=== PATIENT | male | born 1950 | race Caucasian/White ===

== ENCOUNTER → 2016-12-16 | Outpatient (CLI) | payer OTHER ==
[~2016-12-16] MED LIST: ADVIN50/60 INH; AMLO10TA2 PO; ASPI81TA28 PO; ATOR-22 PO; CLB/200 PO; META1TAB22 PO; METO-479 PO; MULT-506 PO; OMEG10007 PO; PRLSR20 PO; TRAM-10 PO; VALS160T58 PO; VALS160T60 PO; VNTHFA/IN INH; magnesium PO
== END | disposition home or self-care (01) ==
LOC: C.LAB 11:05
PROVIDERS: ATTEND Urology
DX: C61 Malignant neoplasm of prostate (principal)

== ENCOUNTER → 2017-06-01 | Outpatient (CLI) | payer OTHER ==
[~2017-06-01] MED LIST changes: -AMLO10TA2 PO; -META1TAB22 PO; -METO-479 PO; -PRLSR20 PO; -TRAM-10 PO; -VALS160T60 PO; -VNTHFA/IN INH
[2017-06-01 08:34] LABS: BASO % 0.8 %; BASO ABS # 0.04 K/uL (0-0.2); COMPLETE YES; EOS % 4.8 %; LYMPH % 27.9 %; LYMPH ABS # 1.44 K/uL (1.2-3.4); MEAN CELL VOLUME 93.2 fL (80-100); MEAN CORPUSCULAR HEMOGLOBIN 31.1 pg (25-34); MEAN CORPUSCULAR HGB CONC 33.4 g/dl (32-36); MONO % 10.9 %; NEUT % 54.6 %; PLATELET COUNT 131 K/uL (130-400); RED BLOOD COUNT 4.72 M/uL (4.7-6.1); WHITE BLOOD COUNT 5.16 K/uL (4.8-10.8)
[2017-06-01 09:03] LABS: ALT/SGPT 33 U/L (12-78); BLOOD UREA NITROGEN 14 mg/dl (7-18); BUN/CREATININE RATIO 14.4 (10-20); CALCIUM 8.9 mg/dl (8.5-10.1); CARBON DIOXIDE 28 mmol/L (21-32); CHLORIDE 105 mmol/L (98-107); CHOLESTEROL 120 mg/dl (0-200); CREATININE 0.96 mg/dl (0.60-1.40); GLUCOSE 102 mg/dl (70-99); POTASSIUM 3.9 mmol/L (3.5-5.1); SODIUM 138 mmol/L (136-145); TRIGLYCERIDES 116 mg/dl (0-150); VERY LOW DENSITY LIPOPROT CALC 23 mg/dl
[2017-06-01 09:08] LABS: ALB/GLOB RATIO 1.3 (0.9-2); ALKALINE PHOSPHATASE 59 U/L (45-117); AST/SGOT 20 U/L (15-37); CHOLESTEROL/HDL RATIO 2.5; HDL CHOLESTEROL 48 mg/dl; LDL CHOLESTEROL CALCULATED 49 mg/dl; PROSTATE SPECIFIC ANTIGEN 0.716 ng/ml (0.000-4.000)
[2017-06-01 09:27] LABS: ESTIMATED AVERAGE GLUCOSE 105 mg/dl; HA1C FLAG Normal (Normal)
== END | disposition home or self-care (01) ==
LOC: C.LAB 07:14
PROVIDERS: ATTEND Internal Medicine
DX: C61 Malignant neoplasm of prostate (principal); R39.9 Unspecified symptoms and signs involving the genitourinary system

== ENCOUNTER 2017-07-26 08:09 | Inpatient (IN) | payer OTHER ==
--- NOTE | 2017-07-03 12:05 | PAT Medication Instructions ---
Service Date Jul 03, 2017. Current Home Medication List Albuterol Hfa (Ventolin Hfa), 2 PUFFS INH Q6H Aspirin (Aspirin Ec), 81 MG PO QAM Atorvastatin (Lipitor), 1 TAB PO QAM Celecoxib (CeleBREX), 1 CAP PO QAM Fish Oil (Alton-3), 1 CAP PO QAM Fluticasone Prop/Salmeterol (Advair Diskus 500/50 60 Dose), 1 PUFFS INH BID Multivitamin (Multivitamin), 1 TAB PO QAM Omeprazole (Prilosec), 20 MG PO QAM Valsartan/Hctz (Diovan Hct 160MG/25MG), 1 TAB PO QAM [magnesium], 250 MG PO QAM Medication Instructions For Your Scheduled Surgery - Check with surgeon for instructions: Celecoxib (CeleBREX), 1 CAP PO QAM - Hold the following medications 2 weeks prior to surgery: Fish Oil (Alton-3), 1 CAP PO QAM - Hold the following medications the morning of surgery: [magnesium], 250 MG PO QAM Valsartan/Hctz (Diovan Hct 160MG/25MG), 1 TAB PO QAM Multivitamin (Multivitamin), 1 TAB PO QAM - Take the following medications the morning of surgery with a sip of water: Omeprazole (Prilosec), 20 MG PO QAM Fluticasone Prop/Salmeterol (Advair Diskus 500/50 60 Dose), 1 PUFFS INH BID Atorvastatin (Lipitor), 1 TAB PO QAM Aspirin (Aspirin Ec), 81 MG PO QAM Albuterol Hfa (Ventolin Hfa), 2 PUFFS INH Q6H (if needed) - Take the following medications as scheduled the night before surgery: Fluticasone Prop/Salmeterol (Advair Diskus 500/50 60 Dose), 1 PUFFS INH BID Albuterol Hfa (Ventolin Hfa), 2 PUFFS INH Q6H (if needed) If you have any questions please call us at [phone] or [phone] or [phone]
--- NOTE | 2017-07-03 12:37 | DIAGNOSTIC IMAGING REPORT ---
CHEST 2 VIEWS ROUTINE CLINICAL HISTORY: Preoperative chest. Cough. Left-sided chest pain. COMPARISON STUDY: 06/10/2015 FINDINGS: The heart is normal in size. There is aortic tortuosity. There is no failure. There is no focal pulmonary consolidation. There are no pleural effusions. The patient appears hyperinflated. Emphysema is suspected. There are old left-sided rib fractures.[ IMPRESSION: No active disease in the chest. Electronically signed by: Bird Whitten M.D. 07/03/2017 12:36 PM Dictated Date/Time: 07/03/2017 12:35 PM
[2017-07-03 13:30] LABS: URINE APPEARANCE CLEAR (CLEAR); URINE BILIRUBIN NEG (NEG); URINE COLOR YELLOW; URINE NITRITE NEG (NEG); URINE SPECIFIC GRAVITY 1.013 (1.000-1.030); UROBILINOGEN NEG (NEG)
[2017-07-03 13:37] LABS: MANUAL MICROSCOPIC REQUIRED? NO; REVIEW REQ? NO
[2017-07-03 14:34] VITALS: BMI 33.0
[~2017-07-26] VITALS: Ht 177.8 cm; Wt 102.0 kg
[2017-07-26] VITALS (7 sets, daily range): BP systolic 104–160; BP diastolic 62–96; PULSE 80–126; TEMP 36.3–36.8; O2SAT 96–99; Ht 177.8 cm; Wt 102.0 kg
[~2017-07-26 08:09] MED LIST changes: +ALBUMIN HUMAN 5% 12.5 GM/250 ML VIAL IV ONE; +LACTATED RINGER'S 1000ML 1,000 ML IV SCH; +PRLSR20 PO; -VALS160T58 PO; +VALS160T60 PO; +VNTHFA/IN INH
[2017-07-26] MEDS ORDERED: PROMETHAZINE HCL INJ 12.5 MG in SODIUM CHLORIDE 0.9% 50ML 50 ML IV PRN ×2 (08:15→14:45)
[2017-07-26] MEDS ORDERED: EpHEDrine SULFATE INJ 50 MG/ML AMP IV PRN (08:15)
[2017-07-26] MEDS ORDERED: PHENYLEPHRINE 100MCG/ML 5ML SYR IV PRN (08:15)
[2017-07-26] MEDS ORDERED: METOCLOPRAMIDE HCL INJ 5 MG/ML 2 ML VIAL IV PRN ×2 (08:15→14:45)
[2017-07-26] MEDS ORDERED: FENTANYL CITRATE INJ 50 MCG/1 ML 2 ML VIAL IV PRN (08:15)
[2017-07-26] MEDS ORDERED: ONDANSETRON INJ 2 MG/ML 2 ML VIAL IV PRN ×2 (08:15→14:45)
[2017-07-26] MEDS ORDERED: HYDROmorphone INJ 1 MG/ML SYR IV PRN (08:15)
[2017-07-26] MEDS ORDERED: ATROPINE SULFATE 0.1 MG/ML 5ML SYR IV PRN (08:15)
[2017-07-26] MEDS ORDERED: FENTANYL CITRATE INJ 50 MCG/1 ML 2 ML VIAL ONE ×6 (09:52→14:59)
[2017-07-26] MEDS ORDERED: MIDAZOLAM HCL 1 MG/ML 2ML VIAL ONE (09:52)
--- NOTE | 2017-07-26 09:53 | History & Physical Bridge Note ---
H&P Re-Evaluation Bridge Note: I have examined the patient, reviewed the History & Physical and in the interval since the performance of the History & Physical I have noted the following changes of clinical significance: No changes noted
--- NOTE | 2017-07-26 09:54 | History and Physical ---
History & Physical Date Jul 26, 2017. Chief Complaint Back and bilateral leg pain History of Present Illness The patient is a 66 year old male with complaints of back and bilateral leg pain Additional History Hepatic Disease: No Endocrine Disorder: No Kidney Disease: No Hypertension: No Heart Disease: No Bleeding Tendencies: No Infectious Diseases: No Allergies Coded Allergies: No Known Allergies (Unverified , 07/26/17) Home Medications Scheduled Aspirin (Aspirin Ec), 81 MG PO QAM Atorvastatin (Lipitor), 1 TAB PO QAM Celecoxib (CeleBREX), 1 CAP PO QAM Fish Oil (Thornton-3), 1 CAP PO QAM Fluticasone Prop/Salmeterol (Advair Diskus 500/50 60 Dose), 1 PUFFS INH BID Multivitamin (Multivitamin), 1 TAB PO QAM Omeprazole (Prilosec), 20 MG PO QAM Valsartan/Hctz (Diovan Hct 160MG/25MG), 1 TAB PO QAM [magnesium], 250 MG PO QAM Physical Examination Skin: warm/dry, no rash Eyes: normal inspection, EOMI, sclerae normal ENT: normal ENT inspection, pharynx normal Head: normocephalic, atraumatic Neck: supple, no adenopathy, trachea midline Respiratory/Chest: lungs clear, normal breath sounds, no respiratory distress Cardiovascular: regular rate, rhythm, no edema, no murmur Abdomen / GI: normal bowel sounds, non tender Back: normal inspection Extremities: normal inspection, normal range of motion Neurologic/Psych: no motor/sensory deficits, alert, normal reflexes, oriented x 3 Diagnosis Lumbar spinal stenosis with scoliosis Plan of Treatment L2 to S1 decompression with T12 to pelvis fusion with iliac bolts
[2017-07-26] MEDS ORDERED: BUPIVACAINE/EPINEPHRINE 0.5% MPF 1:200,000 30 ML VIAL ONE (10:20)
[2017-07-26] MEDS ORDERED: BACITRACIN 50000 UNIT VIAL ONE (10:20)
[2017-07-26] MEDS ORDERED: CEFAZOLIN SOD 2000MG/10 ML IV PUSH IV ONE (10:33)
[2017-07-26] MEDS ORDERED: THROMBIN FOR SOLN 20000 UNIT KIT ONE (10:37)
[2017-07-26] MEDS ORDERED: HYDROmorphone INJ 2 MG/ML SYR/VIAL ONE ×2 (10:58→13:42)
[2017-07-26 13:49] LABS: HEMATOCRIT 34.3 % (42-52)
[2017-07-26] MEDS ORDERED: EpHEDrine SULFATE 50MG/5ML SYR ONE (13:53)
[2017-07-26] MEDS ORDERED: LIDOCAINE HCL 2% 2 ML VIAL (20MG/ML) ONE (13:53)
[2017-07-26] MEDS ORDERED: PROPOFOL IV EMULSION 10 MG/ML 20 ML VIAL IV ONE (13:53)
[2017-07-26] MEDS ORDERED: ONDANSETRON INJ 2 MG/ML 2 ML VIAL ONE (13:53)
[2017-07-26] MEDS ORDERED: PHENYLEPHRINE 100MCG/ML 5ML SYR ONE (13:53)
[2017-07-26] MEDS ORDERED: DEXAMETHASONE SOD INJ 4 MG/ML VIAL ONE (13:53)
[2017-07-26] MEDS ORDERED: ROCURONIUM BROMIDE 10 MG/ML 5 ML VIAL IV ONE (13:53)
[2017-07-26] MEDS ORDERED: ALBUMIN HUMAN 5% 12.5 GM/250 ML VIAL IV ONE (14:08)
[2017-07-26] MEDS ORDERED: SODIUM CHLORIDE 0.9% 1000ML 1,000 ML IV SCH (14:44)
[2017-07-26] MEDS ORDERED: DO NOT ADMINISTER PNEUMOCOCCAL VACCINE PRN ×2 (14:45)
[2017-07-26] MEDS ORDERED: ACETAMINOPHEN 500 MG TAB PO PRN (14:45)
[2017-07-26] MEDS ORDERED: LORAZEPAM INJ 0.5 MG in SYRINGE 0 ML IV PRN (14:45)
[2017-07-26] MEDS ORDERED: HYDROmorphone HCL 0.5MG/ML 50 ML CASSETTE IV PRN (14:45)
[2017-07-26] MEDS ORDERED: SOD PHOSPHATE/SOD BIPHOSPHATE ENEMA 132 ML BTL PR PRN (14:45)
[2017-07-26] MEDS ORDERED: LORAZEPAM 0.5 MG TAB PO PRN (14:45)
[2017-07-26] MEDS ORDERED: CEFAZOLIN IV 2,000 MG in DEXTROSE 5% 50ML 50 ML IV SCH (14:45)
[2017-07-26] MEDS ORDERED: BISACODYL 10 MG SUPP PR PRN (14:45)
[2017-07-26] MEDS ORDERED: NALOXONE HCL 0.4 MG/1 ML VIAL/CARP IV PRN ×2 (14:45)
[2017-07-26] MEDS ORDERED: FAMOTIDINE 20 MG TAB PO PRN (14:45)
[2017-07-26] MEDS ORDERED: ALUMINUM/MAGNESIUM SUSP 30 ML UDC PO PRN (14:45)
[2017-07-26] MEDS ORDERED: DO NOT ADMINISTER FLU VACCINE PRN ×3 (14:45)
[2017-07-26] MEDS ORDERED: hydrOXYzine HCL 25 MG TAB PO PRN (14:45)
[2017-07-26] MEDS ORDERED: ACETAMINOPHEN IV 100 ML IV PRN (14:45)
[2017-07-26] MEDS ORDERED: MAGNESIUM HYDROXIDE SUSP 30 ML UDC PO PRN (14:45)
[2017-07-26] MEDS ORDERED: FLOSEAL HEMOSTATIC MATRIX 10ML TOP ONE (14:47)
[2017-07-26 14:48] LABS: HEMATOCRIT 31.2 % (42-52)
--- NOTE | 2017-07-26 14:51 | [facility] Operative Report ---
Operative Report Operative Date Jul 26, 2017. Pre-Operative Diagnosis Lumbar spinal stenosis with scoliosis Post-Operative Diagnosis Lumbar spinal stenosis with scoliosis Procedure(s) Performed #1 lumbar decompression medial facetectomies foraminotomies L2 3 L3 4 L4 5 L5-S1. #2 posterior spinal fusion T12 to S1. #3 bilateral SI joint fusions. #4 placement posterior segmental instrumentation T12 to S1 with bilateral iliac bolts. #5 placement of locally harvested morcellized autograft in the posterior lateral gutters. #6 placement infuse collagen sponge combined with Master graft in the posterior lateral gutters and bilateral SI joints. Surgeon Dr. Dunn Distribution Collection Operator Surgeon(s) Sorin Rausch PA-C Findings Severe spinal stenosis with scoliosis Specimens none per surgeon Description of Procedure Patient was met with preoperatively case discussed all questions addressed. After informed consent was obtained patient was taken to the operative suite underwent intubation placed in a prone position the Mo table on top Seth frame. All bony prominences well-padded eyes inspected to ensure no external pressure placed upon them. This point the thoracal lumbar spine was prepped and draped in the normal sterile fashion. Sharp dissection with the assistance of Bovie cautery was performed onto an exposing the lamina and transverse processes of T12 L1 L2 L3 L4 L5 and sacral alar bilaterally. From a caudal to cephalad fashion complete laminectomy of L5 L4 L3 and L2 was performed addressing severe lateral recess and foraminal stenosis. After this complete pedicle screws were placed in T12 L1 L2 L3-L4 L5-S1 levels as well as bilateral iliac bolts. Purposes rods were then cut contoured and locked into position bilaterally. Transverse processes of T12 L1 L2 L3 L4 L5 sacral [place] as well as the bilateral SI joints were burred to subcortical bleeding bone. Infuse calm sponge mask graft locally harvested morcellized autograft was placed. Cross- link was locked in position. 15 round PIPO drain inserted. Incision was then closed with 1 Vicryl fascia 2-0 Vicryl subcutaneous tediously 4 Monocryl for final skin closure Steri-Strips sterile dressings placed. Patient we can take PACU stable condition. Please note Boo Rausch was present at the entire procedure involved in patient positioning complex portions of the surgery and final skin closure. I attest to the content of the Intraoperative Record and any orders documented therein. Any exceptions are noted below.
--- NOTE | 2017-07-26 15:11 | DIAGNOSTIC IMAGING REPORT ---
LUMBAR SPINE 2 OR 3 VIEW CLINICAL HISTORY: [id number] DECOMPRESSION/FUSION/BOLTS COMPARISON STUDY: Lumbar spine MRI November 30, 2013. Fluoroscopy time: 44.1 seconds. FINDINGS: These images demonstrate pedicle screw fusion from T12 through S1. There are bilateral pleural screws at each level with the exception of a left screw only at the L2 level. Bilateral sacroiliac bolts are in place. There are interconnecting rods. Hardware is intact. IMPRESSION: Fluoroscopic images demonstrating a T12-S1 pedicle screw fusion with placement of iliac bolts. Electronically signed by: Baltazar Oliver M.D. 07/26/2017 3:10 PM Dictated Date/Time: 07/26/2017 2:46 PM
[2017-07-26] MEDS ORDERED: HYDROmorphone HCL 0.5MG/ML 50 ML CASSETTE ONE (15:22)
--- NOTE | 2017-07-26 16:19 | Anesthesiology Progress Note ---
Anesthesia Post Op Note Date & Time Jul 26, 2017 at 16:19 Vital Signs Pain Intensity: 4 Vital Signs Past 12 Hours Date Time Temp Pulse Resp B/P (MAP) Pulse Ox O2 Delivery O2 Flow Rate FiO2 07/26/17 16:05 110 16 112/89 100 Nasal Cannula 4 07/26/17 15:55 106 16 130/88 100 Nasal Cannula 4 07/26/17 15:45 110 16 118/86 100 Oxymask 10 07/26/17 15:35 106 16 135/94 100 Oxymask 10 07/26/17 15:26 36.5 94 16 138/97 97 Oxymask 10 07/26/17 08:30 36.5 80 20 160/96 98 Room Air Notes Mental Status: alert / awake / arousable, participated in evaluation Pt Amnestic to Procedure: Yes Nausea / Vomiting: adequately controlled Pain: adequately controlled Airway Patency, RR, SpO2: stable & adequate BP & HR: stable & adequate Hydration State: stable & adequate Anesthetic Complications: no major complications apparent
[2017-07-26] MEDS ORDERED: LORAZEPAM 2 MG/ML 1 ML VIAL IV PRN (16:45)
[2017-07-26] MEDS: CEFAZOLIN IV 2,000 MG in SYRINGE 0 ML IV SCH (17:56)
[2017-07-26] MEDS: SODIUM CHLORIDE 0.9% 1000ML 1,000 ML IV SCH ×2 (17:58→21:08)
[2017-07-26] MEDS: DEXAMETHASONE INJ 6 MG in SYRINGE 0 ML IV SCH (21:05)
[2017-07-26] MEDS: FLUTICASONE/SALMETEROL (ADVAIR) 500/50 INH 14 PUFF INH SCH (21:05)
[2017-07-26] MEDS: DOCUSATE SODIUM/SENNA 50/8.6MG TAB PO SCH (21:06)
[2017-07-27] VITALS (8 sets, daily range): BP systolic 96–128; BP diastolic 59–77; PULSE 81–92; TEMP 36.6–37.2; O2SAT 90–98
[2017-07-27] MEDS: CEFAZOLIN IV 2,000 MG in SYRINGE 0 ML IV SCH (02:11)
[2017-07-27] MEDS: SODIUM CHLORIDE 0.9% 1000ML 1,000 ML IV SCH ×2 (03:35→08:56)
[2017-07-27] MEDS ORDERED: DC PCA SCH (06:00)
[2017-07-27] MEDS ORDERED: HYDROmorphone INJ 0.5 MG/0.5 ML SYR IV PRN (06:00)
[2017-07-27] MEDS: DEXAMETHASONE INJ 6 MG in SYRINGE 0 ML IV SCH ×2 (06:07→13:51)
[2017-07-27 06:52] LABS: HEMATOCRIT 24.4 % (42-52); IG% 0.7 %; LYMPH % 6.7 %; LYMPH ABS # 0.83 K/uL (1.2-3.4); MEAN CELL VOLUME 92.4 fL (80-100); MEAN CORPUSCULAR HEMOGLOBIN 31.8 pg (25-34); MEAN CORPUSCULAR HGB CONC 34.4 g/dl (32-36); MEAN PLATELET VOLUME 8.8 fL (7.4-10.4); MONO % 5.3 %; NEUT % 87.3 %; PLATELET COUNT 137 K/uL (130-400); RED BLOOD COUNT 2.64 M/uL (4.7-6.1); WHITE BLOOD COUNT 12.41 K/uL (4.8-10.8)
[2017-07-27 07:10] LABS: BUN/CREATININE RATIO 12.6 (10-20); CALCIUM 7.5 mg/dl (8.5-10.1); CREATININE 0.84 mg/dl (0.60-1.40); POTASSIUM 4.4 mmol/L (3.5-5.1)
[2017-07-27] MEDS: HYDROmorphone INJ 1 MG/ML SYR IV PRN ×2 (07:31→10:24)
[2017-07-27 07:40] LABS: COMPLETE YES
[2017-07-27] MEDS: PANTOprazole SOD 40 MG TAB PO SCH (08:50)
[2017-07-27] MEDS: HYDROCHLOROTHIAZIDE 25 MG TAB PO SCH (08:50)
[2017-07-27] MEDS: FLUTICASONE/SALMETEROL (ADVAIR) 500/50 INH 14 PUFF INH SCH ×2 (08:50→20:36)
[2017-07-27] MEDS: VALSARTAN 80 MG TAB PO SCH (08:51)
[2017-07-27] MEDS: ASPIRIN 81 MG ECTAB PO SCH (08:51)
[2017-07-27] MEDS: ATORVASTATIN 20 MG TAB PO SCH (08:51)
[2017-07-27] MEDS ORDERED: VALSARTAN/HCTZ 80/12.5 MG TAB PO SCH (09:00)
--- NOTE | 2017-07-27 11:00 | Progress Note ---
Progress Note Date of Service Jul 27, 2017. Progress Note Patient's back pain is controlled. His leg symptoms are improved. He tolerated physical therapy well this morning. Vital signs are stable hemoglobin 8.4. On exam is good strength testing is sitting upright alert and oriented. Assessment status post lumbar decompression fusion per plan this time we will transfer the orthopedic floor continue physical therapy advance his bowel regiment. We'll assess a.m. hematocrit consider transfusion below 8.
[2017-07-27] MEDS: OXYCODONE HCL IR 5 MG TAB (IMMEDIATE RELEASE) PO PRN ×2 (13:51→18:58)
[2017-07-27] MEDS ORDERED: NURSING VERBAL MED ORDER ONE (14:00)
[2017-07-27] MEDS: DOCUSATE SODIUM/SENNA 50/8.6MG TAB PO SCH (20:36)
[2017-07-28] VITALS (15 sets, daily range): BP systolic 101–146; BP diastolic 63–88; PULSE 78–97; TEMP 36.7–36.9; O2SAT 94–100
[2017-07-28] MEDS: OXYCODONE HCL IR 5 MG TAB (IMMEDIATE RELEASE) PO PRN ×4 (00:02→21:37)
[2017-07-28] MEDS: POLYETHYLENE (MIRALAX) 17 GM PACK PO SCH ×4 (05:46→23:19)
[2017-07-28 06:56] LABS: HEMATOCRIT 21.5 % (42-52)
[2017-07-28] MEDS: ASPIRIN 81 MG ECTAB PO SCH (08:24)
[2017-07-28] MEDS: PANTOprazole SOD 40 MG TAB PO SCH (08:24)
[2017-07-28] MEDS: ATORVASTATIN 20 MG TAB PO SCH (08:24)
[2017-07-28] MEDS: FLUTICASONE/SALMETEROL (ADVAIR) 500/50 INH 14 PUFF INH SCH ×2 (08:24→21:00)
[2017-07-28] MEDS: VALSARTAN 80 MG TAB PO SCH ×2 (08:27→12:19)
[2017-07-28] MEDS: HYDROCHLOROTHIAZIDE 25 MG TAB PO SCH ×2 (08:28→12:19)
[2017-07-28] MEDS: DOCUSATE SODIUM/SENNA 50/8.6MG TAB PO SCH (21:28)
[2017-07-29] MEDS ORDERED: NURSING DECISION MEDICATION ORDER SCH (04:30)
[2017-07-29 06:14] LABS: HEMATOCRIT 26.3 % (42-52)
[2017-07-29 06:32] VITALS: BP 131/78; PULSE 85; TEMP 37.1; O2SAT 95
[2017-07-29] MEDS: VALSARTAN 80 MG TAB PO SCH (07:14)
[2017-07-29] MEDS: PANTOprazole SOD 40 MG TAB PO SCH (07:14)
[2017-07-29] MEDS: HYDROCHLOROTHIAZIDE 25 MG TAB PO SCH (07:14)
[2017-07-29] MEDS: ASPIRIN 81 MG ECTAB PO SCH (07:15)
[2017-07-29] MEDS: ATORVASTATIN 20 MG TAB PO SCH (07:15)
[2017-07-29] MEDS: FLUTICASONE/SALMETEROL (ADVAIR) 500/50 INH 14 PUFF INH SCH ×2 (07:17→21:00)
[2017-07-29] MEDS: OXYCODONE HCL IR 5 MG TAB (IMMEDIATE RELEASE) PO PRN ×3 (07:19→19:18)
--- NOTE | 2017-07-29 07:44 | Anesthesiology Progress Note ---
Anesthesia Post Op Note Date & Time Jul 29, 2017 at 07:44 Vital Signs Vital Signs Past 12 Hours Date Time Temp Pulse Resp B/P (MAP) Pulse Ox O2 Delivery O2 Flow Rate FiO2 07/29/17 06:32 37.1 85 18 131/78 (95) 95 Room Air 07/28/17 23:33 36.9 82 16 146/85 (105) 99 Room Air 07/28/17 21:49 Room Air Notes Mental Status: alert / awake / arousable, participated in evaluation Pt Amnestic to Procedure: Yes Nausea / Vomiting: adequately controlled Pain: adequately controlled Airway Patency, RR, SpO2: stable & adequate BP & HR: stable & adequate Hydration State: stable & adequate Anesthetic Complications: no major complications apparent
--- NOTE | 2017-07-29 13:23 | Progress Note ---
Progress Note Date of Service Jul 29, 2017. Progress Note Patient's back pain is controlled today. Leg pain improved. A bowel movement yesterday. Tolerating physical therapy well. Vital signs are stable. PIPO drain still over 100 mL. Assessment status post multilevel lumbar decompression fusion. Plan at this time will maintain the PIPO drain another day anticipate discharge home tomorrow.
[2017-07-29] MEDS ORDERED: RXC5 PO (15:00)
--- NOTE | 2017-07-29 15:01 | Discharge Instructions ---
Discharge Instructions Date of Service Jul 29, 2017. Admission Reason for Admission: Spinal Stenosis Discharge Discharge Diagnosis / Problem: lumbar spinal stenosis Discharge Goals Goal(s): Improve function Activity Recommendations Activity Limitations: per Instructions/Follow-up section . Instructions / Follow-Up Instructions / Follow-Up ACTIVITY RECOMMENDATIONS: SELF CARE INSTRUCTIONS AFTER THORACIC/LUMBAR FUSIONS 1. You may walk to your tolerance. It is good exercise for your legs and back. Expect some back and intermittent leg aches and pains. 2. You may perform "counter-top" level activities (make a sandwich, paulo with a project, etc.). 3. No bending or lifting of more than 10 pounds or back twisting of any nature (roll like a log when turning in bed). 4. You may ride in a car for 20-30 minutes at a time. No driving until after your first visit with your doctor. 5. Frequent changes of position and restricting sitting to 30 minutes at a time will help limit the amount of back spasms and stiffness you may experience. 6. You may discontinue the use of ambulatory aids (cane, crutches, etc.) once your strength and confidence allow. 7. You may compressor station chief engineer the shower and let water strike your incision when you arrive home at least once daily. Do not take a tub bath, sit in a hot tub or go into a swimming pool until after your first recheck in the office. SPECIAL CARE INSTRUCTIONS: VERY IMPORTANT TO READ AND REVIEW A. Your surgical incision has been closed with a cosmetic suture under the skin that will dissolve in about 6 weeks. In 14 days, you can use a pair of clean scissors and cut the suture that is left outside of the skin at the ends of your incision. 1. The small skin tapes can be removed 7 days after surgery if they have not fallen off by that point. 2. You may keep the wound open to air as much as possible to promote healing after post-op day number 5 unless told otherwise by your doctor. 3. If you think the wound looks like it is becoming infected (redness or worsening drainage) and/or you are experiencing fever, chill or worsening back pain and muscle spasms, contact the office so that we may evaluate you as soon as possible. B. Complications are uncommon, but please contact us if you have any signs or symptoms of: 1. wound infection (fever higher than 102.5 degrees F, redness, separation of wound, drainage, or increasing pain from the incision) 2. blood clots in legs (pain, swelling, redness and warmth in legs) 3. urinary tract infection (fever higher than 102.5 degrees F, burning upon urination or increased frequency of urination) 4. nerve problems (inability to walk on your toes or heels, numbness, loss of bowel or bladder control) 5. any other symptoms that concern you C. Please call the office at if you have any concerns or questions about your operation or recovery. D. No smoking! Smoking drastically decreases the chance of a solid fusion. E. Do not take any anti-inflammatory medications (Indocin, Advil, Motrin, Aspirin, Naprosyn, etc.) as these may inhibit the chance of a solid fusion. Tylenol is okay to take for pain. MANAGING PAIN AFTER SPINAL SURGERY 1. Narcotic medication is intended for short-term use and will be provided for surgical pain. Surgical pain usually lasts for a period of 4-6 weeks. Narcotic medication includes Percocet, Vicodin, Darvocet, Tylenol #3 or Lortab. 2. Longer-term pain is more appropriately treated with non-narcotic medication such as Tylenol ES. 3. Muscle spasm is not appropriately treated with narcotics. Muscle relaxers such as Soma, Flexeril or Skelaxin can be used along with Tylenol ES. 4. Remember that we all live with some "aches and pains". This is not unusual or uncommon after an injury or as we get older. a. Back pain is expected and may include muscle spasms for 4 to 6 weeks after surgery. The pain should gradually improve. If the pain worsens for no apparent reason, please contact the office. b. Intermittent leg pain may also be experienced and should not be concerned about unless it worsens for no apparent reason. If so, please contact the office. 5. We will provide appropriate medication within the normal guidelines of their prescribed use. We will also be very cautious and aware of potential abuse and extended duration of patients' medication needs. a. Pain medications are for your comfort and to assist with sleep and rest so that the tissue can heal. They are not provided in order to return to normal activity and should not be used through the day. To do so or worsening pain at night can result from ongoing tissue damage and development of tolerance to the prescribed medicine. 6. Please allow 2-3 days to process refills. Prescriptions will not be mailed but must be picked up at the office. FOLLOW UP VISIT: Keep your scheduled follow-up appointment. Any questions, please call the office at . Current Hospital Diet Patient's current hospital diet: Regular Diet Discharge Diet Recommended Diet: Regular Diet Procedures Procedures Performed: #1 lumbar decompression medial facetectomies foraminotomies L2 3 L3 4 L4 5 L5-S1. #2 posterior spinal fusion T12 to S1. #3 bilateral SI joint fusions. #4 placement posterior segmental instrumentation T12 to S1 with bilateral iliac bolts. #5 placement of locally harvested morcellized autograft in the posterior lateral gutters. #6 placement infuse collagen sponge combined with Master graft in the posterior lateral gutters and bilateral SI joints. Pending Studies Studies pending at discharge: no Laboratory Results Hemoglobin A1c Test 06/01/17 07:19 Range/Units Estimated Average Glucose 105 mg/dl Hemoglobin A1c 5.3 4.5-5.6 % Lipid Panel Test 06/01/17 07:19 Range/Units Triglycerides Level 116 0-150 mg/dl Cholesterol Level 120 0-200 mg/dl HDL Cholesterol 48 mg/dl Cholesterol/HDL Ratio 2.5 LDL Cholesterol, Calculated 49 mg/dl Medical Emergencies . Who to Call and When: Medical Emergencies: If at any time you feel your situation is an emergency, please call 911 immediately. . Non-Emergent Contact Non-Emergency issues call your: Primary Care Provider . "Provider Documentation" section prepared by Ga Dunn. . VTE Core Measure Inpt VTE Proph given/why not?: Camila Asher, SCD's
[2017-07-29 15:10] VITALS: BP 157/83; PULSE 84; TEMP 37; O2SAT 95
[2017-07-29] MEDS: DOCUSATE SODIUM/SENNA 50/8.6MG TAB PO SCH (21:00)
[2017-07-29 23:02] VITALS: BP 129/77; PULSE 92; TEMP 37.7; O2SAT 92
[2017-07-30] MEDS: OXYCODONE HCL IR 5 MG TAB (IMMEDIATE RELEASE) PO PRN ×2 (06:40→14:22)
[2017-07-30 07:21] VITALS: BP 98/63; PULSE 84; TEMP 36.8; O2SAT 95
[2017-07-30] MEDS: FLUTICASONE/SALMETEROL (ADVAIR) 500/50 INH 14 PUFF INH SCH (07:38)
[2017-07-30] MEDS: PANTOprazole SOD 40 MG TAB PO SCH (07:38)
[2017-07-30] MEDS: ATORVASTATIN 20 MG TAB PO SCH (07:38)
[2017-07-30] MEDS: ASPIRIN 81 MG ECTAB PO SCH (07:38)
[2017-07-30] MEDS: VALSARTAN 80 MG TAB PO SCH (07:39)
[2017-07-30 07:40] VITALS: BP 111/72
[2017-07-30] MEDS: HYDROCHLOROTHIAZIDE 25 MG TAB PO SCH (07:43)
--- NOTE | 2017-07-30 12:35 | Discharge Summary ---
Orthopedic Discharge Summary Admission Date/Reason Jul 26, 2017 at 15:43 Spinal Stenosis. Discharge Date/Disposition Jul 30, 2017 Home Diagnosis Principal Diagnosis: Lumbar spinal stenosis Admission Physical Exam As per Admitting History & Physical. Hospital Course Patient underwent lumbar decompression fusion tolerated this well as taken to the orthopedic floor postoperatively. Postoperative day #1 is up and amatory progressed nicely through postoperative day #2 and 3 and centrally discharged home postop day #4. Discharge orders and instructions found the chart for further review. Discharge Instructions Please refer to the electronic Patient Visit Report (Discharge Instructions) for additional information.
[2017-07-30 13:33] VITALS: BP 111/72; PULSE 84; TEMP 36.8; O2SAT 95
[2017-07-30 14:19] VITALS: TEMP 36.8
== END 2017-07-30 15:20 | disposition home or self-care (01) | DRG 460 ==
LOC: C.ACU 08:09 → C.2E 15:43 → ENRESERV 15:58 → C.3E 07-27 10:58 → ENRESERV 07-27 11:24
PROVIDERS: ADMIT Orthopaedic Surgery Orthopaedic Surgery of the Spine; ATTEND Orthopaedic Surgery Orthopaedic Surgery of the Spine
PROC: 0SG10AJ Fusion of 2 or more Lumbar Vertebral Joints with Interbody Fusion Device, Posterior Approach, Anterior Column, Open Approach (ICD-10-PCS; principal; 2017-07-26 10:15)
DX: M48.061 Spinal stenosis, lumbar region without neurogenic claudication (principal); M41.9 Scoliosis, unspecified; Z79.82 Long term (current) use of aspirin

== ENCOUNTER → 2017-10-08 | Outpatient (CLI) | payer OTHER ==
[~2017-10-08] MED LIST changes: -ALBUMIN HUMAN 5% 12.5 GM/250 ML VIAL IV ONE; -CLB/200 PO; -LACTATED RINGER'S 1000ML 1,000 ML IV SCH; +RXC5 PO; -VNTHFA/IN INH
[2017-10-08 13:35] LABS: BLOOD UREA NITROGEN 13 mg/dl (7-18); CALCIUM 9.4 mg/dl (8.5-10.1); CARBON DIOXIDE 27 mmol/L (21-32); GLUCOSE 111 mg/dl (70-99); SODIUM 131 mmol/L (136-145)
== END | disposition home or self-care (01) ==
LOC: C.LABBC 10:41
PROVIDERS: ATTEND Family Medicine Adult Medicine
DX: D50.9 Iron deficiency anemia, unspecified (principal); R00.2 Palpitations

== ENCOUNTER 2020-06-03 07:47 | Inpatient (IN) ==
--- NOTE | 2020-04-20 16:15 | PAT Medication Instructions ---
Medication Instructions Date of Service April 20, 2020 Home Medications Medication Instructions Recorded Flutter Valve #1 ea 06/17/19 gabapentin 100 mg capsule 100 mg PO .COMPLEX #240 cap 01/29/20 Oxygen Home #1 ea 03/29/20 albuterol sulfate 90 mcg/actuation 2 puff INH Q4H PRN #18 g 03/29/20 aerosol inhaler Oxygen Home #1 ea 04/11/20 aspirin 81 mg tablet,delayed release 81 mg PO QAM magnesium 250 mg tablet 250 mg PO QAM multivitamin 1 tab PO QAM omega-3 fatty acids 1,000 mg capsule 1,000 mg PO QAM omeprazole 20 mg capsule,delayed release 20 mg PO QAM gabapentin 100 mg capsule 100 mg PO TID .COMPLEX albuterol sulfate 90 mcg/actuation aerosol inhaler 2 puff INH Q4H PRN albuterol sulfate 2.5 mg INHALATION BID atorvastatin 20 mg PO QAM [id number] [Trelegy Ellipta] 1 puffs INH QAM telmisartan-hydrochlorothiazid 1 tab PO QAM STOP taking 2 weeks before surgery omega-3 fatty acids 1,000 mg capsule 1,000 mg PO QAM DO NOT take the morning of surgery magnesium 250 mg tablet 250 mg PO QAM multivitamin 1 tab PO QAM telmisartan-hydrochlorothiazid 1 tab PO QAM Take morning of surgery With a small sip of water, OTHERWISE NOTHING TO EAT OR DRINK AFTER MIDNIGHT: aspirin 81 mg tablet,delayed release 81 mg PO QAM omeprazole 20 mg capsule,delayed release 20 mg PO QAM gabapentin 100 mg capsule 100 mg PO TID .COMPLEX albuterol sulfate 90 mcg/actuation aerosol inhaler 2 puff INH Q4H PRN (if needed) albuterol sulfate 2.5 mg INHALATION BID atorvastatin 20 mg PO QAM [id number] [Trelegy Ellipta] 1 puffs INH QAM Take evening before surgery gabapentin 100 mg capsule 100 mg PO TID .COMPLEX albuterol sulfate 90 mcg/actuation aerosol inhaler 2 puff INH Q4H PRN (if needed) albuterol sulfate 2.5 mg INHALATION BID Other Notes If you have any questions please call us at [phone] or [phone] or [phone] or [phone]
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
--- NOTE | 2020-04-22 10:58 | XRay Report ---
XR chest Pre-admission PA/Lat HISTORY: 69 years-old Male pat preoperative exam. No acute chest complaints COMPARISON: CT chest 03/08/2020 TECHNIQUE: PA and lateral views of the chest FINDINGS: Cardiac mediastinal and hilar silhouettes are within normal limits. Moderate emphysema with chronic i nterstitial coarsening. No pneumothorax, pleural effusion, airspace consolidation or overt pulmonary edema. Degenerative changes of the shoulders and spine. Partially imaged thoracolumbar spinal fusion hardware. IMPRESSION: Emphysema without acute process. ACT 112: Negative or not required by law. The above report was generated using voice recognition software. It may contain grammatical, syntax o r spelling errors. Electronically signed by: Lino Berger M.D. 04/22/2020 10:56 AM
[2020-04-22 11:44] LABS: Basophils # (auto) 0.03 K/uL (0-0.2); Basophils % (auto) 0.6 %; Eosinophils # (auto) 0.15 K/uL (0-0.5); Eosinophils % (auto) 2.9 %; Hematocrit (blood only) 43.9 % (42-52); Hemoglobin 14.7 g/dL (14.0-18.0); Immature Granulocytes # (auto) 0.03 K/uL (0.00-0.02); Immature Granulocytes % (auto) 0.6 %; Lymphocytes # (auto) 1.24 K/uL (1.2-3.4); Lymphocytes % (auto) 24.2 %; Mean Corpuscular Hemoglobin 30.4 pg (25-34); Mean Corpuscular Hgb Conc 33.5 g/dL (32-36); Mean Corpuscular Volume 90.9 fL (80-100); Mean Platelet Volume 9.6 fL (7.4-10.4); Monocytes # (auto) 0.42 K/uL (0.11-0.59); Monocytes % (auto) 8.2 %; Neutrophils # (auto) 3.26 K/uL (1.4-6.5); Neutrophils % (auto) 63.5 %; Platelet Count 149 K/uL (130-400); RDW Standard Deviation 43.1 fL (36.4-46.3); Red Blood Count 4.83 M/uL (4.7-6.1); White Blood Count 5.13 K/uL (4.8-10.8)
[2020-04-22 11:54] LABS: BUN Creatinine Ratio 13.4 (10-20); Calcium 8.9 mg/dl (8.5-10.1); Creatinine Clr Calc Pharmacy 97.9 ml/min; Est GFR (African American) 101.6; Est GFR (Non-African American) 87.6; Potassium 4.3 mmol/L (3.5-5.1)
[2020-04-22 11:56] LABS: INR 1.1 (0.9-1.1); Partial Thromboplastin Ratio 1.1; Partial Thromboplastin Time 30.5 Seconds (21.0-31.0); Prothrombin Time 11.2 Seconds (9.0-12.0)
--- NOTE | 2020-04-22 12:49 | Electrocardiogram Report ---
Test Reason : Blood Pressure : / mmHG Vent. Rate : 068 BPM Atrial Rate : 068 BPM P-R Int : 180 ms QRS Dur : 100 ms QT Int : 394 ms P-R-T Axes : 069 049 064 degrees QTc Int : 418 ms Normal sinus rhythm Normal ECG When compared with ECG of 03-JUL-2017 12:13, No significant change was found Confirmed by Arsenio Whipple ([id number]) on 04/22/2020 12:48:45 PM Referred By: Faizan Hernández Confirmed By:Gentry Whipple
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
[~2020-06-03 07:47] MED LIST changes: +ACETAMINOPHEN 500 MG TAB PO SCH; -ADVIN50/60 INH; -ASPI81TA28 PO; -ATOR-22 PO; +BUPIVACAINE 0.5 % 5 MG/1 ML PF 10ML VIAL ONE; +FAMOTIDINE 20 MG TAB PO SCH; +GABAPENTIN 300 MG CAP PO SCH; +LR 15ML/HR IV SCH; +LR 60ML/HR IV SCH; -MULT-506 PO; -OMEG10007 PO; -PRLSR20 PO; +ROPIVACAINE 0.5% HCL/PF 150 MG, BUPIVACAINE 0.5% MPF 30 ML, EPINEPHrine 30MG/30ML (OR U... INSTIL SCH; -RXC5 PO; +TRANEXAMIC ACID 1,000 MG **IV Intra-op IV SCH; +TRANEXAMIC ACID 1,000 MG **IV Pre-op IV SCH; -VALS160T60 PO; +ceFAZolin 2000MG 2,000 MG/15 ML SYR IV SCH; +dexAMETHasone 4 MG TAB PO SCH; -magnesium PO
--- NOTE | 2020-06-03 08:36 | History & Physical Bridge Note ---
Date of Service June 03, 2020 History & Physical Bridge Note I have examined the patient, reviewed the History & Physical and in the interval since the performance of the History & Physical I have noted the following changes of clinical significance: no changes noted
[2020-06-03] MEDS ORDERED: ORTHO JOINT ANESTHETIC ONE (08:59)
[2020-06-03] MEDS ORDERED: BUPIVACAINE/EPINEPHRINE 0.25% 1:200,000 30 ML VIAL ONE (09:01)
[2020-06-03] MEDS ORDERED: ROCURONIUM BROMIDE 10 MG/ML 5 ML VIAL IV ONE (09:03)
[2020-06-03] MEDS ORDERED: DEXAMETHASONE SOD INJ 4 MG/ML VIAL ONE (09:03)
[2020-06-03] MEDS ORDERED: PROPOFOL IV EMULSION 10 MG/ML 20 ML VIAL IV ONE (09:03)
[2020-06-03] MEDS ORDERED: MIDAZOLAM HCL 1 MG/ML 2ML VIAL ONE (09:03)
[2020-06-03] MEDS ORDERED: SUCCINYLCHOLINE CHLORIDE 20 MG/ML 10 ML VIAL IV ONE (09:03)
[2020-06-03] MEDS ORDERED: LIDOCAINE HCL 2% 2 ML VIAL/AMP(20MG/ML) INFIL ONE (09:03)
[2020-06-03] MEDS ORDERED: ONDANSETRON INJ 2 MG/ML 2 ML VIAL ONE (09:03)
--- NOTE | 2020-06-03 11:18 | Operative Report ---
PG Post Operative Report Pre & Post Diagnosis Operation Date: 06/03/20 10:00 Pre-Op Diagnosis: Right Shoulder Degenerative Joint Disease with tendinopathy of the long head of biceps tendon Post-Op Diagnosis: Right Shoulder Degenerative Joint Disease with tendinopathy of the long head of the biceps tendon I identified the patient and participated in the time-out.: Yes Procedure Operation Date: 06/03/20 10:00 Actual Procedures p Right Total Shoulder Arthroplasty, Cemented with open biceps tenodesis as a distinct and separate procedure (modifier 59) (Right) - Faizan Hernández DO Surgeon Faizan Hernández DO Sales Attendant [employer] Faizan Gonzalez PAC Estimated Blood Loss 300 Findings Consistent with Post-Op Diagnosis Specimens Right humeral head Complications none Disposition Disposition: Recovery Room Indications Tyrell is a pleasant 69-year-old male who is been dealing with chronic right shoulder pain. X-rays and clinical examination were diagnostic for advanced osteoarthritis of the right shoulder. After failing conservative treatment, he elected to proceed with a right total shoulder arthroplasty. Description of Procedure A CPT code modifier 59: The long head of the biceps tendon was enlarged and inflamed consistent with tendinopathy. A tenodesis was opted. This was a separate and distinct portion of the procedure. For these reasons, a CPT code modifier 59 will be added to this case. Implants used: I used a [employer] Comprehensive total shoulder arthroplasty system with a size 15 press fit micro humeral stem, a size 50 x 21 eccentric humeral head, and a size 4 glenoid with a trabecular metal peg. The glenoid was cemented in place with Palacos G cement. Tyrell arrived at [facility] for the above procedure. He was seen in the preoperative holding area and the operative extremity was identified and signed. He was given a preoperative antibiotic, TXA, and an interscalene nerve block. He was taken back to the operating room, laid on table in supine position, and put under general anesthesia. He was then put into the beachchair position. The shoulder was then prepped and draped in sterile fashion. A timeout was done and the patient and the operative extremity was properly identified. A deltopectoral approach was used. Dissection was taken down through the fascia and the deltoid was retracted laterally and the conjoined tendon was retracted medially. The anterior shoulder was exposed. The biceps groove was opened up and the biceps tendon was examined extensively. The biceps tendon demonstrated enlargement and inflammatory changes consistent with longstanding inflammation in the context of osteoarthritis. The long head of the biceps tendon was then tenodesed to the upper border of the pectoralis major. This was a separate and distinct portion of the procedure. The subscapularis was then released off the lesser tuberosity with a centimeter of cuff tissue remaining. The inferior capsule was released and the humeral head was dislocated. The rotator cuff was inspected and intact. A canal finding reamer was sent down the center of the humeral canal. Sequential reaming up to a size 15 reamer was done. Offset reamer a proximal humeral resection guide was placed. The proximal humerus was resected at 135 of inclination and 30 of retroversion. Inferior osteophytes were then removed and the glenoid was exposed. Time was spent doing an appropriate labral release. The glenoid measured to be a size 4. A 3.2 mm Steinmann pin was placed in the central hole of the glenoid vault pin guide. The glenoid was then reamed with a propeller reamer. The central post cutter was then used to prepare for the central boss. The cannulated peripheral peg drill guide was then placed and 3 peg holes were drilled. The final size 4 glenoid was then cemented in place with Palacos G cement. Surrounding soft tissues were then injected with 100 cc of an orthopedic pain control cocktail. Once cement had dried the proximal humerus was once again exposed. Sequential broaching of the humerus up to a size 15 broach was done. Off that broach a size 50 x 21 eccentric humeral head was trialed. The shoulder was then reduced, brought through a full range of motion, and felt to be stable. The shoulder was then dislocated and the broach was removed. The final size 15 micro humeral stem implant was then impacted into place. A size 50 x 21 eccentric humeral head was then impacted onto the humeral stem. The shoulder was then reduced and once again brought through a full range of motion and felt to be stable. The subscapularis was then tenodesed back to the lesser tuberosity with transosseous FiberWire sutures and side to side sutures with the arm in 45 of external rotation. 2 sutures were placed in the lateral rotator interval. A dilute betadyne lavage was then done for 3 minutes. The joint was then irrigated with normal saline solution. Hemostasis was obtained. The interval was closed with 2-0 Vicryl suture. The skin was closed with 2-0 Vicryl and ryan. A Silverlon dressing was placed and the arm was rested in a regular arm sling. He was then extubated and transferred to a hospital bed. He was taken to the postanesthesia care unit in stable condition. He tolerated the procedure well. Faizan Gonzalez PA-C, was present for the entire procedure. He was critical for patient positioning, prepping, draping, retraction exposure, wound closure and application of sterile dressing. I attest to the content of the Intraoperative Record and any orders documented therein. Any exceptions are noted below.
--- NOTE | 2020-06-03 12:16 | XRay Report ---
XR shoulder RT min 2V routine CLINICAL HISTORY: Post shoulder surgery COMPARISON: CT scan dated 04/22/2020 DISCUSSION: There are postsurgical changes of a total right shoulder arthroplasty. There is no disloc ation. There are overlying skin ryan. IMPRESSION: Postsurgical changes of a total right shoulder arthroplasty ACT 112: Negative or not required by law. Electronically signed by: Bird Whitten M.D. 06/03/2020 12:14 PM
[2020-06-03] MEDS ORDERED: ATROPINE SULFATE 0.1 MG/ML 10ML SYR IV PRN (12:33)
[2020-06-03] MEDS ORDERED: ePHEDrine sulfate 50 MG/ML AMP IV PRN (12:33)
[2020-06-03] MEDS ORDERED: fentaNYL citrate 100 MCG/2 ML VIAL IV PRN (12:33)
--- NOTE | 2020-06-03 12:34 | Anesthesiology Progress Note ---
Date of Service June 03, 2020 Anesthesia Post Procedure Vital Signs Vital Signs: Temp Pulse Pulse Resp BP Pulse Ox 06/03/20 12:30 36.3 C L 76 22 127/84 96 06/03/20 12:20 80 24 133/87 93 06/03/20 12:10 84 19 138/90 98 06/03/20 12:00 85 21 149/90 H 95 06/03/20 11:50 76 19 152/93 H 93 06/03/20 11:44 36.3 C L 82 15 156/89 H 94 06/03/20 08:36 37.1 C 90 20 173/96 H 99 Pain Intensity Right Shoulder: Pain Intensity: 0 Transfer of Care Handoff Completed per policy Notes Mental Status: alert / awake / arousable and participated in evaluation Patient Amnestic to Procedure: Yes Nausea / Vomiting: adequately controlled Pain: adequately controlled Airway Patency, RR, SpO2: stable & adequate BP & HR: stable & adequate Hydration State: stable & adequate Anesthetic Complications: no major complications apparent and Pt Satisfied with anesthetic care
[2020-06-03] MEDS ORDERED: NALOXONE HCL 0.4 MG/1 ML VIAL/CARP IV PRN (16:14)
[2020-06-03] MEDS ORDERED: bisacodyL 10 MG SUPP PR PRN (16:14)
[2020-06-03] MEDS ORDERED: ONDANSETRON INJ 2 MG/ML 2 ML VIAL IV PRN (16:14)
[2020-06-03] MEDS ORDERED: HYDROmorphone INJ 0.5 MG/0.5 ML SYR IV PRN (16:14)
[2020-06-03] MEDS ORDERED: METOCLOPRAMIDE HCL INJ 5 MG/ML 2 ML VIAL IV PRN (16:14)
[2020-06-03] MEDS ORDERED: MAGNESIUM HYDROXIDE SUSP 30 ML UDC PO PRN (16:14)
[2020-06-03] MEDS ORDERED: oxyCODONE HCL IR 5 MG TAB (IMMEDIATE RELEASE) PO PRN (16:14)
[2020-06-03] MEDS ORDERED: ALBUTEROL HFA 8 GM INHALER INH PRN (16:30)
[2020-06-03] MEDS ORDERED: COUGH DROP (SUGAR FREE) LOZ 24 LOZ/1 BOX BUCCAL ONE (17:03)
[2020-06-03] MEDS: SODIUM CHLORIDE 0.9% 1000ML 1,000 ML IV SCH (18:41)
[2020-06-03] MEDS: ACETAMINOPHEN 500 MG TAB PO SCH ×2 (18:42→21:18)
[2020-06-03] MEDS: KETOROLAC TROMETHAMINE 15 MG/ML VIAL IV SCH ×2 (18:42→21:19)
[2020-06-03] MEDS: ceFAZolin 2000MG 2,000 MG/15 ML SYR IV SCH (18:43)
[2020-06-03] MEDS: ALBUTEROL 0.083% NEBU SOLN 3 ML VIAL INH SCH (19:11)
[2020-06-03] MEDS ORDERED: GABAPENTIN 100 MG CAP PO SCH (21:00)
[2020-06-03] MEDS ORDERED: SENNA 8.6 MG TAB PO SCH (21:00)
[2020-06-03] MEDS: DOCUSATE SODIUM 100 MG CAP PO SCH (21:19)
[2020-06-04] MEDS: ceFAZolin 2000MG 2,000 MG/15 ML SYR IV SCH (02:55)
[2020-06-04] MEDS: SODIUM CHLORIDE 0.9% 1000ML 1,000 ML IV SCH ×2 (04:15→04:17)
[2020-06-04] MEDS: ACETAMINOPHEN 500 MG TAB PO SCH (05:43)
[2020-06-04] MEDS: KETOROLAC TROMETHAMINE 15 MG/ML VIAL IV SCH ×2 (05:43→10:47)
[2020-06-04] MEDS: ALBUTEROL 0.083% NEBU SOLN 3 ML VIAL INH SCH (07:09)
[2020-06-04] MEDS ORDERED: dexAMETHasone 4 MG TAB PO SCH (08:00)
--- NOTE | 2020-06-04 08:28 | Orthopedic Progress Note ---
Date of Service June 04, 2020 Assessment & Plan (1) Status post replacement of right shoulder joint: Overall he is doing very well. Is not having much pain in the right shoulder. He will be seen by physical therapy today for ambulation and range of motion exercises. He can be discharged home later today. He will follow-up with orthopedics in 2 weeks. Present on Admission?: Yes Admission and Anticipated Discharge Date Admission Date: June 03, 2020 Kenneth Santillan was seen and examined at bedside this morning. Overall he is doing very well. Is not having much pain in the right shoulder. He was able to get some sleep last night. He has no complaints. Physical Exam Physical Exam: On physical examination of the right shoulder, the dressing is clean and dry. He is wearing his sling as instructed. His radial, median, and ulnar nerves are checked and intact at his wrist. His axillary nerve was not checked yet. Results & Data ([facility]) Vital Signs (Past 12 Hours) Vital Signs Temp Pulse Pulse Resp BP Pulse Ox 06/04/20 07:27 36.4 C L 73 18 156/82 H 93 06/04/20 07:10 79 20 94 06/04/20 03:24 36.8 C 73 16 142/83 H 93 06/03/20 23:34 36.6 C 77 16 141/82 H 94 Diagnostic Findings Postoperative x-rays of the right shoulder show the prosthesis to be in anatomic alignment without any evidence of fracture, dislocation, or loosening. PG Care Time/CCT Total # of Minutes Spent Total Time Spent with Patient: Total time spent is greater than 50% in coordination of care (as documented) at patient's floor/unit and/or counseling patient: Coding Level of Care Code None Diagnoses Status post replacement of right shoulder joint Z96.611
--- NOTE | 2020-06-04 08:30 | Discharge Summary ---
Date of Service June 04, 2020 Admission HPI Per Admitting Provider Tyrell is a pleasant 69-year-old male who is been dealing with chronic increasing right shoulder pain. X-rays and clinical examination have been diagnostic for advanced osteoarthritis of the right shoulder. He has failed extensive conservative treatment including multiple injections. He has elected proceed with a right total shoulder arthroplasty. Principal Diagnosis Right shoulder replacement Discharge Data Allergies Allergy/AdvReac Type Severity Reaction Status Date / Time amlodipine Allergy Unknown ANKLE Verified 06/03/20 08:20 SWELLING Beta-Blockers Allergy Unknown Unknown Verified 06/03/20 08:20 (Beta-Adrenergic Bloc Consultations 06/03/20 16:14 Consult Case Management - Discharge Planning Routine Procedures Performed Operation Date: 06/03/20 10:00 Actual Procedures p Right Total Shoulder Arthroplasty, Cemented(Right) - Faizan Hernández DO Ordered Studies 06/03/20 05:00 US - OR guided needle placemen Routine 06/03/20 09:37 US - OR guided needle placemen Routine Hospital Course (1) Status post replacement of right shoulder joint: On June 03, 2020 Tyrell arrived at [facility] and underwent a right shoulder replacement without complication. He had a general anesthetic and a right interscalene nerve block. Postoperatively he was placed in a sling and transferred to the general orthopedic floors. His hospital course was uneventful. On postop day #1 his H&H was stable and his pain was well controlled. He was able to participate well with physical therapy doing ambulation and range of motion exercises. He was then discharged home. He will follow-up with orthopedics in 2 weeks. Total Time Total Time Spent Total Time Spent (In Minutes): 20 Discharge Plan Discharge Items Patient Disposition: Home - Home Health Services Reason For Visit: Right Shoulder Degenerative Joint Disease Discharge Diagnosis: Right shoulder replacement Activity: As commented below Non-emergency contact: Surgeon Call non-emergency contact if: your wound has increased redness and your wound has increased drainage Follow-up/Referrals: Froilan Hayes MD [Primary Care Provider] - Diet: Regular Addtl Attending Provider Instructions: Activity and Therapy Recommendations: * If you are using [facility] then therapy will be provided at your home until they feel you have accomplished all of your goals. * If you are using [facility] then Physical Therapy will be provided until they feel you are ready to start Outpatient Physical Therapy. * If you are not using home therapy then Outpatient Physical Therapy should start about 3-5 days from your day of surgery. Therapy will last about 8-12 weeks * Wear your sling for 3 weeks, unless otherwise instructed. You may remove your sling to shower and to dress, but otherwise, you should be in your sling at all times, including while sleeping * The shoulder replacement is very stable and you can use your hand while in the sling * You were shown a series of exercises in the hospital. Do these exercises daily including the exercises you were shown in physical therapy. Medications: * Narcotic You will likely be sent home from the hospital with a prescription for the narcotic pain medication that worked best throughout your stay. * Other medications may be prescribed for specific circumstances. If you have any questions, please call the office at . * Resume previous home medications unless otherwise instructed Dressing Care: Leave the Silverlon dressing in place for 7 days. After 7 days you may remove the dressing. If the incision is not draining then you may leave the ryan open to air. If there is a little bit of drainage or if the ryan are getting stuck on your clothing then cover the incision with a dry dressing. The ryan will be removed at your 2 week follow-up appointment. Showering: You may shower with the Silverlon dressing in place. Do not let the shower spray hit the dressing directly. Pat the Silverlon dressing dry. If the dressing becomes wet underneath, then simply remove the dressing. Keep the incision dry until you are 7 days out from the day of surgery. After 7 days you may remove the Silverlon dressing and shower with the ryan exposed. Let soapy water run over the ryan and pat them dry. Do not scrub or soak the incision. Things To Watch For: * Drainage from the incision site that occurs more than one week after your surgery. * Increased redness at the incision site. * Fever above 102 degrees Fahrenheit. * Unusual chest pain or shortness of breath. * Call [facility] at with any of the above problems Follow-Up Visit: Follow-up with Dr. Hernández's PA (Faizan Gonzalez) 2-3 weeks after your day of surgery. He will remove your ryan and answer any questions. If you have any additional questions or concerns, Dr Hernández is usually in the office at the same time and will be available An appointment was probably scheduled when you signed-up for surgery in the office. If you have any questions call More detailed instructions as well as Frequently Asked Questions were provided in a folder by our office when you signed-up for surgery. Please review these instructions when you get home. If you have any further questions or concerns, please feel free to call the office at [phone] Pending Studies at Discharge: No Stand-Alone Forms: My [facility] [employer], Smoking Cessation Medications and DC Order Prescriptions: New oxycodone 5 mg Tablet 5 mg PO Q4H PRN (Reason: pain) Qty: 30 RF: 0 Continued (DME) Oxygen Home Liters Per Minute See Rx Instructions .ROUTE .MEDSUPPLY Qty: 1 RF: 0 (DME) Flutter Valve Device See Dose Instructions .ROUTE .MEDSUPPLY Qty: 1 RF: 0 gabapentin 100 mg capsule 100 mg PO .COMPLEX Qty: 240 RF: 3 aspirin 81 mg tablet,delayed release (DR/EC) 81 mg PO QAM RF: 0 omega-3 fatty acids [Fish Oil Concentrate] 1,000 mg capsule 1,000 mg PO QAM RF: 0 magnesium 250 mg tablet 250 mg PO QAM RF: 0 multivitamin [Daily Multi-Vitamin] tablet 1 tab PO QAM RF: 0 omeprazole 20 mg capsule,delayed release(DR/EC) 20 mg PO QAM RF: 0 (DME) Oxygen Home Liters Per Minute See Rx Instructions .ROUTE .MEDSUPPLY Qty: 1 RF: 0 albuterol sulfate [ProAir HFA] 90 mcg/actuation HFA aerosol inhaler 2 puff INH Q4H PRN (Reason: shortness of breath or wheezing) Qty: 18 RF: 5 telmisartan-hydrochlorothiazid 40-12.5 mg tablet 1 tab PO QAM RF: 0 atorvastatin 20 mg tablet 20 mg PO QAM RF: 0 albuterol sulfate 2.5 mg /3 mL (0.083 %) solution for nebulization 2.5 mg inhalation BID RF: 0 Trelegy Ellipta 100-62.5-25 mcg blister with device 1 puffs INH QAM RF: 0 Discharge Orders: Discharge Order (Routine); Ordered 06/04/20 Ordered By: Faizan Hernández Admission Data Admit Date/Time: 06/03/20 11:41 Attending Provider: Faizan Hernández Admit Provider: Faizan Hernández Primary Care Provider: Froilan Hayes Coding Level of Care Code D/C Day Management <30 mins Diagnoses Status post replacement of right shoulder joint Z96.611
[2020-06-04 08:55] LABS: Hematocrit (blood only) 39.1 % (42-52); Hemoglobin 13.2 g/dL (14.0-18.0); Immature Granulocytes # (auto) 0.02 K/uL (0.00-0.02); Immature Granulocytes % (auto) 0.2 %; Lymphocytes # (auto) 1.02 K/uL (1.2-3.4); Lymphocytes % (auto) 9.8 %; Mean Corpuscular Hemoglobin 31.1 pg (25-34); Mean Corpuscular Hgb Conc 33.8 g/dL (32-36); Mean Platelet Volume 9.5 fL (7.4-10.4); Monocytes # (auto) 0.64 K/uL (0.11-0.59); Monocytes % (auto) 6.1 %; Neutrophils # (auto) 8.76 K/uL (1.4-6.5); Neutrophils % (auto) 83.9 %; Platelet Count 150 K/uL (130-400); RDW Coefficient of Variation 13.4 % (11.5-14.5); RDW Standard Deviation 44.2 fL (36.4-46.3); Red Blood Count 4.25 M/uL (4.7-6.1); White Blood Count 10.44 K/uL (4.8-10.8)
[2020-06-04] MEDS ORDERED: ASPIRIN 81 MG ECTAB PO SCH (09:00)
[2020-06-04] MEDS ORDERED: hydroCHLOROthiazide 25 MG TAB PO SCH (09:00)
[2020-06-04] MEDS ORDERED: GABAPENTIN 100 MG CAP PO SCH (09:00)
[2020-06-04] MEDS ORDERED: MULTIVITAMIN TAB PO SCH ×2 (09:00)
[2020-06-04] MEDS ORDERED: FLUTICASONE FUROATE 100MCG 14 PUFFS/INHALER INH SCH (09:00)
[2020-06-04] MEDS ORDERED: NON-FORMULARY MEDICATION (Fluticasone-Umeclidin-Vilanter [Trelegy Ellipta] 1 PUFFS) INH SCH (09:00)
[2020-06-04] MEDS ORDERED: MAGNESIUM OXIDE 400 MG TAB PO SCH (09:00)
[2020-06-04] MEDS ORDERED: UMECLIDINIUM/VILANTEROL 62.5/25MCG 7 PUFFS/INHALER INH SCH (09:00)
[2020-06-04] MEDS ORDERED: PANTOprazole 40 MG TAB PO SCH (09:00)
[2020-06-04] MEDS ORDERED: OMEGA-3 (PURIFIED FISH OIL) 1 GM CAP PO SCH (09:00)
[2020-06-04] MEDS ORDERED: TELMISARTAN 40 MG TAB PO SCH (09:00)
[2020-06-04] MEDS ORDERED: ATORVASTATIN 20 MG TAB PO SCH (09:00)
[2020-06-04 09:20] LABS: BUN Creatinine Ratio 17.7 (10-20); Calcium 8.3 mg/dl (8.5-10.1); Creatinine Clr Calc Pharmacy 82.6 ml/min; Est GFR (African American) 83.5; Est GFR (Non-African American) 72.1; Potassium 4.1 mmol/L (3.5-5.1)
[2020-06-04] MEDS: DOCUSATE SODIUM 100 MG CAP PO SCH (09:51)
== END 2020-06-04 11:07 | disposition home or self-care (01) | DRG 483 ==
LOC: ASU 07:47 → 3W 11:41

== ENCOUNTER 2020-06-26 09:02 | Observation (INO) ==
[2020-06-26] MEDS ORDERED: SODIUM CHLORIDE 0.9% 1000ML 1,000 ML IV ONE (09:20)
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
[2020-06-26 10:16] LABS: Basophils # (auto) 0.02 K/uL (0-0.2); Basophils % (auto) 0.2 %; Eosinophils # (auto) 0.11 K/uL (0-0.5); Eosinophils % (auto) 1.1 %; Hematocrit (blood only) 41.6 % (42-52); Hemoglobin 14.1 g/dL (14.0-18.0); Immature Granulocytes # (auto) 0.05 K/uL (0.00-0.02); Immature Granulocytes % (auto) 0.5 %; Lymphocytes % (auto) 12.6 %; Mean Corpuscular Hemoglobin 30.7 pg (25-34); Mean Corpuscular Hgb Conc 33.9 g/dL (32-36); Mean Corpuscular Volume 90.4 fL (80-100); Mean Platelet Volume 9.4 fL (7.4-10.4); Monocytes # (auto) 0.98 K/uL (0.11-0.59); Monocytes % (auto) 9.5 %; Neutrophils # (auto) 7.89 K/uL (1.4-6.5); Neutrophils % (auto) 76.1 %; Platelet Count 208 K/uL (130-400); RDW Coefficient of Variation 12.8 % (11.5-14.5); RDW Standard Deviation 42.2 fL (36.4-46.3); White Blood Count 10.35 K/uL (4.8-10.8)
[2020-06-26 10:28] LABS: Albumin Level 3.8 gm/dl (3.4-5.0); BUN Creatinine Ratio 12.1 (10-20); Bilirubin,Total 1.2 mg/dl (0.2-1); Calcium 9.2 mg/dl (8.5-10.1); Creatinine Clr Calc Pharmacy 84.4 ml/min; Est GFR (African American) 88.6; Est GFR (Non-African American) 76.5; Globulin 3.7 gm/dl (2.5-4.0); Total Protein 7.5 gm/dl (6.4-8.2)
[2020-06-26] MEDS ORDERED: IOVERSOL 100ml IV ONE (10:59)
--- NOTE | 2020-06-26 11:18 | CT Scan Report ---
ABDOMEN AND PELVIS CT WITH IV CONTRAST CT DOSE: 1272.63 mGy.cm HISTORY: Acute right lower quadrant abdominal pain RLQ abd pain TECHNIQUE: Multiaxial CT images of the abdomen and pelvis were performed following the IV administrat ion of 94 cc of Optiray 320, A dose lowering technique was utilized adhering to the principles of AL KIERA. COMPARISON STUDY: CT abdomen pelvis 10/01/2019, 09/26/2012. FINDINGS: Emphysema. Minimal dependent bibasilar atelectasis. There are a few low suspicion 2 mm solid nodules of the basal right lower lobe. No pneumatosis or pneumoperitoneum. Coronary artery calcifications. Th e imaged inferior cardiac chambers are unremarkable. Spleen is enlarged, 14.3 cm in length. Unremarka ble pancreas and adrenal glands. There is mild distention of the gallbladder. No cholelithiasis or CT evidence of acute cholecystitis. Hepatic steatosis. Patency of the hepatic and portal veins. 5.5 cm cyst of the interpolar left kidney. 2.2 cm exophytic intermediate attenuating lesion of the in terpolar left kidney with similar appearing 11 mm interpolar lesion on the left are suggestive of pro bable complex cysts. Indeterminate 1.7 cm intermediate attenuating lesion of the superior pole right kidney has mildly increased in size from 2013, also reflect a mildly complex cyst. No ureteral calcul i or obstructive uropathy. Mild bladder wall thickening with partial distention. Mild prostamegaly. E xtensive mixed plaque of the abdominal aorta and branch vessels. Fusiform aneurysmal dilation of the infrarenal abdominal aorta with patent aortobiiliac stent graft. Decreased size of the previously not ed retroperitoneal lymph nodes, now with a periaortic lymph node on image 2 5 series 3 measuring 8 mm , previously 11 mm. Nonspecific mild wall thickening of the distal esophagus. There is no bowel obstruction. Colonic dive rticulosis without acute diverticulitis. The appendix is dilated and fluid-filled measuring up to 12 mm. 4 mm appendicolith within the proximal appendix. There is mild associated wall thickening of the appendix with mucosal hyperemia and periappendiceal inflammation/trace free fluid. No drainable fluid collection or perforation. Reactive deep and free fluid within the pelvis. Soft tissues are unremark able. Bones appear intact. Posterior decompression of the lumbar spine. Posterior interbody jaswinder and s crew fusion at T12-S1 with bilateral iliac bolts. Lumbar levoscoliosis. The hardware appears intact. IMPRESSION: 1. 4 mm appendicolith with acute appendicitis. No evidence of perforation or drainable fluid collecti on. 2. No bowel obstruction or pneumoperitoneum. 3. Colonic diverticulosis without acute diverticulitis. 4. Unchanged mild fusiform aneurysmal dilation of the infrarenal abdominal aorta with patent aortobii liac stent graft. 5. Mild hepatic steatosis. 6. Prostamegaly with suggested chronic bladder outlet obstruction. 7. Additional findings as above. ACT 112: Negative or not required by law. The above report was generated using voice recognition software. It may contain grammatical, syntax o r spelling errors. Electronically signed by: Lino Berger M.D. 06/26/2020 11:17 AM
[2020-06-26 12:22] LABS: Appearance Urine Clear (Clear); Bilirubin Urine Negative (Negative); Blood Urine Negative (Negative); Color Urine Yellow; Glucose Urine UA Negative (Negative); Ketones Urine Negative (Negative); Leukocyte Esterase Urine Negative (Negative); Nitrite Urine Negative (Negative); Protein Urine Negative (Negative); Specific Gravity Urine 1.038 (1.000-1.030); Urobilinogen Urine Negative (Negative); pH Urine 7.5 (4.5-7.5)
[2020-06-26] MEDS ORDERED: BUPIVACAINE 0.5 % 5 MG/1 ML MPF 30ML VIAL ONE (12:46)
[2020-06-26] MEDS ORDERED: cefOXitin 2,000 MG/60 ML BAG IV STA (12:46)
[2020-06-26] MEDS ORDERED: LIDOCAINE HCL 1% 20 ML VIAL ONE (12:47)
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
--- NOTE | 2020-06-26 12:56 | History & Physical Bridge Note ---
Date of Service June 26, 2020 History & Physical Bridge Note I have examined the patient, reviewed the History & Physical and in the interval since the performance of the History & Physical I have noted the following changes of clinical significance: no changes noted
[2020-06-26] MEDS ORDERED: BACITRACIN OINT 15 GM TUBE ONE (12:57)
[2020-06-26] MEDS ORDERED: fentaNYL citrate 100 MCG/2 ML VIAL ONE ×2 (15:22→17:01)
[2020-06-26] MEDS ORDERED: LIDOCAINE HCL 2% 2 ML VIAL/AMP(20MG/ML) INFIL ONE (15:23)
[2020-06-26] MEDS ORDERED: PROPOFOL IV EMULSION 10 MG/ML 20 ML VIAL IV ONE (15:23)
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
[2020-06-26] MEDS ORDERED: HYDROmorphone INJ 2 MG/ML SYR/VIAL IV PRN (16:00)
[2020-06-26] MEDS ORDERED: METOCLOPRAMIDE HCL INJ 5 MG/ML 2 ML VIAL IV PRN (16:00)
[2020-06-26] MEDS ORDERED: ONDANSETRON INJ 2 MG/ML 2 ML VIAL IV PRN (16:00)
[2020-06-26] MEDS ORDERED: PROMETHAZINE HCL 12.5 MG in SODIUM CHLORIDE 0.9% 50 ML IV PRN (16:00)
[2020-06-26] MEDS ORDERED: ATROPINE SULFATE 0.1 MG/ML 10ML SYR IV PRN (16:00)
[2020-06-26] MEDS ORDERED: ePHEDrine sulfate 50 MG/ML AMP IV PRN (16:00)
[2020-06-26] MEDS ORDERED: ROCURONIUM BROMIDE 10 MG/ML 5 ML VIAL IV ONE (16:01)
[2020-06-26] MEDS ORDERED: DEXAMETHASONE SOD INJ 4 MG/ML VIAL ONE (16:11)
[2020-06-26] MEDS ORDERED: ONDANSETRON INJ 2 MG/ML 2 ML VIAL ONE (16:12)
[2020-06-26] MEDS ORDERED: NEOSTIGMINE METHYLSULFATE 5 MG/5 ML SYR ONE (16:15)
[2020-06-26] MEDS ORDERED: GLYCOPYRROLATE 0.2 MG/ML VIAL ONE (16:15)
--- NOTE | 2020-06-26 16:26 | Post Operative Brief Note ---
Immediate Post Op Note v1 Date of Surgery June 26, 2020 Pre & Post Diagnosis Operation Date: 06/26/20 15:00 Pre-Op Diagnosis: Acute Appendicitis Post-Op Diagnosis: Acute Appendicitis, gangrene appendix I identified the patient and participated in the time-out.: Yes Procedure Operation Date: 06/26/20 15:00 Actual Procedures p Laparoscopic Appendectomy(Not Applicable) - Luz Maria Thapa MD Surgeon Luz Maria Thapa MD [employer] neurosurgical nurse Estimated Blood Loss 20 Findings Consistent with Post-Op Diagnosis acute appendicitis with gangrene appendix Fluids 1000ml Specimens appendix Anesthesia Type General Complications none Disposition Accompanied Patient To Recovery: Yes Disposition: Recovery Room Overlapping Procedure I was immediately available: during the entire case.
[2020-06-26] MEDS: fentaNYL citrate 100 MCG/2 ML VIAL IV PRN ×2 (17:00→17:05)
[2020-06-26] MEDS ORDERED: HYDROmorphone INJ 1 MG/ML SYRINGE IV PRN (17:52)
[2020-06-26] MEDS ORDERED: oxyCODONE/ACETAMINOPHEN 5mg/325mg TAB PO PRN (17:52)
[2020-06-26] MEDS ORDERED: ALBUTEROL HFA 8 GM INHALER INH PRN (17:56)
[2020-06-26] MEDS: LACTATED RINGER'S 1,000 ML IV SCH ×2 (18:13→23:45)
--- NOTE | 2020-06-26 18:43 | Anesthesiology Progress Note ---
Date of Service June 26, 2020 Anesthesia Post Procedure Vital Signs Vital Signs: Temp Pulse Pulse Pulse Resp BP BP 06/26/20 18:24 37 C 83 16 06/26/20 17:15 36.7 C 67 14 122/86 06/26/20 17:05 65 19 114/69 06/26/20 16:55 63 15 119/72 06/26/20 16:45 61 14 128/78 06/26/20 16:36 36.0 C L 64 21 139/80 06/26/20 14:49 84 18 118/80 06/26/20 14:44 74 18 06/26/20 13:32 81 20 06/26/20 12:00 83 16 06/26/20 10:11 81 18 06/26/20 09:09 36.5 C 93 H 16 145/82 H BP Pulse Ox 06/26/20 18:24 145/82 H 97 06/26/20 17:15 97 06/26/20 17:05 97 06/26/20 16:55 100 06/26/20 16:45 100 06/26/20 16:36 100 06/26/20 14:49 96 06/26/20 14:44 118/80 96 06/26/20 13:32 125/76 96 06/26/20 12:00 135/99 100 06/26/20 10:11 108/73 94 06/26/20 09:09 95 Pain Intensity Right Abdomen: Pain Intensity: 7 Abdomen: Pain Intensity: 4 Transfer of Care Handoff Completed per policy Notes Mental Status: alert / awake / arousable and participated in evaluation Patient Amnestic to Procedure: Yes Nausea / Vomiting: adequately controlled Pain: adequately controlled Airway Patency, RR, SpO2: stable & adequate BP & HR: stable & adequate Hydration State: stable & adequate Anesthetic Complications: no major complications apparent
[2020-06-26] MEDS: oxyCODONE/ACETAMINOPHEN 5mg/325mg TAB PO PRN ×2 (19:14→23:15)
[2020-06-26] MEDS: CIPROFLOXACIN / D5W 400 MG/200 ML BAG IV SCH (19:16)
[2020-06-26] MEDS: ALBUTEROL 0.083% NEBU SOLN 3 ML VIAL INH SCH (19:24)
[2020-06-26] MEDS ORDERED: COUGH DROP (SUGAR FREE) LOZ 24 LOZ/1 BOX BUCCAL ONE (20:10)
[2020-06-26] MEDS: GABAPENTIN 100 MG CAP PO SCH (20:14)
[2020-06-26] MEDS: metroNIDAZOLE 500 MG/100 ML BAG IV SCH (21:12)
--- NOTE | 2020-06-26 23:23 | Operative Report (OR) ---
DATE OF OPERATION: 06/26/2020 PREOPERATIVE DIAGNOSIS: Acute appendicitis. POSTOPERATIVE DIAGNOSIS: Acute appendicitis, gangrenous appendix. PROCEDURE: Laparoscopic appendectomy. SURGEON: Luz Maria Thapa MD ANESTHESIA: General. ESTIMATED BLOOD LOSS: About 20 mL. FINDINGS: Acute appendicitis with gangrenous appendix. COMPLICATIONS: None. INDICATIONS FOR THE PROCEDURE: This is a 69-year-old gentleman who presented to the ED with 2-day history of right lower quadrant pain. The patient had a CT scan diagnosis of acute appendicitis. I recommended to do the laparoscopic appendectomy, possible open. I did talk to the patient about the benefits, the risks, and alternate procedures. I indicated the risks may include but not limited such as bleeding, infection, injury to other organs, abscess, bowel obstruction. The patient understands. He signed informed consent and I answered all questions. DETAILS OF PROCEDURE: We brought in the patient to the OR, put the patient in the supine position. The patient received SCDs on bilateral legs to prevent DVT. Also the patient received 2 g cefoxitin IV for prophylactic antibiotic. The patient received general anesthesia without difficulty. The abdomen was prepped and draped in routine sterile fashion. After timeout, I injected the local anesthesia by using 1% lidocaine mixed with 0.5% Marcaine just above the umbilicus. Then I made a small incision just above umbilicus, opened fascia and opened peritoneum under direct vision, put a Lorri trocar in, connected to CO2 to create pneumoperitoneum. Flow rate at 6 liter per minute. Pressure not more than 14 mmHg. Once we got a nice pneumoperitoneum, we put the camera in, looked around the abdomen. There was significant acute appendicitis, there was gangrenous appendix also. There was significant redness on the base of the appendix, on the cecum. Also patient had free fluid on the pelvic area and we suctioned all the fluid. Once we diagnosed acute appendicitis with gangrenous appendix, we put another two 5 mm trocars on the left lower quadrant area, so we mobilized appendiceal by using Harmonic and we took down appendix out by using Harmonic, rechecked, no active bleeding. Then we dissected the appendiceal, reached the base of the appendix. Then we chose 45 mm Endo-INESSA stapler for transection on the base of the appendix, rechecked the staple line intact, and no active bleeding. Then we removed the appendix through the catch bag. Then we reinserted Lorri trocar in, connected to CO2 to create pneumoperitoneum. Again looked around the abdomen, no active bleeding, no leak from staple line, no injury to the other organs. Then we removed all trocar under direct vision. No active bleeding from trocar sites. The pneumoperitoneum was released. Then I closed the umbilical incision, fascial layer, by using 0 Vicryl [id number] x2, closed subcutaneous layer by using 2-0 Vicryl interruptedly, closed skin by using 4-0 Vicryl continuous running, closed another two 5 mm trocar sites skin only by using 4-0 Vicryl. Then we put the dressing on. The patient tolerated the procedure well. All the instrument, needle, and sponge counts were correct x2 at the end of the case. The patient transferred to recovery room in stable condition. The specimen sent to pathology. I attest to the content of the Intraoperative Record and any orders documented therein. Any exception s are noted below.
[2020-06-27] MEDS: metroNIDAZOLE 500 MG/100 ML BAG IV SCH ×2 (04:58→12:17)
[2020-06-27 05:40] LABS: Eosinophils # (auto) 0.01 K/uL (0-0.5); Eosinophils % (auto) 0.1 %; Hematocrit (blood only) 38.6 % (42-52); Hemoglobin 12.8 g/dL (14.0-18.0); Immature Granulocytes # (auto) 0.04 K/uL (0.00-0.02); Immature Granulocytes % (auto) 0.6 %; Lymphocytes # (auto) 0.99 K/uL (1.2-3.4); Lymphocytes % (auto) 14.4 %; Mean Corpuscular Hemoglobin 30.5 pg (25-34); Mean Corpuscular Hgb Conc 33.2 g/dL (32-36); Mean Corpuscular Volume 91.9 fL (80-100); Mean Platelet Volume 8.8 fL (7.4-10.4); Monocytes # (auto) 0.35 K/uL (0.11-0.59); Monocytes % (auto) 5.1 %; Neutrophils # (auto) 5.49 K/uL (1.4-6.5); Neutrophils % (auto) 79.8 %; Platelet Count 179 K/uL (130-400); RDW Coefficient of Variation 12.7 % (11.5-14.5); RDW Standard Deviation 42.6 fL (36.4-46.3); White Blood Count 6.88 K/uL (4.8-10.8)
[2020-06-27 06:05] LABS: Albumin Level 3.4 gm/dl (3.4-5.0); BUN Creatinine Ratio 10.2 (10-20); Calcium 8.7 mg/dl (8.5-10.1); Creatinine Clr Calc Pharmacy 92.8 ml/min; Est GFR (African American) 99.3; Est GFR (Non-African American) 85.7; Potassium 4.5 mmol/L (3.5-5.1)
[2020-06-27 06:10] LABS: Bilirubin,Total 0.6 mg/dl (0.2-1); Globulin 3.5 gm/dl (2.5-4.0); Total Protein 6.9 gm/dl (6.4-8.2)
[2020-06-27] MEDS: ALBUTEROL 0.083% NEBU SOLN 3 ML VIAL INH SCH (07:10)
[2020-06-27] MEDS: CIPROFLOXACIN / D5W 400 MG/200 ML BAG IV SCH (08:34)
[2020-06-27] MEDS ORDERED: OMEGA-3 (PURIFIED FISH OIL) 1 GM CAP PO SCH (09:00)
[2020-06-27] MEDS ORDERED: NON-FORMULARY MEDICATION (Telmisartan-Hydrochlorothiazid 40-12.5 mg tablet) PO SCH (09:00)
[2020-06-27] MEDS ORDERED: ATORVASTATIN 20 MG TAB PO SCH (09:00)
[2020-06-27] MEDS ORDERED: hydroCHLOROthiazide 25 MG TAB PO SCH (09:00)
[2020-06-27] MEDS ORDERED: TELMISARTAN 40 MG TAB PO SCH (09:00)
[2020-06-27] MEDS ORDERED: MAGNESIUM OXIDE 400 MG TAB PO SCH (09:00)
[2020-06-27] MEDS ORDERED: PANTOprazole 40 MG TAB PO SCH (09:00)
[2020-06-27] MEDS ORDERED: ASPIRIN 81 MG ECTAB PO SCH (09:00)
[2020-06-27] MEDS ORDERED: FLUTICASONE FUROATE 100MCG 14 PUFFS/INHALER INH SCH (09:00)
[2020-06-27] MEDS ORDERED: GABAPENTIN 100 MG CAP PO SCH (09:00)
[2020-06-27] MEDS ORDERED: UMECLIDINIUM/VILANTEROL 62.5/25MCG 7 PUFFS/INHALER INH SCH (09:00)
[2020-06-27] MEDS ORDERED: MULTIVITAMIN TAB PO SCH (09:00)
--- NOTE | 2020-06-27 11:34 | Surgery Progress Note ---
Date of Service F/U S/P lap appy POD 1 doing fine, no significant abdominal pain, no nausea, no vomiting, no fever, June 27, 2020 Assessment & Plan (1) Acute appendicitis with localized peritonitis: pt is a 69 year-old male who presents to Er with 2 days history RLQ pain with nausea and vomiting, IMP: acute appendicitis, Plan, I recommend to do laparoscopic appendectomy, possible open, D/w benefits, risk and alternatives of the surgery, the risks- infection, bleeding , abscess, injury other organs, SBO, pt understood, he agrees with the surgery, I answered all questions, pre-op antibiotic 06/27/2020 11: 33AM doing fine, discharge home today, the post-op care instruction was given, F/U 2 weeks, Admission and Anticipated Discharge Date Admission Date: June 26, 2020 Physical Exam Constitutional: WD/WN, vitals as above well developed and well nourished Eyes: PERRL, conjunctivae normal, anicteric sclerae ENMT: external ear and nose normal, oropharynx normal Neck: trachea midline, no thyromegaly Respiratory: normal respiratory effort, lungs clear to auscultation normal respiratory effort Cardiovascular: RRR, no murmur, no edema Rate/Rhythm: regular rate and regular rhythm Gastrointestinal (Abdomen): normal bowel sounds, soft, nontender, no hepatosplenomegaly Percussion/Palpation: abdomen soft all incisions intact, no redness, BS +, no distend Musculoskeletal: no cyanosis or clubbing, extremities motor strength 5/5 Skin: no rashes, warm and dry Neurologic: patellar DTR's 2+ bilat, sensation intact Psychiatric: Orientation: alert and oriented x 3 Results & Data ([facility]) Vital Signs (Past 12 Hours) Vital Signs Temp Pulse Pulse Resp BP BP Pulse Ox 06/27/20 07:11 67 16 98 06/27/20 07:03 36.6 C 67 18 137/78 97 06/27/20 04:00 36.7 C 81 18 131/86 94 06/26/20 23:56 36.9 C 75 16 130/64 95 Laboratory Results Abnormal lab results 06/26/20 06/27/20 06/27/20 Range/Units 12:02 05:28 05:28 RBC 4.20 L (4.7-6.1) M/uL Hgb 12.8 L (14.0-18.0) g/dL Hct 38.6 L (42-52) % Lymph # (Auto) 0.99 L (1.2-3.4) K/uL Immature Gran # (Auto) 0.04 H (0.00-0.02) K/uL Sodium 135 L (136-145) mmol/L Glucose 126 H (70-99) mg/dl AST 12 L (15-37) U/L Ur Specific [place] 1.038 H (1.000-1.030)
[2020-06-27] MEDS: GABAPENTIN 100 MG CAP PO SCH (12:18)
--- NOTE | 2020-06-28 02:09 | Discharge Summary (DS) ---
ADMITTING DIAGNOSIS: Acute appendicitis. DISCHARGE DIAGNOSIS: Acute appendicitis. OPERATION: Laparoscopic appendectomy. SURGEON: Luz Maria Thapa MD. DETAILS OF DISCHARGE SUMMARY: This is a 69-year-old gentleman who presented to the ER with couple day history of right lower quadrant pain. The patient had a CT scan diagnosis of acute appendicitis. We took the patient to the OR. We did a laparoscopic appendectomy and the patient tolerated the procedure well. After procedure, the patient transferred to recovery room and later on transferred to regular floor. The patient is doing fine. The patient walked around and no significant abdominal pain. PHYSICAL EXAMINATION: VITAL SIGNS: Temperature is 36.6, respiratory rate is 16, the heart rate is 67, blood pressure 137/78, O2 saturation 98% on room air. GENERAL: The patient is alert, awake, oriented x3, no distress. HEENT: With normal limitation. NEUROLOGIC: Intact. NECK: No JVD. CHEST: Bilateral lung sounds clear. HEART: Normal S1, S2. No murmur. ABDOMEN: Soft, no significant tenderness. All incisions intact. No redness. Bowel sounds positive. EXTREMITIES: No edema. PLAN: The patient wanted to go home today. We gave the patient postop care instruction. The patient understands and I will follow outpatient in 2 weeks.
== END 2020-06-27 15:58 | disposition home or self-care (01) ==
LOC: ED 09:02 → 3N 14:49 → OR 14:49

== ENCOUNTER 2021-01-15 11:27 | Inpatient (IN) ==
[2021-01-15] MEDS ORDERED: SODIUM CHLORIDE 0.9% 1000ML 1,000 ML IV ONE (11:44)
[2021-01-15] MEDS ORDERED: PANTOPRAZOLE BOLUS/DRIP 1 EA IV STA (11:57)
[2021-01-15] MEDS ORDERED: PANTOprazole 80 MG in DEXTROSE 5% 100 ML IV ONE (11:57)
[2021-01-15 12:13] LABS: Hematocrit (blood only) 17.3 % (42-52); Hemoglobin 6.1 g/dL (14.0-18.0); Mean Corpuscular Hemoglobin 30.7 pg (25-34); Mean Corpuscular Hgb Conc 35.3 g/dL (32-36); Mean Corpuscular Volume 86.9 fL (80-100); Mean Platelet Volume 10.9 fL (7.4-10.4); Nucleated RBC % (auto) 0.3 %; Platelet Count 9 K/uL (130-400); RDW Coefficient of Variation 14.3 % (11.5-14.5); RDW Standard Deviation 45.7 fL (36.4-46.3); Red Blood Count 1.99 M/uL (4.7-6.1); White Blood Count 31.08 K/uL (4.8-10.8)
[2021-01-15 12:14] LABS: Alanine Aminotransferase 33 U/L (12-78); Albumin Level 2.7 gm/dl (3.4-5.0); Aspartate Aminotransferase 56 U/L (15-37); BUN Creatinine Ratio 54.2 (10-20); Bilirubin Direct 0.1 mg/dl (0-0.2); Blood Urea Nitrogen 79 mg/dl (7-18); Calcium 7.5 mg/dl (8.5-10.1); Carbon Dioxide 17 mmol/L (21-32); Chloride 103 mmol/L (98-107); Est GFR (African American) 55.7 ml/min; Glucose 141 mg/dl (70-99); Lipase 296 U/L (73-393); Magnesium 2.4 mg/dl (1.8-2.4); Potassium 4.7 mmol/L (3.5-5.1); Sodium 135 mmol/L (136-145)
[2021-01-15] MEDS ORDERED: SODIUM CHLORIDE 0.9% 250 ML IV PRN ×3 (12:15→19:34)
[2021-01-15 12:17] LABS: Alkaline Phosphatase 34 U/L (45-117); Bilirubin,Total 0.4 mg/dl (0.2-1); Total Protein 5.1 gm/dl (6.4-8.2)
[2021-01-15 13:00] LABS: ALC (manual) 4.66 K/uL (1.2-3.4); ANC (manual) 0.56 K/uL (1.4-6.5); Lymphocytes # (manual) 4.66 K/uL (1.2-3.4); Neutrophils # (manual) 0.56 K/uL (1.4-6.5); Neutrophils % (manual) 1.8 %; Other Cell Type % 83.2 %; Other Cells # (manual) 25.86 K/uL (0-0)
[2021-01-15] MEDS ORDERED: VANCOMYCIN HCL 2,750 MG in SODIUM CHLORIDE 0.9% 500 ML IV ONE (13:27)
[2021-01-15] MEDS ORDERED: VANCOMYCIN CONSULT ACTIVE PRN (13:27)
[2021-01-15] MEDS ORDERED: CEFEPIME 2,000 MG/20 ML VIAL IV STA (13:27)
[2021-01-15] MEDS: PANTOprazole 40 MG in DEXTROSE 5% 100 ML IV SCH ×3 (13:30→22:03)
--- NOTE | 2021-01-15 13:44 | XRay Report ---
XR chest 1V portable CLINICAL HISTORY: line placement verification COMPARISON STUDY: Chest radiograph December 30, 2020. FINDINGS: Right shoulder arthroplasty and spine fusion hardware are partially imaged. There is no pne umothorax following placement of a right internal jugular central line. Catheter tip is within the SV C. There is no pneumothorax. Old left rib fractures are incidentally noted. There is no consolidation or evidence for pulmonary edema. Cardiomediastinal silhouette is unremarkable. IMPRESSION: No pneumothorax following placement of a right internal jugular central line. ACT 112: Negative or not required by law. Electronically signed by: Baltazar Oliver M.D. 01/15/2021 1:43 PM
[2021-01-15] MEDS ORDERED: OPTIRAY 350 500ml IV ONE (13:45)
[2021-01-15] MEDS ORDERED: DESMOPRESSIN ACETATE 30 MCG in SODIUM CHLORIDE 0.9% 50 ML IV STA (13:50)
--- NOTE | 2021-01-15 14:09 | Emergency Department Note ---
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 CLINICAL HISTORY: line placement verification COMPARISON STUDY: Chest radiograph December 30, 2020. FINDINGS: Right shoulder arthroplasty and spine fusion hardware are partially imaged. There is no pneumothorax following placement of a right internal jugular central line. Catheter tip is within the SVC. There is no pneumothorax. Old left rib fractures are incidentally noted. There is no consolidation or evidence for pulmonary edema. Cardiomediastinal silhouette is unremarkable. IMPRESSION: No pneumothorax following placement of a right internal jugular central line. ACT 112: Negative or not required by law. Electronically signed by: Baltazar Oliver M.D. 01/15/2021 1:[address] 01/15/21 13:34 CT OF THE HEAD WITHOUT CONTRAST CLINICAL HISTORY: ro ich COMPARISON STUDY: Head CT February 12, 2007. TECHNIQUE: Helical axial images of the head were obtained without IV contrast. Automated exposure control was utilized for the study. A dose lowering technique was utilized adhering to the principles of ALARA. FINDINGS: No acute intracranial hemorrhage, midline shift or mass effect is present. The ventricular system is unremarkable. White matter hypodensity suggests small vessel disease. The basal cisterns are patent. No extra-axial collections are present. There are no findings to suggest acute dural sinus thrombosis or acute territorial infarct. No significant calvarial abnormalities are present. Visualized portions of the sinuses and mastoid air cells are clear. IMPRESSION: No acute intracranial findings. ACT 112: Negative or not required by law. Electronically signed by: Baltazar Oliver M.D. 01/15/2021 2:12 PM ECG Data Indication: abdominal pain Rate (beats per minute): 87 Rhythm: normal sinus Findings: no ST depression, no ST elevation and no prolonged QT MDM Narrative 1144: The patient was evaluated in room C1. A complete history and physical exam was performed Cardiac monitoring: An order was placed for continuous cardiac monitoring. The monitor shows a rate of 90 with sinus rhythm Given the patient's hypotension and melanotic stools Protonix bolus and drip ordered. 1336: Patient's blood pressure improved with IV fluids. Patient is extremely difficult vascular access patient. Ultrasound-guided IV was placed in the left upper extremity by me as well as right-sided IJ. See procedure notes. Labs show leukocytosis of 31.08, hemoglobin of 6.1, platelet count of 9, BUN 79, creatinine 1.46 lactic acid 3.8. 2 days ago on January 13, 2021 the patient had a white blood cell count of 12.7, hemoglobin of 7.7, platelet count of 2. Patient's creatinine usually runs around 1. The patient states he had a transfusion of 2 units of packed red blood cells on Saturday. He states he got transfused platelets last week. 2 units packed red blood cells ordered for the patient. Discussed the case with the patient's oncologist Dr. 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 He also recommends a sixpack of platelets in addition to 2 units of packed red blood cells. He recommends no steroids at this time. He states that the patient might need IVIG and agrees that the patient should be admitted to the ICU. I have ordered a CTA of his abdomen given his left upper quadrant pain and history of AAA repair, Dr. Deleon also recommend CT of the head. 1353: Discussed the case with Dr. Healy ICU as well as hospitalist team who recommended the patient be given DDAVP. DDAVP dose by pharmacy. 1443: Patient remains hypotensive. Third liter is infusing and blood products have been started. We will start the patient on Levophed. Discussed the case with Dr. Benito calvert who called me and stated that the patient might be having splenic infarcts however is difficult to tell with the way the contrast has been face. I did discuss the case with Dr. Williamson ICU again and he recommends starting the patient on hydrocortisone 50 mg to treat both the ITP as well as the sepsis. Impression & Plan GIB (gastrointestinal bleeding), Acute ITP, DIC (disseminated intravascular coagulation), Sepsis Critical Care Time Critical Care Time: Yes Total Critical Care Time: 121 I have personally spent greater than 121 minutes of critical care time in the direct management of this patient. This includes bedside care, interpretation of diagnostic studies, and testing, discussion with consultants, patient, and family members, and other required patient management activities. This 121 minutes is in excess of all separately billable procedures. Discharge Plan Visit Data Chief Complaint: Rectal Bleed Stated Complaint: BLOOD IN STOOL,VERY WEAK ED Provider: Harish Garcia Discharge Problem: GIB (gastrointestinal bleeding), Acute ITP, DIC (disseminated intravascular coagulation), Sepsis Patient Disposition: Admitted As Inpatient Forms Stand Alone Forms: [facility] Prescriptions Prescriptions: No Action (DME) Oxygen Home Liters Per Minute See Rx Instructions .ROUTE .MEDSUPPLY Qty: 1 RF: 0 telmisartan-hydrochlorothiazid 40-12.5 mg tablet 1 tab PO QAM Qty: 90 RF: 3 gabapentin 300 mg capsule 300 mg PO TID Qty: 270 RF: 3 atorvastatin 20 mg tablet 20 mg PO DAILY Qty: 90 RF: 3 (DME) Flutter Valve Device See Dose Instructions .ROUTE .MEDSUPPLY Qty: 1 RF: 0 aspirin 81 mg tablet,delayed release (DR/EC) 81 mg PO QAM RF: 0 omega-3 fatty acids [Fish Oil Concentrate] 1,000 mg capsule 1,000 mg PO QAM RF: 0 magnesium 250 mg tablet 250 mg PO QAM RF: 0 multivitamin [Daily Multi-Vitamin] tablet 1 tab PO QAM RF: 0 omeprazole 20 mg capsule,delayed release(DR/EC) 20 mg PO QAM RF: 0 (DME) Oxygen Home Liters Per Minute See Rx Instructions .ROUTE .MEDSUPPLY Qty: 1 RF: 0 ipratropium-albuterol 0.5 mg-3 mg(2.5 mg base)/3 mL solution for nebulization 3 ml inhalation Q8H PRN (Reason: shortness of breath or wheezing) Qty: 180 RF: 3 albuterol sulfate [ProAir HFA] 90 mcg/actuation HFA aerosol inhaler 2 puff INH Q4H PRN (Reason: shortness of breath or wheezing) Qty: 18 RF: 3 Trelegy Ellipta 100-62.5-25 mcg blister with device 1 inh INH QAM Qty: 60 RF: 3 oxycodone 5 mg tablet 5 mg PO Q6 PRN (Reason: Pain) RF: 0 dexamethasone 4 mg tablet 40 mg PO DAILY RF: 0 Referrals Referrals: Froilan Hayes MD [Primary Care Provider] - Discharge Problem: GIB (gastrointestinal bleeding) Qualifiers: GI bleed type/associated pathology: melena Qualified Code(s): K92.1 - Melena Sepsis Qualifiers: Sepsis type: sepsis due to unspecified organism Sepsis acute organ dysfunction status: with acute organ dysfunction Severe sepsis acute organ dysfunction type: unspecified Severe sepsis shock status: with septic shock Qualified Code(s): A41.9 - Sepsis, unspecified organism
--- NOTE | 2021-01-15 14:13 | CT Scan Report ---
CT OF THE HEAD WITHOUT CONTRAST CLINICAL HISTORY: ro ich COMPARISON STUDY: Head CT February 12, 2007. TECHNIQUE: Helical axial images of the head were obtained without IV contrast. Automated exposure con trol was utilized for the study. A dose lowering technique was utilized adhering to the principles o f ALARA. FINDINGS: No acute intracranial hemorrhage, midline shift or mass effect is present. The ventricular system is unremarkable. White matter hypodensity suggests small vessel disease. The basal cisterns ar e patent. No extra-axial collections are present. There are no findings to suggest acute dural sinus thrombosis or acute territorial infarct. No significant calvarial abnormalities are present. Visualiz ed portions of the sinuses and mastoid air cells are clear. IMPRESSION: No acute intracranial findings. ACT 112: Negative or not required by law. Electronically signed by: Baltazar Oliver M.D. 01/15/2021 2:12 PM
[2021-01-15] MEDS ORDERED: STAT IV Infusion **Titration per Protocol STA (14:23)
[2021-01-15] MEDS ORDERED: ICU PROTOCOL FOR HYPERGLYCEMIA PRN (14:27)
[2021-01-15] MEDS ORDERED: NOREPINEPHRINE/D5W 8 MG/508 ML BAG IV SCH (14:30)
[2021-01-15] MEDS: NOREPINEPHRINE/D5W 8 MG/508 ML IV ONE ×2 (14:33→14:36)
[2021-01-15 14:37] LABS: INR 1.5 (0.9-1.1); Partial Thromboplastin Time 25.6 Seconds (21.0-31.0); Prothrombin Time 14.8 Seconds (9.0-12.0)
[2021-01-15] MEDS ORDERED: HYDROCORTISONE SOD SUCCINATE 100 MG/2 ML VIAL IV STA (14:38)
--- NOTE | 2021-01-15 14:47 | CT Scan Report ---
CT ANGIOGRAPHY OF THE ABDOMEN AND PELVIS CLINICAL HISTORY: GIB hx AAA. History of B-cell lymphoma. COMPARISON STUDY: CT of the abdomen and pelvis December 30, 2020. TECHNIQUE: Helical axial images of the abdomen and pelvis were obtained during arterial phase followi ng intravenous injection of Optiray IV. Sagittal and coronal reconstructed reviewed as well as jennifer l intensity projections on an independent 3-D workstation. Automated exposure control was utilized fo r the study. A dose lowering technique was utilized adhering to the principles of ALARA. FINDINGS: Emphysema is noted within the lower lungs. No pneumatosis, free air or portal venous gas is present. Exam is compromised by streak artifact from spine surgical hardware. Moderate to marked spl enomegaly has increased since CT of December 30, 2020. Spleen measures 18.1 cm in maximal sagittal dimensi on. Note is made of numerous hypodense foci within the spleen, including a 7.4 cm hypodense focus wit hin the mid to lower pole of the spleen. Hypodense foci within the upper pole of the spleen are also noted. There is no significant perisplenic fluid. Note is made of a 1.4 cm hypervascular focus within the anterior aspect of the spleen which is unchanged from earlier exams. Evaluation of the abdomen a nd pelvis is suboptimal on this arterial phase exam. The liver, adrenal glands and pancreas are unrem arkable. There is no biliary or pancreatic ductal dilatation. Extensive colonic diverticulosis is not ed without evidence for acute diverticulitis. No intraluminal IV contrast extravasation within the jeremías wel is identified. Several left renal lesions are suboptimally assessed on this exam but shown to ref lect cysts on prior ultrasound. 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 Aneurysm sac measures 4.1 cm. This is unchanged. Bilateral iliac limbs are patent. Sensitivity for d etection of endoleak is diminished on this exam but no endoleak is identified. 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 A mildly enlarged para-aortic lymph node on image 239 is unchanged. This measures 1.1 cm in short axis diameter. No acute fracture or suspicious lesion is arvind ntified within visualized skeletal structures. No retroperitoneal hematoma is present. IMPRESSION: 1. Extensive colonic diverticulosis without evidence for acute diverticulitis. No intraluminal IV con trast extravasation to suggest active GI bleed by CT. 2. Moderate to marked splenomegaly, increased since CT of December 30, 2020. Several hypodense foci within the spleen which could be due to phase of enhancement. However, splenic infarct or less likely splen ic laceration could appear similar. Short-term follow-up CT of the abdomen with IV contrast during ve nous phase is recommended. Findings discussed with Dr. Garcia at time of dictation. 3. No change in the appearance of the bifurcated aortoiliac stent graft and aneurysm sac. No evidence for rupture. 4. 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 ACT 112: Negative or not required by law. Electronically signed by: Baltazar Oliver M.D. 01/15/2021 2:46 PM
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
[2021-01-15 15:42] LABS: Fibrinogen 75 mg/dl (184-400)
[2021-01-15] MEDS ORDERED: CEFEPIME CONSULT ACTIVE PRN (16:18)
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
[2021-01-15] MEDS ORDERED: ALBUT/IPRATROP 3MG/0.5MG NEB 3 ML VIAL INH PRN (16:24)
[2021-01-15] MEDS ORDERED: ALBUT/IPRATROP 3MG/0.5MG NEB 3 ML VIAL NEB STA (16:37)
[2021-01-15 16:48] LABS: Appearance Urine Clear (Clear); Bilirubin Urine Negative (Negative); Blood Urine Negative (Negative); Color Urine Yellow; Glucose Urine UA Negative (Negative); Ketones Urine Negative (Negative); Leukocyte Esterase Urine Negative (Negative); Nitrite Urine Negative (Negative); Protein Urine Negative (Negative); Specific Gravity Urine 1.026 (1.000-1.030); Urobilinogen Urine Negative (Negative)
--- NOTE | 2021-01-15 17:11 | Pharmacy Report ---
Pharmacy Abx Dose Short Note - Date of Service January 15, 2021 - Assessment & Plan Assessment 70 YOM with extensive medical history including past medical history of COPD emphysema, obesity, AAA with EVAR in 2013, lumbar stenosis, HTN, prostate cancer. Patient is currently being worked up for staging and diagnosis of lymphoma- bone marrow biopsy from 01/04 with B-cell lymphoma. Recently treated with steroids for low platelet count. Presented to the ER with large blood y BM + reports of ongoing dark bowel movements x 2 weeks. Vancomycin/cefepime started for empiric treatment as infection not r/o at this time. Plans for procal, urinalysis, blood cultures, nasal MRSA screen. Follow results Plan Vancomycin * Loading dose of 2750 mg given in the ED * Will begin 1500 mg q18H based on current renal function (SCr is slightly elevated) * Goal trough level 15-20 mcg/mL * Will reassess renal function in AM for need for dosage adjustment * Trough to be ordered if vancomycin continues >48 hours Pharmacy will continue to follow and will adjust dose/frequency as necessary. Thank you.
[2021-01-15 19:23] LABS: Hematocrit (blood only) 19.8 % (42-52); Hemoglobin 7.1 g/dL (14.0-18.0); Mean Corpuscular Hemoglobin 31.8 pg (25-34); Mean Corpuscular Hgb Conc 35.9 g/dL (32-36); Mean Corpuscular Volume 88.8 fL (80-100); Mean Platelet Volume 11.5 fL (7.4-10.4); Platelet Count 14 K/uL (130-400); RDW Coefficient of Variation 13.9 % (11.5-14.5); RDW Standard Deviation 45.2 fL (36.4-46.3); Red Blood Count 2.23 M/uL (4.7-6.1); White Blood Count 16.68 K/uL (4.8-10.8)
[2021-01-15 20:37] LABS: Platelet Estimate SIGNIFIC DECREASED (Normal); RBC Morphology Unremarkable
[2021-01-15 20:38] LABS: ANC (manual) 0.58 K/uL (1.4-6.5); Lymphocytes % (manual) 11.4 %; Monocytes # (manual) 0.73 K/uL (0.11-0.59); Monocytes % (manual) 4.4 %; Myelocytes # (manual) 0.15 K/uL (0-0); Myelocytes % (manual) 0.9 %; Neutrophils # (manual) 0.58 K/uL (1.4-6.5); Neutrophils % (manual) 3.5 %; Other Cells # (manual) 13.31 K/uL (0-0)
[2021-01-15 20:39] LABS: Other Cell Type % 79.8 %
[2021-01-15] MEDS: CEFEPIME 2,000 MG in SYRINGE 0 ML IV SCH (22:03)
[2021-01-15] MEDS: ALBUT/IPRATROP 3MG/0.5MG NEB 3 ML VIAL NEB SCH (22:59)
[2021-01-15] MEDS ORDERED: PHARMACY GLYCEMIC MGMT CONSULT PRN (23:39)
[2021-01-15] MEDS ORDERED: GLUCAGON FOR INJ 1 MG VIAL SQ PRN (23:45)
[2021-01-15] MEDS ORDERED: DEXTROSE 50% 50 ML SYRINGE IV PRN (23:45)
[2021-01-15] MEDS ORDERED: GLUCOSE 10 TABS/TUBE PO PRN (23:45)
[2021-01-15] MEDS ORDERED: GLUCOSE 40% GEL 15 GM TUBE PO PRN (23:45)
[2021-01-15] MEDS ORDERED: CARBOHYDRATES FOR HYPOGLYCEMIA PO PRN (23:45)
[2021-01-16] MEDS ORDERED: INSULIN GLARGINE SOLOSTAR 100 UNITS/ML 3 ML PEN SC ONE
[2021-01-16] MEDS: INSULIN ASPART 100 UNITS/ML 3 ML PEN SC SCH ×5 (00:49→22:03)
[2021-01-16] MEDS: PANTOprazole 40 MG in DEXTROSE 5% 100 ML IV SCH ×5 (03:48→22:33)
[2021-01-16] MEDS ORDERED: VANCOMYCIN HCL 1,500 MG in SODIUM CHLORIDE 0.9% 500 ML IV SCH ×2 (04:00→08:00)
[2021-01-16 04:29] LABS: iSTAT Creatinine 1.7 mg/dl (0.6-1.3); iSTAT Hemoglobin 5.1 g/dl (14.0-18.0); iSTAT Ionized Calcium 1.16 mmol/l (1.12-1.32); iSTAT Potassium 4.6 mmol/L (3.3-5.0)
[2021-01-16] MEDS: CEFEPIME 2,000 MG in SYRINGE 0 ML IV SCH (05:34)
[2021-01-16] MEDS: ALBUT/IPRATROP 3MG/0.5MG NEB 3 ML VIAL NEB SCH ×3 (07:08→23:07)
[2021-01-16 07:53] LABS: Albumin Level 2.6 gm/dl (3.4-5.0); BUN Creatinine Ratio 48.7 (10-20); Calcium 7.1 mg/dl (8.5-10.1); Creatinine Clr Calc Pharmacy 87.8 ml/min; Est GFR (African American) 92.4 ml/min; Est GFR (Non-African American) 79.8 ml/min; Magnesium 2.5 mg/dl (1.8-2.4); Potassium 4.4 mmol/L (3.5-5.1)
[2021-01-16 07:55] LABS: Albumin Globulin Ratio 1.1 (0.9-2); Bilirubin,Total 0.5 mg/dl (0.2-1); Globulin 2.3 gm/dl (2.5-4.0); Phosphorus 4.2 mg/dl (2.5-4.9); Total Protein 4.9 gm/dl (6.4-8.2)
[2021-01-16 08:02] LABS: INR 1.1 (0.9-1.1); Partial Thromboplastin Time 27.1 Seconds (21.0-31.0); Prothrombin Time 11.4 Seconds (9.0-12.0)
[2021-01-16 08:05] LABS: Hematocrit (blood only) 23.1 % (42-52); Mean Corpuscular Hemoglobin 30.4 pg (25-34); Mean Corpuscular Hgb Conc 34.6 g/dL (32-36); Mean Corpuscular Volume 87.8 fL (80-100); Mean Platelet Volume 10.1 fL (7.4-10.4); Platelet Count 7 K/uL (130-400); RDW Coefficient of Variation 14.3 % (11.5-14.5); RDW Standard Deviation 46.3 fL (36.4-46.3); Red Blood Count 2.63 M/uL (4.7-6.1); White Blood Count 6.92 K/uL (4.8-10.8)
[2021-01-16 08:15] LABS: Fibrinogen 130 mg/dl (184-400)
[2021-01-16 08:16] LABS: ALC (manual) 1.46 K/uL (1.2-3.4); Eosinophils # (manual) 0.06 K/uL (0-0.5); Eosinophils % (manual) 0.9 %; Lymphocytes # (manual) 1.46 K/uL (1.2-3.4); Lymphocytes % (manual) 21.1 %; Monocytes % (manual) 4.4 %; Neutrophils % (manual) 4.4 %; Other Cell Type % 69.2 %; Other Cells # (manual) 4.79 K/uL (0-0)
[2021-01-16] MEDS: FLUTICASONE FUROATE 100MCG 14 PUFFS/INHALER INH SCH (08:37)
[2021-01-16] MEDS: UMECLIDINIUM/VILANTEROL 62.5/25MCG 7 PUFFS/INHALER INH SCH (08:37)
--- NOTE | 2021-01-16 08:59 | Critical Care Progress Note ---
Date of Service January 16, 2021 Assessment & Plan (1) Acute blood loss anemia: Neurologic: No issues at present. CT head negative for bleed. Pulmonary: COPD Chronic hypoxic respiratory failure -2 L nasal cannula Cardiovascular: Hypotensive likely from hemorrhagic shock.: Resolved - Right central line in place. Received a dose of stress dose steroids in the ER. Gastrointestinal: - GI consultation. D/W Melly: Optimize platelets greater than 30,000 -Continue pantoprazole drip. -Transfusing platelets. Renal: DDAVP given due to concerns of uremia has his BUN is elevated. BUN elevation may also be related to upper GI bleed. Lactate downtrending. He does have evidence of a mild THERESA. Continue crystalloid infusion. Infectious disease: Obtain procalcitonin, urinalysis and blood cultures. Will initiate empiric cefepime. Obtain MRSA screen. Hematologic: Thrombocytopenia. -Discussed with Corey. -He has a history of diffuse large B cell lymphoma. -No schistocytes seen on peripheral smear -GI looking for 30,000 prior to scope -We have 1 unit of platelets currently in the hospital ordering additional platelets but we are limited in our supply this may necessitate transfer due to blood bank availability -Maintain hemoglobin above 7. -Maintain platelets above 10,000 -IVIG: Holding given discussion with hematology -Prednisone given and modified protocol DIC: 4 units packed red blood cells transfused at this point -Received 2 units cryo for hypofibrinogenemia -Elevated D-dimer -Continuing broad-spectrum antibiotics for possible infectious source Lymphoma: -Undergoing induction chemotherapy -Electrolytes every 6 hours generous hydration Infection: Bacteremia: Gram-positive cocci in clusters -Vancomycin and Zosyn Endocrine: Mild hyperglycemia. Insulin management per ICU pharmacist. Lines and tubes: Right IJ in place 01/15/2021 VTE prophylaxis: Hold due to thrombocytopenia GI bleed CODE STATUS: Full Disposition: If patient requires advanced care will transfer to [facility] at patient's request (2) Acute ITP: (3) Hypovolemic shock: (4) GIB (gastrointestinal bleeding): Admission and Anticipated Discharge Date Admission Date: January 15, 2021 Supervising Physician Co-Signing Physician Notes Patient was discussed in multidisciplinary rounds Discussed individually with gastroenterology and hematology I have personally spent 90 minutes of critical care time in the direct management of this patient. This is a life/limb threatening event. This includes time spent evaluating patient, direct bedside care, chart review, placing orders, interpretation of diagnostic studies, discussion with consultants, patient, and/or family members regarding treatment decisions, as well as other required patient management activities. This time is exclusive of all separately billable procedures, and teaching time and separate from and in addition to any other critical care service time. Subjective Exertional dyspnea, denies chest pain, black formed stools no melena hematochezia unknown history of ITP is being worked up for lymphoma wears 2 L oxygen secondary to COPD at baseline quit smoking in 2013 known peripheral vascular disease Review of Systems Review of Systems: All systems reviewed & are unremarkable except as noted in HPI & below As per the HPI Physical Exam Physical Exam: General: Alert. nontoxic. Skin: Warm, dry, Head: Atraumatic Ears, nose, mouth and throat: airway patent Cardiovascular: Normal peripheral perfusion Respiratory: no respiratory distress, mild tachypnea pursed lip breathing which reported at baseline Gastrointestinal: Non distended Musculoskeletal: No deformity Results & Data Results & Data ([facility]) Vital Signs (Past 12 Hours) Vital Signs Temp Pulse Pulse Pulse Resp BP Pulse Ox 01/16/21 08:15 71 19 109/68 96 01/16/21 08:01 80 22 104/62 98 01/16/21 08:00 87 21 98 01/16/21 07:45 79 22 111/69 97 01/16/21 07:31 36.8 C 78 20 96 01/16/21 07:30 82 22 93/67 L 99 01/16/21 07:15 72 17 109/71 100 01/16/21 07:08 72 16 99 01/16/21 07:00 73 20 109/71 98 01/16/21 06:45 73 12 114/69 100 01/16/21 06:30 72 20 103/69 100 01/16/21 06:15 72 20 109/71 100 01/16/21 06:00 72 20 103/68 100 01/16/21 05:45 77 17 113/71 100 01/16/21 05:15 70 23 108/67 99 01/16/21 05:06 36.7 C 01/16/21 05:05 36.7 C 69 21 108/69 100 01/16/21 05:00 73 21 108/69 100 01/16/21 04:46 36.8 C 01/16/21 04:45 71 23 103/72 98 01/16/21 04:30 70 22 113/68 98 01/16/21 04:16 36.8 C 01/16/21 04:15 75 24 109/73 100 01/16/21 04:01 36.8 C 72 20 103/70 100 01/16/21 04:00 74 22 103/70 100 01/16/21 03:45 36.7 C 73 21 111/73 100 01/16/21 03:30 73 21 105/70 100 01/16/21 03:15 36.8 C 76 20 109/71 100 01/16/21 02:40 36.7 C 81 21 105/68 100 01/16/21 02:10 36.8 C 76 21 103/64 100 01/16/21 01:43 36.7 C 79 21 97/63 L 100 01/16/21 01:00 36.7 C 78 21 106/64 100 01/16/21 00:59 36.6 C 80 19 110/64 100 01/16/21 00:43 36.6 C 86 20 110/64 100 01/16/21 00:00 82 01/15/21 23:30 78 21 91/58 L 97 01/15/21 23:15 81 21 94/64 L 100 01/15/21 23:09 36.7 C 83 21 99/64 L 100 01/15/21 23:00 79 22 99/64 L 100 01/15/21 22:59 79 20 99 01/15/21 22:54 36.7 C 81 22 101/57 L 100 01/15/21 22:45 36.7 C 81 23 101/57 L 99 01/15/21 22:30 84 19 91/60 L 98 01/15/21 22:17 36.7 C 83 20 95/63 L 99 01/15/21 22:15 83 21 95/63 L 99 01/15/21 22:00 36.8 C 80 22 94/59 L 98 01/15/21 21:43 36.7 C 88 17 97/62 L 99 01/15/21 21:32 36.7 C 82 23 97/62 L 97 01/15/21 21:22 36.7 C 84 22 94/56 L 97 01/15/21 21:07 36.7 C 82 21 103/59 L 99 Laboratory Results 01/16/21 01/16/21 01/16/21 Range/Units 07:28 07:28 07:28 WBC 6.92 (4.8-10.8) K/uL RBC 2.63 L (4.7-6.1) M/uL Hgb 8.0 L (14.0-18.0) g/dL POC Hgb (14.0-18.0) g/dl Hct 23.1 L (42-52) % POC Hct (42-52) % MCV 87.8 (80-100) fL MCH 30.4 (25-34) pg MCHC 34.6 (32-36) g/dL RDW Std Deviation 46.3 (36.4-46.3) fL RDW Coeff of Rahat 14.3 (11.5-14.5) % Plt Count 7 L* (130-400) K/uL MPV 10.1 (7.4-10.4) fL Absolute Nucleated RBC (0-0) K/uL Nucleated RBC % (auto) % Neutrophils % (Manual) 4.4 % Lymphocytes % (Manual) 21.1 % Monocytes % (Manual) 4.4 % Eosinophils % (Manual) 0.9 % Myelocytes % (Man) % Other Cells % 69.2 % Neutrophils # (Manual) 0.30 L (1.4-6.5) K/uL Total Absolute Neuts 0.30 L* (1.4-6.5) K/uL Lymphocytes # (Manual) 1.46 (1.2-3.4) K/uL Total Abs Lymphocytes 1.46 (1.2-3.4) K/uL Monocytes # (Manual) 0.30 (0.11-0.59) K/uL Eosinophils # (Manual) 0.06 (0-0.5) K/uL Myelocytes # (Manual) (0-0) K/uL Other Cells # 4.79 H (0-0) K/uL Platelet Estimate (Normal) RBC Morphology Peripher Smr Path Cons PT 11.4 INR 1.1 APTT 27.1 PTT Ratio 1.0 Fibrinogen 130 L D (184-400) mg/dl Fibrin Degrad Products (<10) mcg/ml POC Sodium (135-144) mmol/L Sodium 140 (136-145) mmol/L POC Potassium (3.3-5.0) mmol/L Potassium 4.4 (3.5-5.1) mmol/L POC Chloride (101-112) mmol/L Chloride 111 H (98-107) mmol/L Carbon Dioxide 21 (21-32) mmol/L POC Total CO2 (24-31) mmol/L Anion Gap 8.0 (3-11) POC Anion Gap (16-25) mmol/L POC BUN (7-18) mg/dl BUN 47 H (7-18) mg/dl Creatinine 0.96 D (0.6-1.4) mg/dl POC Creatinine (0.6-1.3) mg/dl Est Cr Clr Drug Dosing 87.8 Est GFR ( Amer) 92.4 ml/min Est GFR (Non-Af Amer) 79.8 ml/min BUN/Creatinine Ratio 48.7 H (10-20) Glucose 157 H (70-99) mg/dl POC Glucose (70-99) mg/dl POC Glucose (other) (70-99) mg/dl Lactate (0.4-2.0) mmol/L Calcium 7.1 L (8.5-10.1) mg/dl POC Ioniz Calcium Annie (1.12-1.32) mmol/l Phosphorus 4.2 (2.5-4.9) mg/dl Magnesium 2.5 H (1.8-2.4) mg/dl Total Bilirubin 0.5 (0.2-1) mg/dl Direct Bilirubin (0-0.2) mg/dl AST 40 H (15-37) U/L ALT 27 (12-78) U/L Alkaline Phosphatase 31 L (45-117) U/L Lactate Dehydrogenase (87-241) U/L Total Protein 4.9 L (6.4-8.2) gm/dl Albumin 2.6 L (3.4-5.0) gm/dl Globulin 2.3 L (2.5-4.0) gm/dl Albumin/Globulin Ratio 1.1 (0.9-2) Lipase (73-393) U/L Procalcitonin (0-0.5) ng/ml Urine Color Urine Appearance (Clear) Urine pH (4.5-7.5) Ur Specific [place] (1.000-1.030) Urine Protein (Negative) Urine Glucose (UA) (Negative) Urine Ketones (Negative) Urine Blood (Negative) Urine Nitrite (Negative) Urine Bilirubin (Negative) Urine Urobilinogen (Negative) Ur Leukocyte Esterase (Negative) Nasal Screen MRSA (PCR) (Negative) COVID-19 Eval Order SARS-CoV-2 (PCR) (Negative) Hepatitis C Ab Screen Blood Type Antibody Screen Crossmatch 01/16/21 01/15/21 01/15/21 Range/Units 05:32 23:26 19:01 WBC (4.8-10.8) K/uL RBC (4.7-6.1) M/uL Hgb (14.0-18.0) g/dL POC Hgb (14.0-18.0) g/dl Hct (42-52) % POC Hct (42-52) % MCV (80-100) fL MCH (25-34) pg MCHC (32-36) g/dL RDW Std Deviation (36.4-46.3) fL RDW Coeff of Rahat (11.5-14.5) % Plt Count (130-400) K/uL MPV (7.4-10.4) fL Absolute Nucleated RBC (0-0) K/uL Nucleated RBC % (auto) % Neutrophils % (Manual) % Lymphocytes % (Manual) % Monocytes % (Manual) % Eosinophils % (Manual) % Myelocytes % (Man) % Other Cells % % Neutrophils # (Manual) (1.4-6.5) K/uL Total Absolute Neuts (1.4-6.5) K/uL Lymphocytes # (Manual) (1.2-3.4) K/uL Total Abs Lymphocytes (1.2-3.4) K/uL Monocytes # (Manual) (0.11-0.59) K/uL Eosinophils # (Manual) (0-0.5) K/uL Myelocytes # (Manual) (0-0) K/uL Other Cells # (0-0) K/uL Platelet Estimate (Normal) RBC Morphology Peripher Smr Path Cons PT INR APTT PTT Ratio Fibrinogen (184-400) mg/dl Fibrin Degrad Products (<10) mcg/ml POC Sodium (135-144) mmol/L Sodium (136-145) mmol/L POC Potassium (3.3-5.0) mmol/L Potassium (3.5-5.1) mmol/L POC Chloride (101-112) mmol/L Chloride (98-107) mmol/L Carbon Dioxide (21-32) mmol/L POC Total CO2 (24-31) mmol/L Anion Gap (3-11) POC Anion Gap (16-25) mmol/L POC BUN (7-18) mg/dl BUN (7-18) mg/dl Creatinine (0.6-1.4) mg/dl POC Creatinine (0.6-1.3) mg/dl Est Cr Clr Drug Dosing Est GFR ( Amer) ml/min Est GFR (Non-Af Amer) ml/min BUN/Creatinine Ratio (10-20) Glucose (70-99) mg/dl POC Glucose 171 H 175 H (70-99) mg/dl POC Glucose (other) (70-99) mg/dl Lactate (0.4-2.0) mmol/L Calcium (8.5-10.1) mg/dl POC Ioniz Calcium Annie (1.12-1.32) mmol/l Phosphorus (2.5-4.9) mg/dl Magnesium (1.8-2.4) mg/dl Total Bilirubin (0.2-1) mg/dl Direct Bilirubin (0-0.2) mg/dl AST (15-37) U/L ALT (12-78) U/L Alkaline Phosphatase (45-117) U/L Lactate Dehydrogenase (87-241) U/L Total Protein (6.4-8.2) gm/dl Albumin (3.4-5.0) gm/dl Globulin (2.5-4.0) gm/dl Albumin/Globulin Ratio (0.9-2) Lipase (73-393) U/L Procalcitonin 0.29 (0-0.5) ng/ml Urine Color Urine Appearance (Clear) Urine pH (4.5-7.5) Ur Specific [place] (1.000-1.030) Urine Protein (Negative) Urine Glucose (UA) (Negative) Urine Ketones (Negative) Urine Blood (Negative) Urine Nitrite (Negative) Urine Bilirubin (Negative) Urine Urobilinogen (Negative) Ur Leukocyte Esterase (Negative) Nasal Screen MRSA (PCR) (Negative) COVID-19 Eval Order SARS-CoV-2 (PCR) (Negative) Hepatitis C Ab Screen Blood Type Antibody Screen Crossmatch 01/15/21 01/15/21 01/15/21 Range/Units 18:56 18:27 17:00 WBC 16.68 H D (4.8-10.8) K/uL RBC 2.23 L (4.7-6.1) M/uL Hgb 7.1 L (14.0-18.0) g/dL POC Hgb (14.0-18.0) g/dl Hct 19.8 L* (42-52) % POC Hct (42-52) % MCV 88.8 (80-100) fL MCH 31.8 (25-34) pg MCHC 35.9 (32-36) g/dL RDW Std Deviation 45.2 (36.4-46.3) fL RDW Coeff of Rahat 13.9 (11.5-14.5) % Plt Count 14 L* D (130-400) K/uL MPV 11.5 H (7.4-10.4) fL Absolute Nucleated RBC (0-0) K/uL Nucleated RBC % (auto) % Neutrophils % (Manual) 3.5 % Lymphocytes % (Manual) 11.4 % Monocytes % (Manual) 4.4 % Eosinophils % (Manual) % Myelocytes % (Man) 0.9 % Other Cells % 79.8 % Neutrophils # (Manual) 0.58 L (1.4-6.5) K/uL Total Absolute Neuts 0.58 L* (1.4-6.5) K/uL Lymphocytes # (Manual) 1.90 (1.2-3.4) K/uL Total Abs Lymphocytes 1.90 (1.2-3.4) K/uL Monocytes # (Manual) 0.73 H (0.11-0.59) K/uL Eosinophils # (Manual) (0-0.5) K/uL Myelocytes # (Manual) 0.15 H (0-0) K/uL Other Cells # 13.31 H (0-0) K/uL Platelet Estimate SIGNIFIC DECREASED (Normal) RBC Morphology Unremarkable Peripher Smr Path Cons PT INR APTT PTT Ratio Fibrinogen (184-400) mg/dl Fibrin Degrad Products (<10) mcg/ml POC Sodium (135-144) mmol/L Sodium (136-145) mmol/L POC Potassium (3.3-5.0) mmol/L Potassium (3.5-5.1) mmol/L POC Chloride (101-112) mmol/L Chloride (98-107) mmol/L Carbon Dioxide (21-32) mmol/L POC Total CO2 (24-31) mmol/L Anion Gap (3-11) POC Anion Gap (16-25) mmol/L POC BUN (7-18) mg/dl BUN (7-18) mg/dl Creatinine (0.6-1.4) mg/dl POC Creatinine (0.6-1.3) mg/dl Est Cr Clr Drug Dosing Est GFR ( Amer) ml/min Est GFR (Non-Af Amer) ml/min BUN/Creatinine Ratio (10-20) Glucose (70-99) mg/dl POC Glucose 198 H (70-99) mg/dl POC Glucose (other) (70-99) mg/dl Lactate (0.4-2.0) mmol/L Calcium (8.5-10.1) mg/dl POC Ioniz Calcium Annie (1.12-1.32) mmol/l Phosphorus (2.5-4.9) mg/dl Magnesium (1.8-2.4) mg/dl Total Bilirubin (0.2-1) mg/dl Direct Bilirubin (0-0.2) mg/dl AST (15-37) U/L ALT (12-78) U/L Alkaline Phosphatase (45-117) U/L Lactate Dehydrogenase (87-241) U/L Total Protein (6.4-8.2) gm/dl Albumin (3.4-5.0) gm/dl Globulin (2.5-4.0) gm/dl Albumin/Globulin Ratio (0.9-2) Lipase (73-393) U/L Procalcitonin (0-0.5) ng/ml Urine Color Urine Appearance (Clear) Urine pH (4.5-7.5) Ur Specific [place] (1.000-1.030) Urine Protein (Negative) Urine Glucose (UA) (Negative) Urine Ketones (Negative) Urine Blood (Negative) Urine Nitrite (Negative) Urine Bilirubin (Negative) Urine Urobilinogen (Negative) Ur Leukocyte Esterase (Negative) Nasal Screen MRSA (PCR) Negative (Negative) COVID-19 Eval Order SARS-CoV-2 (PCR) (Negative) Hepatitis C Ab Screen Blood Type Antibody Screen Crossmatch 01/15/21 01/15/21 01/15/21 Range/Units 16:18 14:55 14:12 WBC (4.8-10.8) K/uL RBC (4.7-6.1) M/uL Hgb (14.0-18.0) g/dL POC Hgb (14.0-18.0) g/dl Hct (42-52) % POC Hct (42-52) % MCV (80-100) fL MCH (25-34) pg MCHC (32-36) g/dL RDW Std Deviation (36.4-46.3) fL RDW Coeff of Rahat (11.5-14.5) % Plt Count (130-400) K/uL MPV (7.4-10.4) fL Absolute Nucleated RBC (0-0) K/uL Nucleated RBC % (auto) % Neutrophils % (Manual) % Lymphocytes % (Manual) % Monocytes % (Manual) % Eosinophils % (Manual) % Myelocytes % (Man) % Other Cells % % Neutrophils # (Manual) (1.4-6.5) K/uL Total Absolute Neuts (1.4-6.5) K/uL Lymphocytes # (Manual) (1.2-3.4) K/uL Total Abs Lymphocytes (1.2-3.4) K/uL Monocytes # (Manual) (0.11-0.59) K/uL Eosinophils # (Manual) (0-0.5) K/uL Myelocytes # (Manual) (0-0) K/uL Other Cells # (0-0) K/uL Platelet Estimate (Normal) RBC Morphology Peripher Smr Path Cons PT INR APTT PTT Ratio Fibrinogen 75 L* (184-400) mg/dl Fibrin Degrad Products 10-40 H (<10) mcg/ml POC Sodium (135-144) mmol/L Sodium (136-145) mmol/L POC Potassium (3.3-5.0) mmol/L Potassium (3.5-5.1) mmol/L POC Chloride (101-112) mmol/L Chloride (98-107) mmol/L Carbon Dioxide (21-32) mmol/L POC Total CO2 (24-31) mmol/L Anion Gap (3-11) POC Anion Gap (16-25) mmol/L POC BUN (7-18) mg/dl BUN (7-18) mg/dl Creatinine (0.6-1.4) mg/dl POC Creatinine (0.6-1.3) mg/dl Est Cr Clr Drug Dosing Est GFR ( Amer) ml/min Est GFR (Non-Af Amer) ml/min BUN/Creatinine Ratio (10-20) Glucose (70-99) mg/dl POC Glucose (70-99) mg/dl POC Glucose (other) (70-99) mg/dl Lactate (0.4-2.0) mmol/L Calcium (8.5-10.1) mg/dl POC Ioniz Calcium Annie (1.12-1.32) mmol/l Phosphorus (2.5-4.9) mg/dl Magnesium (1.8-2.4) mg/dl Total Bilirubin (0.2-1) mg/dl Direct Bilirubin (0-0.2) mg/dl AST (15-37) U/L ALT (12-78) U/L Alkaline Phosphatase (45-117) U/L Lactate Dehydrogenase (87-241) U/L Total Protein (6.4-8.2) gm/dl Albumin (3.4-5.0) gm/dl Globulin (2.5-4.0) gm/dl Albumin/Globulin Ratio (0.9-2) Lipase (73-393) U/L Procalcitonin (0-0.5) ng/ml Urine Color Yellow Urine Appearance Clear (Clear) Urine pH 5.0 (4.5-7.5) Ur Specific [place] 1.026 (1.000-1.030) Urine Protein Negative (Negative) Urine Glucose (UA) Negative (Negative) Urine Ketones Negative (Negative) Urine Blood Negative (Negative) Urine Nitrite Negative (Negative) Urine Bilirubin Negative (Negative) Urine Urobilinogen Negative (Negative) Ur Leukocyte Esterase Negative (Negative) Nasal Screen MRSA (PCR) (Negative) COVID-19 Eval Order SARS-CoV-2 (PCR) (Negative) Hepatitis C Ab Screen Blood Type Antibody Screen Crossmatch 01/15/21 01/15/21 01/15/21 Range/Units 14:12 14:12 13:45 WBC (4.8-10.8) K/uL RBC (4.7-6.1) M/uL Hgb (14.0-18.0) g/dL POC Hgb (14.0-18.0) g/dl Hct (42-52) % POC Hct (42-52) % MCV (80-100) fL MCH (25-34) pg MCHC (32-36) g/dL RDW Std Deviation (36.4-46.3) fL RDW Coeff of Rahat (11.5-14.5) % Plt Count (130-400) K/uL MPV (7.4-10.4) fL Absolute Nucleated RBC (0-0) K/uL Nucleated RBC % (auto) % Neutrophils % (Manual) % Lymphocytes % (Manual) % Monocytes % (Manual) % Eosinophils % (Manual) % Myelocytes % (Man) % Other Cells % % Neutrophils # (Manual) (1.4-6.5) K/uL Total Absolute Neuts (1.4-6.5) K/uL Lymphocytes # (Manual) (1.2-3.4) K/uL Total Abs Lymphocytes (1.2-3.4) K/uL Monocytes # (Manual) (0.11-0.59) K/uL Eosinophils # (Manual) (0-0.5) K/uL Myelocytes # (Manual) (0-0) K/uL Other Cells # (0-0) K/uL Platelet Estimate (Normal) RBC Morphology Peripher Smr Path Cons PT 14.8 H INR 1.5 H APTT 25.6 PTT Ratio 1.0 Fibrinogen (184-400) mg/dl Fibrin Degrad Products (<10) mcg/ml POC Sodium (135-144) mmol/L Sodium (136-145) mmol/L POC Potassium (3.3-5.0) mmol/L Potassium (3.5-5.1) mmol/L POC Chloride (101-112) mmol/L Chloride (98-107) mmol/L Carbon Dioxide (21-32) mmol/L POC Total CO2 (24-31) mmol/L Anion Gap (3-11) POC Anion Gap (16-25) mmol/L POC BUN (7-18) mg/dl BUN (7-18) mg/dl Creatinine (0.6-1.4) mg/dl POC Creatinine (0.6-1.3) mg/dl Est Cr Clr Drug Dosing Est GFR ( Amer) ml/min Est GFR (Non-Af Amer) ml/min BUN/Creatinine Ratio (10-20) Glucose (70-99) mg/dl POC Glucose (70-99) mg/dl POC Glucose (other) (70-99) mg/dl Lactate 1.8 (0.4-2.0) mmol/L Calcium (8.5-10.1) mg/dl POC Ioniz Calcium Annie (1.12-1.32) mmol/l Phosphorus (2.5-4.9) mg/dl Magnesium (1.8-2.4) mg/dl Total Bilirubin (0.2-1) mg/dl Direct Bilirubin (0-0.2) mg/dl AST (15-37) U/L ALT (12-78) U/L Alkaline Phosphatase (45-117) U/L Lactate Dehydrogenase 1076 H (87-241) U/L Total Protein (6.4-8.2) gm/dl Albumin (3.4-5.0) gm/dl Globulin (2.5-4.0) gm/dl Albumin/Globulin Ratio (0.9-2) Lipase (73-393) U/L Procalcitonin (0-0.5) ng/ml Urine Color Urine Appearance (Clear) Urine pH (4.5-7.5) Ur Specific [place] (1.000-1.030) Urine Protein (Negative) Urine Glucose (UA) (Negative) Urine Ketones (Negative) Urine Blood (Negative) Urine Nitrite (Negative) Urine Bilirubin (Negative) Urine Urobilinogen (Negative) Ur Leukocyte Esterase (Negative) Nasal Screen MRSA (PCR) (Negative) COVID-19 Eval Order SARS-CoV-2 (PCR) (Negative) Hepatitis C Ab Screen Blood Type Antibody Screen Crossmatch 01/15/21 01/15/21 01/15/21 Range/Units 13:13 13:13 12:22 WBC (4.8-10.8) K/uL RBC (4.7-6.1) M/uL Hgb (14.0-18.0) g/dL POC Hgb 5.1 L* (14.0-18.0) g/dl Hct (42-52) % POC Hct 15 L* (42-52) % MCV (80-100) fL MCH (25-34) pg MCHC (32-36) g/dL RDW Std Deviation (36.4-46.3) fL RDW Coeff of Rahat (11.5-14.5) % Plt Count (130-400) K/uL MPV (7.4-10.4) fL Absolute Nucleated RBC (0-0) K/uL Nucleated RBC % (auto) % Neutrophils % (Manual) % Lymphocytes % (Manual) % Monocytes % (Manual) % Eosinophils % (Manual) % Myelocytes % (Man) % Other Cells % % Neutrophils # (Manual) (1.4-6.5) K/uL Total Absolute Neuts (1.4-6.5) K/uL Lymphocytes # (Manual) (1.2-3.4) K/uL Total Abs Lymphocytes (1.2-3.4) K/uL Monocytes # (Manual) (0.11-0.59) K/uL Eosinophils # (Manual) (0-0.5) K/uL Myelocytes # (Manual) (0-0) K/uL Other Cells # (0-0) K/uL Platelet Estimate (Normal) RBC Morphology Peripher Smr Path Cons PT Cancelled INR Cancelled APTT Cancelled PTT Ratio Cancelled Fibrinogen (184-400) mg/dl Fibrin Degrad Products (<10) mcg/ml POC Sodium 132 L (135-144) mmol/L Sodium (136-145) mmol/L POC Potassium 4.6 (3.3-5.0) mmol/L Potassium (3.5-5.1) mmol/L POC Chloride 100 L (101-112) mmol/L Chloride (98-107) mmol/L Carbon Dioxide (21-32) mmol/L POC Total CO2 18 L (24-31) mmol/L Anion Gap (3-11) POC Anion Gap 20.0 (16-25) mmol/L POC BUN 97 H (7-18) mg/dl BUN (7-18) mg/dl Creatinine (0.6-1.4) mg/dl POC Creatinine 1.7 H (0.6-1.3) mg/dl Est Cr Clr Drug Dosing Est GFR ( Amer) ml/min Est GFR (Non-Af Amer) ml/min BUN/Creatinine Ratio (10-20) Glucose (70-99) mg/dl POC Glucose (70-99) mg/dl POC Glucose (other) 141 H (70-99) mg/dl Lactate (0.4-2.0) mmol/L Calcium (8.5-10.1) mg/dl POC Ioniz Calcium Annie 1.16 (1.12-1.32) mmol/l Phosphorus (2.5-4.9) mg/dl Magnesium (1.8-2.4) mg/dl Total Bilirubin (0.2-1) mg/dl Direct Bilirubin (0-0.2) mg/dl AST (15-37) U/L ALT (12-78) U/L Alkaline Phosphatase (45-117) U/L Lactate Dehydrogenase (87-241) U/L Total Protein (6.4-8.2) gm/dl Albumin (3.4-5.0) gm/dl Globulin (2.5-4.0) gm/dl Albumin/Globulin Ratio (0.9-2) Lipase (73-393) U/L Procalcitonin (0-0.5) ng/ml Urine Color Urine Appearance (Clear) Urine pH (4.5-7.5) Ur Specific [place] (1.000-1.030) Urine Protein (Negative) Urine Glucose (UA) (Negative) Urine Ketones (Negative) Urine Blood (Negative) Urine Nitrite (Negative) Urine Bilirubin (Negative) Urine Urobilinogen (Negative) Ur Leukocyte Esterase (Negative) Nasal Screen MRSA (PCR) (Negative) COVID-19 Eval Order SARS-CoV-2 (PCR) (Negative) Hepatitis C Ab Screen Pending Blood Type Antibody Screen Crossmatch 01/15/21 01/15/21 01/15/21 Range/Units 12:20 12:20 12:06 WBC (4.8-10.8) K/uL RBC (4.7-6.1) M/uL Hgb (14.0-18.0) g/dL POC Hgb (14.0-18.0) g/dl Hct (42-52) % POC Hct (42-52) % MCV (80-100) fL MCH (25-34) pg MCHC (32-36) g/dL RDW Std Deviation (36.4-46.3) fL RDW Coeff of Rahat (11.5-14.5) % Plt Count (130-400) K/uL MPV (7.4-10.4) fL Absolute Nucleated RBC (0-0) K/uL Nucleated RBC % (auto) % Neutrophils % (Manual) % Lymphocytes % (Manual) % Monocytes % (Manual) % Eosinophils % (Manual) % Myelocytes % (Man) % Other Cells % % Neutrophils # (Manual) (1.4-6.5) K/uL Total Absolute Neuts (1.4-6.5) K/uL Lymphocytes # (Manual) (1.2-3.4) K/uL Total Abs Lymphocytes (1.2-3.4) K/uL Monocytes # (Manual) (0.11-0.59) K/uL Eosinophils # (Manual) (0-0.5) K/uL Myelocytes # (Manual) (0-0) K/uL Other Cells # (0-0) K/uL Platelet Estimate (Normal) RBC Morphology Peripher Smr Path Cons PT INR APTT PTT Ratio Fibrinogen (184-400) mg/dl Fibrin Degrad Products (<10) mcg/ml POC Sodium (135-144) mmol/L Sodium (136-145) mmol/L POC Potassium (3.3-5.0) mmol/L Potassium (3.5-5.1) mmol/L POC Chloride (101-112) mmol/L Chloride (98-107) mmol/L Carbon Dioxide (21-32) mmol/L POC Total CO2 (24-31) mmol/L Anion Gap (3-11) POC Anion Gap (16-25) mmol/L POC BUN (7-18) mg/dl BUN (7-18) mg/dl Creatinine (0.6-1.4) mg/dl POC Creatinine (0.6-1.3) mg/dl Est Cr Clr Drug Dosing Est GFR ( Amer) ml/min Est GFR (Non-Af Amer) ml/min BUN/Creatinine Ratio (10-20) Glucose (70-99) mg/dl POC Glucose (70-99) mg/dl POC Glucose (other) (70-99) mg/dl Lactate (0.4-2.0) mmol/L Calcium (8.5-10.1) mg/dl POC Ioniz Calcium Annie (1.12-1.32) mmol/l Phosphorus (2.5-4.9) mg/dl Magnesium (1.8-2.4) mg/dl Total Bilirubin (0.2-1) mg/dl Direct Bilirubin (0-0.2) mg/dl AST (15-37) U/L ALT (12-78) U/L Alkaline Phosphatase (45-117) U/L Lactate Dehydrogenase (87-241) U/L Total Protein (6.4-8.2) gm/dl Albumin (3.4-5.0) gm/dl Globulin (2.5-4.0) gm/dl Albumin/Globulin Ratio (0.9-2) Lipase (73-393) U/L Procalcitonin (0-0.5) ng/ml Urine Color Urine Appearance (Clear) Urine pH (4.5-7.5) Ur Specific [place] (1.000-1.030) Urine Protein (Negative) Urine Glucose (UA) (Negative) Urine Ketones (Negative) Urine Blood (Negative) Urine Nitrite (Negative) Urine Bilirubin (Negative) Urine Urobilinogen (Negative) Ur Leukocyte Esterase (Negative) Nasal Screen MRSA (PCR) (Negative) COVID-19 Eval Order Covid19 at [facility] SARS-CoV-2 (PCR) NEGATIVE (Negative) Hepatitis C Ab Screen Blood Type O Positive Antibody Screen NEGATIVE Crossmatch See Detail 01/15/21 01/15/21 01/15/21 Range/Units 11:59 11:49 11:49 WBC (4.8-10.8) K/uL RBC (4.7-6.1) M/uL Hgb (14.0-18.0) g/dL POC Hgb (14.0-18.0) g/dl Hct (42-52) % POC Hct (42-52) % MCV (80-100) fL MCH (25-34) pg MCHC (32-36) g/dL RDW Std Deviation (36.4-46.3) fL RDW Coeff of Rahat (11.5-14.5) % Plt Count (130-400) K/uL MPV (7.4-10.4) fL Absolute Nucleated RBC (0-0) K/uL Nucleated RBC % (auto) % Neutrophils % (Manual) % Lymphocytes % (Manual) % Monocytes % (Manual) % Eosinophils % (Manual) % Myelocytes % (Man) % Other Cells % % Neutrophils # (Manual) (1.4-6.5) K/uL Total Absolute Neuts (1.4-6.5) K/uL Lymphocytes # (Manual) (1.2-3.4) K/uL Total Abs Lymphocytes (1.2-3.4) K/uL Monocytes # (Manual) (0.11-0.59) K/uL Eosinophils # (Manual) (0-0.5) K/uL Myelocytes # (Manual) (0-0) K/uL Other Cells # (0-0) K/uL Platelet Estimate (Normal) RBC Morphology Peripher Smr Path Cons PT Cancelled INR Cancelled APTT Cancelled PTT Ratio Cancelled Fibrinogen (184-400) mg/dl Fibrin Degrad Products (<10) mcg/ml POC Sodium (135-144) mmol/L Sodium 135 L (136-145) mmol/L POC Potassium (3.3-5.0) mmol/L Potassium 4.7 (3.5-5.1) mmol/L POC Chloride (101-112) mmol/L Chloride 103 (98-107) mmol/L Carbon Dioxide 17 L (21-32) mmol/L POC Total CO2 (24-31) mmol/L Anion Gap 15.0 H (3-11) POC Anion Gap (16-25) mmol/L POC BUN (7-18) mg/dl BUN 79 H (7-18) mg/dl Creatinine 1.46 H (0.6-1.4) mg/dl POC Creatinine (0.6-1.3) mg/dl Est Cr Clr Drug Dosing Not Reportable Est GFR ( Amer) 55.7 ml/min Est GFR (Non-Af Amer) 48.0 ml/min BUN/Creatinine Ratio 54.2 H (10-20) Glucose 141 H (70-99) mg/dl POC Glucose (70-99) mg/dl POC Glucose (other) (70-99) mg/dl Lactate 3.8 H* (0.4-2.0) mmol/L Calcium 7.5 L (8.5-10.1) mg/dl POC Ioniz Calcium Annie (1.12-1.32) mmol/l Phosphorus (2.5-4.9) mg/dl Magnesium 2.4 (1.8-2.4) mg/dl Total Bilirubin 0.4 (0.2-1) mg/dl Direct Bilirubin 0.1 (0-0.2) mg/dl AST 56 H (15-37) U/L ALT 33 (12-78) U/L Alkaline Phosphatase 34 L (45-117) U/L Lactate Dehydrogenase (87-241) U/L Total Protein 5.1 L (6.4-8.2) gm/dl Albumin 2.7 L (3.4-5.0) gm/dl Globulin (2.5-4.0) gm/dl Albumin/Globulin Ratio (0.9-2) Lipase 296 (73-393) U/L Procalcitonin (0-0.5) ng/ml Urine Color Urine Appearance (Clear) Urine pH (4.5-7.5) Ur Specific [place] (1.000-1.030) Urine Protein (Negative) Urine Glucose (UA) (Negative) Urine Ketones (Negative) Urine Blood (Negative) Urine Nitrite (Negative) Urine Bilirubin (Negative) Urine Urobilinogen (Negative) Ur Leukocyte Esterase (Negative) Nasal Screen MRSA (PCR) (Negative) COVID-19 Eval Order SARS-CoV-2 (PCR) (Negative) Hepatitis C Ab Screen Blood Type Antibody Screen Crossmatch 01/15/21 Range/Units 11:49 WBC 31.08 H* (4.8-10.8) K/uL RBC 1.99 L (4.7-6.1) M/uL Hgb 6.1 L* (14.0-18.0) g/dL POC Hgb (14.0-18.0) g/dl Hct 17.3 L* (42-52) % POC Hct (42-52) % MCV 86.9 (80-100) fL MCH 30.7 (25-34) pg MCHC 35.3 (32-36) g/dL RDW Std Deviation 45.7 (36.4-46.3) fL RDW Coeff of Rahat 14.3 (11.5-14.5) % Plt Count 9 L* (130-400) K/uL MPV 10.9 H (7.4-10.4) fL Absolute Nucleated RBC 0.10 H (0-0) K/uL Nucleated RBC % (auto) 0.3 % Neutrophils % (Manual) 1.8 % Lymphocytes % (Manual) 15.0 % Monocytes % (Manual) % Eosinophils % (Manual) % Myelocytes % (Man) % Other Cells % 83.2 % Neutrophils # (Manual) 0.56 L (1.4-6.5) K/uL Total Absolute Neuts 0.56 L* (1.4-6.5) K/uL Lymphocytes # (Manual) 4.66 H (1.2-3.4) K/uL Total Abs Lymphocytes 4.66 H (1.2-3.4) K/uL Monocytes # (Manual) (0.11-0.59) K/uL Eosinophils # (Manual) (0-0.5) K/uL Myelocytes # (Manual) (0-0) K/uL Other Cells # 25.86 H (0-0) K/uL Platelet Estimate (Normal) RBC Morphology Peripher Smr Path Cons Pending PT INR APTT PTT Ratio Fibrinogen (184-400) mg/dl Fibrin Degrad Products (<10) mcg/ml POC Sodium (135-144) mmol/L Sodium (136-145) mmol/L POC Potassium (3.3-5.0) mmol/L Potassium (3.5-5.1) mmol/L POC Chloride (101-112) mmol/L Chloride (98-107) mmol/L Carbon Dioxide (21-32) mmol/L POC Total CO2 (24-31) mmol/L Anion Gap (3-11) POC Anion Gap (16-25) mmol/L POC BUN (7-18) mg/dl BUN (7-18) mg/dl Creatinine (0.6-1.4) mg/dl POC Creatinine (0.6-1.3) mg/dl Est Cr Clr Drug Dosing Est GFR ( Amer) ml/min Est GFR (Non-Af Amer) ml/min BUN/Creatinine Ratio (10-20) Glucose (70-99) mg/dl POC Glucose (70-99) mg/dl POC Glucose (other) (70-99) mg/dl Lactate (0.4-2.0) mmol/L Calcium (8.5-10.1) mg/dl POC Ioniz Calcium Annie (1.12-1.32) mmol/l Phosphorus (2.5-4.9) mg/dl Magnesium (1.8-2.4) mg/dl Total Bilirubin (0.2-1) mg/dl Direct Bilirubin (0-0.2) mg/dl AST (15-37) U/L ALT (12-78) U/L Alkaline Phosphatase (45-117) U/L Lactate Dehydrogenase (87-241) U/L Total Protein (6.4-8.2) gm/dl Albumin (3.4-5.0) gm/dl Globulin (2.5-4.0) gm/dl Albumin/Globulin Ratio (0.9-2) Lipase (73-393) U/L Procalcitonin (0-0.5) ng/ml Urine Color Urine Appearance (Clear) Urine pH (4.5-7.5) Ur Specific [place] (1.000-1.030) Urine Protein (Negative) Urine Glucose (UA) (Negative) Urine Ketones (Negative) Urine Blood (Negative) Urine Nitrite (Negative) Urine Bilirubin (Negative) Urine Urobilinogen (Negative) Ur Leukocyte Esterase (Negative) Nasal Screen MRSA (PCR) (Negative) COVID-19 Eval Order SARS-CoV-2 (PCR) (Negative) Hepatitis C Ab Screen Blood Type Antibody Screen Crossmatch Coding Level of Care Code Critical Care ea addt'l 30 min Diagnoses Acute blood loss anemia D62 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
[2021-01-16] MEDS ORDERED: UMECLIDINIUM BROMIDE 62.5MCG/BLISTER 7 PUFFS/INHALER INH SCH (09:00)
[2021-01-16] MEDS ORDERED: FLUTICASONE/VILANTEROL 100/25MCG 14 PUFFS/INHALER INH SCH (09:00)
[2021-01-16] MEDS ORDERED: NON-FORMULARY MEDICATION (Telmisartan-Hydrochlorothiazid 40-12.5 mg tablet) PO SCH (09:00)
[2021-01-16] MEDS ORDERED: CONSULT PHARMACY STA (09:02)
[2021-01-16] MEDS ORDERED: IMMUNE GLOBULIN(HUMAN) 10% 100 ML IV SCH (09:30)
[2021-01-16] MEDS ORDERED: SODIUM CHLORIDE 0.9% 250 ML IV PRN (09:37)
[2021-01-16] MEDS ORDERED: PIPERACILLIN/TAZOBACTAM 4.5 GM in DEXTROSE 5% 100 ML IV ONE (09:45)
--- NOTE | 2021-01-16 10:31 | Gastrointestinal Consultation ---
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 (1.4-6.5) K/uL Lymphocytes # (Manual) (1.2-3.4) K/uL Total Abs Lymphocytes (1.2-3.4) K/uL Monocytes # (Manual) (0.11-0.59) K/uL Eosinophils # (Manual) (0-0.5) K/uL Myelocytes # (Manual) (0-0) K/uL Other Cells # (0-0) K/uL Platelet Estimate (Normal) Immature Plt Fraction RBC Morphology Peripher Smr Path Cons PT Cancelled INR Cancelled APTT Cancelled PTT Ratio Cancelled Fibrinogen (184-400) mg/dl Fibrin Degrad Products (<10) mcg/ml POC Sodium 132 L (135-144) mmol/L Sodium (136-145) mmol/L POC Potassium 4.6 (3.3-5.0) mmol/L Potassium (3.5-5.1) mmol/L POC Chloride 100 L (101-112) mmol/L Chloride (98-107) mmol/L Carbon Dioxide (21-32) mmol/L POC Total CO2 18 L (24-31) mmol/L Anion Gap (3-11) POC Anion Gap 20.0 (16-25) mmol/L POC BUN 97 H (7-18) mg/dl BUN (7-18) mg/dl Creatinine (0.6-1.4) mg/dl POC Creatinine 1.7 H (0.6-1.3) mg/dl Est Cr Clr Drug Dosing Est GFR ( Amer) ml/min Est GFR (Non-Af Amer) ml/min BUN/Creatinine Ratio (10-20) Glucose (70-99) mg/dl POC Glucose (70-99) mg/dl POC Glucose (other) 141 H (70-99) mg/dl Lactate (0.4-2.0) mmol/L Calcium (8.5-10.1) mg/dl POC Ioniz Calcium Annie 1.16 (1.12-1.32) mmol/l Phosphorus (2.5-4.9) mg/dl Magnesium (1.8-2.4) mg/dl Total Bilirubin (0.2-1) mg/dl Direct Bilirubin (0-0.2) mg/dl AST (15-37) U/L ALT (12-78) U/L Alkaline Phosphatase (45-117) U/L Lactate Dehydrogenase (87-241) U/L Total Protein (6.4-8.2) gm/dl Albumin (3.4-5.0) gm/dl Globulin (2.5-4.0) gm/dl Albumin/Globulin Ratio (0.9-2) Lipase (73-393) U/L Procalcitonin (0-0.5) ng/ml Urine Color Urine Appearance (Clear) Urine pH (4.5-7.5) Ur Specific [place] (1.000-1.030) Urine Protein (Negative) Urine Glucose (UA) (Negative) Urine Ketones (Negative) Urine Blood (Negative) Urine Nitrite (Negative) Urine Bilirubin (Negative) Urine Urobilinogen (Negative) Ur Leukocyte Esterase (Negative) Nasal Screen MRSA (PCR) (Negative) Stool Occult Bld Scrn (Negative) COVID-19 Eval Order SARS-CoV-2 (PCR) NEGATIVE (Negative) Hepatitis C Ab Screen (Neg) Blood Type Antibody Screen Crossmatch 01/15/21 01/15/21 01/15/21 Range/Units 12:20 12:06 11:59 WBC (4.8-10.8) K/uL RBC (4.7-6.1) M/uL Hgb (14.0-18.0) g/dL POC Hgb (14.0-18.0) g/dl Hct (42-52) % POC Hct (42-52) % MCV (80-100) fL MCH (25-34) pg MCHC (32-36) g/dL RDW Std Deviation (36.4-46.3) fL RDW Coeff of Rahat (11.5-14.5) % Plt Count (130-400) K/uL MPV (7.4-10.4) fL Absolute Nucleated RBC (0-0) K/uL Nucleated RBC % (auto) % Neutrophils % (Manual) % Lymphocytes % (Manual) % Monocytes % (Manual) % Eosinophils % (Manual) % Myelocytes % (Man) % Other Cells % % Neutrophils # (Manual) (1.4-6.5) K/uL Total Absolute Neuts (1.4-6.5) K/uL Lymphocytes # (Manual) (1.2-3.4) K/uL Total Abs Lymphocytes (1.2-3.4) K/uL Monocytes # (Manual) (0.11-0.59) K/uL Eosinophils # (Manual) (0-0.5) K/uL Myelocytes # (Manual) (0-0) K/uL Other Cells # (0-0) K/uL Platelet Estimate (Normal) Immature Plt Fraction RBC Morphology Peripher Smr Path Cons PT INR APTT PTT Ratio Fibrinogen (184-400) mg/dl Fibrin Degrad Products (<10) mcg/ml POC Sodium (135-144) mmol/L Sodium (136-145) mmol/L POC Potassium (3.3-5.0) mmol/L Potassium (3.5-5.1) mmol/L POC Chloride (101-112) mmol/L Chloride (98-107) mmol/L Carbon Dioxide (21-32) mmol/L POC Total CO2 (24-31) mmol/L Anion Gap (3-11) POC Anion Gap (16-25) mmol/L POC BUN (7-18) mg/dl BUN (7-18) mg/dl Creatinine (0.6-1.4) mg/dl POC Creatinine (0.6-1.3) mg/dl Est Cr Clr Drug Dosing Est GFR ( Amer) ml/min Est GFR (Non-Af Amer) ml/min BUN/Creatinine Ratio (10-20) Glucose (70-99) mg/dl POC Glucose (70-99) mg/dl POC Glucose (other) (70-99) mg/dl Lactate 3.8 H* (0.4-2.0) mmol/L Calcium (8.5-10.1) mg/dl POC Ioniz Calcium Annie (1.12-1.32) mmol/l Phosphorus (2.5-4.9) mg/dl Magnesium (1.8-2.4) mg/dl Total Bilirubin (0.2-1) mg/dl Direct Bilirubin (0-0.2) mg/dl AST (15-37) U/L ALT (12-78) U/L Alkaline Phosphatase (45-117) U/L Lactate Dehydrogenase (87-241) U/L Total Protein (6.4-8.2) gm/dl Albumin (3.4-5.0) gm/dl Globulin (2.5-4.0) gm/dl Albumin/Globulin Ratio (0.9-2) Lipase (73-393) U/L Procalcitonin (0-0.5) ng/ml Urine Color Urine Appearance (Clear) Urine pH (4.5-7.5) Ur Specific [place] (1.000-1.030) Urine Protein (Negative) Urine Glucose (UA) (Negative) Urine Ketones (Negative) Urine Blood (Negative) Urine Nitrite (Negative) Urine Bilirubin (Negative) Urine Urobilinogen (Negative) Ur Leukocyte Esterase (Negative) Nasal Screen MRSA (PCR) (Negative) Stool Occult Bld Scrn (Negative) COVID-19 Eval Order Covid19 at [facility] SARS-CoV-2 (PCR) (Negative) Hepatitis C Ab Screen (Neg) Blood Type O Positive Antibody Screen NEGATIVE Crossmatch See Detail 01/15/21 01/15/21 01/15/21 Range/Units 11:49 11:49 11:49 WBC 31.08 H* (4.8-10.8) K/uL RBC 1.99 L (4.7-6.1) M/uL Hgb 6.1 L* (14.0-18.0) g/dL POC Hgb (14.0-18.0) g/dl Hct 17.3 L* (42-52) % POC Hct (42-52) % MCV 86.9 (80-100) fL MCH 30.7 (25-34) pg MCHC 35.3 (32-36) g/dL RDW Std Deviation 45.7 (36.4-46.3) fL RDW Coeff of Rahat 14.3 (11.5-14.5) % Plt Count 9 L* (130-400) K/uL MPV 10.9 H (7.4-10.4) fL Absolute Nucleated RBC 0.10 H (0-0) K/uL Nucleated RBC % (auto) 0.3 % Neutrophils % (Manual) 1.8 % Lymphocytes % (Manual) 15.0 % Monocytes % (Manual) % Eosinophils % (Manual) % Myelocytes % (Man) % Other Cells % 83.2 % Neutrophils # (Manual) 0.56 L (1.4-6.5) K/uL Total Absolute Neuts 0.56 L* (1.4-6.5) K/uL Lymphocytes # (Manual) 4.66 H (1.2-3.4) K/uL Total Abs Lymphocytes 4.66 H (1.2-3.4) K/uL Monocytes # (Manual) (0.11-0.59) K/uL Eosinophils # (Manual) (0-0.5) K/uL Myelocytes # (Manual) (0-0) K/uL Other Cells # 25.86 H (0-0) K/uL Platelet Estimate (Normal) Immature Plt Fraction RBC Morphology Peripher Smr Path Cons PT Cancelled INR Cancelled APTT Cancelled PTT Ratio Cancelled Fibrinogen (184-400) mg/dl Fibrin Degrad Products (<10) mcg/ml POC Sodium (135-144) mmol/L Sodium 135 L (136-145) mmol/L POC Potassium (3.3-5.0) mmol/L Potassium 4.7 (3.5-5.1) mmol/L POC Chloride (101-112) mmol/L Chloride 103 (98-107) mmol/L Carbon Dioxide 17 L (21-32) mmol/L POC Total CO2 (24-31) mmol/L Anion Gap 15.0 H (3-11) POC Anion Gap (16-25) mmol/L POC BUN (7-18) mg/dl BUN 79 H (7-18) mg/dl Creatinine 1.46 H (0.6-1.4) mg/dl POC Creatinine (0.6-1.3) mg/dl Est Cr Clr Drug Dosing Not Reportable Est GFR ( Amer) 55.7 ml/min Est GFR (Non-Af Amer) 48.0 ml/min BUN/Creatinine Ratio 54.2 H (10-20) Glucose 141 H (70-99) mg/dl POC Glucose (70-99) mg/dl POC Glucose (other) (70-99) mg/dl Lactate (0.4-2.0) mmol/L Calcium 7.5 L (8.5-10.1) mg/dl POC Ioniz Calcium Annie (1.12-1.32) mmol/l Phosphorus (2.5-4.9) mg/dl Magnesium 2.4 (1.8-2.4) mg/dl Total Bilirubin 0.4 (0.2-1) mg/dl Direct Bilirubin 0.1 (0-0.2) mg/dl AST 56 H (15-37) U/L ALT 33 (12-78) U/L Alkaline Phosphatase 34 L (45-117) U/L Lactate Dehydrogenase (87-241) U/L Total Protein 5.1 L (6.4-8.2) gm/dl Albumin 2.7 L (3.4-5.0) gm/dl Globulin (2.5-4.0) gm/dl Albumin/Globulin Ratio (0.9-2) Lipase 296 (73-393) U/L Procalcitonin (0-0.5) ng/ml Urine Color Urine Appearance (Clear) Urine pH (4.5-7.5) Ur Specific [place] (1.000-1.030) Urine Protein (Negative) Urine Glucose (UA) (Negative) Urine Ketones (Negative) Urine Blood (Negative) Urine Nitrite (Negative) Urine Bilirubin (Negative) Urine Urobilinogen (Negative) Ur Leukocyte Esterase (Negative) Nasal Screen MRSA (PCR) (Negative) Stool Occult Bld Scrn (Negative) COVID-19 Eval Order SARS-CoV-2 (PCR) (Negative) Hepatitis C Ab Screen (Neg) Blood Type Antibody Screen Crossmatch Temp Pulse Pulse Pulse Resp BP Pulse Ox 01/16/21 08:15 71 19 109/68 96 01/16/21 08:01 80 22 104/62 98 01/16/21 08:00 87 21 98 01/16/21 07:45 79 22 111/69 97 01/16/21 07:31 36.8 C 78 20 96 01/16/21 07:30 82 22 93/67 L 99 01/16/21 07:15 72 17 109/71 100 01/16/21 07:08 72 16 99 01/16/21 07:00 73 20 109/71 98 01/16/21 06:45 73 12 114/69 100 01/16/21 06:30 72 20 103/69 100 01/16/21 06:15 72 20 109/71 100 01/16/21 06:00 72 20 103/68 100 01/16/21 05:45 77 17 113/71 100 01/16/21 05:15 70 23 108/67 99 06/07/21 05:06 36.7 C 01/16/21 05:05 36.7 C 69 21 108/69 100 01/16/21 05:00 73 21 108/69 100 01/16/21 04:46 36.8 C 01/16/21 04:45 71 23 103/72 98 01/16/21 04:30 70 22 113/68 98 01/16/21 04:16 36.8 C 01/16/21 04:15 75 24 109/73 100 01/16/21 04:01 36.8 C 72 20 103/70 100 01/16/21 04:00 74 22 103/70 100 01/16/21 03:45 36.7 C 73 21 111/73 100 01/16/21 03:30 73 21 105/70 100 01/16/21 03:15 36.8 C 76 20 109/71 100 01/16/21 02:40 36.7 C 81 21 105/68 100 01/16/21 02:10 36.8 C 76 21 103/64 100 01/16/21 01:43 36.7 C 79 21 97/63 L 100 01/16/21 01:00 36.7 C 78 21 106/64 100 01/16/21 00:59 36.6 C 80 19 110/64 100 01/16/21 00:43 36.6 C 86 20 110/64 100 01/16/21 00:00 82 01/15/21 23:30 78 21 91/58 L 97 01/15/21 23:15 81 21 94/64 L 100 01/15/21 23:09 36.7 C 83 21 99/64 L 100 01/15/21 23:00 79 22 99/64 L 100 01/15/21 22:59 79 20 99 01/15/21 22:54 36.7 C 81 22 101/57 L 100 01/15/21 22:45 36.7 C 81 23 101/57 L 99 01/15/21 22:30 84 19 91/60 L 98 01/15/21 22:17 36.7 C 83 20 95/63 L 99 01/15/21 22:15 83 21 95/63 L 99
[2021-01-16] MEDS ORDERED: INSULIN GLARGINE SOLOSTAR 100 UNITS/ML 3 ML PEN SC SCH ×2 (12:00→21:00)
[2021-01-16 12:50] LABS: Magnesium 2.4 mg/dl (1.8-2.4); Phosphorus 4.1 mg/dl (2.5-4.9)
[2021-01-16 12:55] LABS: BUN Creatinine Ratio 46.3 (10-20); Calcium 7.5 mg/dl (8.5-10.1); Creatinine Clr Calc Pharmacy 87.8 ml/min; Est GFR (African American) 92.4 ml/min; Est GFR (Non-African American) 79.8 ml/min; Potassium 4.1 mmol/L (3.5-5.1)
[2021-01-16] MEDS ORDERED: PIPERACILL/TAZOBAC CONSULT ACTIVE PRN (13:14)
[2021-01-16] MEDS: predniSONE 50 MG TAB PO SCH (13:57)
[2021-01-16] MEDS: NORMOSOL-R 1,000 ML IV SCH ×2 (14:02→22:02)
[2021-01-16] MEDS: PIPERACILLIN/TAZOBACTAM 4.5 GM in DEXTROSE 5% 100 ML IV SCH ×2 (14:03→22:31)
--- NOTE | 2021-01-16 14:10 | Pharmacy Report ---
Pharmacy Glycemic Short Note 2 - Date of Service January 16, 2021 - Glycemic Short BSG Results (Last 24 hours): 01/15/21 01/15/21 01/15/21 11:49 12:22 18:27 Glucose 141 H POC Glucose 198 H POC Glucose (other) 141 H 01/15/21 01/16/21 01/16/21 23:26 05:32 07:28 Glucose 157 H POC Glucose 175 H 171 H POC Glucose (other) 01/16/21 01/16/21 11:29 12:14 Glucose 153 H POC Glucose 161 H POC Glucose (other) OUTPATIENT ANTIDIABETIC REGIMEN: * A1c ordered * No outpatient regimen ASSESSMENT: * Mr. Alczaar has a complicated past medical history including COPD, AAA with repai, HTN, prostate cancer and high-grade B cell lymphoma preseting with increased SOB and fatigue with possible GI bleed. Plt count 9 on admission, hgb in the 6's. Was on high dose steroids for possible ITP outpatient * Consult reflexed by meeting ICU hyperglycemia criteria with two BSGs >140 mg/dL. Patient's BSGs have been in the upper 100s, novolog initiated with weight based stress of 2 and patient was previously NPO, lantus initiated more conservatively with weight based stress of 1. * Patient to begin chemotherapy regimen today and tomorrow. Prednisone 50 mg x [address] Nicole. * Patient no ordered a diet, will monitor for increase in BSGs and need to tighten parameters. * A1c ordered for AM PLAN FOR INPATIENT GLYCEMIC CONTROL: * Hold outpatient oral diabetes medications * Basal insulin * Lantus 10 units SQ at lunch, additional 10-15 HS * Bolus insulin * NovoLog per scale ACHS or Q6hrs while NPO * Goal Range: Low 110 mg/dL - High 140 mg/dL * Correction Factor: 20 mg/dL/unit * Nutritional / Prandial insulin per carb ratio of 1 unit per 7 grams CHO consumed
[2021-01-16] MEDS: VANCOMYCIN HCL 1,500 MG in SODIUM CHLORIDE 0.9% 500 ML IV SCH (14:25)
--- NOTE | 2021-01-16 14:36 | Consultation Report ---
DATE OF CONSULTATION: 01/16/2021 MEDICAL ONCOLOGY CONSULTATION REASON FOR CONSULTATION: Rapidly progressing non-Hodgkin's lymphoma (stage IV). HISTORY OF PRESENT ILLNESS: Mr. Alcazar is a pleasant 70-year-old gentleman well known to [facility] with a recent diagnosis of high-grade diffuse large B-cell lymphoma involving his bone marrow predominantly. Bone marrow biopsy and aspiration was done a couple of weeks ago and flow cytometry as well as cytogenetics confirmed diffuse large B-cell lymphoma with a 14; 18 translocation and BCL2 and BCL6 expression. Had been pending outpatient PET scan to complete staging, but unfortunately he has been rapidly declining, presented to the office on Saturday profoundly anemic and thrombocytopenic. Initially, I thought there may be a component of ITP as his platelet count was in single digits (1999), and thus, I started him on high-dose dexamethasone 40 mg p.o. daily with plans to transfuse packed RBCs today. I was contacted by the patient's significant other, stated he was experiencing rectal bleeding and feeling poorly, and thus, recommended he come to the Emergency Room. I was contacted by the Emergency Room doctor alerting me to this gentleman's faltering blood counts with a hemoglobin in the 6 gram per deciliter range and platelets again in single digits. Thus, instructed to proceed with transfusion of platelets and packed RBCs. His blood pressure was low and he received copious amounts of IV hydration in addition to low dose vasopressor. He did not require mechanical ventilation. Reviewed peripheral smear this morning revealing no evidence of schistocytosis. His coags suggests that Tyrell may have low-grade DIC. Thus, the patient was admitted to the intensive care unit. I visited with Tyrell this morning explaining the need for expedient chemotherapy. With bone marrow involvement, significant myelosuppression, not to mention tumor lysis syndrome is concerning moving forward. I explained side effects associated with the proposed regimen R-CHOP, which include myelosuppression, alopecia, nausea and vomiting, peripheral neuropathy, hemorrhagic cystitis, and infusion reaction are all possible. Again, his electrolytes will need to be followed closely throughout the course of treatment. The patient signed informed consent at bedside to proceed with cycle 1. PAST MEDICAL HISTORY: Significant for abdominal aortic aneurysm, prostate cancer, cirrhosis of the liver, gastroesophageal reflux disease, nicotine dependence, nocturnal hypoxemia, sacral radiculopathy, severe chronic obstructive pulmonary disease and diffuse large B-cell lymphoma. PAST SURGICAL HISTORY: Right shoulder replacement in 05/2020, history of right wrist surgery, right inguinal hernia surgery, repair of aneurysm of the abdominal aorta endovascular stent graft, history of laparoscopic appendectomy, colonoscopy, fusion of the spine with hardware. MEDICATIONS: Prior to admission include aspirin 81 mg p.o. daily, magnesium 250 mg p.o. daily, multivitamin 1 tablet p.o. daily, [place]-3 fish oil 1000 mg p.o. daily, omeprazole 20 mg p.o. daily, telmisartan/hydrochlorothiazide 40/12.5 mg p.o. daily, gabapentin 300 mg p.o. t.i.d., albuterol 2 puffs inhaled q.4 hours p.r.n., Flonase 1 inhalation daily, ipratropium/albuterol nebulizer 3 mL inhaled q.8 hours p.r.n., atorvastatin 20 mg p.o. daily, oxycodone 5 mg p.o. q.6 p.r.n. and completed dexamethasone 40 mg p.o. daily this morning. ALLERGIES: AMLODIPINE AND BETA BLOCKERS. 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 A [id number] history, quit a couple of years ago. Negative for alcohol or illicit drugs. FAMILY HISTORY: Mother succumbed to cancer. Father committed suicide. REVIEW OF SYSTEMS: CONSTITUTIONAL: As per HPI, most notably for generalized decline, lower gastrointestinal bleeding, generalized weakness. No fevers, chills or sweats. SKIN: No rashes or lesions. No history of dermatoses. HEENT: Negative for headache, lightheadedness or dizziness. No acute visual or hearing deficits. No sinus symptoms, sore throat or dysphagia. LYMPHATICS: Recent diagnosis of diffuse large B-cell lymphoma. No palpable adenopathy. CARDIOVASCULAR: No current angina or palpitations. PULMONARY: Suffers from COPD. He is not acutely short of breath, dyspneic or orthopneic. No cough or hemoptysis. GASTROINTESTINAL: Positive for left upper quadrant pain attributable to splenomegaly. No diarrhea or constipation. Positive for hematochezia on admission. GENITOURINARY: History of prostate cancer. No hematuria, dysuria, or urinary incontinence. MUSCULOSKELETAL: No arthralgias or myalgias. No muscle weakness. ENDOCRINE: Negative for diabetes or thyroid disease. NEUROLOGIC: Negative for seizure, stroke, or migraine headache. HEMATOLOGIC: Positive for leukocytosis, anemia and thrombocytopenia. PHYSICAL EXAMINATION: GENERAL: A very pleasant 70-year-old, awake, alert and appropriate, in no acute distress. VITAL SIGNS: Temperature 36.8, pulse 71, respiratory rate 19, BP 109/68. SKIN: Warm, dry, noncyanotic without petechia, rash or ecchymosis. HEENT: Head is atraumatic, normocephalic. Eyes: PERRLA, EOMI. Sclerae nonicteric. No conjunctival injection. Nares patent without rhinorrhea or discharge. Throat clear. Tongue midline. Mucous membranes are moist. NECK: Supple without JVD or thyromegaly. LYMPHATICS: No cervical, supraclavicular, axillary or inguinal palpable nodes. HEART: Regular rate and rhythm. No clicks, rubs, murmurs or gallops. LUNGS: Clear to auscultation bilaterally. ABDOMEN: Left upper quadrant tenderness. Splenic tip palpable. Bowel sounds are active. No rigidity or guarding otherwise. EXTREMITIES: Musculoskeletal strength and pulses are equal in all 4 quadrants. No clubbing, cyanosis or edema. NEUROLOGICAL: He is awake, alert and oriented x3. Cranial nerves are grossly intact. RADIOGRAPHIC DATA: CTA of the abdomen and pelvis reveals extensive colonic diverticulosis without evidence of acute diverticulitis, moderate to marked splenomegaly, increased since 12/30/2020. Several hypodense foci within the spleen, splenic infarct or less likely splenic laceration could appear similar. Short-term CT of the abdomen IV contrast during venous phase is recommended. 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 CT scan of the head was negative. LABORATORY DATA: WBC count 6920, hemoglobin 8, platelet count 7000. PT 11.4, PTT 27.1. Fibrinogen is 130. Sodium 140, potassium 4.4, chloride 111, carbon dioxide 21, creatinine 0.96, BUN 47. Magnesium 2.5, AST 40, alkaline phosphatase 31, total protein 4.9, albumin 2.6, LDH measures 1076. IMPRESSION: 1. 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 2. Anemia/thrombocytopenia. 3. Low-grade disseminated intravascular coagulation. 4. Lower gastrointestinal bleeding. 5. Abdominal aortic aneurysm. 6. Hypertension. PLAN: Tyrell is a very pleasant, somewhat complex 70-year-old gentleman who I met a couple of weeks ago when he had presented with abnormal peripheral blood counts, which initially appeared to be an acute leukemia. Bone marrow biopsy and aspiration was obtained 2 weeks ago, confirming the diagnosis of diffuse large B-cell lymphoma (high-grade). Fluorescence in situ hybridization confirms translocation 14; 18 as well as BCL6 and BCL2 rearrangement, consistent with diffuse large B-cell lymphoma. Tryell had presented to the office with profound thrombocytopenia on Saturday. I placed him on empiric high-dose dexamethasone for immune thrombocytopenia. Unfortunately, on Saturday, he developed lower gastrointestinal bleeding and recommended the patient proceed to the Emergency Room. I was contacted by the Emergency Room physician alerting me to the fact that he was suffering with lower gastrointestinal bleeding, profoundly decreased hemoglobin and platelet count. Central line was placed and the patient was transfused both random donor platelets and packed RBCs. The Emergency Room physician had noted oozing upon placement of the central line. Tyrell's coags were consistent with a low-grade disseminated intravascular coagulation. In the 24 hours thereafter, the patient has slowly stabilized. That said, his bone marrow is severely compromised with infiltrative disease and thus, the need to proceed with chemotherapy expediently. We will recommend combination rituximab, cyclophosphamide, Adriamycin, vincristine and prednisone. Side effects again were discussed including the risks versus benefits. Delaying treatment any further would almost certainly result in this gentleman's eventually. The major risks moving forward is prolonged myelosuppression and perhaps tumor lysis syndrome. Recommend he be placed on allopurinol 300 mg p.o. daily and be prepared to replace electrolytes as necessary. Counts and chemistries will be necessary each day along with transfusional support of both platelets and packed red blood cells. We will recommend Neulasta 6 mg be administered on day 2 of treatment to reduce the duration of neutropenia moving forward. I spoke directly to Dr. Joseph in the intensive care unit and obtained informed consent from Mr. Alcazar to proceed as planned. We will continue to follow Tyrell closely in the coming days. Thank you very much for allowing me to participate in his care. This gentleman understands he is a very high risk and may need to remain in hospital for several days depending on his response to treatment. MTDD
--- NOTE | 2021-01-16 15:57 | Electrocardiogram Report ---
Test Reason : Blood Pressure : / mmHG Vent. Rate : 087 BPM Atrial Rate : 087 BPM P-R Int : 152 ms QRS Dur : 094 ms QT Int : 372 ms P-R-T Axes : 053 024 056 degrees QTc Int : 447 ms Normal sinus rhythm Normal ECG When compared with ECG of 22-APR-2020 10:12, No significant change was found Confirmed by Benito Vigil ([id number]) on 01/16/2021 3:57:11 PM Referred By: Confirmed By:Benito Vigil
[2021-01-16 18:30] LABS: BUN Creatinine Ratio 33.3 (10-20); Calcium 6.7 mg/dl (8.5-10.1); Creatinine Clr Calc Pharmacy 69.7 ml/min; Est GFR (African American) 69.9 ml/min; Est GFR (Non-African American) 60.3 ml/min; Magnesium 2.5 mg/dl (1.8-2.4)
[2021-01-16 18:33] LABS: Phosphorus 3.1 mg/dl (2.5-4.9)
[2021-01-16] MEDS ORDERED: ACETAMINOPHEN 325 MG TAB PO ONE (19:30)
[2021-01-16] MEDS ORDERED: Pre-Med DiphenhydrAMINE 25 MG CAP PO SCH (19:30)
[2021-01-16] MEDS ORDERED: dexAMETHasone 4 MG TAB PO SCH (19:30)
[2021-01-16] MEDS ORDERED: MEPERIDINE 25 MG/ML IV PRN (20:00)
[2021-01-16] MEDS ORDERED: NS IV SCH (20:00)
[2021-01-16] MEDS ORDERED: [UNRECOGNIZED DRUG - OTHER] IV SCH (20:00)
[2021-01-16] MEDS ORDERED: SODIUM CHLORIDE 0.9% IV SCH (20:00)
[2021-01-16] MEDS ORDERED: RITUXIMAB IV SCH (20:00)
[2021-01-16] MEDS ORDERED: DEXAMETHASONE IV SCH (20:00)
[2021-01-16] MEDS ORDERED: DIPHENHYDRAMINE 50 MG/ML IV PRN (20:00)
[2021-01-16] MEDS ORDERED: allopurinoL 300 MG TAB PO SCH (21:00)
--- NOTE | 2021-01-16 21:21 | Hospitalist Progress Note ---
Date of Service January 16, 2021 Assessment & Plan (1) GIB (gastrointestinal bleeding): Type and cross - Acute blood loss anemia - Protonix drip started in EMD-->ICU - [place] 18 -Maintain hemoglobin above 7, has transfused over 4 PRBC. -Continue Protonix drip. -Appreciate input from Oncology: his bone marrow is severely compromised with infiltrative disease and thus, the need to proceed with chemotherapy expediently. We will recommend combination rituximab, cyclophosphamide, Adriamycin, vincristine and prednisone. (2) Acute ITP: - DDAVP administered 0.3mcg/kg - Steroids per EMD and ICU - LDH, Fibrinogen, FDP, pending - Enlarged spleen with splenic infarcts noted on CT scan (3) Acute leukemia: - Per Oncology - Supportive care (4) COPD with emphysema: - Continue home BHAVNA, LABA, LAMA - No acute needs (5) AAA (abdominal aortic aneurysm): Done in 2013 - Routine CTA screening done at [facility]- 4.0x2.6 with no evidence of endoleak and widely patent repair () (6) Thrombocytopenia: - As above (7) Hypertension: - Hold antihypertensives at this time - Acute resuscitation on vasopressors for hypotension (2) Acute ITP: (3) Acute leukemia: (4) COPD with emphysema: (5) AAA (abdominal aortic aneurysm): (6) Thrombocytopenia: (7) Hypertension: Admission and Anticipated Discharge Date Admission Date: January 15, 2021 Subjective 70 yo male reports no new symptoms Review of Systems Review of Systems: All systems reviewed & are unremarkable except as noted in HPI & below Physical Exam Physical Exam: General: awake, alert, no apparent distress Head: Normocephalic, atraumatic ENT: PERRL, EOMI, no pharyngeal exudate, mucous membranes dry Neuro: AAO x 3, speech clear and appropriate, strength intact bilaterally 5/5, sensation intact and equal all extremities and dermatomes, no pronator drift Chest: equal rise and fall of the chest, no accessory muscle use, no heaves or thrills, Clear to auscultation, on room air, Cardiac: Regular rate and rhythm, telemetry reviewed, skin warm dry, cap refill <3 seconds, peripheral pulses +2 no JVD, no murmur, no edema GI: NABS x 4 quadrants, soft, nontender to palpation, no rebound, guarding or tenderness : Spontaneously voiding, no pain, no CVA tenderness, Extremities: petechiae to lower legs and trunk, no peripheral edema or erythema, calfs nontender to palpation Psych: Normal mood and affect Skin:as above Results & Data Results & Data ([facility]) Vital Signs (Past 12 Hours) Vital Signs Temp Pulse Pulse Resp BP Pulse Ox 01/16/21 19:00 36.8 C 01/16/21 16:38 36.8 C 82 19 106/57 L 98 01/16/21 16:30 79 20 99 01/16/21 16:00 86 21 100 01/16/21 15:30 77 20 100 01/16/21 15:27 84 20 100 01/16/21 15:00 74 22 100 01/16/21 14:30 83 17 100 01/16/21 14:01 80 18 98 01/16/21 14:00 82 20 122/75 92 01/16/21 13:45 82 16 106/75 97 01/16/21 13:36 36.7 C 83 20 106/75 98 01/16/21 13:30 81 21 121/75 99 01/16/21 13:21 36.8 C 84 18 121/75 98 01/16/21 13:15 86 27 H 135/75 99 01/16/21 13:03 36.8 C 86 20 112/72 100 01/16/21 13:01 76 17 100 01/16/21 13:00 77 14 112/72 100 01/16/21 12:55 36.8 C 82 20 135/75 99 01/16/21 12:46 80 17 103/73 100 01/16/21 12:31 78 23 98 01/16/21 12:30 77 21 107/71 95 01/16/21 12:15 77 17 115/72 97 01/16/21 12:03 37 C 68 20 111/72 99 01/16/21 12:01 72 17 97 01/16/21 12:00 74 18 104/64 99 01/16/21 11:45 73 13 102/66 98 01/16/21 11:36 37.1 C 74 20 111/65 99 01/16/21 11:31 76 22 99 01/16/21 11:30 76 21 111/65 100 01/16/21 11:21 37.1 C 78 20 109/58 L 100 01/16/21 11:16 76 22 98 01/16/21 11:15 37.1 C 73 20 109/68 99 01/16/21 11:03 36.7 C 77 20 114/63 97 01/16/21 11:01 77 19 98 01/16/21 11:00 75 18 114/63 98 01/16/21 10:45 75 16 105/63 100 01/16/21 10:31 80 18 100 01/16/21 10:30 84 19 115/74 100 01/16/21 10:15 82 21 118/75 99 01/16/21 10:01 78 14 100 01/16/21 10:00 82 15 107/78 100 01/16/21 09:45 75 13 108/68 99 01/16/21 09:31 82 16 100 01/16/21 09:30 79 17 112/70 99 PG Care Time/CCT Total # of Minutes Spent Total Time Spent with Patient: Total time spent is greater than 50% in coordination of care (as documented) at patient's floor/unit and/or counseling patient: Coding Level of Care Code 73592 Subseq Hosp Care Lvl 3 Diagnoses GIB (gastrointestinal bleeding) K92.1 GI bleed type/associated pathology: melena Acute ITP D69.3 Acute leukemia C95.00 COPD with emphysema J43.9 Emphysema type: unspecified AAA (abdominal aortic aneurysm) I71.4 Thrombocytopenia D69.6 Hypertension I10 Hypertension type: unspecified Time Spent (min) 35 (1) GIB (gastrointestinal bleeding) GI bleed type/associated pathology: melena Qualified Code(s): K92.1 - Melena (2) COPD with emphysema Emphysema type: unspecified Qualified Code(s): J43.9 - Emphysema, unspecified (3) Hypertension Hypertension type: unspecified Qualified Code(s): I10 - Essential (primary) hypertension
[2021-01-16] MEDS ORDERED: diphenhydrAMINE 50 MG/ML VIAL IV STA (21:36)
[2021-01-16] MEDS: allopurinoL 300 MG TAB PO SCH (22:04)
[2021-01-17 00:24] LABS: Creatinine Clr Calc Pharmacy 66.9 ml/min; Est GFR (African American) 66.5 ml/min; Est GFR (Non-African American) 57.4 ml/min; Magnesium 2.4 mg/dl (1.8-2.4)
[2021-01-17] MEDS: VANCOMYCIN HCL 1,500 MG in SODIUM CHLORIDE 0.9% 500 ML IV SCH ×2 (02:05→13:43)
[2021-01-17] MEDS ORDERED: CALCIUM GLUCONATE 10% 2,000 MG in SODIUM CHLORIDE 0.9% 50 ML IV STA (03:26)
[2021-01-17] MEDS: PANTOprazole 40 MG in DEXTROSE 5% 100 ML IV SCH ×2 (03:50→10:53)
[2021-01-17 05:28] LABS: INR 1.3 (0.9-1.1); Partial Thromboplastin Ratio 1.1; Partial Thromboplastin Time 28.7 Seconds (21.0-31.0); Prothrombin Time 12.9 Seconds (9.0-12.0)
[2021-01-17 05:35] LABS: BUN Creatinine Ratio 32.5 (10-20); Calcium 6.5 mg/dl (8.5-10.1); Creatinine Clr Calc Pharmacy 76.2 ml/min; Est GFR (African American) 76.7 ml/min; Est GFR (Non-African American) 66.2 ml/min; Magnesium 2.5 mg/dl (1.8-2.4); Potassium 4.4 mmol/L (3.5-5.1)
[2021-01-17 05:36] LABS: Albumin Level 2.3 gm/dl (3.4-5.0); Bilirubin Direct 0.1 mg/dl (0-0.2); Bilirubin,Total 0.3 mg/dl (0.2-1); Total Protein 4.3 gm/dl (6.4-8.2); Uric Acid 6.8 mg/dl (2.6-7.2)
[2021-01-17 05:39] LABS: Phosphorus 4.1 mg/dl (2.5-4.9)
[2021-01-17 05:45] LABS: Platelet Count 6 K/uL (130-400)
[2021-01-17] MEDS: NORMOSOL-R 1,000 ML IV SCH ×3 (05:45→21:27)
[2021-01-17] MEDS: PIPERACILLIN/TAZOBACTAM 4.5 GM in DEXTROSE 5% 100 ML IV SCH ×3 (05:45→21:23)
[2021-01-17 05:47] LABS: Fibrinogen 93 mg/dl (184-400); Hematocrit (blood only) 20.8 % (42-52); Hemoglobin 7.2 g/dL (14.0-18.0); Mean Corpuscular Hemoglobin 30.1 pg (25-34); Mean Corpuscular Hgb Conc 34.6 g/dL (32-36); Mean Platelet Volume 10.8 fL (7.4-10.4); RDW Coefficient of Variation 14.7 % (11.5-14.5); RDW Standard Deviation 47.3 fL (36.4-46.3); Red Blood Count 2.39 M/uL (4.7-6.1); White Blood Count 0.42 K/uL (4.8-10.8)
[2021-01-17 05:49] LABS: Platelet Estimate SIGNIFIC DECREASED (Normal)
[2021-01-17 06:15] LABS: Estimated Average Glucose 134 mg/dl; Hemoglobin A1C 6.3 % (4.5-5.6)
--- NOTE | 2021-01-17 07:23 | Progress Notes ---
DATE: 01/17/2021 MEDICAL ONCOLOGY PROGRESS NOTE DIAGNOSES: 1. 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 2. Anemia/thrombocytopenia/neutropenia. 3. Low-grade disseminated neurovascular coagulation. 4. Lower gastrointestinal bleeding. 5. Abdominal aortic aneurysm. 6. Hypertension. SUBJECTIVE: Tyrell was seen at bedside this morning. I was contacted last night after starting rituximab. Not surprisingly Tyrell had adverse reaction. Advised the physician material control specialist on duty to proceed after further premedication with low-dose rituximab moving forward. I believe this morning they were up to 50 mg per hour, which is a little slower than I would like, but obviously having a profound impact on his counts as this gentleman is neutropenic and thrombocytopenic. Tyrell overall seems to be holding his own, definitely a little anxious and again not surprisingly, he understands treatment at this point is high risk, but necessary. Nursing reports no overnight difficulties otherwise. OBJECTIVE: GENERAL: A very pleasant 70-year-old gentleman in no acute distress. VITAL SIGNS: Temperature 36.8, pulse 90, respiratory rate 25, blood pressure 121/76. SKIN: Without rash or lesion. HEENT: Buccal mucosa without erythema or ulceration. HEART: Regular rate and rhythm. No clicks, rubs, murmurs, or gallops. LUNGS: Clear to auscultation bilaterally. ABDOMEN: Soft, nontender, nondistended. Palpable splenic tip. EXTREMITIES: No clubbing, cyanosis, or edema. NEUROLOGIC: Grossly intact. LABORATORY DATA: WBC count 420, hemoglobin 7.2, platelet count 6000. PT 12.9, INR 1.3, PTT 28.7 seconds. Fibrinogen 93. Sodium 142, potassium 4.4, chloride 112, carbon dioxide 21, BUN 36, creatinine 1.12, uric acid 6.8, ionized calcium 1.03, phosphorus 4.2, magnesium 2.5, AST 144, albumin 2.3. IMPRESSION: 1. 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 2. Status post rituximab and the resultant pancytopenia. 3. Low-grade disseminated intravascular coagulation. 4. Lower gastrointestinal bleeding. 5. Abdominal aortic aneurysm. 6. Hypoalbuminemia. PLAN: Not surprisingly Tyrell began to react to rituximab last night. Asked the it support specialist to continue at a very slow rate to make sure he gets the entire dose in before resuming the remainder of his chemotherapeutic regimen. Not surprisingly, he is pancytopenic and will need to be supported via transfusion. I have asked the physician material control specialist to add single donor platelets today, perhaps 2 units of blood and then proceed with Adriamycin, vincristine, and cyclophosphamide to complete his first cycle. He will definitely need growth factor on the very next day, 6 mg Neulasta subQ. Continue to monitor his electrolytes and renal function closely. Tyrell was reminded again today he may spend several days in the hospital as the myelosuppression I predict will be prolonged. We will continue to follow him on a daily basis. Thank you very much for assisting me in the care of this very complex gentleman.
[2021-01-17] MEDS: INSULIN ASPART 100 UNITS/ML 3 ML PEN SC SCH ×4 (07:35→21:23)
[2021-01-17] MEDS: allopurinoL 300 MG TAB PO SCH (07:37)
[2021-01-17] MEDS: UMECLIDINIUM/VILANTEROL 62.5/25MCG 7 PUFFS/INHALER INH SCH (07:38)
[2021-01-17] MEDS: FLUTICASONE FUROATE 100MCG 14 PUFFS/INHALER INH SCH (07:38)
[2021-01-17] MEDS: ALBUT/IPRATROP 3MG/0.5MG NEB 3 ML VIAL NEB SCH ×3 (07:56→23:07)
--- NOTE | 2021-01-17 08:34 | Critical Care Progress Note ---
Date of Service January 17, 2021 Assessment & Plan (1) Acute blood loss anemia: Neurologic: No issues at present. CT head negative for bleed. Pulmonary: COPD Chronic hypoxic respiratory failure -2 L nasal cannula Cardiovascular: Hypotensive likely from hemorrhagic shock.: Resolved - Right central line in place. Received a dose of stress dose steroids in the ER. Gastrointestinal: - GI consultation. -Continue pantoprazole drip with with conversion to see twice daily dosing at 48 hours Renal: DDAVP given due to concerns of uremia has his BUN is elevated. BUN elevation may also be related to upper GI bleed. Lactate downtrending. He does have evidence of a mild THERESA. Continue crystalloid infusion. Hypocalcemia -1 g calcium gluconate Hematologic: Thrombocytopenia. -Discussed with Corey. -He has a history of diffuse large B cell lymphoma. -No schistocytes seen on peripheral smear -GI looking for 30,000 prior to scope -Maintain hemoglobin above 7. -Maintain platelets above 10,000 -Given 2 units platelets on 01/16 -IVIG: Holding given discussion with hematology -Prednisone given and modified protocol -Ordered 2 additional single donor platelets for 01/17 Leukopenia secondary to chemotherapeutic agent DIC: 4 units packed red blood cells transfused at this point -Received 2 units cryo for hypofibrinogenemia on 01/16 -To receive 2 more units cryo precipitate today -Elevated D-dimer -Continuing broad-spectrum antibiotics for possible infectious source Lymphoma: -Undergoing induction chemotherapy -Electrolytes every 6 hours generous hydration Infection: Bacteremia: Gram-positive cocci in clusters -Vancomycin and Zosyn -Obtain repeat blood cultures today -Suspect contaminant as it is 1 culture bottle at this time Endocrine: Mild hyperglycemia. Insulin management per ICU pharmacist. Lines and tubes: Right IJ in place 01/15/2021 VTE prophylaxis: Hold due to thrombocytopenia GI bleed CODE STATUS: Full Disposition: ICU; if patient requires advanced care will transfer to [facility] at patient's request (2) Acute ITP: (3) Hypovolemic shock: (4) GIB (gastrointestinal bleeding): Admission and Anticipated Discharge Date Admission Date: January 15, 2021 Supervising Physician Co-Signing Physician Notes Patient was discussed in multidisciplinary rounds I have personally spent 55 minutes of critical care time in the direct management of this patient. This is a life/limb threatening event. This includes time spent evaluating patient, direct bedside care, chart review, placing orders, interpretation of diagnostic studies, discussion with consultants, patient, and/or family members regarding treatment decisions, as well as other required patient management activities. This time is exclusive of all separately billable procedures, and teaching time and separate from and in addition to any other critical care service time. Physical Exam Physical Exam: General: Alert. nontoxic. Skin: Warm, dry, Head: Atraumatic Ears, nose, mouth and throat: airway patent Cardiovascular: Normal peripheral perfusion Respiratory: no respiratory distress, mild tachypnea pursed lip breathing which reported at baseline Gastrointestinal: Non distended Musculoskeletal: No deformity Results & Data Results & Data ([facility]) Vital Signs (Past 12 Hours) Vital Signs Temp Pulse Pulse Resp BP Pulse Ox 01/17/21 07:56 85 20 98 01/17/21 07:54 36.8 C 01/17/21 07:30 89 21 100 01/17/21 06:30 83 22 112/76 100 01/17/21 06:15 85 15 116/74 100 01/17/21 06:01 99 H 19 145/86 H 100 01/17/21 05:45 79 25 H 102/66 100 01/17/21 05:30 80 24 106/67 96 01/17/21 05:15 83 23 113/70 97 01/17/21 05:00 89 22 116/76 100 01/17/21 04:45 90 25 H 121/76 100 01/17/21 04:30 95 H 25 H 128/88 100 01/17/21 04:15 94 H 25 H 123/82 100 01/17/21 04:01 84 24 99 01/17/21 04:00 36.8 C 84 26 H 102/62 98 01/17/21 03:45 85 26 H 104/64 96 01/17/21 03:30 89 29 H 112/66 96 01/17/21 03:15 87 27 H 110/64 97 01/17/21 03:00 87 27 H 100/60 98 01/17/21 02:45 88 26 H 99/67 L 99 01/17/21 02:30 88 27 H 108/67 100 01/17/21 02:15 108 H 20 122/76 99 01/17/21 02:01 92 H 25 H 100 01/17/21 02:00 92 H 26 H 110/67 100 01/17/21 01:45 94 H 27 H 108/69 97 01/17/21 01:30 98 H 28 H 104/64 98 01/17/21 01:15 96 H 29 H 107/67 98 01/17/21 01:00 99 H 27 H 108/67 99 01/17/21 00:55 37.3 C 01/17/21 00:45 101 H 28 H 106/64 100 01/17/21 00:30 102 H 28 H 114/63 98 01/17/21 00:15 110 H 21 108/71 98 01/17/21 00:00 109 H 26 H 127/69 100 01/16/21 23:45 122 H 15 143/76 H 98 01/16/21 23:30 111 H 24 111/74 100 01/16/21 23:15 105 H 25 H 140/75 100 01/16/21 23:12 100 H 01/16/21 23:10 101 H 30 H 135/82 100 01/16/21 23:08 103 H 32 H 100 01/16/21 23:05 102 H 29 H 131/69 98 01/16/21 23:00 100 H 27 H 120/71 96 01/16/21 22:55 101 H 31 H 122/76 95 01/16/21 22:51 100 H 33 H 95 01/16/21 22:50 101 H 33 H 115/76 94 01/16/21 22:45 103 H 30 H 120/78 94 01/16/21 22:40 102 H 34 H 127/78 95 01/16/21 22:35 109 H 26 H 110/80 97 01/16/21 22:30 106 H 29 H 130/75 94 01/16/21 22:25 105 H 29 H 132/73 96 01/16/21 22:20 105 H 33 H 128/77 96 01/16/21 22:15 106 H 35 H 134/77 93 01/16/21 22:10 111 H 20 115/82 97 01/16/21 22:05 105 H 29 H 138/79 94 01/16/21 22:00 115 H 29 H 127/80 95 01/16/21 21:55 107 H 30 H 129/77 94 01/16/21 21:50 110 H 32 H 138/79 94 01/16/21 21:45 111 H 29 H 126/78 95 01/16/21 21:40 110 H 27 H 147/86 H 97 01/16/21 21:35 110 H 27 H 139/93 99 01/16/21 21:31 112 H 27 H 157/89 H 99 01/16/21 21:30 118 H 29 H 160/90 H 98 01/16/21 21:25 123 H 29 H 168/111 H 97 01/16/21 21:23 126 H 28 H 159/80 H 93 01/16/21 21:20 115 H 33 H 162/92 H 94 01/16/21 21:16 109 H 28 H 148/88 H 97 01/16/21 21:10 80 21 124/65 95 01/16/21 21:05 80 23 116/66 97 01/16/21 21:01 85 30 H 120/70 95 01/16/21 20:55 92 H 28 H 121/62 94 01/16/21 20:50 94 H 27 H 123/70 96 01/16/21 20:45 91 H 19 105/60 96 01/16/21 20:40 92 H 26 H 120/74 95 01/16/21 20:35 72 22 127/78 100 01/16/21 20:32 75 16 126/78 98 Laboratory Results 01/17/21 01/17/21 01/17/21 Range/Units 07:27 04:52 04:52 WBC (4.8-10.8) K/uL RBC (4.7-6.1) M/uL Hgb (14.0-18.0) g/dL Hct (42-52) % MCV (80-100) fL MCH (25-34) pg MCHC (32-36) g/dL RDW Std Deviation (36.4-46.3) fL RDW Coeff of Rahat (11.5-14.5) % Plt Count (130-400) K/uL MPV (7.4-10.4) fL Immature Gran % (Auto) Neut % (Auto) Lymph % (Auto) [place] % (Auto) Eos % (Auto) Baso % (Auto) Neut # (Auto) Lymph # (Auto) [place] # (Auto) Eos # (Auto) Baso # (Auto) Immature Gran # (Auto) Neutrophils % (Manual) Band Neutrophils % Lymphocytes % (Manual) Prolymphocyte % Reactive Lymphs % (Man) Monocytes % (Manual) Eosinophils % (Manual) Basophils % (Manual) Metamyelocytes % (Man) Myelocytes % (Man) Promyelocytes % (Man) Blast Cells % (Manual) Plasma Cell % (Manual) Other Cells % Nucleated RBC % Neutrophils # (Manual) Band Neutrophils # Total Absolute Neuts Lymphocytes # (Manual) Prolymphocyte # Reactive Lymphs # Total Abs Lymphocytes Monocytes # (Manual) Eosinophils # (Manual) Basophils # (Manual) Metamyelocytes # (Man) Myelocytes # (Manual) Promyelocytes # (Man) Blast Cells # (Man) Plasma Cell # (Manual) Other Cells # Nucleated RBCs # (Man) Hypersegmented Neuts Hyposegmented Neuts Hypogranular Neuts Large Granular Lymphs # Lrg Granular Lymphs Hairy Cells Smudge Cells Toxic Granulation Toxic Vacuolation Dohle Bodies Micha Rods Platelet Estimate (Normal) Hypogranular Platelets Clumped Platelets Giant Platelets Platelet Satelliting Immature Plt Fraction (0.9-8.3) % RBC Morphology Polychromasia Hypochromasia Poikilocytosis Basophilic Stippling Anisocytosis Microcytosis Macrocytosis Spherocytes Pappenheimer Bodies Sickle Cells Target Cells Tear Drop Cells Ovalocytes Stomatocytes [place] Bodies Echinocytes Acanthocytes (Spur) Rouleaux RBC Agglutinates Schistocytes RBC Morph Comment Peripher Smr Path Cons Sezary Cell PT (9.0-12.0) Seconds INR (0.9-1.1) APTT (21.0-31.0) Seconds PTT Ratio Fibrinogen (184-400) mg/dl Sodium (136-145) mmol/L Potassium (3.5-5.1) mmol/L Chloride (98-107) mmol/L Carbon Dioxide (21-32) mmol/L Anion Gap (3-11) BUN (7-18) mg/dl Creatinine (0.6-1.4) mg/dl Est Cr Clr Drug Dosing ml/min Est GFR ( Amer) ml/min Est GFR (Non-Af Amer) ml/min BUN/Creatinine Ratio (10-20) Glucose (70-99) mg/dl POC Glucose 195 H (70-99) mg/dl Estimat Average Glucose 134 mg/dl Hemoglobin A1c 6.3 H (4.5-5.6) % Uric Acid (2.6-7.2) mg/dl Calcium (8.5-10.1) mg/dl Ionized Calcium 1.03 L Phosphorus (2.5-4.9) mg/dl Magnesium (1.8-2.4) mg/dl Total Bilirubin (0.2-1) mg/dl Direct Bilirubin (0-0.2) mg/dl AST (15-37) U/L ALT (12-78) U/L Alkaline Phosphatase (45-117) U/L Total Protein (6.4-8.2) gm/dl Albumin (3.4-5.0) gm/dl Stool Occult Bld Scrn (Negative) Hepatitis C Ab Screen (Neg) Blood Type Antibody Screen Crossmatch 01/17/21 01/17/21 01/17/21 Range/Units 04:52 04:52 04:52 WBC (4.8-10.8) K/uL RBC (4.7-6.1) M/uL Hgb (14.0-18.0) g/dL Hct (42-52) % MCV (80-100) fL MCH (25-34) pg MCHC (32-36) g/dL RDW Std Deviation (36.4-46.3) fL RDW Coeff of Rahat (11.5-14.5) % Plt Count (130-400) K/uL MPV (7.4-10.4) fL Immature Gran % (Auto) Neut % (Auto) Lymph % (Auto) [place] % (Auto) Eos % (Auto) Baso % (Auto) Neut # (Auto) Lymph # (Auto) [place] # (Auto) Eos # (Auto) Baso # (Auto) Immature Gran # (Auto) Neutrophils % (Manual) Band Neutrophils % Lymphocytes % (Manual) Prolymphocyte % Reactive Lymphs % (Man) Monocytes % (Manual) Eosinophils % (Manual) Basophils % (Manual) Metamyelocytes % (Man) Myelocytes % (Man) Promyelocytes % (Man) Blast Cells % (Manual) Plasma Cell % (Manual) Other Cells % Nucleated RBC % Neutrophils # (Manual) Band Neutrophils # Total Absolute Neuts Lymphocytes # (Manual) Prolymphocyte # Reactive Lymphs # Total Abs Lymphocytes Monocytes # (Manual) Eosinophils # (Manual) Basophils # (Manual) Metamyelocytes # (Man) Myelocytes # (Manual) Promyelocytes # (Man) Blast Cells # (Man) Plasma Cell # (Manual) Other Cells # Nucleated RBCs # (Man) Hypersegmented Neuts Hyposegmented Neuts Hypogranular Neuts Large Granular Lymphs # Lrg Granular Lymphs Hairy Cells Smudge Cells Toxic Granulation Toxic Vacuolation Dohle Bodies Micha Rods Platelet Estimate (Normal) Hypogranular Platelets Clumped Platelets Giant Platelets Platelet Satelliting Immature Plt Fraction (0.9-8.3) % RBC Morphology Polychromasia Hypochromasia Poikilocytosis Basophilic Stippling Anisocytosis Microcytosis Macrocytosis Spherocytes Pappenheimer Bodies Sickle Cells Target Cells Tear Drop Cells Ovalocytes Stomatocytes [place] Bodies Echinocytes Acanthocytes (Spur) Rouleaux RBC Agglutinates Schistocytes RBC Morph Comment Peripher Smr Path Cons Sezary Cell PT 12.9 H (9.0-12.0) Seconds INR 1.3 H (0.9-1.1) APTT 28.7 (21.0-31.0) Seconds PTT Ratio 1.1 Fibrinogen 93 L* D (184-400) mg/dl Sodium 142 (136-145) mmol/L Potassium 4.4 (3.5-5.1) mmol/L Chloride 112 H (98-107) mmol/L Carbon Dioxide 21 (21-32) mmol/L Anion Gap 9.0 (3-11) BUN 36 H (7-18) mg/dl Creatinine 1.12 (0.6-1.4) mg/dl Est Cr Clr Drug Dosing 76.2 ml/min Est GFR ( Amer) 76.7 ml/min Est GFR (Non-Af Amer) 66.2 ml/min BUN/Creatinine Ratio 32.5 H (10-20) Glucose 170 H (70-99) mg/dl POC Glucose (70-99) mg/dl Estimat Average Glucose mg/dl Hemoglobin A1c (4.5-5.6) % Uric Acid 6.8 (2.6-7.2) mg/dl Calcium 6.5 L (8.5-10.1) mg/dl Ionized Calcium Phosphorus 4.1 D (2.5-4.9) mg/dl Magnesium 2.5 H (1.8-2.4) mg/dl Total Bilirubin 0.3 (0.2-1) mg/dl Direct Bilirubin 0.1 (0-0.2) mg/dl AST 144 H (15-37) U/L ALT 24 (12-78) U/L Alkaline Phosphatase 35 L (45-117) U/L Total Protein 4.3 L (6.4-8.2) gm/dl Albumin 2.3 L (3.4-5.0) gm/dl Stool Occult Bld Scrn (Negative) Hepatitis C Ab Screen (Neg) Blood Type Antibody Screen Crossmatch 01/17/21 01/17/21 01/16/21 Range/Units 04:52 00:13 23:47 WBC 0.42 L* D (4.8-10.8) K/uL RBC 2.39 L (4.7-6.1) M/uL Hgb 7.2 L (14.0-18.0) g/dL Hct 20.8 L* (42-52) % MCV 87.0 (80-100) fL MCH 30.1 (25-34) pg MCHC 34.6 (32-36) g/dL RDW Std Deviation 47.3 H (36.4-46.3) fL RDW Coeff of Rahat 14.7 H (11.5-14.5) % Plt Count 6 L* (130-400) K/uL MPV 10.8 H (7.4-10.4) fL Immature Gran % (Auto) Cancelled Neut % (Auto) Cancelled Lymph % (Auto) Cancelled [place] % (Auto) Cancelled Eos % (Auto) Cancelled Baso % (Auto) Cancelled Neut # (Auto) Cancelled Lymph # (Auto) Cancelled [place] # (Auto) Cancelled Eos # (Auto) Cancelled Baso # (Auto) Cancelled Immature Gran # (Auto) Cancelled Neutrophils % (Manual) Cancelled Band Neutrophils % Cancelled Lymphocytes % (Manual) Cancelled Prolymphocyte % Cancelled Reactive Lymphs % (Man) Cancelled Monocytes % (Manual) Cancelled Eosinophils % (Manual) Cancelled Basophils % (Manual) Cancelled Metamyelocytes % (Man) Cancelled Myelocytes % (Man) Cancelled Promyelocytes % (Man) Cancelled Blast Cells % (Manual) Cancelled Plasma Cell % (Manual) Cancelled Other Cells % Cancelled Nucleated RBC % Cancelled Neutrophils # (Manual) Cancelled Band Neutrophils # Cancelled Total Absolute Neuts Cancelled Lymphocytes # (Manual) Cancelled Prolymphocyte # Cancelled Reactive Lymphs # Cancelled Total Abs Lymphocytes Cancelled Monocytes # (Manual) Cancelled Eosinophils # (Manual) Cancelled Basophils # (Manual) Cancelled Metamyelocytes # (Man) Cancelled Myelocytes # (Manual) Cancelled Promyelocytes # (Man) Cancelled Blast Cells # (Man) Cancelled Plasma Cell # (Manual) Cancelled Other Cells # Cancelled Nucleated RBCs # (Man) Cancelled Hypersegmented Neuts Cancelled Hyposegmented Neuts Cancelled Hypogranular Neuts Cancelled Large Granular Lymphs Cancelled # Lrg Granular Lymphs Cancelled Hairy Cells Cancelled Smudge Cells Cancelled Toxic Granulation Cancelled Toxic Vacuolation Cancelled Dohle Bodies Cancelled Micha Rods Cancelled Platelet Estimate SIGNIFIC DECREASED (Normal) Hypogranular Platelets Cancelled Clumped Platelets Cancelled Giant Platelets Cancelled Platelet Satelliting Cancelled Immature Plt Fraction (0.9-8.3) % RBC Morphology Cancelled Polychromasia Cancelled Hypochromasia Cancelled Poikilocytosis Cancelled Basophilic Stippling Cancelled Anisocytosis Cancelled Microcytosis Cancelled Macrocytosis Cancelled Spherocytes Cancelled Pappenheimer Bodies Cancelled Sickle Cells Cancelled Target Cells Cancelled Tear Drop Cells Cancelled Ovalocytes Cancelled Stomatocytes Cancelled [place] Bodies Cancelled Echinocytes Cancelled Acanthocytes (Spur) Cancelled Rouleaux Cancelled RBC Agglutinates Cancelled Schistocytes Cancelled RBC Morph Comment Cancelled Peripher Smr Path Cons Sezary Cell Cancelled PT (9.0-12.0) Seconds INR (0.9-1.1) APTT (21.0-31.0) Seconds PTT Ratio Fibrinogen (184-400) mg/dl Sodium 140 (136-145) mmol/L Potassium 4.0 (3.5-5.1) mmol/L Chloride 111 H (98-107) mmol/L Carbon Dioxide 20 L (21-32) mmol/L Anion Gap 9.0 (3-11) BUN 45 H (7-18) mg/dl Creatinine 1.26 (0.6-1.4) mg/dl Est Cr Clr Drug Dosing 66.9 ml/min Est GFR ( Amer) 66.5 ml/min Est GFR (Non-Af Amer) 57.4 ml/min BUN/Creatinine Ratio 36.0 H (10-20) Glucose 167 H (70-99) mg/dl POC Glucose (70-99) mg/dl Estimat Average Glucose mg/dl Hemoglobin A1c (4.5-5.6) % Uric Acid (2.6-7.2) mg/dl Calcium 7.0 L (8.5-10.1) mg/dl Ionized Calcium 0.99 L Phosphorus 3.0 (2.5-4.9) mg/dl Magnesium 2.4 (1.8-2.4) mg/dl Total Bilirubin (0.2-1) mg/dl Direct Bilirubin (0-0.2) mg/dl AST (15-37) U/L ALT (12-78) U/L Alkaline Phosphatase (45-117) U/L Total Protein (6.4-8.2) gm/dl Albumin (3.4-5.0) gm/dl Stool Occult Bld Scrn (Negative) Hepatitis C Ab Screen (Neg) Blood Type Antibody Screen Crossmatch 01/16/21 01/16/21 01/16/21 Range/Units 20:47 17:53 17:53 WBC (4.8-10.8) K/uL RBC (4.7-6.1) M/uL Hgb (14.0-18.0) g/dL Hct (42-52) % MCV (80-100) fL MCH (25-34) pg MCHC (32-36) g/dL RDW Std Deviation (36.4-46.3) fL RDW Coeff of Rahat (11.5-14.5) % Plt Count (130-400) K/uL MPV (7.4-10.4) fL Immature Gran % (Auto) Neut % (Auto) Lymph % (Auto) [place] % (Auto) Eos % (Auto) Baso % (Auto) Neut # (Auto) Lymph # (Auto) [place] # (Auto) Eos # (Auto) Baso # (Auto) Immature Gran # (Auto) Neutrophils % (Manual) Band Neutrophils % Lymphocytes % (Manual) Prolymphocyte % Reactive Lymphs % (Man) Monocytes % (Manual) Eosinophils % (Manual) Basophils % (Manual) Metamyelocytes % (Man) Myelocytes % (Man) Promyelocytes % (Man) Blast Cells % (Manual) Plasma Cell % (Manual) Other Cells % Nucleated RBC % Neutrophils # (Manual) Band Neutrophils # Total Absolute Neuts Lymphocytes # (Manual) Prolymphocyte # Reactive Lymphs # Total Abs Lymphocytes Monocytes # (Manual) Eosinophils # (Manual) Basophils # (Manual) Metamyelocytes # (Man) Myelocytes # (Manual) Promyelocytes # (Man) Blast Cells # (Man) Plasma Cell # (Manual) Other Cells # Nucleated RBCs # (Man) Hypersegmented Neuts Hyposegmented Neuts Hypogranular Neuts Large Granular Lymphs # Lrg Granular Lymphs Hairy Cells Smudge Cells Toxic Granulation Toxic Vacuolation Dohle Bodies Micha Rods Platelet Estimate (Normal) Hypogranular Platelets Clumped Platelets Giant Platelets Platelet Satelliting Immature Plt Fraction (0.9-8.3) % RBC Morphology Polychromasia Hypochromasia Poikilocytosis Basophilic Stippling Anisocytosis Microcytosis Macrocytosis Spherocytes Pappenheimer Bodies Sickle Cells Target Cells Tear Drop Cells Ovalocytes Stomatocytes [place] Bodies Echinocytes Acanthocytes (Spur) Rouleaux RBC Agglutinates Schistocytes RBC Morph Comment Peripher Smr Path Cons Sezary Cell PT (9.0-12.0) Seconds INR (0.9-1.1) APTT (21.0-31.0) Seconds PTT Ratio Fibrinogen (184-400) mg/dl Sodium 141 (136-145) mmol/L Potassium 4.0 (3.5-5.1) mmol/L Chloride 111 H (98-107) mmol/L Carbon Dioxide 21 (21-32) mmol/L Anion Gap 9.0 (3-11) BUN 40 H (7-18) mg/dl Creatinine 1.21 (0.6-1.4) mg/dl Est Cr Clr Drug Dosing 69.7 ml/min Est GFR ( Amer) 69.9 ml/min Est GFR (Non-Af Amer) 60.3 ml/min BUN/Creatinine Ratio 33.3 H (10-20) Glucose 176 H (70-99) mg/dl POC Glucose 157 H (70-99) mg/dl Estimat Average Glucose mg/dl Hemoglobin A1c (4.5-5.6) % Uric Acid (2.6-7.2) mg/dl Calcium 6.7 L (8.5-10.1) mg/dl Ionized Calcium 1.02 L Phosphorus 3.1 D (2.5-4.9) mg/dl Magnesium 2.5 H (1.8-2.4) mg/dl Total Bilirubin (0.2-1) mg/dl Direct Bilirubin (0-0.2) mg/dl AST (15-37) U/L ALT (12-78) U/L Alkaline Phosphatase (45-117) U/L Total Protein (6.4-8.2) gm/dl Albumin (3.4-5.0) gm/dl Stool Occult Bld Scrn (Negative) Hepatitis C Ab Screen (Neg) Blood Type Antibody Screen Crossmatch 01/16/21 01/16/21 01/16/21 Range/Units 16:36 14:20 12:14 WBC (4.8-10.8) K/uL RBC (4.7-6.1) M/uL Hgb (14.0-18.0) g/dL Hct (42-52) % MCV (80-100) fL MCH (25-34) pg MCHC (32-36) g/dL RDW Std Deviation (36.4-46.3) fL RDW Coeff of Rahat (11.5-14.5) % Plt Count (130-400) K/uL MPV (7.4-10.4) fL Immature Gran % (Auto) Neut % (Auto) Lymph % (Auto) [place] % (Auto) Eos % (Auto) Baso % (Auto) Neut # (Auto) Lymph # (Auto) [place] # (Auto) Eos # (Auto) Baso # (Auto) Immature Gran # (Auto) Neutrophils % (Manual) Band Neutrophils % Lymphocytes % (Manual) Prolymphocyte % Reactive Lymphs % (Man) Monocytes % (Manual) Eosinophils % (Manual) Basophils % (Manual) Metamyelocytes % (Man) Myelocytes % (Man) Promyelocytes % (Man) Blast Cells % (Manual) Plasma Cell % (Manual) Other Cells % Nucleated RBC % Neutrophils # (Manual) Band Neutrophils # Total Absolute Neuts Lymphocytes # (Manual) Prolymphocyte # Reactive Lymphs # Total Abs Lymphocytes Monocytes # (Manual) Eosinophils # (Manual) Basophils # (Manual) Metamyelocytes # (Man) Myelocytes # (Manual) Promyelocytes # (Man) Blast Cells # (Man) Plasma Cell # (Manual) Other Cells # Nucleated RBCs # (Man) Hypersegmented Neuts Hyposegmented Neuts Hypogranular Neuts Large Granular Lymphs # Lrg Granular Lymphs Hairy Cells Smudge Cells Toxic Granulation Toxic Vacuolation Dohle Bodies Micha Rods Platelet Estimate (Normal) Hypogranular Platelets Clumped Platelets Giant Platelets Platelet Satelliting Immature Plt Fraction (0.9-8.3) % RBC Morphology Polychromasia Hypochromasia Poikilocytosis Basophilic Stippling Anisocytosis Microcytosis Macrocytosis Spherocytes Pappenheimer Bodies Sickle Cells Target Cells Tear Drop Cells Ovalocytes Stomatocytes [place] Bodies Echinocytes Acanthocytes (Spur) Rouleaux RBC Agglutinates Schistocytes RBC Morph Comment Peripher Smr Path Cons Sezary Cell PT (9.0-12.0) Seconds INR (0.9-1.1) APTT (21.0-31.0) Seconds PTT Ratio Fibrinogen (184-400) mg/dl Sodium (136-145) mmol/L Potassium (3.5-5.1) mmol/L Chloride (98-107) mmol/L Carbon Dioxide (21-32) mmol/L Anion Gap (3-11) BUN (7-18) mg/dl Creatinine (0.6-1.4) mg/dl Est Cr Clr Drug Dosing ml/min Est GFR ( Amer) ml/min Est GFR (Non-Af Amer) ml/min BUN/Creatinine Ratio (10-20) Glucose (70-99) mg/dl POC Glucose 170 H (70-99) mg/dl Estimat Average Glucose mg/dl Hemoglobin A1c (4.5-5.6) % Uric Acid (2.6-7.2) mg/dl Calcium (8.5-10.1) mg/dl Ionized Calcium 1.03 L Cancelled Phosphorus (2.5-4.9) mg/dl Magnesium (1.8-2.4) mg/dl Total Bilirubin (0.2-1) mg/dl Direct Bilirubin (0-0.2) mg/dl AST (15-37) U/L ALT (12-78) U/L Alkaline Phosphatase (45-117) U/L Total Protein (6.4-8.2) gm/dl Albumin (3.4-5.0) gm/dl Stool Occult Bld Scrn (Negative) Hepatitis C Ab Screen (Neg) Blood Type Antibody Screen Crossmatch 01/16/21 01/16/21 01/16/21 Range/Units 12:14 12:14 11:29 WBC (4.8-10.8) K/uL RBC (4.7-6.1) M/uL Hgb (14.0-18.0) g/dL Hct (42-52) % MCV (80-100) fL MCH (25-34) pg MCHC (32-36) g/dL RDW Std Deviation (36.4-46.3) fL RDW Coeff of Rahat (11.5-14.5) % Plt Count (130-400) K/uL MPV (7.4-10.4) fL Immature Gran % (Auto) Neut % (Auto) Lymph % (Auto) [place] % (Auto) Eos % (Auto) Baso % (Auto) Neut # (Auto) Lymph # (Auto) [place] # (Auto) Eos # (Auto) Baso # (Auto) Immature Gran # (Auto) Neutrophils % (Manual) Band Neutrophils % Lymphocytes % (Manual) Prolymphocyte % Reactive Lymphs % (Man) Monocytes % (Manual) Eosinophils % (Manual) Basophils % (Manual) Metamyelocytes % (Man) Myelocytes % (Man) Promyelocytes % (Man) Blast Cells % (Manual) Plasma Cell % (Manual) Other Cells % Nucleated RBC % Neutrophils # (Manual) Band Neutrophils # Total Absolute Neuts Lymphocytes # (Manual) Prolymphocyte # Reactive Lymphs # Total Abs Lymphocytes Monocytes # (Manual) Eosinophils # (Manual) Basophils # (Manual) Metamyelocytes # (Man) Myelocytes # (Manual) Promyelocytes # (Man) Blast Cells # (Man) Plasma Cell # (Manual) Other Cells # Nucleated RBCs # (Man) Hypersegmented Neuts Hyposegmented Neuts Hypogranular Neuts Large Granular Lymphs # Lrg Granular Lymphs Hairy Cells Smudge Cells Toxic Granulation Toxic Vacuolation Dohle Bodies Micha Rods Platelet Estimate (Normal) Hypogranular Platelets Clumped Platelets Giant Platelets Platelet Satelliting Immature Plt Fraction (0.9-8.3) % RBC Morphology Polychromasia Hypochromasia Poikilocytosis Basophilic Stippling Anisocytosis Microcytosis Macrocytosis Spherocytes Pappenheimer Bodies Sickle Cells Target Cells Tear Drop Cells Ovalocytes Stomatocytes [place] Bodies Echinocytes Acanthocytes (Spur) Rouleaux RBC Agglutinates Schistocytes RBC Morph Comment Peripher Smr Path Cons [place] Cell PT (9.0-12.0) Seconds INR (0.9-1.1) APTT (21.0-31.0) Seconds PTT Ratio Fibrinogen (184-400) mg/dl Sodium 140 (136-145) mmol/L Potassium 4.1 (3.5-5.1) mmol/L Chloride 111 H (98-107) mmol/L Carbon Dioxide 20 L (21-32) mmol/L Anion Gap 9.0 (3-11) BUN 44 H (7-18) mg/dl Creatinine 0.96 (0.6-1.4) mg/dl Est Cr Clr Drug Dosing 87.8 ml/min Est GFR ( Amer) 92.4 ml/min Est GFR (Non-Af Amer) 79.8 ml/min BUN/Creatinine Ratio 46.3 H (10-20) Glucose 153 H (70-99) mg/dl POC Glucose 161 H (70-99) mg/dl Estimat Average Glucose mg/dl Hemoglobin A1c (4.5-5.6) % Uric Acid 9.0 H (2.6-7.2) mg/dl Calcium 7.5 L (8.5-10.1) mg/dl Ionized Calcium Phosphorus 4.1 (2.5-4.9) mg/dl Magnesium 2.4 (1.8-2.4) mg/dl Total Bilirubin (0.2-1) mg/dl Direct Bilirubin (0-0.2) mg/dl AST (15-37) U/L ALT (12-78) U/L Alkaline Phosphatase (45-117) U/L Total Protein (6.4-8.2) gm/dl Albumin (3.4-5.0) gm/dl Stool Occult Bld Scrn (Negative) Hepatitis C Ab Screen (Neg) Blood Type Antibody Screen Crossmatch 01/16/21 01/16/21 01/15/21 Range/Units 10:13 09:15 13:13 WBC (4.8-10.8) K/uL RBC (4.7-6.1) M/uL Hgb (14.0-18.0) g/dL Hct (42-52) % MCV (80-100) fL MCH (25-34) pg MCHC (32-36) g/dL RDW Std Deviation (36.4-46.3) fL RDW Coeff of Rahat (11.5-14.5) % Plt Count (130-400) K/uL MPV (7.4-10.4) fL Immature Gran % (Auto) Neut % (Auto) Lymph % (Auto) [place] % (Auto) Eos % (Auto) Baso % (Auto) Neut # (Auto) Lymph # (Auto) [place] # (Auto) Eos # (Auto) Baso # (Auto) Immature Gran # (Auto) Neutrophils % (Manual) Band Neutrophils % Lymphocytes % (Manual) Prolymphocyte % Reactive Lymphs % (Man) Monocytes % (Manual) Eosinophils % (Manual) Basophils % (Manual) Metamyelocytes % (Man) Myelocytes % (Man) Promyelocytes % (Man) Blast Cells % (Manual) Plasma Cell % (Manual) Other Cells % Nucleated RBC % Neutrophils # (Manual) Band Neutrophils # Total Absolute Neuts Lymphocytes # (Manual) Prolymphocyte # Reactive Lymphs # Total Abs Lymphocytes Monocytes # (Manual) Eosinophils # (Manual) Basophils # (Manual) Metamyelocytes # (Man) Myelocytes # (Manual) Promyelocytes # (Man) Blast Cells # (Man) Plasma Cell # (Manual) Other Cells # Nucleated RBCs # (Man) Hypersegmented Neuts Hyposegmented Neuts Hypogranular Neuts Large Granular Lymphs # Lrg Granular Lymphs Hairy Cells Smudge Cells Toxic Granulation Toxic Vacuolation Dohle Bodies Micha Rods Platelet Estimate (Normal) Hypogranular Platelets Clumped Platelets Giant Platelets Platelet Satelliting Immature Plt Fraction 8.0 (0.9-8.3) % RBC Morphology Polychromasia Hypochromasia Poikilocytosis Basophilic Stippling Anisocytosis Microcytosis Macrocytosis Spherocytes Pappenheimer Bodies Sickle Cells Target Cells Tear Drop Cells Ovalocytes Stomatocytes [place] Bodies Echinocytes Acanthocytes (Spur) Rouleaux RBC Agglutinates Schistocytes RBC Morph Comment Peripher Smr Path Cons Sezary Cell PT (9.0-12.0) Seconds INR (0.9-1.1) APTT (21.0-31.0) Seconds PTT Ratio Fibrinogen (184-400) mg/dl Sodium (136-145) mmol/L Potassium (3.5-5.1) mmol/L Chloride (98-107) mmol/L Carbon Dioxide (21-32) mmol/L Anion Gap (3-11) BUN (7-18) mg/dl Creatinine (0.6-1.4) mg/dl Est Cr Clr Drug Dosing ml/min Est GFR ( Amer) ml/min Est GFR (Non-Af Amer) ml/min BUN/Creatinine Ratio (10-20) Glucose (70-99) mg/dl POC Glucose (70-99) mg/dl Estimat Average Glucose mg/dl Hemoglobin A1c (4.5-5.6) % Uric Acid (2.6-7.2) mg/dl Calcium (8.5-10.1) mg/dl Ionized Calcium Phosphorus (2.5-4.9) mg/dl Magnesium (1.8-2.4) mg/dl Total Bilirubin (0.2-1) mg/dl Direct Bilirubin (0-0.2) mg/dl AST (15-37) U/L ALT (12-78) U/L Alkaline Phosphatase (45-117) U/L Total Protein (6.4-8.2) gm/dl Albumin (3.4-5.0) gm/dl Stool Occult Bld Scrn Positive A (Negative) Hepatitis C Ab Screen Neg (Neg) Blood Type Antibody Screen Crossmatch 01/15/21 01/15/21 Range/Units 12:06 11:49 WBC (4.8-10.8) K/uL RBC (4.7-6.1) M/uL Hgb (14.0-18.0) g/dL Hct (42-52) % MCV (80-100) fL MCH (25-34) pg MCHC (32-36) g/dL RDW Std Deviation (36.4-46.3) fL RDW Coeff of Rahat (11.5-14.5) % Plt Count (130-400) K/uL MPV (7.4-10.4) fL Immature Gran % (Auto) Neut % (Auto) Lymph % (Auto) [place] % (Auto) Eos % (Auto) Baso % (Auto) Neut # (Auto) Lymph # (Auto) [place] # (Auto) Eos # (Auto) Baso # (Auto) Immature Gran # (Auto) Neutrophils % (Manual) Band Neutrophils % Lymphocytes % (Manual) Prolymphocyte % Reactive Lymphs % (Man) Monocytes % (Manual) Eosinophils % (Manual) Basophils % (Manual) Metamyelocytes % (Man) Myelocytes % (Man) Promyelocytes % (Man) Blast Cells % (Manual) Plasma Cell % (Manual) Other Cells % Nucleated RBC % Neutrophils # (Manual) Band Neutrophils # Total Absolute Neuts Lymphocytes # (Manual) Prolymphocyte # Reactive Lymphs # Total Abs Lymphocytes Monocytes # (Manual) Eosinophils # (Manual) Basophils # (Manual) Metamyelocytes # (Man) Myelocytes # (Manual) Promyelocytes # (Man) Blast Cells # (Man) Plasma Cell # (Manual) Other Cells # Nucleated RBCs # (Man) Hypersegmented Neuts Hyposegmented Neuts Hypogranular Neuts Large Granular Lymphs # Lrg Granular Lymphs Hairy Cells Smudge Cells Toxic Granulation Toxic Vacuolation Dohle Bodies Micha Rods Platelet Estimate (Normal) Hypogranular Platelets Clumped Platelets Giant Platelets Platelet Satelliting Immature Plt Fraction (0.9-8.3) % RBC Morphology Polychromasia Hypochromasia Poikilocytosis Basophilic Stippling Anisocytosis Microcytosis Macrocytosis Spherocytes Pappenheimer Bodies Sickle Cells Target Cells Tear Drop Cells Ovalocytes Stomatocytes [place] Bodies Echinocytes Acanthocytes (Spur) Rouleaux RBC Agglutinates Schistocytes RBC Morph Comment Peripher Smr Path Cons Sezary Cell PT (9.0-12.0) Seconds INR (0.9-1.1) APTT (21.0-31.0) Seconds PTT Ratio Fibrinogen (184-400) mg/dl Sodium (136-145) mmol/L Potassium (3.5-5.1) mmol/L Chloride (98-107) mmol/L Carbon Dioxide (21-32) mmol/L Anion Gap (3-11) BUN (7-18) mg/dl Creatinine (0.6-1.4) mg/dl Est Cr Clr Drug Dosing ml/min Est GFR ( Amer) ml/min Est GFR (Non-Af Amer) ml/min BUN/Creatinine Ratio (10-20) Glucose (70-99) mg/dl POC Glucose (70-99) mg/dl Estimat Average Glucose mg/dl Hemoglobin A1c (4.5-5.6) % Uric Acid (2.6-7.2) mg/dl Calcium (8.5-10.1) mg/dl Ionized Calcium Phosphorus (2.5-4.9) mg/dl Magnesium (1.8-2.4) mg/dl Total Bilirubin (0.2-1) mg/dl Direct Bilirubin (0-0.2) mg/dl AST (15-37) U/L ALT (12-78) U/L Alkaline Phosphatase (45-117) U/L Total Protein (6.4-8.2) gm/dl Albumin (3.4-5.0) gm/dl Stool Occult Bld Scrn (Negative) Hepatitis C Ab Screen (Neg) Blood Type O Positive Antibody Screen NEGATIVE Crossmatch See Detail Coding Level of Care Code Critical Care 1st 30-74 mins Diagnoses Acute blood loss anemia D62 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
[2021-01-17] MEDS ORDERED: SODIUM CHLORIDE 0.9% 250 ML IV PRN (08:39)
[2021-01-17] MEDS ORDERED: CALCIUM GLUCONATE 10% 1,000 MG in SODIUM CHLORIDE 0.9% 50 ML IV ONE (08:45)
[2021-01-17] MEDS: INSULIN GLARGINE SOLOSTAR 100 UNITS/ML 3 ML PEN SC SCH ×2 (08:49→21:25)
[2021-01-17] MEDS ORDERED: Nursing to Pharmacy Communication SCH (09:00)
[2021-01-17] MEDS ORDERED: ONDANSETRON 8MG OD TAB PO SCH (10:30)
[2021-01-17] MEDS ORDERED: dexAMETHasone 4 MG TAB PO SCH (10:30)
[2021-01-17] MEDS: predniSONE 50 MG TAB PO SCH (10:51)
[2021-01-17] MEDS ORDERED: DOXORUBICIN HCL IV SCH (11:00)
[2021-01-17] MEDS ORDERED: CYCLOPHOSPHAMIDE IV SCH (11:30)
[2021-01-17] MEDS ORDERED: SODIUM CHLORIDE 0.9% IV SCH (11:30)
[2021-01-17] MEDS ORDERED: predniSONE 50 MG TAB PO SCH (14:00)
[2021-01-17] MEDS: PANTOprazole 40 MG in SYRINGE 0 ML IV SCH (21:23)
--- NOTE | 2021-01-17 21:45 | Hospitalist Progress Note ---
Date of Service January 17, 2021 Assessment & Plan (1) GIB (gastrointestinal bleeding): Type and cross - Acute blood loss anemia - Protonix drip started in EMD-->ICU - [place] 18 -Maintain hemoglobin above 7, has transfused over 4 PRBC. -Continue Protonix drip. Lactate is downtrending. -Appreciate input from Oncology: his bone marrow is severely compromised with infiltrative disease and thus, the need to proceed with chemotherapy expediently. We will recommend combination rituximab, cyclophosphamide, Adriamycin, vincristine and prednisone. (2) Acute ITP: - DDAVP administered 0.3mcg/kg - Steroids per EMD and ICU - LDH, Fibrinogen, FDP, pending - Enlarged spleen with splenic infarcts noted on CT scan Continue IV steroids. (3) Acute leukemia: - Per Oncology - Supportive care (4) COPD with emphysema: - Continue home BHAVNA, LABA, LAMA - No acute needs (5) AAA (abdominal aortic aneurysm): Done in 2013 - Routine CTA screening done at [facility]- 4.0x2.6 with no evidence of endoleak and widely patent repair () (6) Thrombocytopenia: - As above (7) Hypertension: - Hold antihypertensives at this time - Acute resuscitation on vasopressors for hypotension (2) Acute ITP: (3) Acute leukemia: (4) COPD with emphysema: (5) AAA (abdominal aortic aneurysm): (6) Thrombocytopenia: (7) Hypertension: Admission and Anticipated Discharge Date Admission Date: January 15, 2021 Subjective Patient reports no new symptoms today. He reports having a rough night last evening. Review of Systems Review of Systems: All systems reviewed & are unremarkable except as noted in HPI & below Physical Exam Physical Exam: General: awake, alert, no apparent distress Head: Normocephalic, atraumatic ENT: PERRL, EOMI, no pharyngeal exudate,\\ Neuro: AAO x 3, speech clear and appropriate, strength intact bilaterally 5/5, sensation intact and equal all extremities and dermatomes, no pronator drift Chest: equal rise and fall of the chest, no accessory muscle use, no heaves or thrills, Clear to auscultation, on room air, Cardiac: Regular rate and rhythm, telemetry reviewed, skin warm dry, cap refill <3 seconds, peripheral pulses +2 no JVD, no murmur, no edema GI: NABS x 4 quadrants, soft, nontender to palpation, no rebound, guarding or tenderness : Spontaneously voiding, no pain, no CVA tenderness, Extremities: petechiae to lower legs and trunk, no peripheral edema or erythema, calfs nontender to palpation Psych: Normal mood and affect Skin:as above Results & Data Results & Data ([facility]) Vital Signs (Past 12 Hours) Vital Signs Temp Pulse Pulse Resp BP BP Pulse Ox 01/17/21 18:31 80 22 100 01/17/21 18:30 84 16 125/71 100 01/17/21 18:15 83 17 112/74 99 01/17/21 18:01 77 22 96 01/17/21 18:00 37 C 81 18 114/86 99 01/17/21 17:45 83 13 122/63 98 01/17/21 17:31 102 H 22 121/71 95 01/17/21 17:30 36.9 C 92 H 15 98 01/17/21 17:04 37 C 75 20 136/77 100 01/17/21 16:30 36.9 C 78 20 124/72 100 01/17/21 15:52 37 C 78 20 133/77 99 01/17/21 15:30 36.8 C 82 20 130/75 98 01/17/21 15:13 37.0 C 80 20 135/86 98 01/17/21 15:01 79 12 97 01/17/21 15:00 81 15 135/86 100 01/17/21 14:45 84 20 98 01/17/21 14:30 72 17 125/79 100 01/17/21 14:01 75 23 100 01/17/21 14:00 76 17 129/84 100 01/17/21 13:30 71 22 121/76 100 01/17/21 13:01 72 22 100 01/17/21 13:00 71 22 123/76 100 01/17/21 12:15 74 13 117/68 100 01/17/21 12:01 78 19 100 01/17/21 12:00 37 C 79 16 122/74 100 01/17/21 11:46 80 19 99 01/17/21 11:45 76 14 120/71 100 01/17/21 11:30 76 21 122/74 100 01/17/21 11:25 37 C 77 20 133/77 100 01/17/21 11:16 79 25 H 100 01/17/21 11:15 78 18 133/77 100 01/17/21 11:06 37 C 78 20 123/76 100 01/17/21 11:01 76 20 96 01/17/21 11:00 74 24 123/76 100 01/17/21 10:46 77 22 99 01/17/21 10:45 36.8 C 75 23 120/71 100 01/17/21 10:31 73 21 100 01/17/21 10:30 77 23 121/72 100 01/17/21 10:15 78 22 122/72 100 01/17/21 10:01 87 24 100 01/17/21 10:00 87 23 155/82 H 97 PG Care Time/CCT Total # of Minutes Spent Total Time Spent with Patient: Total time spent is greater than 50% in coordina tion of care (as documented) at patient's floor/unit and/or counseling patient: Coding Level of Care Code 40470 Subseq Hosp Care Lvl 2 Diagnoses GIB (gastrointestinal bleeding) K92.1 GI bleed type/associated pathology: melena Acute ITP D69.3 Acute leukemia C95.00 COPD with emphysema J43.9 Emphysema type: unspecified AAA (abdominal aortic aneurysm) I71.4 Thrombocytopenia D69.6 Hypertension I10 Hypertension type: unspecified Time Spent (min) 25 (1) GIB (gastrointestinal bleeding) GI bleed type/associated pathology: melena Qualified Code(s): K92.1 - Melena (2) COPD with emphysema Emphysema type: unspecified Qualified Code(s): J43.9 - Emphysema, unspecified (3) Hypertension Hypertension type: unspecified Qualified Code(s): I10 - Essential (primary) hypertension
[2021-01-18] MEDS ORDERED: VANCOMYCIN TROUGH ONE (01:30)
[2021-01-18] MEDS: VANCOMYCIN HCL 1,500 MG in SODIUM CHLORIDE 0.9% 500 ML IV SCH ×3 (02:43→22:18)
[2021-01-18] MEDS: PIPERACILLIN/TAZOBACTAM 4.5 GM in DEXTROSE 5% 100 ML IV SCH ×3 (05:35→22:09)
[2021-01-18] MEDS: NORMOSOL-R 1,000 ML IV SCH ×3 (05:36→21:22)
[2021-01-18 05:43] LABS: Mean Corpuscular Hgb Conc 33.7 g/dL (32-36); Mean Platelet Volume 10.4 fL (7.4-10.4); Platelet Count 7 K/uL (130-400)
[2021-01-18 05:44] LABS: Hematocrit (blood only) 17.8 % (42-52); Mean Corpuscular Hemoglobin 30.2 pg (25-34); Mean Corpuscular Volume 89.4 fL (80-100); RDW Coefficient of Variation 14.3 % (11.5-14.5); RDW Standard Deviation 47.3 fL (36.4-46.3); Red Blood Count 1.99 M/uL (4.7-6.1)
[2021-01-18 05:45] LABS: Albumin Globulin Ratio 1.1 (0.9-2); Albumin Level 2.2 gm/dl (3.4-5.0); BUN Creatinine Ratio 37.5 (10-20); Bilirubin,Total 0.5 mg/dl (0.2-1); Calcium 6.2 mg/dl (8.5-10.1); Est GFR (African American) 105.4 ml/min; Magnesium 2.7 mg/dl (1.8-2.4); Phosphorus 4.4 mg/dl (2.5-4.9); Potassium 4.5 mmol/L (3.5-5.1); Total Protein 4.2 gm/dl (6.4-8.2); Uric Acid 4.5 mg/dl (2.6-7.2)
[2021-01-18 05:46] LABS: Platelet Estimate SIGNIFIC DECREASED (Normal)
[2021-01-18] MEDS ORDERED: SODIUM CHLORIDE 0.9% 250 ML IV PRN (05:49)
[2021-01-18 05:56] LABS: INR 1.2 (0.9-1.1); Partial Thromboplastin Ratio 1.1; Partial Thromboplastin Time 27.8 Seconds (21.0-31.0)
[2021-01-18 06:03] LABS: Fibrinogen 138 mg/dl (184-400)
[2021-01-18] MEDS ORDERED: CALCIUM GLUCONATE 10% 3,000 MG in 0.9 % SODIUM CHLORIDE 100 ML IV ONE (06:30)
[2021-01-18] MEDS: ALBUT/IPRATROP 3MG/0.5MG NEB 3 ML VIAL NEB SCH ×2 (06:53→15:47)
[2021-01-18] MEDS: UMECLIDINIUM/VILANTEROL 62.5/25MCG 7 PUFFS/INHALER INH SCH (07:28)
[2021-01-18] MEDS: allopurinoL 300 MG TAB PO SCH (07:28)
[2021-01-18] MEDS: predniSONE 50 MG TAB PO SCH (07:28)
[2021-01-18] MEDS: PANTOprazole 40 MG in SYRINGE 0 ML IV SCH ×2 (07:28→21:11)
[2021-01-18] MEDS: FLUTICASONE FUROATE 100MCG 14 PUFFS/INHALER INH SCH (07:29)
[2021-01-18] MEDS: INSULIN ASPART 100 UNITS/ML 3 ML PEN SC SCH ×4 (07:30→21:01)
--- NOTE | 2021-01-18 08:24 | Critical Care Progress Note ---
Date of Service January 18, 2021 Assessment & Plan (1) Acute blood loss anemia: Neurologic: No issues at present. CT head negative for bleed. Pulmonary: COPD Chronic hypoxic respiratory failure -2 L nasal cannula Cardiovascular: Hypotensive likely from hemorrhagic shock.: Resolved - Right central line in place. Gastrointestinal: Fecal occult blood positive - GI consultation. -Continue pantoprazole bid Renal: Hypocalcemia -1 g calcium gluconate Hematologic: Thrombocytopenia. -Discussed with Corey. -He has a history of diffuse large B cell lymphoma. -No schistocytes seen on peripheral smear -GI looking for 30,000 prior to scope -Maintain hemoglobin above 7. -Maintain platelets above 10,000 -Given 2 units platelets on 01/16, 2 units platelets 01/17 -IVIG: Holding given discussion with hematology -Prednisone given and modified protocol -Ordered 2 additional single donor platelets for 01/18 Anemia secondary to chemotherapeutic agent -01/16 received 4 units packed red blood cells -Receiving 2 units packed red blood cells 01/18 Leukopenia secondary to chemotherapeutic agent Hypofibrinogenemia -Received 2 units cryo 01/16 & 01/17 -To receive 1 more unit cryo precipitate today Lymphoma: -Undergoing chemotherapy - generous hydration Infection: Bacteremia: Gram-positive cocci in clusters: Staph aureus awaiting sensitivities out of 1 bottle -Vancomycin and Zosyn day 3 -Repeat blood cultures 01/17 incubating -Suspect contaminant as it is 1 culture bottle at this time Endocrine: Mild hyperglycemia. Insulin management per ICU pharmacist. Lines and tubes: Right IJ in place 01/15/2021 VTE prophylaxis: Hold due to thrombocytopenia CODE STATUS: Full Disposition: Stable for downgrade out of ICU (2) GIB (gastrointestinal bleeding): (3) Acute leukemia: Admission and Anticipated Discharge Date Admission Date: January 15, 2021 Supervising Physician Co-Signing Physician Notes Patient was discussed on multidisciplinary rounds Subjective No overnight events Physical Exam Physical Exam: General: Alert. nontoxic. Skin: Warm, dry, Head: Atraumatic Ears, nose, mouth and throat: airway patent Cardiovascular: Normal peripheral perfusion Respiratory: no respiratory distress, mild tachypnea pursed lip breathing which reported at baseline Gastrointestinal: Non distended Musculoskeletal: No deformity Results & Data Results & Data ([facility]) Vital Signs (Past 12 Hours) Vital Signs Temp Pulse Pulse Resp BP Pulse Ox 01/18/21 07:26 36.7 C 73 20 121/65 97 01/18/21 07:15 36.9 C 73 16 123/78 97 01/18/21 06:56 36.9 C 79 20 126/71 99 01/18/21 06:53 75 16 100 01/18/21 06:42 37 C 75 18 118/67 100 01/18/21 06:30 76 22 97 01/18/21 06:24 37 C 72 14 116/70 100 01/18/21 06:00 75 20 99 01/18/21 05:31 76 20 97 01/18/21 05:30 73 19 107/72 98 01/18/21 05:01 71 25 H 98 01/18/21 05:00 72 24 121/75 96 01/18/21 04:31 72 22 98 01/18/21 04:30 76 23 119/73 100 01/18/21 04:01 72 23 98 01/18/21 04:00 71 21 119/73 97 01/18/21 03:31 75 24 97 01/18/21 03:30 80 19 115/73 93 01/18/21 03:00 76 13 108/70 100 01/18/21 02:30 87 15 131/72 98 01/18/21 02:00 74 22 119/72 98 01/18/21 01:31 85 24 98 01/18/21 01:30 81 25 H 119/78 100 01/18/21 01:01 77 24 98 01/18/21 01:00 77 22 121/73 99 01/18/21 00:31 77 24 99 01/18/21 00:30 80 25 H 126/69 98 01/18/21 00:00 81 18 120/70 98 01/17/21 23:30 81 19 117/72 100 01/17/21 23:07 76 12 100 01/17/21 23:01 37.1 C 81 21 100 01/17/21 23:00 79 24 116/65 100 01/17/21 22:30 87 20 121/85 01/17/21 22:00 72 16 114/59 L 01/17/21 21:35 79 24 136/78 99 01/17/21 21:01 74 19 99 01/17/21 21:00 73 22 123/77 99 01/17/21 20:46 75 23 99 01/17/21 20:45 71 12 122/78 100 06/08/21 20:31 74 21 98 01/17/21 20:30 74 22 130/84 100 01/17/21 20:16 76 16 97 01/17/21 20:15 75 22 128/79 100 Laboratory Results 01/18/21 01/18/21 01/18/21 Range/Units 07:23 05:05 05:05 WBC (4.8-10.8) K/uL RBC (4.7-6.1) M/uL Hgb (14.0-18.0) g/dL Hct (42-52) % MCV (80-100) fL MCH (25-34) pg MCHC (32-36) g/dL RDW Std Deviation (36.4-46.3) fL RDW Coeff of Rahat (11.5-14.5) % Plt Count (130-400) K/uL MPV (7.4-10.4) fL Immature Gran % (Auto) Neut % (Auto) Lymph % (Auto) Borden % (Auto) Eos % (Auto) Baso % (Auto) Neut # (Auto) Lymph # (Auto) Borden # (Auto) Eos # (Auto) Baso # (Auto) Immature Gran # (Auto) Neutrophils % (Manual) Band Neutrophils % Lymphocytes % (Manual) Prolymphocyte % Reactive Lymphs % (Man) Monocytes % (Manual) Eosinophils % (Manual) Basophils % (Manual) Metamyelocytes % (Man) Myelocytes % (Man) Promyelocytes % (Man) Blast Cells % (Manual) Plasma Cell % (Manual) Other Cells % Nucleated RBC % Neutrophils # (Manual) Band Neutrophils # Total Absolute Neuts Lymphocytes # (Manual) Prolymphocyte # Reactive Lymphs # Total Abs Lymphocytes Monocytes # (Manual) Eosinophils # (Manual) Basophils # (Manual) Metamyelocytes # (Man) Myelocytes # (Manual) Promyelocytes # (Man) Blast Cells # (Man) Plasma Cell # (Manual) Other Cells # Nucleated RBCs # (Man) Hypersegmented Neuts Hyposegmented Neuts Hypogranular Neuts Large Granular Lymphs # Lrg Granular Lymphs Hairy Cells Smudge Cells Toxic Granulation Toxic Vacuolation Dohle Bodies Micha Rods Platelet Estimate (Normal) Hypogranular Platelets Clumped Platelets Giant Platelets Platelet Satelliting RBC Morphology Polychromasia Hypochromasia Poikilocytosis Basophilic Stippling Anisocytosis Microcytosis Macrocytosis Spherocytes Pappenheimer Bodies Sickle Cells Target Cells Tear Drop Cells Ovalocytes Stomatocytes [place] Bodies Echinocytes Acanthocytes (Spur) Rouleaux RBC Agglutinates Schistocytes RBC Morph Comment Sezary Cell PT (9.0-12.0) Seconds INR (0.9-1.1) APTT (21.0-31.0) Seconds PTT Ratio Fibrinogen (184-400) mg/dl Sodium (136-145) mmol/L Potassium (3.5-5.1) mmol/L Chloride (98-107) mmol/L Carbon Dioxide (21-32) mmol/L Anion Gap (3-11) BUN (7-18) mg/dl Creatinine (0.6-1.4) mg/dl Est Cr Clr Drug Dosing ml/min Est GFR ( Amer) ml/min Est GFR (Non-Af Amer) ml/min BUN/Creatinine Ratio (10-20) Glucose (70-99) mg/dl POC Glucose 149 H (70-99) mg/dl Lactate 1.2 (0.4-2.0) mmol/L Uric Acid (2.6-7.2) mg/dl Calcium (8.5-10.1) mg/dl Ionized Calcium 0.94 L (1.12-1.32) mmol/L Phosphorus (2.5-4.9) mg/dl Magnesium (1.8-2.4) mg/dl Total Bilirubin (0.2-1) mg/dl AST (15-37) U/L ALT (12-78) U/L Alkaline Phosphatase (45-117) U/L Total Protein (6.4-8.2) gm/dl Albumin (3.4-5.0) gm/dl Globulin (2.5-4.0) gm/dl Albumin/Globulin Ratio (0.9-2) Vancomycin Trough (See Comment) mcg/ml Blood Type Antibody Screen Crossmatch 01/18/21 01/18/21 01/18/21 Range/Units 05:05 05:05 05:05 WBC 0.20 L* (4.8-10.8) K/uL RBC 1.99 L (4.7-6.1) M/uL Hgb 6.0 L* (14.0-18.0) g/dL Hct 17.8 L* (42-52) % MCV 89.4 (80-100) fL MCH 30.2 (25-34) pg MCHC 33.7 (32-36) g/dL RDW Std Deviation 47.3 H (36.4-46.3) fL RDW Coeff of Rahat 14.3 (11.5-14.5) % Plt Count 7 L* (130-400) K/uL MPV 10.4 (7.4-10.4) fL Immature Gran % (Auto) Cancelled Neut % (Auto) Cancelled Lymph % (Auto) Cancelled Borden % (Auto) Cancelled Eos % (Auto) Cancelled Baso % (Auto) Cancelled Neut # (Auto) Cancelled Lymph # (Auto) Cancelled [place]orden # (Auto) Cancelled Eos # (Auto) Cancelled Baso # (Auto) Cancelled Immature Gran # (Auto) Cancelled Neutrophils % (Manual) Cancelled Band Neutrophils % Cancelled Lymphocytes % (Manual) Cancelled Prolymphocyte % Cancelled Reactive Lymphs % (Man) Cancelled Monocytes % (Manual) Cancelled Eosinophils % (Manual) Cancelled Basophils % (Manual) Cancelled Metamyelocytes % (Man) Cancelled Myelocytes % (Man) Cancelled Promyelocytes % (Man) Cancelled Blast Cells % (Manual) Cancelled Plasma Cell % (Manual) Cancelled Other Cells % Cancelled Nucleated RBC % Cancelled Neutrophils # (Manual) Cancelled Band Neutrophils # Cancelled Total Absolute Neuts Cancelled Lymphocytes # (Manual) Cancelled Prolymphocyte # Cancelled Reactive Lymphs # Cancelled Total Abs Lymphocytes Cancelled Monocytes # (Manual) Cancelled Eosinophils # (Manual) Cancelled Basophils # (Manual) Cancelled Metamyelocytes # (Man) Cancelled Myelocytes # (Manual) Cancelled Promyelocytes # (Man) Cancelled Blast Cells # (Man) Cancelled Plasma Cell # (Manual) Cancelled Other Cells # Cancelled Nucleated RBCs # (Man) Cancelled Hypersegmented Neuts Cancelled Hyposegmented Neuts Cancelled Hypogranular Neuts Cancelled Large Granular Lymphs Cancelled # Lrg Granular Lymphs Cancelled Hairy Cells Cancelled Smudge Cells Cancelled Toxic Granulation Cancelled Toxic Vacuolation Cancelled Dohle Bodies Cancelled Micha Rods Cancelled Platelet Estimate SIGNIFIC DECREASED (Normal) Hypogranular Platelets Cancelled Clumped Platelets Cancelled Giant Platelets Cancelled Platelet Satelliting Cancelled RBC Morphology Cancelled Polychromasia Cancelled Hypochromasia Cancelled Poikilocytosis Cancelled Basophilic Stippling Cancelled Anisocytosis Cancelled Microcytosis Cancelled Macrocytosis Cancelled Spherocytes Cancelled Pappenheimer Bodies Cancelled Sickle Cells Cancelled Target Cells Cancelled Tear Drop Cells Cancelled Ovalocytes Cancelled Stomatocytes Cancelled [place] Bodies Cancelled Echinocytes Cancelled Acanthocytes (Spur) Cancelled Rouleaux Cancelled RBC Agglutinates Cancelled Schistocytes Cancelled RBC Morph Comment Cancelled Sezary Cell Cancelled PT 12.0 (9.0-12.0) Seconds INR 1.2 H (0.9-1.1) APTT 27.8 (21.0-31.0) Seconds PTT Ratio 1.1 Fibrinogen 138 L D (184-400) mg/dl Sodium 142 (136-145) mmol/L Potassium 4.5 (3.5-5.1) mmol/L Chloride 113 H (98-107) mmol/L Carbon Dioxide 24 (21-32) mmol/L Anion Gap 5.0 (3-11) BUN 30 H (7-18) mg/dl Creatinine 0.79 D (0.6-1.4) mg/dl Est Cr Clr Drug Dosing 108.0 ml/min Est GFR ( Amer) 105.4 ml/min Est GFR (Non-Af Amer) 91.0 ml/min BUN/Creatinine Ratio 37.5 H (10-20) Glucose 136 H (70-99) mg/dl POC Glucose (70-99) mg/dl Lactate (0.4-2.0) mmol/L Uric Acid 4.5 (2.6-7.2) mg/dl Calcium 6.2 L (8.5-10.1) mg/dl Ionized Calcium (1.12-1.32) mmol/L Phosphorus 4.4 (2.5-4.9) mg/dl Magnesium 2.7 H (1.8-2.4) mg/dl Total Bilirubin 0.5 (0.2-1) mg/dl AST 50 H (15-37) U/L ALT 23 (12-78) U/L Alkaline Phosphatase 28 L (45-117) U/L Total Protein 4.2 L (6.4-8.2) gm/dl Albumin 2.2 L (3.4-5.0) gm/dl Globulin 2.0 L (2.5-4.0) gm/dl Albumin/Globulin Ratio 1.1 (0.9-2) Vancomycin Trough (See Comment) mcg/ml Blood Type Antibody Screen Crossmatch 01/18/21 01/17/21 01/17/21 Range/Units 01:30 21:03 16:15 WBC (4.8-10.8) K/uL RBC (4.7-6.1) M/uL Hgb (14.0-18.0) g/dL Hct (42-52) % MCV (80-100) fL MCH (25-34) pg MCHC (32-36) g/dL RDW Std Deviation (36.4-46.3) fL RDW Coeff of Rahat (11.5-14.5) % Plt Count (130-400) K/uL MPV (7.4-10.4) fL Immature Gran % (Auto) Neut % (Auto) Lymph % (Auto) Borden % (Auto) Eos % (Auto) Baso % (Auto) Neut # (Auto) Lymph # (Auto) Borden # (Auto) Eos # (Auto) Baso # (Auto) Immature Gran # (Auto) Neutrophils % (Manual) Band Neutrophils % Lymphocytes % (Manual) Prolymphocyte % Reactive Lymphs % (Man) Monocytes % (Manual) Eosinophils % (Manual) Basophils % (Manual) Metamyelocytes % (Man) Myelocytes % (Man) Promyelocytes % (Man) Blast Cells % (Manual) Plasma Cell % (Manual) Other Cells % Nucleated RBC % Neutrophils # (Manual) Band Neutrophils # Total Absolute Neuts Lymphocytes # (Manual) Prolymphocyte # Reactive Lymphs # Total Abs Lymphocytes Monocytes # (Manual) Eosinophils # (Manual) Basophils # (Manual) Metamyelocytes # (Man) Myelocytes # (Manual) Promyelocytes # (Man) Blast Cells # (Man) Plasma Cell # (Manual) Other Cells # Nucleated RBCs # (Man) Hypersegmented Neuts Hyposegmented Neuts Hypogranular Neuts Large Granular Lymphs # Lrg Granular Lymphs Hairy Cells Smudge Cells Toxic Granulation Toxic Vacuolation Dohle Bodies Micha Rods Platelet Estimate (Normal) Hypogranular Platelets Clumped Platelets Giant Platelets Platelet Satelliting RBC Morphology Polychromasia Hypochromasia Poikilocytosis Basophilic Stippling Anisocytosis Microcytosis Macrocytosis Spherocytes Pappenheimer Bodies Sickle Cells Target Cells Tear Drop Cells Ovalocytes Stomatocytes [place] Bodies Echinocytes Acanthocytes (Spur) Rouleaux RBC Agglutinates Schistocytes RBC Morph Comment Sezary Cell PT (9.0-12.0) Seconds INR (0.9-1.1) APTT (21.0-31.0) Seconds PTT Ratio Fibrinogen (184-400) mg/dl Sodium (136-145) mmol/L Potassium (3.5-5.1) mmol/L Chloride (98-107) mmol/L Carbon Dioxide (21-32) mmol/L Anion Gap (3-11) BUN (7-18) mg/dl Creatinine (0.6-1.4) mg/dl Est Cr Clr Drug Dosing ml/min Est GFR ( Amer) ml/min Est GFR (Non-Af Amer) ml/min BUN/Creatinine Ratio (10-20) Glucose (70-99) mg/dl POC Glucose 148 H 167 H (70-99) mg/dl Lactate (0.4-2.0) mmol/L Uric Acid (2.6-7.2) mg/dl Calcium (8.5-10.1) mg/dl Ionized Calcium (1.12-1.32) mmol/L Phosphorus (2.5-4.9) mg/dl Magnesium (1.8-2.4) mg/dl Total Bilirubin (0.2-1) mg/dl AST (15-37) U/L ALT (12-78) U/L Alkaline Phosphatase (45-117) U/L Total Protein (6.4-8.2) gm/dl Albumin (3.4-5.0) gm/dl Globulin (2.5-4.0) gm/dl Albumin/Globulin Ratio (0.9-2) Vancomycin Trough 12.5 (See Comment) mcg/ml Blood Type Antibody Screen Crossmatch 01/17/21 01/17/21 01/15/21 Range/Units 12:02 11:30 12:06 WBC (4.8-10.8) K/uL RBC (4.7-6.1) M/uL Hgb (14.0-18.0) g/dL Hct (42-52) % MCV (80-100) fL MCH (25-34) pg MCHC (32-36) g/dL RDW Std Deviation (36.4-46.3) fL RDW Coeff of Rahat (11.5-14.5) % Plt Count (130-400) K/uL MPV (7.4-10.4) fL Immature Gran % (Auto) Neut % (Auto) Lymph % (Auto) Borden % (Auto) Eos % (Auto) Baso % (Auto) Neut # (Auto) Lymph # (Auto) Borden # (Auto) Eos # (Auto) Baso # (Auto) Immature Gran # (Auto) Neutrophils % (Manual) Band Neutrophils % Lymphocytes % (Manual) Prolymphocyte % Reactive Lymphs % (Man) Monocytes % (Manual) Eosinophils % (Manual) Basophils % (Manual) Metamyelocytes % (Man) Myelocytes % (Man) Promyelocytes % (Man) Blast Cells % (Manual) Plasma Cell % (Manual) Other Cells % Nucleated RBC % Neutrophils # (Manual) Band Neutrophils # Total Absolute Neuts Lymphocytes # (Manual) Prolymphocyte # Reactive Lymphs # Total Abs Lymphocytes Monocytes # (Manual) Eosinophils # (Manual) Basophils # (Manual) Metamyelocytes # (Man) Myelocytes # (Manual) Promyelocytes # (Man) Blast Cells # (Man) Plasma Cell # (Manual) Other Cells # Nucleated RBCs # (Man) Hypersegmented Neuts Hyposegmented Neuts Hypogranular Neuts Large Granular Lymphs # Lrg Granular Lymphs Hairy Cells Smudge Cells Toxic Granulation Toxic Vacuolation Dohle Bodies Micha Rods Platelet Estimate (Normal) Hypogranular Platelets Clumped Platelets Giant Platelets Platelet Satelliting RBC Morphology Polychromasia Hypochromasia Poikilocytosis Basophilic Stippling Anisocytosis Microcytosis Macrocytosis Spherocytes Pappenheimer Bodies Sickle Cells Target Cells Tear Drop Cells Ovalocytes Stomatocytes [place] Bodies Echinocytes Acanthocytes (Spur) Rouleaux RBC Agglutinates Schistocytes RBC Morph Comment Sezary Cell PT (9.0-12.0) Seconds INR (0.9-1.1) APTT (21.0-31.0) Seconds PTT Ratio Fibrinogen (184-400) mg/dl Sodium (136-145) mmol/L Potassium (3.5-5.1) mmol/L Chloride (98-107) mmol/L Carbon Dioxide (21-32) mmol/L Anion Gap (3-11) BUN (7-18) mg/dl Creatinine (0.6-1.4) mg/dl Est Cr Clr Drug Dosing ml/min Est GFR ( Amer) ml/min Est GFR (Non-Af Amer) ml/min BUN/Creatinine Ratio (10-20) Glucose (70-99) mg/dl POC Glucose 164 H (70-99) mg/dl Lactate (0.4-2.0) mmol/L Uric Acid (2.6-7.2) mg/dl Calcium (8.5-10.1) mg/dl Ionized Calcium (1.12-1.32) mmol/L Phosphorus (2.5-4.9) mg/dl Magnesium 2.6 H (1.8-2.4) mg/dl Total Bilirubin (0.2-1) mg/dl AST (15-37) U/L ALT (12-78) U/L Alkaline Phosphatase (45-117) U/L Total Protein (6.4-8.2) gm/dl Albumin (3.4-5.0) gm/dl Globulin (2.5-4.0) gm/dl Albumin/Globulin Ratio (0.9-2) Vancomycin Trough (See Comment) mcg/ml Blood Type O Positive Antibody Screen NEGATIVE Crossmatch See Detail Coding Level of Care Code 28107 Subseq Hosp Care Lvl 3 Diagnoses Acute blood loss anemia D62 GIB (gastrointestinal bleeding) K92.1 GI bleed type/associated pathology: melena Acute leukemia C95.00 (1) GIB (gastrointestinal bleeding) GI bleed type/associated pathology: melena Qualified Code(s): K92.1 - Melena
--- NOTE | 2021-01-18 10:51 | Progress Notes ---
DATE: 01/18/2021 MEDICAL ONCOLOGY PROGRESS NOTE DIAGNOSES: 1. Rapidly progressing diffuse large B-cell lymphoma (stage IV), bone marrow involvement. 2. Pancytopenia. 3. 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 4. Lower gastrointestinal bleeding. 5. Abdominal aortic aneurysm. 6. Hypertension. SUBJECTIVE: Tyrell was seen at bedside this morning. He received his full complement of chemotherapy and not surprisingly is profoundly pancytopenic. He was receiving packed RBCs at the bedside this morning. Otherwise, Tyrell seems to be stabilizing. He is taking in p.o. intake and knows enough to proceed with small amounts of food as bolus feeding may result in nausea. The patient received cryoprecipitate overnight to correct fibrinogen. He voices no discomfort. Nursing reports no overnight difficulties otherwise. OBJECTIVE: GENERAL: A pleasant 70-year-old, awake, alert and appropriate, in no acute distress. VITAL SIGNS: Temperature 36.7, pulse 80, respiratory rate 20, blood pressure 126/70. SKIN: Without rash or lesion. HEENT: No evidence of oral thrush. HEART: Regular rate and rhythm. LUNGS: Clear to auscultation bilaterally. ABDOMEN: Soft, nontender, nondistended. EXTREMITIES: No clubbing, cyanosis or edema. NEUROLOGICAL: Grossly intact. LABORATORY DATA: Blood culture, gram-positive cocci treasury representative of Staphylococcus aureus. WBC count 200, hemoglobin 6, platelet count 7000. PT 12, INR 1.2, fibrinogen 138. Sodium 142, potassium 4.5, chloride 113, carbon dioxide 24, creatinine 0.79, BUN 30. IMPRESSION: 1. Rapidly progressing diffuse large B-cell lymphoma, stage IV disease, bone marrow involvement. 2. Status post cycle 1 R-CHOP chemotherapy. 3. 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 4. Lower gastrointestinal bleeding. 5. Staphylococcus aureus bacteremia (?contaminant). 6. Abdominal aortic aneurysm. 7. Hypoalbuminemia. PLAN: Tyrell received his full complement of cycle #1 R-CHOP chemotherapy. Had some difficulty with rituximab, but eventually got all prescribed agents infused. Not surprisingly, he is profoundly pancytopenic and will remain so over the next several days. Therefore, antibiotic coverage as appropriate should continue. Transfusional support maintaining platelets above 10,000 and hemoglobin above 7.5 grams per deciliter. He received a couple units of cryoprecipitate, which resulted in improvement in fibrinogen levels. Hopefully, his electrolytes remained stable and continue to follow closely. Perhaps he can be moved to a monitored bed upstairs in the next 24 hours at the discretion of the critical care team. We will continue to follow Tyrell on a daily basis. Ensure he receives his dose of Neulasta today. Thank you very much for allowing me to participate in this gentleman's care. TYLER
--- NOTE | 2021-01-18 14:43 | Pharmacy Report ---
Pharmacy Abx Dose Short Note - Date of Service January 18, 2021 - Assessment & Plan Assessment 70 year old M receiving vancomycin/zosyn for treatment of Bacteremia/ broad coverage for pancytopenia Blood cultures currently growing staph aureus (MSSA) and Coag neg staph (no current sensitivities). Repeat cultures are pending Plan Vancomycin * Trough level of 12.5 mcg/mL is subtherapeutic * Change to 1500 mg IV every 10 hours * Goal trough level 15-20 mcg/mL * Trough to be ordered for 01/19 @ 0730 Pharmacy will continue to follow and will adjust dose/frequency as necessary. Thank you.
[2021-01-18] MEDS ORDERED: INSULIN GLARGINE SOLOSTAR 100 UNITS/ML 3 ML PEN SC SCH (21:00)
[2021-01-18] MEDS ORDERED: PEGFILGRASTIM 6 MG/0.6 ML SYR SQ SCH (21:30)
[2021-01-18] MEDS ORDERED: PEGFILGRASTIM 6 MG/0.6 ML SYR SQ ONE (21:30)
--- NOTE | 2021-01-18 22:59 | Hospitalist Progress Note ---
Date of Service January 18, 2021 Assessment & Plan (1) GIB (gastrointestinal bleeding): Type and cross - Acute blood loss anemia - Protonix drip started in EMD-->ICU - [place] 18 -Maintain hemoglobin above 7, has transfused over 4 PRBC. -Continue Protonix drip. Lactate is downtrending. -Appreciate input from Oncology: his bone marrow is severely compromised with infiltrative disease and thus, the need to proceed with chemotherapy expediently. We will recommend combination rituximab, cyclophosphamide, Adriamycin, vincristine and prednisone. -Continue transfusion as needed (2) Acute ITP: - DDAVP administered 0.3mcg/kg - Steroids per EMD and ICU - LDH, Fibrinogen, FDP, pending - Enlarged spleen with splenic infarcts noted on CT scan Continue IV steroids. (3) Acute leukemia: - Per Oncology - Supportive care (4) COPD with emphysema: - Continue home BHAVNA, LABA, LAMA - No acute needs (5) AAA (abdominal aortic aneurysm): Done in 2013 - Routine CTA screening done at [facility]- 4.0x2.6 with no evidence of endoleak and widely patent repair () (6) Thrombocytopenia: - As above (7) Hypertension: - Hold antihypertensives at this time - Acute resuscitation on vasopressors for hypotension (8) MSSA bacteremia Only 1 out of 2 initial sets were positive. Rpeat is negative. will continue current antibiotics and monitor. may consider ID consult. (2) Acute ITP: (3) Acute leukemia: (4) COPD with emphysema: (5) AAA (abdominal aortic aneurysm): (6) Thrombocytopenia: (7) Hypertension: Admission and Anticipated Discharge Date Admission Date: January 15, 2021 Subjective Patient reports no new symptoms today. Review of Systems Review of Systems: All systems reviewed & are unremarkable except as noted in HPI & below Physical Exam Physical Exam: General: awake, alert, no apparent distress Head: Normocephalic, atraumatic ENT: PERRL, EOMI, no pharyngeal exudate,\\ Neuro: AAO x 3, speech clear and appropriate, strength intact bilaterally 5/5, sensation intact and equal all extremities and dermatomes, no pronator drift Chest: equal rise and fall of the chest, no accessory muscle use, no heaves or thrills, Clear to auscultation, on room air, Cardiac: Regular rate and rhythm, telemetry reviewed, skin warm dry, cap refill <3 seconds, peripheral pulses +2 no JVD, no murmur, no edema GI: NABS x 4 quadrants, soft, nontender to palpation, no rebound, guarding or tenderness : Spontaneously voiding, no pain, no CVA tenderness, Extremities: petechiae to lower legs and trunk, no peripheral edema or erythema, calfs nontender to palpation Psych: Normal mood and affect Skin:as above Results & Data Results & Data ([facility]) Vital Signs (Past 12 Hours) Vital Signs Temp Pulse Pulse Pulse Resp BP BP 01/18/21 22:31 36.7 C 70 18 128/67 01/18/21 19:19 36.9 C 66 20 132/74 01/18/21 17:47 70 01/18/21 17:39 36.9 C 83 83 20 173/91 H 01/18/21 16:00 36.5 C 01/18/21 15:48 62 18 01/18/21 15:31 71 13 01/18/21 15:30 66 19 137/79 01/18/21 15:15 62 6 L 139/87 01/18/21 15:01 69 19 01/18/21 15:00 67 18 132/81 01/18/21 14:45 70 18 121/72 01/18/21 14:31 76 16 01/18/21 14:30 62 19 127/78 01/18/21 14:15 72 21 141/84 H 01/18/21 14:01 85 19 01/18/21 14:00 75 21 127/76 01/18/21 13:45 65 17 130/75 01/18/21 13:30 36.5 C 72 18 102/68 01/18/21 13:24 73 22 133/75 01/18/21 13:00 75 12 123/80 01/18/21 12:50 74 19 116/69 01/18/21 12:45 74 13 118/67 01/18/21 12:40 82 21 122/74 01/18/21 12:35 76 16 119/75 01/18/21 12:31 76 17 01/18/21 12:30 71 17 120/70 01/18/21 12:25 36.6 C 70 13 124/69 01/18/21 12:20 69 7 L 122/68 01/18/21 12:19 70 12 119/67 01/18/21 12:18 71 11 L 118/66 01/18/21 12:17 71 12 126/69 01/18/21 12:16 70 10 L 122/70 01/18/21 12:15 36.6 C 77 14 116/73 01/18/21 12:12 69 20 124/69 01/18/21 12:11 72 17 123/76 01/18/21 12:00 80 16 120/72 01/18/21 11:48 36.8 C 74 20 131/80 01/18/21 11:45 64 18 131/80 01/18/21 11:31 70 22 01/18/21 11:30 70 18 128/75 01/18/21 11:28 36.6 C 73 18 120/72 01/18/21 11:26 36.6 C 66 20 119/74 01/18/21 11:15 63 16 119/74 01/18/21 11:01 68 17 01/18/21 11:00 69 15 121/74 Pulse Ox 01/18/21 22:31 97 01/18/21 19:19 98 01/18/21 17:47 01/18/21 17:39 97 01/18/21 16:00 01/18/21 15:48 100 01/18/21 15:31 90 01/18/21 15:30 98 01/18/21 15:15 100 01/18/21 15:01 95 01/18/21 15:00 95 01/18/21 14:45 97 01/18/21 14:31 95 01/18/21 14:30 97 01/18/21 14:15 94 01/18/21 14:01 96 01/18/21 14:00 95 01/18/21 13:45 98 01/18/21 13:30 97 01/18/21 13:24 94 01/18/21 13:00 98 01/18/21 12:50 94 01/18/21 12:45 96 01/18/21 12:40 93 01/18/21 12:35 97 01/18/21 12:31 96 01/18/21 12:30 97 01/18/21 12:25 96 01/18/21 12:20 97 01/18/21 12:19 97 01/18/21 12:18 98 01/18/21 12:17 97 01/18/21 12:16 97 01/18/21 12:15 98 01/18/21 12:12 97 01/18/21 12:11 93 01/18/21 12:00 95 01/18/21 11:48 98 01/18/21 11:45 97 01/18/21 11:31 98 01/18/21 11:30 95 01/18/21 11:28 96 01/18/21 11:26 98 01/18/21 11:15 99 01/18/21 11:01 97 01/18/21 11:00 97 PG Care Time/CCT Total # of Minutes Spent Total Time Spent with Patient: Total time spent is greater than 50% in coordination of care (as documented) at patient's floor/unit and/or counseling patient: Coding Level of Care Code 43580 Subseq Hosp Care Lvl 3 Diagnoses GIB (gastrointestinal bleeding) K92.1 GI bleed type/associated pathology: melena Acute ITP D69.3 Acute leukemia C95.00 COPD with emphysema J43.9 Emphysema type: unspecified AAA (abdominal aortic aneurysm) I71.4 Thrombocytopenia D69.6 Hypertension I10 Hypertension type: unspecified Time Spent (min) 35 (1) GIB (gastrointestinal bleeding) GI bleed type/associated pathology: melena Qualified Code(s): K92.1 - Melena (2) COPD with emphysema Emphysema type: unspecified Qualified Code(s): J43.9 - Emphysema, unspecified (3) Hypertension Hypertension type: unspecified Qualified Code(s): I10 - Essential (primary) hypertension
[2021-01-18 23:25] LABS: Platelet Count 10 K/uL (130-400)
[2021-01-18 23:31] LABS: Hematocrit (blood only) 20.2 % (42-52); Mean Corpuscular Hemoglobin 29.8 pg (25-34); Mean Corpuscular Hgb Conc 34.7 g/dL (32-36); Mean Platelet Volume 8.2 fL (7.4-10.4); Nucleated RBC # (auto) 0.02 K/uL (0-0); Nucleated RBC % (auto) 15.4 %; RDW Coefficient of Variation 14.2 % (11.5-14.5); RDW Standard Deviation 44.9 fL (36.4-46.3); Red Blood Count 2.35 M/uL (4.7-6.1); White Blood Count 0.15 K/uL (4.8-10.8)
[2021-01-18 23:32] LABS: Platelet Estimate SIGNIFIC DECREASED (Normal)
[2021-01-19] MEDS: ALBUT/IPRATROP 3MG/0.5MG NEB 3 ML VIAL NEB SCH ×4 (03:22→22:15)
[2021-01-19] MEDS: NORMOSOL-R 1,000 ML IV SCH ×2 (04:59→12:57)
[2021-01-19] MEDS: PIPERACILLIN/TAZOBACTAM 4.5 GM in DEXTROSE 5% 100 ML IV SCH ×3 (06:00→22:09)
[2021-01-19] MEDS: ALBUTEROL HFA 8 GM INHALER INH PRN (07:21)
[2021-01-19] MEDS ORDERED: VANCOMYCIN TROUGH ONE (07:30)
[2021-01-19 08:03] LABS: Fibrinogen 135 mg/dl (184-400); INR 1.2 (0.9-1.1); Partial Thromboplastin Ratio 1.1; Partial Thromboplastin Time 28.3 Seconds (21.0-31.0)
[2021-01-19 08:04] LABS: Mean Corpuscular Hgb Conc 34.4 g/dL (32-36); Mean Platelet Volume 10.5 fL (7.4-10.4); Platelet Count 10 K/uL (130-400)
[2021-01-19 08:05] LABS: Hematocrit (blood only) 20.9 % (42-52); Hemoglobin 7.2 g/dL (14.0-18.0); Mean Corpuscular Hemoglobin 30.3 pg (25-34); Mean Corpuscular Volume 87.8 fL (80-100); RDW Coefficient of Variation 14.3 % (11.5-14.5); RDW Standard Deviation 46.2 fL (36.4-46.3); Red Blood Count 2.38 M/uL (4.7-6.1); White Blood Count 0.31 K/uL (4.8-10.8)
[2021-01-19 08:12] LABS: Albumin Level 2.3 gm/dl (3.4-5.0); BUN Creatinine Ratio 32.8 (10-20); Calcium 6.6 mg/dl (8.5-10.1); Creatinine Clr Calc Pharmacy 115.1 ml/min; Est GFR (African American) 106.6 ml/min; Est GFR (Non-African American) 91.9 ml/min; Magnesium 2.6 mg/dl (1.8-2.4); Uric Acid 4.1 mg/dl (2.6-7.2)
[2021-01-19 08:28] LABS: Albumin Globulin Ratio 1.2 (0.9-2); Bilirubin,Total 0.6 mg/dl (0.2-1); Phosphorus 2.4 mg/dl (2.5-4.9); Total Protein 4.3 gm/dl (6.4-8.2)
--- NOTE | 2021-01-19 08:35 | Pharmacy Report ---
Pharmacy Abx Dose Short Note - Date of Service January 19, 2021 - Assessment & Plan Assessment 70 year old M receiving vancomycin/zosyn for treatment of Bacteremia/ broad coverage for pancytopenia Blood cultures currently growing staph aureus (MSSA) and Coag neg staph (no current sensitivities). Plan Vancomycin * Trough level came back therapeutic at ~15 mcg/ml (goal 15-20 mcg/ml) * Plan to continue same dosing of vancomycin 1500 mg iv q 10 hrs * Renal function remains stable Zosyn * no change Pharmacy will continue to follow and will adjust dose/frequency as necessary. Thank you.
[2021-01-19] MEDS: VANCOMYCIN HCL 1,500 MG in SODIUM CHLORIDE 0.9% 500 ML IV SCH ×2 (08:56→17:57)
[2021-01-19] MEDS: UMECLIDINIUM/VILANTEROL 62.5/25MCG 7 PUFFS/INHALER INH SCH (08:57)
[2021-01-19] MEDS: FLUTICASONE FUROATE 100MCG 14 PUFFS/INHALER INH SCH (08:57)
[2021-01-19] MEDS: predniSONE 50 MG TAB PO SCH (08:57)
[2021-01-19] MEDS: allopurinoL 300 MG TAB PO SCH (08:57)
[2021-01-19] MEDS: INSULIN ASPART 100 UNITS/ML 3 ML PEN SC SCH ×4 (09:00→20:39)
--- NOTE | 2021-01-19 10:05 | Progress Notes ---
DATE: 01/19/2021 DIAGNOSES: 1. 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 2. Pancytopenia. 3. 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 4. Lower gastrointestinal bleeding. 5. Abdominal aortic aneurysm. 6. Hypertension. 7. Status post R-CHOP chemotherapy. SUBJECTIVE: The patient was seen and examined at bedside. He was transferred from the ICU to a monitored bed on the 2nd floor. He was sitting up, conversing, feeling quite well surprisingly. His counts across the board remained directly low and we will need to continue transfusional support. The patient has not reported fever and quite frankly would prefer to have him home and recovering from a hematologic or hematopoietic standpoint. The patient is anxious for discharge as well. Continues to tolerate diet, is ambulating ad анна. OBJECTIVE: GENERAL: A very pleasant 70-year-old gentleman in no acute distress. VITAL SIGNS: Temperature 36.9, pulse 69, respiratory rate 18, blood pressure 153/81. SKIN: Without rash or lesion. HEENT: Buccal mucosa without evidence of thrush. HEART: Regular rate and rhythm. LUNGS: Diffuse expiratory wheezing in all rowe. ABDOMEN: Obese, soft, nontender, nondistended. EXTREMITIES: No clubbing, cyanosis or edema. NEUROLOGIC: Grossly intact. LABORATORY DATA: Pending at time of dictation. IMPRESSION: 1. Status post cycle 1 R-CHOP chemotherapy. 2. Rapidly progressing diffuse large B-cell lymphoma, stage IV disease, bone marrow involvement. 3. Hypofibrinogenemia/low-grade disseminated vascular coagulation. 4. Lower gastrointestinal bleeding. 5. Staphylococcus aureus bacteremia. 6. Hypoalbuminemia. 7. Pancytopenia. PLAN: The patient is now status post day #1 from completing R-CHOP chemotherapy. No nausea or vomiting, reported overnight. The patient is pacing himself as it pertains to food intake, knowing well the bolus conception may lead to nausea. His worst day will probably come in the next couple of days and patient would prefer to be home. Discussed directly with the hospitalist for plan for laboratories, particularly a CBC and CMP every other day, until patient is seen in followup. Again, I expect him to be profoundly myelosuppressed for the next several days and thus will need a transfusional support moving forward. I will also make arrangements for the patient's second cycle to be administered at [facility] in 3 weeks. Overall, very pleased with his progress. I agree with medical management otherwise.
[2021-01-19] MEDS: PANTOprazole 40 MG in SYRINGE 0 ML IV SCH ×2 (10:30→20:37)
[2021-01-19 19:04] LABS: Hematocrit (blood only) 21.1 % (42-52); Hemoglobin 7.2 g/dL (14.0-18.0); Mean Corpuscular Hemoglobin 29.6 pg (25-34); Mean Corpuscular Hgb Conc 34.1 g/dL (32-36); Mean Corpuscular Volume 86.8 fL (80-100); Platelet Count 7 K/uL (130-400); RDW Coefficient of Variation 14.2 % (11.5-14.5); Red Blood Count 2.43 M/uL (4.7-6.1); White Blood Count 0.29 K/uL (4.8-10.8)
[2021-01-19] MEDS ORDERED: POTASSIUM CHLORIDE CRTAB 20 MEQ TABCR PO ONE (19:15)
[2021-01-19] MEDS ORDERED: FUROSEMIDE 20 MG in SYRINGE 0 ML IV ONE (19:15)
[2021-01-19] MEDS ORDERED: INSULIN GLARGINE SOLOSTAR 100 UNITS/ML 3 ML PEN SC SCH (21:00)
--- NOTE | 2021-01-19 22:58 | Hospitalist Progress Note ---
Date of Service January 19, 2021 Assessment & Plan (1) GIB (gastrointestinal bleeding): Type and cross - Acute blood loss anemia - Protonix drip started in EMD-->ICU - [place] 18 -Maintain hemoglobin above 7, has transfused over 4 PRBC. -Continue Protonix BID Lactate is downtrending. -Appreciate input from Oncology: his bone marrow is severely compromised with infiltrative disease and thus, the need to proceed with chemotherapy expediently. We will recommend combination rituximab, cyclophosphamide, Adriamycin, vincristine and prednisone. -Continue transfusion as needed (2) Acute ITP: - DDAVP administered 0.3mcg/kg - Steroids per EMD and ICU - LDH, Fibrinogen, FDP, pending - Enlarged spleen with splenic infarcts noted on CT scan treated with IV steroids. (3) Acute leukemia: - Per Oncology - Supportive care (4) COPD with emphysema: - Continue home BHAVNA, LABA, LAMA - No acute needs (5) AAA (abdominal aortic aneurysm): Done in 2013 - Routine CTA screening done at [facility]- 4.0x2.6 with no evidence of endoleak and widely patent repair () (6) Thrombocytopenia: - As above (7) Hypertension: - Hold antihypertensives at this time - Acute resuscitation on vasopressors for hypotension (8) MSSA bacteremia Only 1 out of 2 initial sets were positive. Repeat is negative. will continue current antibiotics and monitor. will orderc ID consult. will liekly need to postpone port placement until after 2 weeks of IV antibiotics. (2) Acute ITP: (3) Acute leukemia: (4) COPD with emphysema: (5) AAA (abdominal aortic aneurysm): (6) Thrombocytopenia: (7) Hypertension: (8) Edema: likely iatrogenic. will hold further IVF. and will order lasix. Admission and Anticipated Discharge Date Admission Date: January 15, 2021 Subjective Patient reports feeling well. No new complaints. Update: On second visit this evening, patient was having shortness of breath and lower extremity edema. Review of Systems Review of Systems: All systems reviewed & are unremarkable except as noted in HPI & below Physical Exam Physical Exam: General: awake, alert, no apparent distress Head: Normocephalic, atraumatic ENT: PERRL, EOMI, no pharyngeal exudate Neuro: AAO x 3, speech clear and appropriate, strength intact bilaterally 5/5, sensation intact and equal all extremities and dermatomes, no pronator drift Chest: equal rise and fall of the chest, no accessory muscle use, no heaves or thrills, Clear to auscultation, on room air, Cardiac: Regular rate and rhythm, telemetry reviewed, skin warm dry, cap refill <3 seconds, peripheral pulses +2 no JVD, no murmur, no edema GI: NABS x 4 quadrants, soft, nontender to palpation, no rebound, guarding or tenderness : Spontaneously voiding, no pain, no CVA tenderness, Extremities: petechiae to lower legs and trunk, no peripheral edema or erythema, calfs nontender to palpation Psych: Normal mood and affect Skin:as above Results & Data Results & Data ([facility]) Vital Signs (Past 12 Hours) Vital Signs Temp Pulse Pulse Resp BP BP Pulse Ox 01/19/21 19:49 37.0 C 71 18 169/62 H 100 01/19/21 16:57 37.0 C 76 22 126/72 98 01/19/21 16:00 71 01/19/21 15:16 75 20 98 01/19/21 11:42 36.9 C 72 18 141/85 H 95 PG Care Time/CCT Total # of Minutes Spent Total Time Spent with Patient: Total time spent is greater than 50% in coordination of care (as documented) at patient's floor/unit and/or counseling patient: Coding Level of Care Code 37593 Subseq Hosp Care Lvl 3 Diagnoses GIB (gastrointestinal bleeding) K92.1 GI bleed type/associated pathology: melena Acute ITP D69.3 Acute leukemia C95.00 COPD with emphysema J43.9 Emphysema type: unspecified AAA (abdominal aortic aneurysm) I71.4 Thrombocytopenia D69.6 Hypertension I10 Hypertension type: unspecified Edema R60.9 Time Spent (min) 35 (1) GIB (gastrointestinal bleeding) GI bleed type/associated pathology: melena Qualified Code(s): K92.1 - Melena (2) COPD with emphysema Emphysema type: unspecified Qualified Code(s): J43.9 - Emphysema, unspecified (3) Hypertension Hypertension type: unspecified Qualified Code(s): I10 - Essential (primary) hypertension
[2021-01-20] MEDS: VANCOMYCIN HCL 1,500 MG in SODIUM CHLORIDE 0.9% 500 ML IV SCH ×2 (04:03→13:58)
[2021-01-20] MEDS: PIPERACILLIN/TAZOBACTAM 4.5 GM in DEXTROSE 5% 100 ML IV SCH ×3 (06:08→21:49)
[2021-01-20 06:36] LABS: Hematocrit (blood only) 21.5 % (42-52); Hemoglobin 7.3 g/dL (14.0-18.0); Mean Corpuscular Hemoglobin 30.2 pg (25-34); Mean Corpuscular Volume 88.8 fL (80-100); Mean Platelet Volume 9.7 fL (7.4-10.4); Platelet Count 7 K/uL (130-400); RDW Coefficient of Variation 14.1 % (11.5-14.5); Red Blood Count 2.42 M/uL (4.7-6.1); White Blood Count 0.34 K/uL (4.8-10.8)
[2021-01-20 06:39] LABS: Albumin Level 2.2 gm/dl (3.4-5.0); BUN Creatinine Ratio 32.9 (10-20); Calcium 6.3 mg/dl (8.5-10.1); Creatinine Clr Calc Pharmacy 121.2 ml/min; Est GFR (African American) 108.9 ml/min; Magnesium 2.2 mg/dl (1.8-2.4); Uric Acid 3.2 mg/dl (2.6-7.2)
[2021-01-20 06:42] LABS: Bilirubin,Total 0.8 mg/dl (0.2-1); Globulin 2.1 gm/dl (2.5-4.0); Phosphorus 1.9 mg/dl (2.5-4.9); Total Protein 4.3 gm/dl (6.4-8.2)
[2021-01-20] MEDS: ALBUT/IPRATROP 3MG/0.5MG NEB 3 ML VIAL NEB SCH (07:16)
[2021-01-20] MEDS: ALBUTEROL HFA 8 GM INHALER INH PRN (07:16)
[2021-01-20 07:19] LABS: Fibrinogen 132 mg/dl (184-400); INR 1.2 (0.9-1.1); Partial Thromboplastin Ratio 1.1; Partial Thromboplastin Time 29.6 Seconds (21.0-31.0); Prothrombin Time 11.9 Seconds (9.0-12.0)
[2021-01-20] MEDS: FLUTICASONE FUROATE 100MCG 14 PUFFS/INHALER INH SCH (08:37)
[2021-01-20] MEDS ORDERED: SODIUM PHOSPHATE 3 MMOL/1 ML INFUSION IV STA (08:37)
[2021-01-20] MEDS: allopurinoL 300 MG TAB PO SCH (08:37)
[2021-01-20] MEDS ORDERED: SODIUM CHLORIDE 0.9% 250 ML IV PRN (08:37)
[2021-01-20] MEDS: UMECLIDINIUM/VILANTEROL 62.5/25MCG 7 PUFFS/INHALER INH SCH (08:38)
[2021-01-20] MEDS: predniSONE 50 MG TAB PO SCH (08:38)
[2021-01-20] MEDS: PANTOprazole 40 MG in SYRINGE 0 ML IV SCH ×2 (08:40→21:49)
[2021-01-20] MEDS: INSULIN ASPART 100 UNITS/ML 3 ML PEN SC SCH ×4 (08:41→21:27)
[2021-01-20] MEDS ORDERED: SODIUM PHOSPHATE 24 MMOL in SODIUM CHLORIDE 0.9% 500 ML IV ONE (09:00)
--- NOTE | 2021-01-20 11:11 | Pharmacy Report ---
Pharmacy Glycemic Short Note 2 - Date of Service January 20, 2021 - Glycemic Short BSG Results (Last 24 hours): 01/19/21 01/19/21 01/19/21 11:28 16:55 20:01 Glucose POC Glucose 118 H 141 H 139 H 01/20/21 01/20/21 05:55 07:38 Glucose 77 POC Glucose 92 OUTPATIENT ANTIDIABETIC REGIMEN: * A1c ordered * No outpatient regimen ASSESSMENT: 01/20 * Patient received total of 25 units of insulin yesterday, of which 10 units were basal insulin to help cover steroids * Fasting BSG trending down this am to 77 mg/dL - Patient now a few days out from receiving chemo. No nausea reported, however per notes patient being cautious with PO intake * If PO intake does not improve today, may hold PM basal dose 01/17 * Mr. Alcazar has a complicated past medical history including COPD, AAA with repai, HTN, prostate cancer and high-grade B cell lymphoma preseting with increased SOB and fatigue with possible GI bleed. Plt count 9 on admission, hgb in the 6's. Was on high dose steroids for possible ITP outpatient * Consult reflexed by meeting ICU hyperglycemia criteria with two BSGs >140 mg/dL. Patient's BSGs have been in the upper 100s, novolog initiated with weight based stress of 2 and patient was previously NPO, lantus initiated more conservatively with weight based stress of 1. * Patient to begin chemotherapy regimen today and tomorrow. Prednisone 50 mg x [address] Nicole. * Patient no ordered a diet, will monitor for increase in BSGs and need to tighten parameters. * A1c ordered for AM PLAN FOR INPATIENT GLYCEMIC CONTROL: * Hold outpatient oral diabetes medications * Basal insulin * Lantus 0-7 units HS * Bolus insulin * NovoLog per scale ACHS or Q6hrs while NPO * Goal Range: Low 110 mg/dL - High 140 mg/dL * Correction Factor: 20 mg/dL/unit * Nutritional / Prandial insulin per carb ratio of 1 unit per 7 grams CHO consumed PLAN FOR DISCHARGE: * A1c 6.3% - placing patient in pre-DM range. * Would not initiate any medications for DM on discharge. However, could consider monitoring of BSGs if chemo/steroids were to be continued outpatient.
[2021-01-20] MEDS: ALBUTEROL HFA 8 GM INHALER INH SCH ×2 (15:18→23:18)
[2021-01-20] MEDS: IPRATROPIUM BROMIDE HFA INHALER INH SCH ×2 (15:18→23:18)
--- NOTE | 2021-01-20 16:35 | Hospitalist Progress Note ---
Date of Service January 20, 2021 Assessment & Plan (1) MSSA bacteremia: Blood cultures on 01/15 were 1 out of 2 initial sets positive for MSSA and 2 coag(-) spc. - Repeat blood cultures from 01/17 are negative so far. - Ordered ID consult: - Obtain echo - Continue Zosyn x 2 weeks if no further cultures positive. - Re-culture with any fever. (2) B-cell lymphoma: Diagnosed with high-grade diffuse large B-cell lymphoma involving his bone marrow predominantly by Dr. Nicole via bone marrow biopsy on 01/04/2021. - Oncology following in the hospital - Received R-CHOP -> Rituximab on 01/16, then Adriamycin, vincristine, and cyclophosphamide on 01/17. - Neulasta given on 01/18. - Monitor counts and transfuse as needed - Continue allopurinol for tumor lysis syndrome - Monitor uric acid, phosphate (3) DIC (disseminated intravascular coagulation): Low level DIC from his lymphoma. Initially thought to be ITP. Had been started on steroids by oncology as outpatient prior to presentation. Now I believe ITP considered unlikely. - Received 5 units of cryoprecipitate from 01/15 - 01/18. - Will monitor fibrinogen; replete for any <100. On 01/20, stable at 130. (4) GIB (gastrointestinal bleeding): Several days of dark stools and then had tari bright red blood per rectum on day of admission (01/15). - Acute blood loss anemia now complicated by poor bone marrow response from chemotherapy. - Transfuse for hgb > 8 per oncology recommendation. Discussed with oncology today. - Seen by GI here; he was offered an EGD here and declined. Given lack of transfer at this time, would consider re-reaching out and see if he has changed his mind. (5) Edema: Noted on 01/19 with some shortness of breath. Likely iatrogenic from IV fluids. - Hold further IVF. - Given Lasix IV x 1 on 01/19 with good diuresis. - Presently stable; monitor. (6) Hypertension: Initially needed vasopressors. Today BP is 115/75. - Hold antihypertensives at this time (7) COPD with emphysema: No shortness of breath today. - Continue home BHAVNA, LABA, LAMA (8) AAA (abdominal aortic aneurysm): Done in 2013. Routine CTA screening done at [facility]- 4.0x2.6 with no evidence of endoleak and widely patent repair (2.05/02). - No inpatient needs (9) DVT prophylaxis: SCDs - Holding heparin while thrombocytopenic < 50k platelets with bleeding Admission and Anticipated Discharge Date Admission Date: January 15, 2021 Subjective Doing well overall today. Less shortness of breath after Lasix yesterday evening. Reports no fevers/chills, chest pain, shortness of breath, abdominal pain, nausea, or vomiting. Physical Exam Constitutional: WD/WN, vitals as above Eyes: EOM intact bilaterally; no conjunctival abnormality ENMT: external ear and nose normal, oropharynx normal Neck: trachea midline, no thyromegaly normal visual inspection Respiratory: normal respiratory effort, lungs clear to auscultation no respiratory distress Cardiovascular: RRR, no murmur, no edema Gastrointestinal (Abdomen): Inspection/Auscultation: abdomen normal to inspection; abdomen not distended Musculoskeletal: no cyanosis or clubbing, extremities motor strength 5/5 Skin: no rashes, warm and dry Neurologic: moves all extremities and awake Psychiatric: Orientation: alert, oriented to person and cooperative Results & Data Results & Data ([facility]) Vital Signs (Past 12 Hours) Vital Signs Temp Pulse Pulse Resp BP BP Pulse Ox 01/20/21 16:25 76 20 118/79 98 01/20/21 16:10 37.3 C 74 20 117/75 97 01/20/21 16:07 37.3 C 74 20 117/75 97 01/20/21 15:25 36.7 C 73 18 107/70 97 01/20/21 15:20 71 18 98 01/20/21 14:58 66 01/20/21 14:24 37.1 C 74 18 119/67 97 01/20/21 13:24 37.1 C 75 18 107/66 97 01/20/21 12:54 36.7 C 77 18 107/67 98 01/20/21 12:39 36.8 C 85 18 112/70 97 01/20/21 12:22 37.1 C 83 18 124/72 01/20/21 11:21 36.6 C 83 20 118/76 98 01/20/21 07:29 36.5 C 70 20 112/70 97 01/20/21 07:24 72 18 97 01/20/21 07:15 75 PG Care Time/CCT Total # of Minutes Spent Total Time Spent with Patient: Total time spent is greater than 50% in coordination of care (as documented) at patient's floor/unit and/or counseling patient: Coding Level of Care Code 30716 Subseq Hosp Care Lvl 3 Diagnoses MSSA bacteremia R78.81; B95.61 B-cell lymphoma C85.10 DIC (disseminated intravascular coagulation) D65 GIB (gastrointestinal bleeding) K92.1 GI bleed type/associated pathology: melena Edema R60.9 Hypertension I10 Hypertension type: unspecified COPD with emphysema J43.9 Emphysema type: unspecified AAA (abdominal aortic aneurysm) I71.4 DVT prophylaxis Z29.9 (1) GIB (gastrointestinal bleeding) GI bleed type/associated pathology: melena Qualified Code(s): K92.1 - Melena (2) COPD with emphysema Emphysema type: unspecified Qualified Code(s): J43.9 - Emphysema, unspecified (3) Hypertension Hypertension type: unspecified Qualified Code(s): I10 - Essential (primary) hypertension
[2021-01-20] MEDS ORDERED: INSULIN GLARGINE SOLOSTAR 100 UNITS/ML 3 ML PEN SC SCH (21:00)
[2021-01-21] MEDS: PIPERACILLIN/TAZOBACTAM 4.5 GM in DEXTROSE 5% 100 ML IV SCH ×3 (06:22→20:58)
[2021-01-21] MEDS: ALBUTEROL HFA 8 GM INHALER INH SCH ×3 (07:52→22:33)
[2021-01-21] MEDS: IPRATROPIUM BROMIDE HFA INHALER INH SCH ×3 (07:52→22:33)
[2021-01-21 08:50] LABS: Fibrinogen 143 mg/dl (184-400); INR 1.2 (0.9-1.1); Partial Thromboplastin Ratio 1.1; Partial Thromboplastin Time 29.4 Seconds (21.0-31.0); Prothrombin Time 11.9 Seconds (9.0-12.0)
[2021-01-21 08:55] LABS: Hematocrit (blood only) 22.5 % (42-52); Hemoglobin 7.7 g/dL (14.0-18.0); Mean Corpuscular Hemoglobin 30.2 pg (25-34); Mean Corpuscular Hgb Conc 34.2 g/dL (32-36); Mean Corpuscular Volume 88.2 fL (80-100); Mean Platelet Volume 11.5 fL (7.4-10.4); Platelet Count 13 K/uL (130-400); RDW Coefficient of Variation 13.7 % (11.5-14.5); RDW Standard Deviation 44.8 fL (36.4-46.3); Red Blood Count 2.55 M/uL (4.7-6.1); White Blood Count 0.26 K/uL (4.8-10.8)
[2021-01-21] MEDS: INSULIN ASPART 100 UNITS/ML 3 ML PEN SC SCH ×4 (09:05→20:57)
[2021-01-21 09:06] LABS: Albumin Level 2.2 gm/dl (3.4-5.0); BUN Creatinine Ratio 27.6 (10-20); Calcium 6.4 mg/dl (8.5-10.1); Creatinine Clr Calc Pharmacy 140.4 ml/min; Est GFR (African American) 115.7 ml/min; Est GFR (Non-African American) 99.8 ml/min; Potassium 3.8 mmol/L (3.5-5.1); Uric Acid 2.5 mg/dl (2.6-7.2)
[2021-01-21 09:09] LABS: Albumin Globulin Ratio 1.1 (0.9-2); Bilirubin,Total 1.1 mg/dl (0.2-1); Phosphorus 2.2 mg/dl (2.5-4.9); Total Protein 4.2 gm/dl (6.4-8.2)
[2021-01-21] MEDS: PANTOprazole 40 MG in SYRINGE 0 ML IV SCH ×2 (09:24→20:57)
[2021-01-21] MEDS: predniSONE 50 MG TAB PO SCH (09:24)
[2021-01-21] MEDS: allopurinoL 300 MG TAB PO SCH (09:25)
[2021-01-21] MEDS: UMECLIDINIUM/VILANTEROL 62.5/25MCG 7 PUFFS/INHALER INH SCH (09:25)
[2021-01-21] MEDS: FLUTICASONE FUROATE 100MCG 14 PUFFS/INHALER INH SCH (09:26)
--- NOTE | 2021-01-21 14:21 | Hospitalist Progress Note ---
Date of Service January 21, 2021 Assessment & Plan (1) MSSA bacteremia: Blood cultures on 01/15 were 1 out of 2 initial sets positive for MSSA and 2 coag(-) spc. - Repeat blood cultures from 01/17 are negative so far. - Ordered ID consult: - Obtain echo - Continue Zosyn x 2 weeks if no further cultures positive. - Re-culture with any fever. (2) B-cell lymphoma: Diagnosed with high-grade diffuse large B-cell lymphoma involving his bone marrow predominantly by Dr. Nicole via bone marrow biopsy on 01/04/2021. - Oncology following in the hospital - Received R-CHOP -> Rituximab on 01/16, then Adriamycin, vincristine, and cyclophosphamide on 01/17. - Neulasta given on 01/18. - Monitor counts and transfuse as needed - Continue allopurinol for tumor lysis syndrome - Monitor uric acid, phosphate -> Stable today. (3) DIC (disseminated intravascular coagulation): Low level DIC from his lymphoma. Initially thought to be ITP. Had been started on steroids by oncology as outpatient prior to presentation. Now I believe ITP considered unlikely. - Received 5 units of cryoprecipitate from 01/15 - 01/18. - Will monitor fibrinogen; replete for any <100. On 01/21, stable at 140. (4) GIB (gastrointestinal bleeding): Several days of dark stools and then had tari bright red blood per rectum on day of admission (01/15). - Acute blood loss anemia now complicated by poor bone marrow response from chemotherapy. - Transfuse for hgb > 8 per oncology recommendation. Discussed with oncology today. - Seen by GI here; he was offered an EGD here and declined. Given lack of transfer at this time, would consider re-reaching out on Saturday and see if he has changed his mind. (5) Edema: Noted on 01/19 with some shortness of breath. Likely iatrogenic from IV fluids. - Hold further IVF. - Given Lasix IV x 1 on 01/19 with good diuresis. - Presently stable; monitor. (6) Hypertension: Initially needed vasopressors. Today BP is 105/75. - Hold antihypertensives at this time (7) COPD with emphysema: No shortness of breath today. - Continue home BHAVNA, LABA, LAMA (8) AAA (abdominal aortic aneurysm): Done in 2014. Routine CTA screening done at [facility]- 4.0x2.6 with no evidence of endoleak and widely patent repair (). - No inpatient needs (9) DVT prophylaxis: SCDs - Holding heparin while thrombocytopenic < 50k platelets with blee ding Admission and Anticipated Discharge Date Admission Date: January 15, 2021 Subjective Doing better today. No bleeding. No fevers. Overall, feeling some more encouraged. Reports no fevers/chills, chest pain, shortness of breath, abdominal pain, nausea, or vomiting. Physical Exam Constitutional: WD/WN, vitals as above Eyes: EOM intact bilaterally; no conjunctival abnormality ENMT: external ear and nose normal, oropharynx normal Neck: trachea midline, no thyromegaly normal visual inspection Respiratory: normal respiratory effort, lungs clear to auscultation no respiratory distress Cardiovascular: RRR, no murmur, no edema Gastrointestinal (Abdomen): Inspection/Auscultation: abdomen normal to inspection; abdomen not distended Musculoskeletal: no cyanosis or clubbing, extremities motor strength 5/5 Skin: no rashes, warm and dry Neurologic: moves all extremities and awake Psychiatric: Orientation: alert, oriented to person and cooperative Results & Data Results & Data ([facility]) Vital Signs (Past 12 Hours) Vital Signs Temp Pulse Pulse Resp BP Pulse Ox 01/21/21 11:13 36.7 C 74 20 104/70 99 01/21/21 07:52 71 18 96 01/21/21 07:36 84 01/21/21 07:25 36.9 C 72 20 124/76 97 01/21/21 04:23 36.9 C 74 22 135/83 98 01/21/21 03:38 65 PG Care Time/CCT Total # of Minutes Spent Total Time Spent with Patient: Total time spent is greater than 50% in coordination of care (as documented) at patient's floor/unit and/or counseling patient: Coding Level of Care Code 30218 Subseq Hosp Care Lvl 2 Diagnoses MSSA bacteremia R78.81; B95.61 B-cell lymphoma C85.10 DIC (disseminated intravascular coagulation) D65 GIB (gastrointestinal bleeding) K92.1 GI bleed type/associated pathology: melena Edema R60.9 Hypertension I10 Hypertension type: unspecified COPD with emphysema J43.9 Emphysema type: unspecified AAA (abdominal aortic aneurysm) I71.4 DVT prophylaxis Z29.9 (1) GIB (gastrointestinal bleeding) GI bleed type/associated pathology: melena Qualified Code(s): K92.1 - Melena (2) Hypertension Hypertension type: unspecified Qualified Code(s): I10 - Essential (primary) hypertension (3) COPD with emphysema Emphysema type: unspecified Qualified Code(s): J43.9 - Emphysema, unspecified
--- NOTE | 2021-01-21 14:49 | Progress Notes ---
DATE: 01/20/2021 MEDICAL ONCOLOGY PROGRESS NOTE DIAGNOSES: 1. 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 2. Pancytopenia attributable to disease burden and chemotherapeutic effect. 3. 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 4. Lower gastrointestinal bleeding. 5. Status post R-CHOP chemotherapy. SUBJECTIVE: The patient was seen and examined at bedside. Again, his focus was plan moving forward. I have explained to him time and time again about his bone marrow being severely compromised and now that he has completed his first cycle of chemotherapy, myelosuppression will be prolonged and refractory for several days moving forward. That said, we have been fortunate that he has not developed fever and otherwise is feeling well. I would like him transfused and if the hospitalist sees fit, proceed to discharge today or tomorrow morning. He continues to tolerate regular diet and is ambulating ad анна. OBJECTIVE: GENERAL: A very pleasant 70-year-old gentleman in no acute distress. VITAL SIGNS: Temperature 36.5, pulse 70, respiratory rate 20, blood pressure 112/70. SKIN: Warm, dry, noncyanotic without petechiae, rash or ecchymosis. HEENT: Oral mucosa without erythema or ulceration. NECK: Supple. HEART: Regular rate and rhythm. LUNGS: Clear to auscultation bilaterally. ABDOMEN: Obese, soft, nontender, nondistended. EXTREMITIES: No clubbing, cyanosis or edema. NEUROLOGIC: He is awake, alert and oriented x3. LABORATORY DATA: WBC count 340, hemoglobin 7.3, platelet count 7000. PT 11.9 seconds, PTT 29.6, fibrinogen 132. Sodium 140, potassium 4, chloride 111, carbon dioxide 25, creatinine 0.73, BUN 24, calcium 6.3, phosphorus 1.9, albumin 2.2. IMPRESSION: 1. Rapidly progressing diffuse large B-cell lymphoma, stage IV disease. 2. Status post cycle 1 R-CHOP chemotherapy. 3. Hypofibrinogenemia/low grade disseminated intravascular coagulation. 4. Lower gastrointestinal bleeding. 5. Hypoalbuminemia. 6. Hypocalcemia. 7. Hypophosphatemia. 8. Pancytopenia attributable to disease and chemotherapeutic effect. PLAN: Discussed with Dr. Thai Mccullough who is taking over this gentleman's care today. The patient continues to do relatively well despite being profoundly pancytopenic. If he is to be discharged today, which is my hope, laboratories are going to need to be done every other day minimally with transfusional triggers in place. If hemoglobin below 8 grams per deciliter, he receives 2 packed units of RBCs that need to be irradiated. Additionally, platelet count below 10,000, single donor platelets to be transfused as well. He needs to continue working on his nutritional status and I will make sure the patient has close oncologic followup going in to next week. I have nothing further to add at this time. Again, this gentleman is going to remain pancytopenic for quite some time and may have to delay giving him cycle #2 for that reason. I agree with medical management otherwise. Thank you very much for allowing me to participate in his care.
--- NOTE | 2021-01-21 15:14 | XCELERA ---
[id number] \\[id number]
[2021-01-22] MEDS: PIPERACILLIN/TAZOBACTAM 4.5 GM in DEXTROSE 5% 100 ML IV SCH ×3 (06:27→20:52)
[2021-01-22] MEDS: IPRATROPIUM BROMIDE HFA INHALER INH SCH ×3 (07:10→22:48)
[2021-01-22] MEDS: ALBUTEROL HFA 8 GM INHALER INH SCH ×3 (07:10→22:49)
[2021-01-22 07:19] LABS: Albumin Level 2.2 gm/dl (3.4-5.0); BUN Creatinine Ratio 25.1 (10-20); Calcium 7.1 mg/dl (8.5-10.1); Creatinine Clr Calc Pharmacy 147.8 ml/min; Est GFR (African American) 118.9 ml/min; Est GFR (Non-African American) 102.6 ml/min; Phosphorus 2.3 mg/dl (2.5-4.9); Potassium 3.9 mmol/L (3.5-5.1); Uric Acid 2.2 mg/dl (2.6-7.2)
[2021-01-22 07:21] LABS: Hematocrit (blood only) 21.8 % (42-52); Hemoglobin 7.7 g/dL (14.0-18.0); Mean Corpuscular Hemoglobin 30.4 pg (25-34); Mean Corpuscular Hgb Conc 35.3 g/dL (32-36); Mean Corpuscular Volume 86.2 fL (80-100); Mean Platelet Volume 10.7 fL (7.4-10.4); Platelet Count 13 K/uL (130-400); RDW Coefficient of Variation 13.2 % (11.5-14.5); RDW Standard Deviation 42.4 fL (36.4-46.3); Red Blood Count 2.53 M/uL (4.7-6.1); White Blood Count 0.19 K/uL (4.8-10.8)
[2021-01-22 07:22] LABS: Albumin Globulin Ratio 1.1 (0.9-2); Bilirubin,Total 1.1 mg/dl (0.2-1); Globulin 2.1 gm/dl (2.5-4.0); Total Protein 4.3 gm/dl (6.4-8.2)
[2021-01-22 07:46] LABS: Fibrinogen 144 mg/dl (184-400); INR 1.2 (0.9-1.1); Prothrombin Time 11.9 Seconds (9.0-12.0)
[2021-01-22] MEDS: INSULIN ASPART 100 UNITS/ML 3 ML PEN SC SCH ×4 (08:29→20:52)
[2021-01-22] MEDS: PANTOprazole 40 MG in SYRINGE 0 ML IV SCH ×2 (08:31→20:51)
[2021-01-22] MEDS: allopurinoL 300 MG TAB PO SCH (08:31)
[2021-01-22] MEDS: FLUTICASONE FUROATE 100MCG 14 PUFFS/INHALER INH SCH (08:32)
[2021-01-22] MEDS: UMECLIDINIUM/VILANTEROL 62.5/25MCG 7 PUFFS/INHALER INH SCH (08:32)
--- NOTE | 2021-01-22 10:11 | Pharmacy Report ---
Pharmacy Glycemic Short Note 2 - Date of Service January 22, 2021 - Glycemic Short BSG Results (Last 24 hours): 01/21/21 01/21/21 01/21/21 11:27 17:04 20:06 Glucose POC Glucose 99 131 H 134 H 01/22/21 01/22/21 06:48 07:52 Glucose 83 POC Glucose 92 OUTPATIENT ANTIDIABETIC REGIMEN: * A1c ordered * No outpatient regimen ASSESSMENT: 01/22 * Pt has received 10 units of insulin over the past 24hrs * 0 units of basal * 10 units of bolus with NovoLog * BSGs 29-89-401-134-83 mg/dl * All BSGs in goal range. Basal insulin DC yesterday since it wasn't being given per BSG scale. * Last dose of prednisone yesterday - will loosen CF/CR since steroids typically have their most profound effect on post-prandial hyperglycemia. * PO intake remains low - only about one meal per day which is usually dinner 01/20 * Patient received total of 25 units of insulin yesterday, of which 10 units were basal insulin to help cover steroids * Fasting BSG trending down this am to 77 mg/dL - Patient now a few days out from receiving chemo. No nausea reported, however per notes patient being cautious with PO intake * If PO intake does not improve today, may hold PM basal dose 01/17 * Mr. Alcazar has a complicated past medical history including COPD, AAA with repai, HTN, prostate cancer and high-grade B cell lymphoma preseting with increased SOB and fatigue with possible GI bleed. Plt count 9 on admission, hgb in the 6's. Was on high dose steroids for possible ITP outpatient * Consult reflexed by meeting ICU hyperglycemia criteria with two BSGs >140 mg/dL. Patient's BSGs have been in the upper 100s, novolog initiated with weight based stress of 2 and patient was previously NPO, lantus initiated more conservatively with weight based stress of 1. * Patient to begin chemotherapy regimen today and tomorrow. Prednisone 50 mg x [address] Nicole. * Patient no ordered a diet, will monitor for increase in BSGs and need to tighten parameters. * A1c ordered for AM PLAN FOR INPATIENT GLYCEMIC CONTROL: * Hold outpatient oral diabetes medications * Basal insulin * none needed * Bolus insulin * NovoLog per scale ACHS or Q6hrs while NPO * Goal Range: Low 110 mg/dL - High 140 mg/dL * Correction Factor: 25 mg/dL/unit * Nutritional / Prandial insulin per carb ratio of 1 unit per 8 grams CHO consumed PLAN FOR DISCHARGE: * A1c 6.3% - placing patient in pre-DM range. * Would not initiate any medications for DM on discharge. However, could consider monitoring of BSGs if chemo/steroids were to be continued outpatient.
--- NOTE | 2021-01-22 20:38 | Hospitalist Progress Note ---
Date of Service January 22, 2021 Assessment & Plan (1) MSSA bacteremia: Blood cultures on 01/15 were 1 out of 2 initial sets positive for MSSA and 2 coag(-) spc. - Repeat blood cultures from 01/17 are negative so far. - Ordered ID consult: - Obtained echo on 01/21 -> No vegetations seen. - Continue Zosyn x 2 weeks if no further cultures positive. - Re-culture with any fever. (2) B-cell lymphoma: Diagnosed with high-grade diffuse large B-cell lymphoma involving his bone marrow predominantly by Dr. Nicole via bone marrow biopsy on 01/04/2021. - Oncology following in the hospital - Received R-CHOP -> Rituximab on 01/16, then Adriamycin, vincristine, and cyclophosphamide on 01/17. - Neulasta given on 01/18. - Monitor counts and transfuse as needed - Continue allopurinol for tumor lysis syndrome - Monitor uric acid, phosphate -> Stable today. (3) DIC (disseminated intravascular coagulation): Low level DIC from his lymphoma. Initially thought to be ITP. Had been started on steroids by oncology as outpatient prior to presentation. Now I believe ITP considered unlikely. - Received 5 units of cryoprecipitate from 01/15 - 01/18. - Will monitor fibrinogen; replete for any <100. On 01/22, stable at 140. (4) GIB (gastrointestinal bleeding): Several days of dark stools and then had tari bright red blood per rectum on day of admission (01/15). - Acute blood loss anemia now complicated by poor bone marrow response from chemotherapy. - Transfuse for hgb > 8 per oncology recommendation. Discussed with oncology on 01/20. - Seen by GI here; he was offered an EGD here and declined. Given lack of transfer at this time, would consider re-reaching out on Saturday and see if he has changed his mind. (5) Edema: Noted on 01/19 with some shortness of breath. Likely iatrogenic from IV fluids. - Hold further IVF. - Given Lasix IV x 1 on 01/19 with good diuresis. - Presently stable; monitor. (6) Hypertension: Initially needed vasopressors. Today BP is 125/75. - Hold antihypertensives at this time (7) COPD with emphysema: No shortness of breath today. - Continue home BHAVNA, LABA, LAMA (8) AAA (abdominal aortic aneurysm): Done in 2014. Routine CTA screening done at [facility]- 4.0x2.6 with no evidence of endoleak and widely patent repair (). - No inpatient needs (9) DVT prophylaxis: SCDs - Holding heparin while thrombocytopenic < 50k platelets with bleeding Admission and Anticipated Discharge Date Admission Date: January 15, 2021 Subjective Doing well today. No bleeding. No fevers. Overall, feeling some more encouraged. Reports no fevers/chills, chest pain, shortness of breath, abdominal pain, nausea, or vomiting. Physical Exam Constitutional: WD/WN, vitals as above Eyes: EOM intact bilaterally; no conjunctival abnormality ENMT: external ear and nose normal, oropharynx normal Neck: trachea midline, no thyromegaly normal visual inspection Respiratory: normal respiratory effort, lungs clear to auscultation no respiratory distress Cardiovascular: RRR, no murmur, no edema Gastrointestinal (Abdomen): Inspection/Auscultation: abdomen normal to inspection; abdomen not distended Musculoskeletal: no cyanosis or clubbing, extremities motor strength 5/5 Skin: no rashes, warm and dry Neurologic: moves all extremities and awake Psychiatric: Orientation: alert, oriented to person and cooperative Results & Data Results & Data ([facility]) Vital Signs (Past 12 Hours) Vital Signs Temp Pulse Pulse Resp BP Pulse Ox 01/22/21 19:03 37.1 C 89 18 127/77 97 01/22/21 15:41 79 01/22/21 14:51 79 18 96 01/22/21 11:01 36.6 C 78 18 129/78 97 PG Care Time/CCT Total # of Minutes Spent Total Time Spent with Patient: Total time spent is greater than 50% in coordination of care (as documented) at patient's floor/unit and/or counseling patient: Coding Level of Care Code 38703 Subseq Hosp Care Lvl 3 Diagnoses MSSA bacteremia R78.81; B95.61 B-cell lymphoma C85.10 DIC (disseminated intravascular coagulation) D65 GIB (gastrointestinal bleeding) K92.1 GI bleed type/associated pathology: melena Edema R60.9 Hypertension I10 Hypertension type: unspecified COPD with emphysema J43.9 Emphysema type: unspecified AAA (abdominal aortic aneurysm) I71.4 DVT prophylaxis Z29.9 (1) GIB (gastrointestinal bleeding) GI bleed type/associated pathology: melena Qualified Code(s): K92.1 - Melena (2) Hypertension Hypertension type: unspecified Qualified Code(s): I10 - Essential (primary) hypertension (3) COPD with emphysema Emphysema type: unspecified Qualified Code(s): J43.9 - Emphysema, unspecified
[2021-01-22] MEDS: GABAPENTIN 300 MG CAP PO SCH (21:07)
[2021-01-23] MEDS: PIPERACILLIN/TAZOBACTAM 4.5 GM in DEXTROSE 5% 100 ML IV SCH ×3 (05:58→21:39)
[2021-01-23] MEDS: IPRATROPIUM BROMIDE HFA INHALER INH SCH ×3 (07:20→22:10)
[2021-01-23] MEDS: ALBUTEROL HFA 8 GM INHALER INH SCH ×3 (07:21→22:10)
--- NOTE | 2021-01-23 08:06 | Pharmacy Report ---
Pharmacy Glycemic Sign Off Nt - Date of Service January 23, 2021 - Assessment & Plan ASSESSMENT: * Pharmacy was consulted by Dr Healy on 01/15/21 for glycemic control and to write orders per [facility] inpatient glycemic control protocol. * Major changes made by pharmacy to antidiabetic regimen include: * Addition of SC basal/bolus * Patient has been receiving/requiring 0-10 units of insulin per day for adequate glycemic control * BSGs ranging 120 - 160 mg/dl * Regimen has only required minor adjustments over the past 48hrs to achieve this level of control * Do not anticipate further changes in patient status that would quickly deteriorate glycemic control (i.e. patient to be NPO for upcoming procedure, steroids tapering, starting tube feedings, etc). * Please see recommendations for outpatient antidiabetic regimen below. PLAN FOR INPATIENT GLYCEMIC CONTROL: No changes needed to current regimen. * Hold basal insulin * Continue NovoLog per scale ACHS/Q6hrs while NPO * Goal range = 120 160 mg/dl * CF = 25 mg/dl/unit * CR = 1 unit for ever 8 g CHO consumed * Pharmacy is signing off of glycemic consult and will no longer be making adjustments to inpatient regimen. Please feel free to re-consult if needed. Thank you. DISCHARGE RECOMMENDATIONS: * A1c 6.3 % on 01/17/21 * Patient does not take any antidiabetic medications as an outpatient. Treatment not necessary at this time.
[2021-01-23 08:34] LABS: Hematocrit (blood only) 22.2 % (42-52); Hemoglobin 7.7 g/dL (14.0-18.0); Mean Corpuscular Hemoglobin 30.7 pg (25-34); Mean Corpuscular Hgb Conc 34.7 g/dL (32-36); Mean Corpuscular Volume 88.4 fL (80-100); Mean Platelet Volume 8.3 fL (7.4-10.4); Platelet Count 10 K/uL (130-400); RDW Standard Deviation 42.2 fL (36.4-46.3); Red Blood Count 2.51 M/uL (4.7-6.1); White Blood Count 0.11 K/uL (4.8-10.8)
[2021-01-23 08:47] LABS: Albumin Level 2.3 gm/dl (3.4-5.0); Calcium 7.3 mg/dl (8.5-10.1); Creatinine Clr Calc Pharmacy 137.9 ml/min; Est GFR (African American) 115.7 ml/min; Est GFR (Non-African American) 99.8 ml/min; Magnesium 1.7 mg/dl (1.8-2.4); Potassium 3.8 mmol/L (3.5-5.1); Uric Acid 1.7 mg/dl (2.6-7.2)
[2021-01-23 08:50] LABS: Bilirubin,Total 1.4 mg/dl (0.2-1); Globulin 2.3 gm/dl (2.5-4.0); Phosphorus 2.8 mg/dl (2.5-4.9); Total Protein 4.6 gm/dl (6.4-8.2)
[2021-01-23] MEDS: allopurinoL 300 MG TAB PO SCH (09:14)
[2021-01-23] MEDS: PANTOprazole 40 MG in SYRINGE 0 ML IV SCH ×2 (09:14→21:39)
[2021-01-23] MEDS: UMECLIDINIUM/VILANTEROL 62.5/25MCG 7 PUFFS/INHALER INH SCH (09:15)
[2021-01-23] MEDS: FLUTICASONE FUROATE 100MCG 14 PUFFS/INHALER INH SCH (09:16)
[2021-01-23] MEDS: GABAPENTIN 300 MG CAP PO SCH ×2 (09:16→21:42)
[2021-01-23] MEDS: INSULIN ASPART 100 UNITS/ML 3 ML PEN SC SCH ×4 (09:28→20:42)
--- NOTE | 2021-01-23 10:07 | Progress Notes ---
DATE: 01/23/2021 DIAGNOSES: 1. MSSA bacteremia. 2. Diffuse large B-cell lymphoma. 3. Disseminated intravascular coagulation. 4. Gastrointestinal bleeding. 5. Status post R-CHOP chemotherapy. 6. Pancytopenia attributable to disease progression and chemotherapeutic effect. SUBJECTIVE: The patient was seen and examined this morning. He feels well, offers no specific complaints. He remains profoundly myelosuppressed receiving both packed RBCs and platelets over the weekend. He recently developed MSSA bacteremia, currently on systemic antibiotics. Again, no complaint of pain or discomfort. He continues to tolerate regular diet and ambulates ad анна. OBJECTIVE: GENERAL: A very pleasant 70-year-old gentleman in no acute distress. VITAL SIGNS: Temperature 37, pulse 87, respiratory rate 22, blood pressure 135/73. SKIN: Warm, dry, noncyanotic without rash or lesion. HEENT: Oral mucosa without evidence of thrush. HEART: Regular rate and rhythm. LUNGS: Clear to auscultation bilaterally. ABDOMEN: Soft, nontender, nondistended. EXTREMITIES: No clubbing, cyanosis or edema. NEUROLOGIC: Grossly intact. LABORATORY DATA: These are from yesterday, WBCs 190, hemoglobin 7.7, platelet count 13,000. Sodium 140, potassium 3.9, chloride 110, carbon dioxide 23, creatinine 0.59, BUN 15, uric acid 2.2, calcium 7.1, phosphorus 2.3, total bilirubin 1.1, albumin 2.2. IMPRESSION: 1. MSSA bacteremia. 2. Stage IV diffuse large B cell lymphoma, bone marrow involvement. 3. Pancytopenia attributable to disease and chemotherapeutic effect. 4. Hypoalbuminemia. 5. Low grade disseminated intravascular coagulation. PLAN: The patient remains in house not surprisingly profoundly myelosuppressed. Continue his transfusional support. Over the weekend developed MSSA bacteremia on appropriate antibiotics. He otherwise is ambulating and tolerating diet. No nausea or vomiting or side effects attributable to chemotherapy thus far. No complaint of pain or discomfort. Continue medical management as prescribed. Hopefully, over the next day or two can figure out an oral strategy to get him home sooner rather than later. Unfortunately, I believe cycle #2 is going to be delayed until he shows signs for hematopoietic recovery. We will continue to follow him.
[2021-01-23] MEDS: MAGNESIUM SULFATE / D5W 1 GM/100 ML BAG IV SCH ×3 (12:21→15:50)
--- NOTE | 2021-01-23 16:21 | Hospitalist Progress Note ---
Date of Service January 23, 2021 Assessment & Plan (1) MSSA bacteremia: Blood cultures on 01/15 were 1 out of 2 initial sets positive for MSSA and 2 coag(-) spc. - Repeat blood cultures from 01/17 are negative so far. - Ordered ID consult: - Obtained echo on 01/21 -> No vegetations seen. - Continue Zosyn x 2 weeks if no further cultures positive. Needs to be non- neutropenic prior to switching cefazolin. - Re-culture with any fever. (2) B-cell lymphoma: Diagnosed with high-grade diffuse large B-cell lymphoma involving his bone marrow predominantly by Dr. Nicole via bone marrow biopsy on 01/04/2021. - Oncology following in the hospital - Received R-CHOP -> Rituximab on 01/16, then Adriamycin, vincristine, and cyclophosphamide on 01/17. - Neulasta given on 01/18. - Monitor counts and transfuse as needed -> Transfusing platelets today (01/23) for continued melena and plts of 10k. - Continue allopurinol for tumor lysis syndrome - Monitor uric acid, phosphate -> Stable today. (3) DIC (disseminated intravascular coagulation): Low level DIC from his lymphoma. Initially thought to be ITP. Had been started on steroids by oncology as outpatient prior to presentation. Now I believe ITP considered unlikely. - Received 5 units of cryoprecipitate from 01/15 - 01/18. - Will monitor fibrinogen; replete for any <100. On 01/23, stable at 144. (4) GIB (gastrointestinal bleeding): Several days of dark stools and then had tari bright red blood per rectum on day of admission (01/15). - Acute blood loss anemia now complicated by poor bone marrow response from chemotherapy. - Transfuse for hgb > 8 per oncology recommendation. Discussed with oncology on 01/23. - Seen by GI here; he was offered an EGD here and declined. Given lack of transfer at this time, reached out to them on 01/23. They will see him tomorrow to consider EGD. (5) Edema: Noted on 01/19 with some shortness of breath. Likely iatrogenic from IV fluids. - Hold further IVF. - Given Lasix IV x 1 on 01/19 with good diuresis. - Presently stable; monitor. (6) Hypertension: Initially needed vasopressors. Today BP is 140/70. - Hold antihypertensives at this time (7) COPD with emphysema: No shortness of breath today. - Continue home BHAVNA, LABA, LAMA (8) AAA (abdominal aortic aneurysm): Done in 2013. Routine CTA screening done at [facility]- 4.0x2.6 with no evidence of endoleak and widely patent repair (). - No inpatient needs (9) DVT prophylaxis: SCDs - Holding heparin while thrombocytopenic < 50k platelets with bleeding Admission and Anticipated Discharge Date Admission Date: January 15, 2021 Subjective Doing well today. No bleeding. No fevers. Overall, feeling some more encouraged. Reports no fevers/chills, chest pain, shortness of breath, abdominal pain, nausea, or vomiting. Physical Exam Constitutional: WD/WN, vitals as above Eyes: EOM intact bilaterally; no conjunctival abnormality ENMT: external ear and nose normal, oropharynx normal Neck: trachea midline, no thyromegaly normal visual inspection Respiratory: normal respiratory effort, lungs clear to auscultation no respiratory distress Cardiovascular: RRR, no murmur, no edema Gastrointestinal (Abdomen): Inspection/Auscultation: abdomen normal to inspection; abdomen not distended Musculoskeletal: no cyanosis or clubbing, extremities motor strength 5/5 Skin: no rashes, warm and dry Neurologic: moves all extremities and awake Psychiatric: Orientation: alert, oriented to person and cooperative Results & Data Results & Data ([facility]) Vital Signs (Past 12 Hours) Vital Signs Temp Pulse Pulse Resp BP BP Pulse Ox 01/23/21 16:04 37.2 C 93 H 16 138/70 97 01/23/21 15:18 80 18 98 01/23/21 11:05 37.4 C 91 H 18 114/71 01/23/21 10:35 36.8 C 88 18 123/67 99 01/23/21 10:20 36.8 C 92 H 18 119/68 98 01/23/21 10:19 37.1 C 94 H 18 155/73 H 99 01/23/21 09:58 37.1 C 96 H 18 122/69 98 01/23/21 08:05 84 01/23/21 07:58 37.2 C 83 16 111/71 96 01/23/21 07:21 87 94 01/23/21 06:55 37 C 87 22 135/73 97 PG Care Time/CCT Total # of Minutes Spent Total Time Spent with Patient: Total time spent is greater than 50% in coordination of care (as documented) at patient's floor/unit and/or counseling patient: Coding Level of Care Code 93309 Subseq Hosp Care Lvl 3 Diagnoses MSSA bacteremia R78.81; B95.61 B-cell lymphoma C85.10 DIC (disseminated intravascular coagulation) D65 GIB (gastrointestinal bleeding) K92.1 GI bleed type/associated pathology: melena Edema R60.9 Hypertension I10 Hypertension type: unspecified COPD with emphysema J43.9 Emphysema type: unspecified AAA (abdominal aortic aneurysm) I71.4 DVT prophylaxis Z29.9 (1) GIB (gastrointestinal bleeding) GI bleed type/associated pathology: melena Qualified Code(s): K92.1 - Melena (2) Hypertension Hypertension type: unspecified Qualified Code(s): I10 - Essential (primary) hypertension (3) COPD with emphysema Emphysema type: unspecified Qualified Code(s): J43.9 - Emphysema, unspecified
[2021-01-23] MEDS: FILGRASTIM 480 MCG/1.6 ML VIAL SQ SCH (18:09)
[2021-01-23] MEDS ORDERED: MoRPHine SULFATE 2 MG/ML CARP IV STA (22:19)
[2021-01-23] MEDS ORDERED: MoRPHine SULFATE 2 MG/ML CARP ONE (22:26)
[2021-01-24] MEDS: PIPERACILLIN/TAZOBACTAM 4.5 GM in DEXTROSE 5% 100 ML IV SCH ×3 (05:51→21:11)
[2021-01-24] MEDS: IPRATROPIUM BROMIDE HFA INHALER INH SCH ×3 (07:26→23:07)
[2021-01-24] MEDS: ALBUTEROL HFA 8 GM INHALER INH SCH ×3 (07:26→23:07)
[2021-01-24 07:57] LABS: Fibrinogen 294 mg/dl (184-400); INR 1.1 (0.9-1.1); Partial Thromboplastin Ratio 1.2; Partial Thromboplastin Time 32.8 Seconds (21.0-31.0); Prothrombin Time 11.4 Seconds (9.0-12.0)
[2021-01-24 08:14] LABS: Albumin Level 2.2 gm/dl (3.4-5.0); Calcium 7.6 mg/dl (8.5-10.1); Creatinine Clr Calc Pharmacy 141.1 ml/min; Est GFR (African American) 116.5 ml/min; Est GFR (Non-African American) 100.5 ml/min
[2021-01-24 08:16] LABS: Hematocrit (blood only) 19.3 % (42-52); Hemoglobin 6.6 g/dL (14.0-18.0); Mean Corpuscular Hemoglobin 29.6 pg (25-34); Mean Corpuscular Hgb Conc 34.2 g/dL (32-36); Mean Corpuscular Volume 86.5 fL (80-100); Mean Platelet Volume 11.3 fL (7.4-10.4); Platelet Count 13 K/uL (130-400); RDW Coefficient of Variation 12.9 % (11.5-14.5); RDW Standard Deviation 41.8 fL (36.4-46.3); Red Blood Count 2.23 M/uL (4.7-6.1)
[2021-01-24 08:19] LABS: Bilirubin,Total 1.1 mg/dl (0.2-1); Globulin 2.1 gm/dl (2.5-4.0); Phosphorus 2.5 mg/dl (2.5-4.9); Total Protein 4.4 gm/dl (6.4-8.2); Uric Acid 1.6 mg/dl (2.6-7.2)
[2021-01-24] MEDS ORDERED: SODIUM CHLORIDE 0.9% 250 ML IV PRN (08:34)
[2021-01-24] MEDS: allopurinoL 300 MG TAB PO SCH (08:46)
[2021-01-24] MEDS: FILGRASTIM 480 MCG/1.6 ML VIAL SQ SCH (08:46)
[2021-01-24] MEDS: FLUCONAZOLE 100 MG TAB PO SCH (08:47)
[2021-01-24] MEDS: GABAPENTIN 300 MG CAP PO SCH ×2 (08:47→21:11)
[2021-01-24] MEDS: UMECLIDINIUM/VILANTEROL 62.5/25MCG 7 PUFFS/INHALER INH SCH (08:47)
[2021-01-24] MEDS: PANTOprazole 40 MG in SYRINGE 0 ML IV SCH ×2 (08:47→21:06)
[2021-01-24] MEDS: FLUTICASONE FUROATE 100MCG 14 PUFFS/INHALER INH SCH (08:48)
[2021-01-24] MEDS: INSULIN ASPART 100 UNITS/ML 3 ML PEN SC SCH ×4 (08:50→21:06)
--- NOTE | 2021-01-24 13:03 | Progress Notes ---
MEDICAL ONCOLOGY PROGRESS NOTE DATE OF SERVICE: 01/24/2021 DIAGNOSES: 1. Methicillin-sensitive Staphylococcus aureus bacteremia. 2. Diffuse large B-cell lymphoma. 3. Disseminated intravascular coagulation. 4. Gastrointestinal bleeding. 5. Status post R-CHOP chemotherapy. 6. Pancytopenia attributable to disease progression and chemotherapeutic effect. SUBJECTIVE: Tyrell was seen and examined at lunchtime today. Tolerating regular diet, ambulating ad анна. The patient remains profoundly myelosuppressed. I asked the hospitalist to incorporate a granu locyte colony-stimulating growth factor on a daily basis at this point. He continues on systemic ant ibiotics. Tyrell continues to receive transfusional support as well. His neutrophils remain pretty m uch nonexistent and hemoglobin 6.6 g/dL. Otherwise, no complaint of pain or discomfort. OBJECTIVE: GENERAL: A very pleasant 70-year-old gentleman in no acute distress. VITAL SIGNS: Temperature 37, pulse 99, respiratory rate 20, blood pressure 121/64. SKIN: Without rash or lesion. HEENT: No evidence of oral thrush. HEART: Regular rate and rhythm. LUNGS: Clear to auscultation bilaterally. ABDOMEN: Obese, soft, nontender, nondistended. EXTREMITIES: No clubbing, cyanosis or edema. NEUROLOGIC: Grossly intact. LABORATORY DATA: WBC count 100, hemoglobin 6.6, platelet count 13,000. PTT 32.8 seconds, fibrinogen has recovered nicely to 94. Sodium 137, potassium 4.0, chloride 106, carbon dioxide 25, creatinine 0.62, BUN 11, uric acid 1.6, albumin 2.2. IMPRESSION: 1. Methicillin-sensitive Staphylococcus aureus bacteremia. 2. Stage IV diffuse large B-cell lymphoma, bone marrow involvement. 3. Pancytopenia attributable to disease and chemotherapeutic effect. 4. Low-grade disseminated intravascular coagulation. 5. Hypoalbuminemia. PLAN: Tyrell remains in good spirits despite prolonged hospitalization. Fortunately, we have been ab le to keep his fever and bacteremia under reasonable control. I asked Dr. Mccullough to incorporate anti fungal prophylaxis because of the prolonged neutropenia. He also continues transfusional support as necessary. Continue daily granulocyte colony-stimulating growth factor and peripheral counts. Unfor tunately, not much to do other than to wait for hematopoietic recovery. Job ID: [id number]
--- NOTE | 2021-01-24 15:19 | Hospitalist Progress Note ---
Date of Service January 24, 2021 Assessment & Plan (1) B-cell lymphoma: Diagnosed with high-grade diffuse large B-cell lymphoma involving his bone marrow predominantly by Dr. Nicole via bone marrow biopsy on 01/04/2021. - Oncology following in the hospital - Received R-CHOP -> Rituximab on 01/16, then Adriamycin, vincristine, and cyclophosphamide on 01/17. - Neulasta given on 01/18. Started Neupogen x [address] Nicole. - Monitor counts and transfuse as needed -> Transfusing 2 units platelets and 2 units PRBCs today (01/24) for drop in hgb and low plts. - Continue allopurinol for tumor lysis syndrome - Monitor uric acid, phosphate -> Stable today. - Started fluconazole for fungal ppx per Dr. Nicole. (2) Urinary retention: Symptoms of urinary retention on 01/23 & 01/24, but improve when he stretches out to urinate. - Given low platelets and neutropenia, want to avoid AVOID Fu. - Start tamsulosin HS - Bladder scan PRN (3) MSSA bacteremia: Blood cultures on 01/15 were 1 out of 2 initial sets positive for MSSA and 2 coag(-) spc. - Repeat blood cultures from 01/17 are negative so far. - Ordered ID consult: - Obtained echo on 01/21 -> No vegetations seen. - Continue Zosyn x 2 weeks if no further cultures positive. Needs to be non- neutropenic prior to switching cefazolin. - Re-culture with any fever. (4) GIB (gastrointestinal bleeding): Several days of dark stools and then had tari bright red blood per rectum on day of admission (01/15). - Acute blood loss anemia now complicated by poor bone marrow response from chemotherapy. - Transfuse for hgb > 8 per oncology recommendation. Discussed with oncology on 01/25. - Seen by GI here; he was offered an EGD here and declined. Given lack of transfer at this time, reached out to them on 01/24. NO EGD until plts stable >50k. (5) Edema: Noted on 01/19 with some shortness of breath. Likely iatrogenic from IV fluids. - Hold further IVF. - Given Lasix IV x 1 on 01/19 with good diuresis. - No shortness of breath or edema so far on 01/24 despite blood products. Will monitor. (6) DIC (disseminated intravascular coagulation): Low level DIC from his lymphoma. Initially thought to be ITP. Had been started on steroids by oncology as outpatient prior to presentation. Now I believe ITP considered unlikely. - Received 5 units of cryoprecipitate from 01/15 - 01/18. - Will monitor fibrinogen; replete for any <100. On 01/24, up to 294. Will stop checking. (7) Hypertension: Initially needed vasopressors. Today BP is still overall within good limits. - Hold antihypertensives at this time (8) COPD with emphysema: No shortness of breath today. - Continue home BHAVNA, LABA, LAMA (9) AAA (abdominal aortic aneurysm): Done in 2013. Routine CTA screening done at [facility]- 4.0x2.6 with no evidence of endoleak and widely patent repair (). - No inpatient needs (10) DVT prophylaxis: SCDs - Holding heparin while thrombocytopenic < 50k platelets with bleeding Admission and Anticipated Discharge Date Admission Date: January 15, 2021 Subjective Feeling fairly well today despite blood changes. BMs are now green, not black /dark as before. No significant pain. Reports no fevers/chills, chest pain, shortness of breath, abdominal pain, nausea, or vomiting. Physical Exam 2 Constitutional: WD/WN, vitals as above Eyes: EOM intact bilaterally; no conjunctival abnormality ENMT: external ear and nose normal, oropharynx normal Neck: trachea midline, no thyromegaly normal visual inspection Respiratory: normal respiratory effort, lungs clear to auscultation no respiratory distress Cardiovascular: RRR, no murmur, no edema Gastrointestinal (Abdomen): Inspection/Auscultation: abdomen normal to inspection; abdomen not distended Musculoskeletal: no cyanosis or clubbing, extremities motor strength 5/5 Skin: no rashes, warm and dry Neurologic: moves all extremities and awake Psychiatric: Orientation: alert, oriented to person and cooperative Results & Data Results & Data ([facility]) Vital Signs (Past 12 Hours) Vital Signs Temp Pulse Pulse Resp BP BP Pulse Ox 01/24/21 14:34 37.5 C 95 H 18 158/60 H 98 01/24/21 13:34 37.4 C 96 H 20 134/74 98 01/24/21 13:04 37 C 96 H 18 122/68 98 01/24/21 12:49 37.0 C 96 H 18 122/68 98 01/24/21 12:45 36.9 C 93 H 18 130/76 97 01/24/21 12:31 37.1 C 97 H 18 136/76 97 01/24/21 12:29 37.1 C 97 H 18 136/76 97 01/24/21 12:00 99 H 20 121/64 98 01/24/21 11:00 37 C 91 H 20 110/59 L 98 01/24/21 10:30 37.4 C 88 20 130/65 98 01/24/21 10:15 37.2 C 93 H 20 134/71 98 01/24/21 09:58 36.6 C 91 H 20 103/56 L 96 01/24/21 08:21 37.0 C 95 H 18 116/65 95 01/24/21 07:28 96 H 20 98 PG Care Time/CCT Total # of Minutes Spent Total Time Spent with Patient: Total time spent is greater than 50% in coordination of care (as documented) at patient's floor/unit and/or counseling patient: Coding Level of Care Code 51241 Subseq Hosp Care Lvl 3 Diagnoses B-cell lymphoma C85.10 Urinary retention R33.9 MSSA bacteremia R78.81; B95.61 GIB (gastrointestinal bleeding) K92.1 GI bleed type/associated pathology: melena Edema R60.9 DIC (disseminated intravascular coagulation) D65 Hypertension I10 Hypertension type: unspecified COPD with emphysema J43.9 Emphysema type: unspecified AAA (abdominal aortic aneurysm) I71.4 DVT prophylaxis Z29.9 (1) GIB (gastrointestinal bleeding) GI bleed type/associated pathology: melena Qualified Code(s): K92.1 - Melena (2) Hypertension Hypertension type: unspecified Qualified Code(s): I10 - Essential (primary) hypertension (3) COPD with emphysema Emphysema type: unspecified Qualified Code(s): J43.9 - Emphysema, unspecified
[2021-01-24] MEDS: ACETAMINOPHEN 325 MG TAB PO PRN (16:12)
[2021-01-24 18:00] LABS: Blood Urine Negative (Negative)
[2021-01-24] MEDS ORDERED: ACETAMINOPHEN 325 MG TAB PO ONE (18:46)
[2021-01-24] MEDS: TAMSULOSIN HCL 0.4 MG CAP PO SCH (21:06)
[2021-01-25 04:01] LABS: BUN Creatinine Ratio 14.4 (10-20); Calcium 7.2 mg/dl (8.5-10.1); Creatinine Clr Calc Pharmacy 124.9 ml/min; Est GFR (African American) 110.8 ml/min; Est GFR (Non-African American) 95.6 ml/min; Potassium 3.8 mmol/L (3.5-5.1)
[2021-01-25 04:04] LABS: Mean Corpuscular Hemoglobin 30.4 pg (25-34); Mean Corpuscular Hgb Conc 34.8 g/dL (32-36); Mean Corpuscular Volume 87.5 fL (80-100); Platelet Count 12 K/uL (130-400); RDW Coefficient of Variation 13.6 % (11.5-14.5); RDW Standard Deviation 44.4 fL (36.4-46.3); Red Blood Count 2.63 M/uL (4.7-6.1); White Blood Count 0.09 K/uL (4.8-10.8)
[2021-01-25] MEDS: PIPERACILLIN/TAZOBACTAM 4.5 GM in DEXTROSE 5% 100 ML IV SCH ×3 (05:54→21:09)
[2021-01-25] MEDS: ALBUTEROL HFA 8 GM INHALER INH SCH ×2 (07:19→15:30)
[2021-01-25] MEDS: IPRATROPIUM BROMIDE HFA INHALER INH SCH ×2 (07:19→15:30)
--- NOTE | 2021-01-25 07:54 | Progress Notes ---
MEDICAL ONCOLOGY PROGRESS NOTE DATE: 01/25/2021. DIAGNOSES: 1. Methicillin-sensitive Staphylococcus aureus bacteremia. 2. Diffuse large B-cell lymphoma. 3. Disseminated intravascular coagulation. 4. Gastrointestinal bleeding. 5. Status post R-CHOP chemotherapy. 6. Pancytopenia attributable to disease progression and chemotherapeutic effect. SUBJECTIVE: Tyrell was seen and examined this morning at bedside. He is describing some mild stomach discomfort. He also reports fevers overnight. We will proceed with a panculture. He was recently placed on antifungals and should add antiviral prophylaxis at this point. He continues to tolerate r egular diet otherwise. He received both packed RBCs and single donor platelet pheresis overnight. Osei yun reports no overnight difficulties otherwise. OBJECTIVE: GENERAL: A very pleasant 70-year-old gentleman in no acute distress. VITAL SIGNS: Temperature 38.4, pulse 90, respiratory rate 20, blood pressure 132/75. SKIN: Without rash or lesion. HEENT: No evidence of thrush. HEART: Regular rate and rhythm. LUNGS: Expiratory wheezes heard in all lung rowe. ABDOMEN: Obese, soft, nontender, nondistended. EXTREMITIES: No clubbing, cyanosis, or edema. NEUROLOGIC: Grossly intact. LABORATORY DATA: WBC 90, hemoglobin 8 g/dL, platelet count 12,000. PT 11.4 seconds, PTT 32.8 second s. Sodium 133, potassium 3.8, chloride 109, carbon dioxide 25, creatinine 0.7 and BUN is 10. Albumi n 2.2. IMPRESSION: 1. Methicillin-sensitive Staphylococcus aureus bacteremia. 2. Stage IV diffuse large B-cell lymphoma, bone marrow involvement. 3. Pancytopenia attributable to disease progression and chemotherapeutic effect. 4. Low-grade disseminated intravascular coagulation. 5. Hypoalbuminemia. PLAN: Tyrell, other than some mild stomach discomfort, seems to be holding his own. He reports fever overnight and should be pancultured this morning including urine and blood. Need to incorporate bot h antifungal and antiviral prophylaxis moving forward. His white cells show no sign of improving and could be several days before he does recover. Continue transfusional support with packed RBCs and s bill donor platelet pheresis as per threshold established on the original consultation. Continue wi th daily counts, labs and coags. We will continue to follow Tyrell daily while hospitalized. Nothing further to add this morning. Thank you for assisting me in the care of this very pleasant gentleman. Job ID: [id number]
[2021-01-25] MEDS: FILGRASTIM 480 MCG/1.6 ML VIAL SQ SCH (07:56)
[2021-01-25] MEDS: allopurinoL 300 MG TAB PO SCH (07:56)
[2021-01-25] MEDS: UMECLIDINIUM/VILANTEROL 62.5/25MCG 7 PUFFS/INHALER INH SCH (07:56)
[2021-01-25] MEDS: FLUCONAZOLE 100 MG TAB PO SCH ×2 (07:56→10:04)
[2021-01-25] MEDS: FLUTICASONE FUROATE 100MCG 14 PUFFS/INHALER INH SCH (07:57)
[2021-01-25] MEDS: GABAPENTIN 300 MG CAP PO SCH ×2 (07:57→20:42)
[2021-01-25] MEDS: PANTOprazole 40 MG in SYRINGE 0 ML IV SCH ×2 (07:59→20:42)
[2021-01-25] MEDS: ACETAMINOPHEN 325 MG TAB PO PRN ×3 (07:59→21:13)
[2021-01-25] MEDS: INSULIN ASPART 100 UNITS/ML 3 ML PEN SC SCH ×4 (08:03→20:43)
[2021-01-25] MEDS: valACYclovir HCL 500 MG TABLET PO SCH ×2 (10:04→20:42)
[2021-01-25 10:19] LABS: Appearance Urine Clear (Clear); Bacteria Urine Automated Negative (Negative); Bilirubin Urine Negative (Negative); Blood Urine Negative (Negative); Cast Urine Automated 0 /lpf (0-5); Color Urine Yellow; Glucose Urine UA Negative (Negative); Ketones Urine Negative (Negative); Leukocyte Esterase Urine Negative (Negative); Nitrite Urine Negative (Negative); RBC Urine Automated 0-4 /hpf (0-4); Specific Gravity Urine 1.015 (1.000-1.030); Urobilinogen Urine Negative (Negative); pH Urine 7.5 (4.5-7.5)
[2021-01-25 10:34] LABS: Protein Urine Trace (Negative)
[2021-01-25] MEDS: TAMSULOSIN HCL 0.4 MG CAP PO SCH (20:42)
--- NOTE | 2021-01-25 22:14 | Hospitalist Progress Note ---
Date of Service January 25, 2021 Assessment & Plan (1) B-cell lymphoma: Diagnosed with high-grade diffuse large B-cell lymphoma involving his bone marrow predominantly by Dr. Nicloe via bone marrow biopsy on 01/04/2021. - Oncology following in the hospital - Received R-CHOP -> Rituximab on 01/16, then Adriamycin, vincristine, and cyclophosphamide on 01/17. - Neulasta given on 01/18. Started Neupogen x [address] Nicole. - Monitor counts and transfuse as needed -> Transfusing 2 units platelets and 2 units PRBCs today (01/24) for drop in hgb and low plts. - Continue allopurinol for tumor lysis syndrome - Monitor uric acid, phosphate -> Stable today. - Started fluconazole for fungal ppx per Dr. Nicole. Patient has juany intermittently feverish today. Ordered panculture. (2) Urinary retention: Symptoms of urinary retention on 01/23 & 01/24, but improve when he stretches out to urinate. - Given low platelets and neutropenia, want to avoid AVOID Fu. - Start tamsulosin HS - Bladder scan PRN (3) MSSA bacteremia: Blood cultures on 01/15 were 1 out of 2 initial sets positive for MSSA and 2 coag(-) spc. - Repeat blood cultures from 01/17 are negative so far. - Ordered ID consult: - Obtained echo on 01/21 -> No vegetations seen. - Continue Zosyn x 2 weeks if no further cultures positive. Needs to be non- neutropenic prior to switching cefazolin. - Re-culture with any fever. (4) GIB (gastrointestinal bleeding): Several days of dark stools and then had tari bright red blood per rectum on day of admission (01/15). - Acute blood loss anemia now complicated by poor bone marrow response from chemotherapy. - Transfuse for hgb > 8 per oncology recommendation. Discussed with oncology on 01/25. - Seen by GI here; he was offered an EGD here and declined. Given lack of transfer at this time, reached out to them on 01/24. NO EGD until plts stable >50k. (5) Edema: Noted on 01/19 with some shortness of breath. Likely iatrogenic from IV fluids. - Hold further IVF. - Given Lasix IV x 1 on 01/19 with good diuresis. - No shortness of breath or edema so far on 01/24 despite blood products. Will monitor. (6) DIC (disseminated intravascular coagulation): Low level DIC from his lymphoma. Initially thought to be ITP. Had been started on steroids by oncology as outpatient prior to presentation. Now I believe ITP considered unlikely. - Received 5 units of cryoprecipitate from 01/15 - 01/18. - Will monitor fibrinogen; replete for any <100. On 01/24, up to 294. Will stop checking. (7) Hypertension: Initially needed vasopressors. Today BP is still overall within good limits. - Hold antihypertensives at this time (8) COPD with emphysema: No shortness of breath today. - Continue home BHAVNA, LABA, LAMA (9) AAA (abdominal aortic aneurysm): Done in 2013. Routine CTA screening done at [facility]- 4.0x2.6 with no evidence of endoleak and widely patent repair (). - No inpatient needs (10) DVT prophylaxis: SCDs - Holding heparin while thrombocytopenic < 50k platelets with bleeding Admission and Anticipated Discharge Date Admission Date: January 15, 2021 Subjective Patient feels well and has no new complaints. Review of Systems Review of Systems: All systems reviewed & are unremarkable except as noted in HPI & below Physical Exam Physical Exam: General: awake, alert, no apparent distress Head: Normocephalic, atraumatic ENT: PERRL, EOMI, no pharyngeal exudate Neuro: AAO x 3, speech clear and appropriate, strength intact bilaterally 5/5, sensation intact and equal all extremities and dermatomes, no pronator drift Chest: equal rise and fall of the chest, no accessory muscle use, no heaves or thrills, Clear to auscultation, on room air, Cardiac: Regular rate and rhythm, telemetry reviewed, skin warm dry, cap refill <3 seconds, peripheral pulses +2 no JVD, no murmur, no edema GI: NABS x 4 quadrants, soft, nontender to palpation, no rebound, guarding or tenderness : Spontaneously voiding, no pain, no CVA tenderness, Extremities: petechiae to lower legs and trunk, no peripheral edema or erythema, calfs nontender to palpation Psych: Normal mood and affect Skin:as above Results & Data Results & Data ([facility]) Vital Signs (Past 12 Hours) Vital Signs Temp Pulse Resp BP BP Pulse Ox 01/25/21 21:12 39.2 C H 01/25/21 19:30 37.2 C 89 20 134/75 97 01/25/21 17:44 37.1 C 01/25/21 16:30 38.8 C H 01/25/21 15:31 95 H 98 01/25/21 15:10 38.7 C H 100 H 18 116/65 97 01/25/21 13:30 36.7 C 01/25/21 11:52 37.3 C 90 18 111/66 96 PG Care Time/CCT Total # of Minutes Spent Total Time Spent with Patient: Total time spent is greater than 50% in coordination of care (as documented) at patient's floor/unit and/or counseling patient: Coding Level of Care Code 66460 Subseq Hosp Care Lvl 3 Diagnoses B-cell lymphoma C85.10 Urinary retention R33.9 MSSA bacteremia R78.81; B95.61 GIB (gastrointestinal bleeding) K92.1 GI bleed type/associated pathology: melena Edema R60.9 DIC (disseminated intravascular coagulation) D65 Hypertension I10 Hypertension type: unspecified COPD with emphysema J43.9 Emphysema type: unspecified AAA (abdominal aortic aneurysm) I71.4 DVT prophylaxis Z29.9 Time Spent (min) 35 (1) GIB (gastrointestinal bleeding) GI bleed type/associated pathology: melena Qualified Code(s): K92.1 - Melena (2) COPD with emphysema Emphysema type: unspecified Qualified Code(s): J43.9 - Emphysema, unspecified (3) Hypertension Hypertension type: unspecified Qualified Code(s): I10 - Essential (primary) hypertension
[2021-01-26] MEDS: ALBUTEROL HFA 8 GM INHALER INH SCH ×3 (00:24→20:27)
[2021-01-26] MEDS: IPRATROPIUM BROMIDE HFA INHALER INH SCH ×3 (00:25→20:27)
[2021-01-26] MEDS: ACETAMINOPHEN 325 MG TAB PO PRN ×5 (03:38→23:54)
[2021-01-26] MEDS: PIPERACILLIN/TAZOBACTAM 4.5 GM in DEXTROSE 5% 100 ML IV SCH ×3 (05:26→21:19)
[2021-01-26] MEDS: INSULIN ASPART 100 UNITS/ML 3 ML PEN SC SCH ×4 (08:21→21:17)
[2021-01-26] MEDS: PANTOprazole 40 MG in SYRINGE 0 ML IV SCH ×2 (08:22→20:34)
[2021-01-26] MEDS: valACYclovir HCL 500 MG TABLET PO SCH ×2 (08:22→20:34)
[2021-01-26] MEDS: allopurinoL 300 MG TAB PO SCH (08:22)
[2021-01-26] MEDS: FLUCONAZOLE 100 MG TAB PO SCH (08:22)
[2021-01-26] MEDS: GABAPENTIN 300 MG CAP PO SCH ×2 (08:22→20:34)
[2021-01-26] MEDS: FLUTICASONE FUROATE 100MCG 14 PUFFS/INHALER INH SCH (08:23)
[2021-01-26] MEDS: UMECLIDINIUM/VILANTEROL 62.5/25MCG 7 PUFFS/INHALER INH SCH (08:23)
[2021-01-26 09:10] LABS: Hematocrit (blood only) 24.6 % (42-52); Hemoglobin 8.3 g/dL (14.0-18.0); Mean Corpuscular Hemoglobin 30.1 pg (25-34); Mean Corpuscular Hgb Conc 33.7 g/dL (32-36); Mean Corpuscular Volume 89.1 fL (80-100); Mean Platelet Volume 11.9 fL (7.4-10.4); Platelet Count 11 K/uL (130-400); RDW Standard Deviation 46.1 fL (36.4-46.3); Red Blood Count 2.76 M/uL (4.7-6.1); White Blood Count 0.11 K/uL (4.8-10.8)
[2021-01-26 09:23] LABS: BUN Creatinine Ratio 10.4 (10-20); Calcium 7.9 mg/dl (8.5-10.1); Creatinine Clr Calc Pharmacy 104.2 ml/min; Est GFR (African American) 103.3 ml/min; Est GFR (Non-African American) 89.2 ml/min; Potassium 3.7 mmol/L (3.5-5.1)
--- NOTE | 2021-01-26 09:51 | Progress Notes ---
DATE OF SERVICE: 01/26/2021 DIAGNOSES: 1. Methicillin-sensitive Staphylococcus aureus bacteremia. 2. Diffuse large B-cell lymphoma, stage IV. 3. Disseminated intravascular coagulation. 4. Gastrointestinal bleeding. 5. Status post R-CHOP cycle #1. 6. Pancytopenia attributable to disease progression and chemotherapeutic effect. SUBJECTIVE: Tyrell was seen and examined at bedside this morning. He reports fever overnight again. He continues broad spectrum antibiotics for MSSA bacteremia. He also continues transfusional suppor t. Blood counts are pending at the time of today's dictation. He continues to tolerate his regular diet. He reports no nausea or vomiting. No overnight difficulties reported by nursing. The patient is moving his bowels ad анна. OBJECTIVE: GENERAL: Very pleasant 70-year-old gentleman, in no acute distress. VITAL SIGNS: Temperature 37.2, pulse 88, respiratory rate 18, blood pressure 118/64. SKIN: Warm, dry noncyanotic. HEENT: No evidence of oral thrush. HEART: Regular rate and rhythm. LUNGS: Expiratory wheezes heard diffusely. ABDOMEN: Obese, soft, nontender, nondistended. EXTREMITIES: No clubbing, cyanosis or edema. NEUROLOGIC: He is grossly intact. IMPRESSION: 1. Diffuse large B-cell lymphoma, stage IV. 2. Status post R-CHOP chemotherapy. 3. Pancytopenia attributable to disease progression and chemotherapeutic effect. 4. Methicillin-sensitive Staphylococcus aureus bacteremia. 5. Disseminated intravascular coagulation. PLAN: Tyrell is now on hospital day 11 and about 5 days removed from chemotherapy. Not surprisingly, he is myelosuppressed and may be another several days before he completely recovers from a hematopoi etic standpoint. He continues to receive aggressive transfusional support. More troubling issue is overnight fevers, which in itself can be attributable to prolonged neutropenia; however, reculture wo uld not be unreasonable. Again, he needs to be on prophylactic antifungal and antivirals as well as c urrent antibiotics for MSSA. Continue monitoring peripheral blood counts and serum chemistries on a d aily basis. If not already consulted, consider physical therapy to start working with Tyrell to get h im on his feet and moving. Agree with medical management otherwise. We will continue to follow bala bishop with you. Job ID: [id number]
[2021-01-26] MEDS: TAMSULOSIN HCL 0.4 MG CAP PO SCH (20:34)
--- NOTE | 2021-01-26 22:27 | Hospitalist Progress Note ---
Date of Service January 26, 2021 Assessment & Plan (1) B-cell lymphoma: Diagnosed with high-grade diffuse large B-cell lymphoma involving his bone marrow predominantly by Dr. Nicole via bone marrow biopsy on 01/04/2021. - Oncology following in the hospital - Received R-CHOP -> Rituximab on 01/16, then Adriamycin, vincristine, and cyclophosphamide on 01/17. - Neulasta given on 01/18. Started Neupogen x [address] Nicole. - Monitor counts and transfuse as needed -> Transfusing 2 units platelets and 2 units PRBCs today (01/24) for drop in hgb and low plts. - Continue allopurinol for tumor lysis syndrome - Monitor uric acid, phosphate -> Stable today. - Started fluconazole for fungal ppx per Dr. Nicole. Patient has been intermittently feverish today. Ordered panculture. will continue with acyclovir, diflucan and antibiotics. may require blood transfusions. (2) Urinary retention: Symptoms of urinary retention on 01/23 & 01/24, but improve when he stretches out to urinate. - Given low platelets and neutropenia, want to avoid AVOID Fu. - Start tamsulosin HS - Bladder scan PRN (3) MSSA bacteremia: Blood cultures on 01/15 were 1 out of 2 initial sets positive for MSSA and 2 coag(-) spc. - Repeat blood cultures from 01/17 are negative so far. - Ordered ID consult: - Obtained echo on 01/21 -> No vegetations seen. - Continue Zosyn x 2 weeks if no further cultures positive. Needs to be non- neutropenic prior to switching cefazolin. - Re-culture with any fever. (4) GIB (gastrointestinal bleeding): Several days of dark stools and then had tari bright red blood per rectum on day of admission (01/15). - Acute blood loss anemia now complicated by poor bone marrow response from chemotherapy. - Transfuse for hgb > 8 per oncology recommendation. Discussed with oncology on 01/25. - Seen by GI here; he was offered an EGD here and declined. Given lack of transfer at this time, reached out to them on 01/24. NO EGD until plts stable >50k. (5) Edema: Noted on 01/19 with some shortness of breath. Likely iatrogenic from IV fluids. - Hold further IVF. - Given Lasix IV x 1 on 01/19 with good diuresis. - No shortness of breath or edema so far on 01/24 despite blood products. Will monitor. (6) DIC (disseminated intravascular coagulation): Low level DIC from his lymphoma. Initially thought to be ITP. Had been started on steroids by oncology as outpatient prior to presentation. Now I believe ITP considered unlikely. - Received 5 units of cryoprecipitate from 01/15 - 01/18. - Will monitor fibrinogen; replete for any <100. On 01/24, up to 294. Will stop checking. (7) Hypertension: Initially needed vasopressors. Today BP is still overall within good limits. - Hold antihypertensives at this time (8) COPD with emphysema: No shortness of breath today. - Continue home BHAVNA, LABA, LAMA (9) AAA (abdominal aortic aneurysm): Done in 2013. Routine CTA screening done at [facility]- 4.0x2.6 with no evidence of endoleak and widely patent repair (). - No inpatient needs (10) DVT prophylaxis: SCDs - Holding heparin while thrombocytopenic < 50k platelets with bleeding Admission and Anticipated Discharge Date Admission Date: January 15, 2021 Subjective 70 YO MALE reports feeling cold. He had a rough night and had subjective fevers. Patient reports o nausea, or vomiting. Review of Systems Review of Systems: All systems reviewed & are unremarkable except as noted in HPI & below Physical Exam Physical Exam: General: awake, alert, no apparent distress Head: Normocephalic, atraumatic ENT: PERRL, EOMI, no pharyngeal exudate Neuro: AAO x 3, speech clear and appropriate, strength intact bilaterally 5/5, sensation intact and equal all extremities and dermatomes, no pronator drift Chest: equal rise and fall of the chest, no accessory muscle use, no heaves or thrills, Clear to auscultation, on room air, Cardiac: Regular rate and rhythm, telemetry reviewed, skin warm dry, cap refill <3 seconds, peripheral pulses +2 no JVD, no murmur, no edema GI: NABS x 4 quadrants, soft, nontender to palpation, no rebound, guarding or tenderness : Spontaneously voiding, no pain, no CVA tenderness, Extremities: petechiae to lower legs and trunk, no peripheral edema or erythema, calfs nontender to palpation Psych: Normal mood and affect Skin:as above Results & Data Results & Data ([facility]) Vital Signs (Past 12 Hours) Vital Signs Temp Pulse Resp BP Pulse Ox 01/26/21 20:30 101 H 18 94 01/26/21 18:35 38.2 C H 101 H 18 119/62 96 01/26/21 15:32 37.5 C 102 H 20 141/69 H 97 01/26/21 14:53 37.5 C 01/26/21 11:30 39.3 C H 109 H 18 114/64 96 PG Care Time/CCT Total # of Minutes Spent Total Time Spent with Patient: Total time spent is greater than 50% in coordination of care (as documented) at patient's floor/unit and/or counseling patient: Coding Level of Care Code 05419 Subseq Hosp Care Lvl 2 Diagnoses B-cell lymphoma C85.10 Urinary retention R33.9 MSSA bacteremia R78.81; B95.61 GIB (gastrointestinal bleeding) K92.1 GI bleed type/associated pathology: melena Edema R60.9 DIC (disseminated intravascular coagulation) D65 Hypertension I10 Hypertension type: unspecified COPD with emphysema J43.9 Emphysema type: unspecified AAA (abdominal aortic aneurysm) I71.4 DVT prophylaxis Z29.9 Time Spent (min) 25 (1) GIB (gastrointestinal bleeding) GI bleed type/associated pathology: melena Qualified Code(s): K92.1 - Melena (2) COPD with emphysema Emphysema type: unspecified Qualified Code(s): J43.9 - Emphysema, unspecified (3) Hypertension Hypertension type: unspecified Qualified Code(s): I10 - Essential (primary) hypertension
[2021-01-27] MEDS: ACETAMINOPHEN 325 MG TAB PO PRN ×4 (04:00→20:20)
[2021-01-27] MEDS: PIPERACILLIN/TAZOBACTAM 4.5 GM in DEXTROSE 5% 100 ML IV SCH ×3 (06:00→21:45)
[2021-01-27] MEDS: IPRATROPIUM BROMIDE HFA INHALER INH SCH ×2 (07:36→20:12)
[2021-01-27] MEDS: ALBUTEROL HFA 8 GM INHALER INH SCH ×2 (07:36→20:12)
[2021-01-27 07:59] LABS: BUN Creatinine Ratio 12.7 (10-20); Calcium 7.9 mg/dl (8.5-10.1); Creatinine Clr Calc Pharmacy 122.9 ml/min; Est GFR (African American) 111.5 ml/min; Est GFR (Non-African American) 96.2 ml/min; Potassium 3.5 mmol/L (3.5-5.1)
[2021-01-27 08:01] LABS: Hematocrit (blood only) 21.1 % (42-52); Hemoglobin 7.2 g/dL (14.0-18.0); Mean Corpuscular Hemoglobin 29.8 pg (25-34); Mean Corpuscular Hgb Conc 34.1 g/dL (32-36); Mean Corpuscular Volume 87.2 fL (80-100); Mean Platelet Volume 12.5 fL (7.4-10.4); Nucleated RBC # (auto) 0.02 K/uL (0-0); Nucleated RBC % (auto) 10.7 %; Platelet Count 14 K/uL (130-400); RDW Coefficient of Variation 13.7 % (11.5-14.5); RDW Standard Deviation 43.8 fL (36.4-46.3); Red Blood Count 2.42 M/uL (4.7-6.1); White Blood Count 0.17 K/uL (4.8-10.8)
--- NOTE | 2021-01-27 08:20 | Progress Notes ---
MEDICAL ONCOLOGY PROGRESS NOTE DATE: 01/27/2021. DIAGNOSES: 1. Methicillin-sensitive Staphylococcus aureus bacteremia. 2. Diffuse large B-cell lymphoma, stage IV. 3. Disseminated intravascular coagulation. 4. Gastrointestinal bleeding. 5. Status post R-CHOP chemotherapy cycle 1. 6. Pancytopenia attributable to disease progression and chemotherapeutic effect. SUBJECTIVE: Tyrell was seen and examined at bedside this morning. No significant fever overnight. H e denies any nausea and vomiting and continues to tolerate his diet. Peripheral counts have been slo w to recover. He continues to receive granulocyte colony stimulating growth factor. He did not rece valeria transfusional support yesterday. Nursing reports no overnight difficulties otherwise. OBJECTIVE: GENERAL: Very pleasant 70-year-old gentleman in no acute distress. VITAL SIGNS: Temperature 37.2, pulse 102, respiratory rate 20, blood pressure 144/69. SKIN: Warm, dry, noncyanotic without petechiae, rash, or ecchymosis. HEENT: No evidence of oral thrush. NECK: Supple. HEART: Tachycardic, but regular. LUNGS: Expiratory wheezes heard diffusely. ABDOMEN: Obese, soft, nontender, nondistended. EXTREMITIES: Trace to +1 peripheral edema bilaterally. NEUROLOGIC: Grossly intact. LABORATORY DATA: Repeat blood and urine cultures thus far negative. Peripheral counts from yesterda y, WBCs 110, hemoglobin 8.3, platelet count 11,000. Sodium 135, potassium 3.7, chloride 105, carbon dioxide 23, BUN 9, creatinine 0.83. IMPRESSION: 1. Diffuse large B-cell lymphoma, stage IV. 2. Status post R-CHOP chemotherapy. 3. Pancytopenia attributable to disease progression and chemotherapeutic effect. 4. Methicillin-sensitive Staphylococcus aureus bacteremia. 5. Disseminated intravascular coagulation. PLAN: Tyrell is now on hospital day 11 roughly a week removed from chemotherapy. He remains profound ly myelosuppressed. Continue Neupogen 480 mcg subQ daily. Continue transfusion of packed RBCs and p latelets as clinically indicated. He continues prophylactic antibiotics, antiviral, and antifungals. Amazingly, he has had no other ill effects from chemotherapy thus far. Agree with current medical management otherwise. I will be on over the weekend available by phone for any problems. Job ID: [id number]
[2021-01-27] MEDS: PANTOprazole 40 MG in SYRINGE 0 ML IV SCH ×2 (09:20→21:10)
[2021-01-27] MEDS: UMECLIDINIUM/VILANTEROL 62.5/25MCG 7 PUFFS/INHALER INH SCH (09:21)
[2021-01-27] MEDS: FLUTICASONE FUROATE 100MCG 14 PUFFS/INHALER INH SCH (09:22)
[2021-01-27] MEDS: INSULIN ASPART 100 UNITS/ML 3 ML PEN SC SCH ×4 (09:27→21:08)
[2021-01-27] MEDS: GABAPENTIN 300 MG CAP PO SCH ×2 (11:13→21:09)
[2021-01-27] MEDS: valACYclovir HCL 500 MG TABLET PO SCH ×2 (11:13→21:09)
[2021-01-27] MEDS ORDERED: SODIUM CHLORIDE 0.9% 250 ML IV PRN (12:19)
[2021-01-27] MEDS: FLUCONAZOLE 100 MG TAB PO SCH (13:07)
[2021-01-27] MEDS: allopurinoL 300 MG TAB PO SCH (13:08)
[2021-01-27] MEDS: TAMSULOSIN HCL 0.4 MG CAP PO SCH (21:10)
--- NOTE | 2021-01-27 22:08 | Hospitalist Progress Note ---
Date of Service January 27, 2021 Assessment & Plan (1) B-cell lymphoma: Diagnosed with high-grade diffuse large B-cell lymphoma involving his bone marrow predominantly by Dr. Nicole via bone marrow biopsy on 01/04/2021. - Oncology following in the hospital - Received R-CHOP -> Rituximab on 01/16, then Adriamycin, vincristine, and cyclophosphamide on 01/17. - Neulasta given on 01/18. Started Neupogen x [address] Nicole. - Monitor counts and transfuse as needed -> Transfusing 2 units platelets and 2 units PRBCs today (01/24) for drop in hgb and low plts. - Continue allopurinol for tumor lysis syndrome - Monitor uric acid, phosphate -> Stable today. - Started fluconazole for fungal ppx per Dr. Nicole. Patient has been intermittently feverish during past 48 h Ordered panculture. will continue with acyclovir, diflucan and antibiotics. will order 2 PRBC and will monitor goal is to keep hemoglobin above 9. (2) Urinary retention: Symptoms of urinary retention on 01/23 & 01/24, but improve when he stre tches out to urinate. - Given low platelets and neutropenia, want to avoid AVOID Fu. - Start tamsulosin HS - Bladder scan PRN (3) MSSA bacteremia: Blood cultures on 01/15 were 1 out of 2 initial sets positive for MSSA and 2 coag(-) spc. - Repeat blood cultures from 01/17 are negative so far. - Ordered ID consult: - Obtained echo on 01/21 -> No vegetations seen. - Continue Zosyn x 2 weeks if no further cultures positive. Needs to be non- neutropenic prior to switching cefazolin. - Re-culture with any fever. (4) GIB (gastrointestinal bleeding): Several days of dark stools and then had tari bright red blood per rectum on day of admission (01/15). - Acute blood loss anemia now complicated by poor bone marrow response from chemotherapy. - Transfuse for hgb > 8 per oncology recommendation. Discussed with oncology on 01/25. - Seen by GI here; he was offered an EGD here and declined. Given lack of transfer at this time, reached out to them on 01/24. NO EGD until plts stable >50k. (5) Edema: Noted on 01/19 with some shortness of breath. Likely iatrogenic from IV fluids. - Hold further IVF. - Given Lasix IV x 1 on 01/19 with good diuresis. - No shortness of breath or edema so far on 01/24 despite blood products. Will monitor. (6) DIC (disseminated intravascular coagulation): Low level DIC from his lymphoma. Initially thought to be ITP. Had been started on steroids by oncology as outpatient prior to presentation. Now I believe ITP considered unlikely. - Received 5 units of cryoprecipitate from 01/15 - 01/18. - Will monitor fibrinogen; replete for any <100. On 01/24, up to 294. Will stop checking. (7) Hypertension: Initially needed vasopressors. Today BP is still overall within good limits. - Hold antihypertensives at this time (8) COPD with emphysema: No shortness of breath today. - Continue home BHAVNA, LABA, LAMA (9) AAA (abdominal aortic aneurysm): Done in 2013. Routine CTA screening done at [facility]- 4.0x2.6 with no evidence of endoleak and widely patent repair (). - No inpatient needs (10) DVT prophylaxis: SCDs - Holding heparin while thrombocytopenic < 50k platelets with bleeding Admission and Anticipated Discharge Date Admission Date: January 15, 2021 Subjective Patient reports feeling better. Review of Systems Review of Systems: All systems reviewed & are unremarkable except as noted in HPI & below Physical Exam Physical Exam: General: awake, alert, no apparent distress Head: Normocephalic, atraumatic ENT: PERRL, EOMI, no pharyngeal exudate Neuro: AAO x 3, speech clear and appropriate, strength intact bilaterally 5/5, sensation intact and equal all extremities and dermatomes, no pronator drift Chest: equal rise and fall of the chest, no accessory muscle use, no heaves or thrills, Clear to auscultation, on room air, Cardiac: Regular rate and rhythm, telemetry reviewed, skin warm dry, cap refill <3 seconds, peripheral pulses +2 no JVD, no murmur, no edema GI: NABS x 4 quadrants, soft, nontender to palpation, no rebound, guarding or tenderness : Spontaneously voiding, no pain, no CVA tenderness, Extremities: petechiae to lower legs and trunk, no peripheral edema or erythema, calfs nontender to palpation Psych: Normal mood and affect Skin:as above Results & Data Results & Data ([facility]) Vital Signs (Past 12 Hours) Vital Signs Temp Pulse Resp BP Pulse Ox 01/27/21 21:45 37.3 C 94 H 18 123/76 96 01/27/21 20:49 36.9 C 01/27/21 20:45 36.9 C 96 H 18 132/77 97 01/27/21 20:15 37.8 C H 99 H 18 128/80 99 01/27/21 20:13 93 H 98 01/27/21 19:45 36.8 C 98 H 20 136/70 97 01/27/21 19:29 37.4 C 101 H 20 125/64 96 01/27/21 19:11 37 C 110 H 20 116/64 96 01/27/21 17:09 36.8 C 110 H 18 135/65 94 01/27/21 16:09 38.1 C H 111 H 20 153/69 H 96 01/27/21 15:09 37.4 C 115 H 20 136/78 96 01/27/21 14:39 36.8 C 112 H 20 153/79 H 96 01/27/21 14:24 37.1 C 104 H 20 133/71 99 01/27/21 14:06 37.1 C 110 H 20 153/62 H 94 PG Care Time/CCT Total # of Minutes Spent Total Time Spent with Patient: Total time spent is greater than 50% in coordination of care (as documented) at patient's floor/unit and/or counseling patient: Coding Level of Care Code 60887 Subseq Hosp Care Lvl 2 Diagnoses B-cell lymphoma C85.10 Urinary retention R33.9 MSSA bacteremia R78.81; B95.61 GIB (gastrointestinal bleeding) K92.1 GI bleed type/associated pathology: melena Edema R60.9 DIC (disseminated intravascular coagulation) D65 Hypertension I10 Hypertension type: unspecified COPD with emphysema J43.9 Emphysema type: unspecified AAA (abdominal aortic aneurysm) I71.4 DVT prophylaxis Z29.9 Time Spent (min) 25 (1) GIB (gastrointestinal bleeding) GI bleed type/associated pathology: melena Qualified Code(s): K92.1 - Melena (2) COPD with emphysema Emphysema type: unspecified Qualified Code(s): J43.9 - Emphysema, unspecified (3) Hypertension Hypertension type: unspecified Qualified Code(s): I10 - Essential (primary) hypertension
[2021-01-28] MEDS: PIPERACILLIN/TAZOBACTAM 4.5 GM in DEXTROSE 5% 100 ML IV SCH ×3 (05:34→22:22)
[2021-01-28] MEDS: ACETAMINOPHEN 325 MG TAB PO PRN ×3 (06:29→19:34)
[2021-01-28] MEDS: ALBUTEROL HFA 8 GM INHALER INH SCH ×2 (07:43→20:05)
[2021-01-28] MEDS: IPRATROPIUM BROMIDE HFA INHALER INH SCH ×2 (07:44→20:05)
[2021-01-28 07:51] LABS: BUN Creatinine Ratio 13.2 (10-20); Calcium 7.9 mg/dl (8.5-10.1); Creatinine Clr Calc Pharmacy 136.8 ml/min; Est GFR (African American) 116.5 ml/min; Est GFR (Non-African American) 100.5 ml/min; Hematocrit (blood only) 23.6 % (42-52); Hemoglobin 7.9 g/dL (14.0-18.0); Mean Corpuscular Hemoglobin 29.2 pg (25-34); Mean Corpuscular Hgb Conc 33.5 g/dL (32-36); Mean Corpuscular Volume 87.1 fL (80-100); Mean Platelet Volume 10.4 fL (7.4-10.4); Nucleated RBC # (auto) 0.02 K/uL (0-0); Nucleated RBC % (auto) 5.1 %; Platelet Count 18 K/uL (130-400); Potassium 3.4 mmol/L (3.5-5.1); RDW Coefficient of Variation 14.7 % (11.5-14.5); RDW Standard Deviation 46.3 fL (36.4-46.3); Red Blood Count 2.71 M/uL (4.7-6.1); White Blood Count 0.33 K/uL (4.8-10.8)
[2021-01-28] MEDS: FLUCONAZOLE 100 MG TAB PO SCH (08:14)
[2021-01-28] MEDS: GABAPENTIN 300 MG CAP PO SCH ×2 (08:14→20:55)
[2021-01-28] MEDS: FLUTICASONE FUROATE 100MCG 14 PUFFS/INHALER INH SCH (08:14)
[2021-01-28] MEDS: allopurinoL 300 MG TAB PO SCH (08:14)
[2021-01-28] MEDS: valACYclovir HCL 500 MG TABLET PO SCH ×2 (08:15→20:55)
[2021-01-28] MEDS: PANTOprazole 40 MG in SYRINGE 0 ML IV SCH ×2 (08:15→20:55)
[2021-01-28] MEDS: UMECLIDINIUM/VILANTEROL 62.5/25MCG 7 PUFFS/INHALER INH SCH (08:15)
[2021-01-28] MEDS: INSULIN ASPART 100 UNITS/ML 3 ML PEN SC SCH ×4 (08:18→21:49)
--- NOTE | 2021-01-28 09:46 | Progress Notes ---
MEDICAL ONCOLOGY PROGRESS NOTE DATE: 01/28/2021. DIAGNOSES: 1. Diffuse large B-cell lymphoma, stage IV. 2. Methicillin-sensitive Staphylococcus aureus bacteremia. 3. Disseminated intravascular coagulation. 4. Status post R-CHOP chemotherapy cycle 1. 5. Pancytopenia attributable to disease progression and chemotherapeutic effect. SUBJECTIVE: Tyrell was seen at bedside. He remains in good spirits. Would like to go home at some point. I was very pleased with his peripheral blood counts this morning. His WBCs and platelets are actually showing signs of recovery. He received 2 units of packed RBCs yesterday. Asked nursing to reincorporate Neupogen 480 mcg subcu daily. He continues on prophylactic antibiotics, antivirals, and antifungals. OBJECTIVE: GENERAL: Very pleasant 70-year-old gentleman, awake, alert and appropriate in no acute distress. VITAL SIGNS: Temperature 37.9, pulse 97, respiratory rate 16, blood pressure 138/74. SKIN: Without rash or lesion. HEENT: No evidence of thrush. Buccal mucosa is moist, no erythema. LABORATORY DATA: WBC is 330, hemoglobin 7.9, platelet count 18,000. Sodium 135, potassium 3.4, chloride 105, carbon dioxide 22, BUN 8, creatinine 0.62. LDH is dramatically improved from 1076 on January 15, 2021 to 207 on 01/27/2021. IMPRESSION: 1. Diffuse large B-cell lymphoma, stage IV. 2. Status post R-CHOP chemotherapy cycle #1. 3. Pancytopenia attributable to disease progression and chemotherapeutic effect. 4. Methicillin-sensitive Staphylococcus aureus bacteremia. 5. Disseminated intravascular coagulation. PLAN: Tyrell now enters hospital date 12 roughly a week removed from initial chemotherapy. He remains on transfusional support at least in regard to packed RBCs. He received 2 units yesterday. I am cautiously optimistic. Tyrell seems to be turning the corner. His WBCs and platelets are spontaneously showing signs of recovery. Tyrell still reports intermittent low-grade fevers, but thus far cultures remain negative. He continues to tolerate normal diet. Again, Tyrell at this point, unless a new medical problem ensues, could go home in the next 24 hours with plans to repeat labs q. 48 hours that include CBC, CMP, and LDH. He is to remain on prophylactic Levaquin or ciprofloxacin, Diflucan, and acyclovir postdischarge. I will ensure he is seen in followup and perhaps consider moving on to cycle 2 when adequate hematopoietic recovery occurs.. Job ID: [id number] [facility]CHIATRIC CENTERJaison
[2021-01-28] MEDS: FILGRASTIM 480 MCG/1.6 ML VIAL SC SCH (10:03)
[2021-01-28] MEDS ORDERED: SODIUM CHLORIDE 0.9% 250 ML IV PRN (14:24)
--- NOTE | 2021-01-28 17:29 | XRay Report ---
XR chest 1V portable CLINICAL HISTORY: COUGH COMPARISON STUDY: January 15, 2021 FINDINGS: No pneumothorax. Interval development of small to moderate left pleural effusion. Interval development of mixed reticular and airspace opacities at bilateral bases, most prominent on the left and within left retrocardiac region which might represent pneumonia. Cardiomediastinal silhouette is within normal limits in size. No significant pulmonary vascular congestion.. Aorta is tortuous and calcified. Osseous structures: Mild osteopenia. Fracture deformity of the left posterior lateral rib cage are a gain seen. Redemonstration of orthopedic hardware within thoracolumbar region. IMPRESSION: 1. Interval development of small to moderate left pleural effusion and possible cysts at bilateral l ower lungs which might represent pneumonia. ACT 112: Positive. There are findings on this exam that require communication between the performing entity and the patient following Patient Test Result Information Act ([place] Act 112) guidelines. The above report was generated using voice recognition software. It may contain grammatical, syntax o r spelling errors. Electronically signed by: Kala Edwards DO 01/28/2021 5:28 PM
[2021-01-28] MEDS: TAMSULOSIN HCL 0.4 MG CAP PO SCH (20:54)
[2021-01-28 21:52] LABS: Blood Urine Trace-intact (Negative)
[2021-01-28 21:54] LABS: RBC Urine Automated 0-4 /hpf (0-4)
--- NOTE | 2021-01-28 22:54 | Hospitalist Progress Note ---
Date of Service January 28, 2021 Assessment & Plan (1) B-cell lymphoma: Diagnosed with high-grade diffuse large B-cell lymphoma involving his bone marrow predominantly by Dr. Nicole via bone marrow biopsy on 01/04/2021. - Oncology following in the hospital - Received R-CHOP -> Rituximab on 01/16, then Adriamycin, vincristine, and cyclophosphamide on 01/17. - Neulasta given on 01/18. Started Neupogen x [address] Nicole. - Monitor counts and transfuse as needed -> Transfusing 2 units platelets and 2 units PRBCs today (01/24) for drop in hgb and low plts. - Continue allopurinol for tumor lysis syndrome - Monitor uric acid, phosphate -> Stable today. - Started fluconazole for fungal ppx per Dr. Nicole. Patient has been intermittently feverish during past 48 h Ordered panculture. will continue with acyclovir, diflucan and antibiotics. Received 2 units of PRBC on 01/27 Will transfuse 1 PRBC after confirming with Dr. Nicole. goal is to keep hemoglobin above 9. (2) Urinary retention: Symptoms of urinary retention on 01/23 & 01/24, but improve when he stretches out to urinate. - Given low platelets and neutropenia, want to avoid AVOID Fu. - Start tamsulosin HS - Bladder scan PRN (3) MSSA bacteremia: Blood cultures on 01/15 were 1 out of 2 initial sets positive for MSSA and 2 coag(-) spc. - Repeat blood cultures from 01/17 are negative so far. - Ordered ID consult: - Obtained echo on 01/21 -> No vegetations seen. - Continue Zosyn x 2 weeks if no further cultures positive. Needs to be non- neutropenic prior to switching cefazolin. - Re-culture with any fever. (4) GIB (gastrointestinal bleeding): Several days of dark stools and then had tari bright red blood per rectum on day of admission (01/15). - Acute blood loss anemia now complicated by poor bone marrow response from chemotherapy. - Transfuse for hgb > 8 per oncology recommendation. Discussed with oncology on 01/25. - Seen by GI here; he was offered an EGD here and declined. Given lack of transfer at this time, reached out to them on 01/24. NO EGD until plts stable >50k. (5) Edema: Noted on 01/19 with some shortness of breath. Likely iatrogenic from IV fluids. - Hold further IVF. - Given Lasix IV x 1 on 01/19 with good diuresis. - No shortness of breath or edema so far on 01/24 despite blood products. Will monitor. (6) DIC (disseminated intravascular coagulation): Low level DIC from his lymphoma. Initially thought to be ITP. Had been started on steroids by oncology as outpatient prior to presentation. Now I believe ITP considered unlikely. - Received 5 units of cryoprecipitate from 01/15 - 01/18. - Will monitor fibrinogen; replete for any <100. On 01/24, up to 294. Will stop checking. (7) Hypertension: Initially needed vasopressors. Today BP is still overall within good limits. - Hold antihypertensives at this time (8) COPD with emphysema: No shortness of breath today. - Continue home BHAVNA, LABA, LAMA (9) AAA (abdominal aortic aneurysm): Done in 2013. Routine CTA screening done at [facility]- 4.0x2.6 with no evidence of endoleak and widely patent repair (). - No inpatient needs (10) DVT prophylaxis: SCDs - Holding heparin while thrombocytopenic < 50k platelets with bleeding Admission and Anticipated Discharge Date Admission Date: January 15, 2021 Subjective 70 yo male reports feeling well, however he has developed a productive cough. He denies any SOB, nausea, vomiting. Review of Systems Review of Systems: All systems reviewed & are unremarkable except as noted in HPI & below Physical Exam Physical Exam: General: awake, alert, no apparent distress Head: Normocephalic, atraumatic ENT: PERRL, EOMI, no pharyngeal exudate Neuro: AAO x 3, speech clear and appropriate, strength intact bilaterally 5/5, sensation intact and equal all extremities and dermatomes, no pronator drift Chest: equal rise and fall of the chest, no accessory muscle use, no heaves or thrills, Clear to auscultation, on room air, Cardiac: Regular rate and rhythm, telemetry reviewed, skin warm dry, cap refill <3 seconds, peripheral pulses +2 no JVD, no murmur, no edema GI: NABS x 4 quadrants, soft, nontender to palpation, no rebound, guarding or tenderness : Spontaneously voiding, no pain, no CVA tenderness, Extremities: petechiae to lower legs and trunk, no peripheral edema or erythema, calfs nontender to palpation Psych: Normal mood and affect Skin:as above Results & Data Results & Data ([facility]) Vital Signs (Past 12 Hours) Vital Signs Temp Pulse Pulse Resp BP BP Pulse Ox 01/28/21 22:26 37.2 C 01/28/21 20:52 37.8 C H 01/28/21 20:07 101 H 12 96 01/28/21 19:35 38.5 C H 101 H 20 138/67 95 01/28/21 19:25 37.8 C H 105 H 20 132/64 95 01/28/21 18:25 37.3 C 101 H 20 137/77 98 01/28/21 17:25 37.5 C 95 H 20 146/71 H 92 01/28/21 16:55 36.9 C 93 H 20 125/71 96 01/28/21 16:25 37.5 C 93 H 20 125/66 94 01/28/21 16:10 37.4 C 98 H 18 143/71 H 96 01/28/21 15:48 36.7 C 98 H 18 145/72 H 96 01/28/21 14:50 37.3 C 102 H 20 116/69 95 01/28/21 12:00 36.9 C PG Care Time/CCT Total # of Minutes Spent Total Time Spent with Patient: Total time spent is greater than 50% in coordination of care (as documented) at patient's floor/unit and/or counseling patient: Coding Level of Care Code 80422 Subseq Hosp Care Lvl 3 Diagnoses B-cell lymphoma C85.10 Urinary retention R33.9 MSSA bacteremia R78.81; B95.61 GIB (gastrointestinal bleeding) K92.1 GI bleed type/associated pathology: melena Edema R60.9 DIC (disseminated intravascular coagulation) D65 Hypertension I10 Hypertension type: unspecified COPD with emphysema J43.9 Emphysema type: unspecified AAA (abdominal aortic aneurysm) I71.4 DVT prophylaxis Z29.9 Time Spent (min) 35 (1) GIB (gastrointestinal bleeding) GI bleed type/associated pathology: melena Qualified Code(s): K92.1 - Melena (2) COPD with emphysema Emphysema type: unspecified Qualified Code(s): J43.9 - Emphysema, unspecified (3) Hypertension Hypertension type: unspecified Qualified Code(s): I10 - Essential (primary) hypertension
[2021-01-29] MEDS: ACETAMINOPHEN 325 MG TAB PO PRN ×3 (05:05→22:13)
[2021-01-29] MEDS: PIPERACILLIN/TAZOBACTAM 4.5 GM in DEXTROSE 5% 100 ML IV SCH ×3 (05:38→21:55)
[2021-01-29] MEDS: IPRATROPIUM BROMIDE HFA INHALER INH SCH ×2 (06:59→19:44)
[2021-01-29] MEDS: ALBUTEROL HFA 8 GM INHALER INH SCH ×2 (06:59→19:45)
[2021-01-29 08:22] LABS: Mean Corpuscular Hgb Conc 34.1 g/dL (32-36)
[2021-01-29 08:42] LABS: Calcium 8.3 mg/dl (8.5-10.1); Creatinine Clr Calc Pharmacy 121.2 ml/min; Est GFR (African American) 110.8 ml/min; Est GFR (Non-African American) 95.6 ml/min
[2021-01-29 08:53] LABS: Hematocrit (blood only) 26.4 % (42-52); Mean Corpuscular Hemoglobin 29.4 pg (25-34); Mean Corpuscular Volume 86.3 fL (80-100); Nucleated RBC # (auto) 0.04 K/uL (0-0); Nucleated RBC % (auto) 3.9 %; RDW Coefficient of Variation 14.8 % (11.5-14.5); RDW Standard Deviation 46.1 fL (36.4-46.3); Red Blood Count 3.06 M/uL (4.7-6.1); White Blood Count 0.96 K/uL (4.8-10.8)
[2021-01-29 08:55] LABS: Eosinophils # (auto) 0.02 K/uL (0-0.5); Eosinophils % (auto) 2.1 %; Immature Granulocytes # (auto) 0.01 K/uL (0.00-0.02); Lymphocytes # (auto) 0.11 K/uL (1.2-3.4); Lymphocytes % (auto) 11.5 %; Monocytes % (auto) 10.4 %; Neutrophils # (auto) 0.72 K/uL (1.4-6.5); Ovalocytes 1+
[2021-01-29] MEDS: PANTOprazole 40 MG in SYRINGE 0 ML IV SCH ×2 (09:13→21:55)
[2021-01-29] MEDS: FLUCONAZOLE 100 MG TAB PO SCH (09:18)
[2021-01-29] MEDS: allopurinoL 300 MG TAB PO SCH (09:18)
[2021-01-29] MEDS: FILGRASTIM 480 MCG/1.6 ML VIAL SC SCH (09:18)
[2021-01-29] MEDS: FLUTICASONE FUROATE 100MCG 14 PUFFS/INHALER INH SCH (09:18)
[2021-01-29] MEDS: UMECLIDINIUM/VILANTEROL 62.5/25MCG 7 PUFFS/INHALER INH SCH (09:19)
[2021-01-29] MEDS: GABAPENTIN 300 MG CAP PO SCH ×2 (09:19→21:55)
[2021-01-29] MEDS: valACYclovir HCL 500 MG TABLET PO SCH ×2 (09:19→21:55)
[2021-01-29] MEDS: INSULIN ASPART 100 UNITS/ML 3 ML PEN SC SCH ×4 (09:24→20:05)
[2021-01-29 10:32] LABS: Platelet Count 18 K/uL (130-400)
[2021-01-29 16:00] LABS: Potassium 4.5 mmol/L (3.5-5.1)
--- NOTE | 2021-01-29 18:03 | XRay Report ---
XR chest 2V PA/lateral HISTORY: COUGH/ INFILTRATE COMPARISON: Chest 01/28/2021. FINDINGS: No pneumothorax. There are small bilateral pleural effusions and patchy bibasilar densities . The heart is normal in size. Thoracolumbar posterior fusion hardware is again noted. No evidence fo r pulmonary edema. Old, healed left-sided rib fractures are again noted. Emphysema. IMPRESSION: Small bilateral pleural effusions with patchy bibasilar densities. This may represent a pneumonia. Th is is similar to the prior study. ACT 112: Negative or not required by law. Electronically signed by: Wenceslao Duncan M.D. 01/29/2021 6:02 PM
[2021-01-29] MEDS: TAMSULOSIN HCL 0.4 MG CAP PO SCH (21:55)
--- NOTE | 2021-01-29 23:42 | Hospitalist Progress Note ---
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 Nicole via bone marrow biopsy on 01/04/2021. - Oncology following in the hospital - Received R-CHOP -> Rituximab on 01/16, then Adriamycin, vincristine, and cyclophosphamide on 01/17. - Neulasta given on 01/18. Started Neupogen x [address] Nicole. - Monitor counts and transfuse as needed -> Transfusing 2 units platelets and 2 units PRBCs today (01/24) for drop in hgb and low plts. - Continue allopurinol for tumor lysis syndrome - Monitor uric acid, phosphate -> Stable today. - Started fluconazole for fungal ppx per Dr. Nicole. Patient has been intermittently feverish during past 72 h Ordered panculture. will continue with acyclovir, diflucan and zosyn. Received 2 units of PRBC on 01/27 and 1 Unit on 01/28 Hemoglobin is now 9 on 01/29 goal is to keep hemoglobin above or near 9 at discharge. can discharge patient on acyclovir, diflucan and FQ orally, hopefully tomorrow. (2) Urinary retention: Symptoms of urinary retention on 01/23 & 01/24, but improve when he stretches out to urinate. - Given low platelets and neutropenia, want to avoid AVOID Fu. - Start tamsulosin HS - Bladder scan PRN (3) MSSA bacteremia: Blood cultures on 01/15 were 1 out of 2 initial sets positive for MSSA and 2 coag(-) spc. - Repeat blood cultures from 01/17 are negative so far. - Ordered ID consult: - Obtained echo on 01/21 -> No vegetations seen. - Continue Zosyn x 2 weeks if no further cultures positive. Needs to be non- neutropenic prior to switching cefazolin. - Re-culture with any fever. (4) GIB (gastrointestinal bleeding): Several days of dark stools and then had tari bright red blood per rectum on day of admission (01/15). - Acute blood loss anemia now complicated by poor bone marrow response from chemotherapy. - Transfuse for hgb > 8 per oncology recommendation. Discussed with oncology on 01/25. - Seen by GI here; he was offered an EGD here and declined. Given lack of transfer at this time, reached out to them on 01/24. NO EGD until plts stable >50k. (5) Edema: Noted on 01/19 with some shortness of breath. Likely iatrogenic from IV fluids. - Hold further IVF. - Given Lasix IV x 1 on 01/19 with good diuresis. - No shortness of breath or edema so far on 01/24 despite blood products. Will monitor. (6) DIC (disseminated intravascular coagulation): Low level DIC from his lymphoma. Initially thought to be ITP. Had been started on steroids by oncology as outpatient prior to presentation. Now I believe ITP considered unlikely. - Received 5 units of cryoprecipitate from 01/15 - 01/18. - Will monitor fibrinogen; replete for any <100. On 01/24, up to 294. Will stop checking. (7) Hypertension: Initially needed vasopressors. Today BP is still overall within good limits. - Hold antihypertensives at this time (8) COPD with emphysema: No shortness of breath today. - Continue home BHAVNA, LABA, LAMA (9) AAA (abdominal aortic aneurysm): Done in 2013. Routine CTA screening done at [facility]- 4.0x2.6 with no evidence of endoleak and widely patent repair (). - No inpatient needs (10) DVT prophylaxis: SCDs - Holding heparin while thrombocytopenic < 50k platelets with bleeding Admission and Anticipated Discharge Date Admission Date: January 15, 2021 Subjective Despite having fevers overnight, patient reports feeling well and better today. He continues to have productive cough, but feels like he is breathing better and overall is feeling very much back to baseline. His cough is the only main complaint (as well as the evening fever). Patient did not feel comfortable being discharged today. Review of Systems Review of Systems: All systems reviewed & are unremarkable except as noted in HPI & below Physical Exam Physical Exam: General: awake, alert, no apparent distress Head: Normocephalic, atraumatic ENT: PERRL, EOMI, no pharyngeal exudate Neuro: AAO x 3, speech clear and appropriate, strength intact bilaterally 5/5, sensation intact and equal all extremities and dermatomes, no pronator drift Chest: equal rise and fall of the chest, no accessory muscle use, no heaves or thrills, Clear to auscultation, on room air, Cardiac: Regular rate and rhythm, telemetry reviewed, skin warm dry, cap refill <3 seconds, peripheral pulses +2 no JVD, no murmur, no edema GI: NABS x 4 quadrants, soft, nontender to palpation, no rebound, guarding or tenderness : Spontaneously voiding, no pain, no CVA tenderness, Extremities: petechiae to lower legs and trunk, no peripheral edema or erythema, calfs nontender to palpation Psych: Normal mood and affect Skin:as above Results & Data Results & Data ([facility]) Vital Signs (Past 12 Hours) Vital Signs Temp Pulse Resp BP Pulse Ox 01/29/21 23:29 38 C H 96 H 18 105/61 92 01/29/21 19:46 98 H 14 97 01/29/21 19:42 37.1 C 94 H 20 127/78 96 01/29/21 16:30 36.9 C 01/29/21 15:15 38.2 C H 100 H 20 127/70 95 PG Care Time/CCT Total # of Minutes Spent Total Time Spent with Patient: Total time spent is greater than 50% in coordination of care (as documented) at patient's floor/unit and/or counseling patient: Coding Level of Care Code 84414 Subseq Hosp Care Lvl 2 Diagnoses B-cell lymphoma C85.10 Urinary retention R33.9 MSSA bacteremia R78.81; B95.61 GIB (gastrointestinal bleeding) K92.1 GI bleed type/associated pathology: melena Edema R60.9 DIC (disseminated intravascular coagulation) D65 Hypertension I10 Hypertension type: unspecified COPD with emphysema J43.9 Emphysema type: unspecified AAA (abdominal aortic aneurysm) I71.4 DVT prophylaxis Z29.9 Time Spent (min) 25 (1) GIB (gastrointestinal bleeding) GI bleed type/associated pathology: melena Qualified Code(s): K92.1 - Melena (2) COPD with emphysema Emphysema type: unspecified Qualified Code(s): J43.9 - Emphysema, unspecified (3) Hypertension Hypertension type: unspecified Qualified Code(s): I10 - Essential (primary) hypertension
[2021-01-30] MEDS: ACETAMINOPHEN 325 MG TAB PO PRN (04:35)
[2021-01-30] MEDS: PIPERACILLIN/TAZOBACTAM 4.5 GM in DEXTROSE 5% 100 ML IV SCH (05:43)
[2021-01-30] MEDS: IPRATROPIUM BROMIDE HFA INHALER INH SCH (07:15)
[2021-01-30] MEDS: ALBUTEROL HFA 8 GM INHALER INH SCH (07:16)
[2021-01-30 08:03] LABS: Hematocrit (blood only) 24.6 % (42-52); Hemoglobin 8.3 g/dL (14.0-18.0); Mean Corpuscular Hemoglobin 29.4 pg (25-34); Mean Corpuscular Hgb Conc 33.7 g/dL (32-36); Mean Corpuscular Volume 87.2 fL (80-100); Nucleated RBC # (auto) 0.02 K/uL (0-0); Nucleated RBC % (auto) 1.4 %; RDW Coefficient of Variation 14.6 % (11.5-14.5); Red Blood Count 2.82 M/uL (4.7-6.1); White Blood Count 1.67 K/uL (4.8-10.8)
[2021-01-30 08:16] LABS: Mean Platelet Volume 9.6 fL (7.4-10.4); Platelet Count 37 K/uL (130-400)
[2021-01-30 08:29] LABS: Dohle Bodies 1+; Toxic Granulation 1+
[2021-01-30] MEDS: PANTOprazole 40 MG in SYRINGE 0 ML IV SCH (08:34)
[2021-01-30] MEDS: valACYclovir HCL 500 MG TABLET PO SCH (08:34)
[2021-01-30] MEDS: GABAPENTIN 300 MG CAP PO SCH (08:35)
[2021-01-30 08:36] LABS: ALC (manual) 0.16 K/uL (1.2-3.4); ANC (manual) 1.48 K/uL (1.4-6.5); BUN Creatinine Ratio 7.6 (10-20); Calcium 8.7 mg/dl (8.5-10.1); Creatinine Clr Calc Pharmacy 126.6 ml/min; Dohle Bodies 1+; Est GFR (African American) 112.8 ml/min; Est GFR (Non-African American) 97.4 ml/min; Lymphocytes # (manual) 0.16 K/uL (1.2-3.4); Lymphocytes % (manual) 9.6 %; Monocytes # (manual) 0.03 K/uL (0.11-0.59); Monocytes % (manual) 1.7 %; Neutrophils # (manual) 1.48 K/uL (1.4-6.5); Neutrophils % (manual) 88.7 %; Toxic Granulation 1+
[2021-01-30] MEDS: FLUCONAZOLE 100 MG TAB PO SCH (08:36)
[2021-01-30] MEDS: allopurinoL 300 MG TAB PO SCH (08:36)
[2021-01-30] MEDS: INSULIN ASPART 100 UNITS/ML 3 ML PEN SC SCH ×2 (08:38→12:07)
[2021-01-30] MEDS: FILGRASTIM 480 MCG/1.6 ML VIAL SC SCH (08:43)
[2021-01-30 10:03] LABS: Potassium 3.4 mmol/L (3.5-5.1)
[2021-01-30] MEDS: UMECLIDINIUM/VILANTEROL 62.5/25MCG 7 PUFFS/INHALER INH SCH (11:10)
[2021-01-30] MEDS: FLUTICASONE FUROATE 100MCG 14 PUFFS/INHALER INH SCH (11:10)
--- NOTE | 2021-01-30 12:53 | Discharge Summary ---
Date of Service January 30, 2021 Admission HPI Per Admitting Provider 70 YOM with past medical history of COPD emphysema, obesity, AAA with [facility]AR in 2014(see note 10/09/20), lumbar stenosis, HTN, prostate cancer, right shoulder repair and night time oxygen. Patient is in the workup for his staging and diagnosis of lymphoma. He had a bone marrow biopsy done 01/04/21 with shows high grade B-cell lymphoma. He had a blood smear at that time(see Below). He had an ECHO with EF 60-65% grade I diastolic dysfunction nomral Mitral and Aortic valves. The patient has been getting worked up for his diagnosis as above he had low platelet count and anemic- he was started on steroids as an outpatient (unable to view hematology oncology records) . Today he comes into the emergency room for increase in fatigue, dyspnea, dizziness and large bloody BM this morning, he reports also experiencing dark bowel movements for the past 2 weeks. He was seen by the EMD who notified his Oncologist, who wished for him to be admitted to the ICU. ICU Dr. Matias has been notified and is expecting the patient. CT scan of the abdomen, head completed. See below. The patient received 1 six pack, of platelet, and 1 unit of PRBC, started on Levophed via a right IJ TLC. He recieved DDAVP, Protonix, and steroids. Transferred to the ICU. The peripheral blood shows a normocytic anemia without significant anisopoikilocytosis. Occasional nucleated red cells are present. There is no significant increase in schistocytes or spherocytes. There is no evidence of rouleaux, RBC agglutination, or basophilic stippling. The WBC is increased secondary to an absolute lymphocytosis, monocytosis, eosinophilia, and large circulating "blastic" appearing cells. The granulocytes are left-shifted and show rare atypical morphology. A few definitive circulating blasts are seen. The monocytes are morphologically mature. The lymphocytes show atypical morphology including some basophilic cytoplasm and irregular nuclear contours. A large population of "blastic" mononuclear cells are seen (23%) with basophilic cytoplasm, high N/C ratios, smooth to mildly mature chromatin, and occasional nucleoli. Rare cytoplasmic vacuoles are present. The platelets are significantly decreased. No overtly dysplastic or giant forms are identified. There is no significant platelet clumping or satellitosis. Principal Diagnosis B cell lymphoma with neutropenia Discharge Exam Constitutional WD/WN, vitals as above Neck trachea midline, no thyromegaly Respiratory normal respiratory effort, lungs clear to auscultation Cardiovascular RRR, no murmur, no edema Gastrointestinal (Abdomen) normal bowel sounds, soft, nontender, no hepatosplenomegaly Musculoskeletal no cyanosis or clubbing, extremities motor strength 5/5 Skin no rashes, warm and dry Neurologic patellar DTR's 2+ bilat, sensation intact and PERRL, EOMI, accommodation nl, no face palsy, no dysarthria Discharge Data Allergies Allergy/AdvReac Type Severity Reaction Status Date / Time amlodipine Allergy Unknown ANKLE Verified 01/15/21 14:48 SWELLING Beta-Blockers Allergy Unknown Unknown Verified 01/15/21 14:48 (Beta-Adrenergic Bloc Consultations 01/15/21 13:58 ED Decision to Admit Stat 01/15/21 14:27 Consult Senior Information Security Engineer Routine 01/15/21 16:20 Consult Gastroenterology Routine 01/15/21 16:22 Consult Gastroenterology Routine 01/15/21 17:27 Consult Hematology Routine 01/19/21 13:38 Consult Infectious Diseases Routine Ordered Studies 01/15/21 11:52 CT angio abdomen pelvis w con Stat 01/15/21 13:34 CT head/brain wo con Stat Hospital Course (1) B-cell lymphoma: Diagnosed with high-grade diffuse large B-cell lymphoma involving his bone marrow predominantly by Dr. Nicole via bone marrow biopsy on 01/04/2021. - Oncology following in the hospital - Received R-CHOP -> Rituximab on 01/16, then Adriamycin, vincristine, and cyclophosphamide on 01/17. - Neulasta given on 01/18. Started Neupogen x [address] Nicole. - Monitor counts and transfuse as needed -> Transfused 2 units platelets and 2 units PRBCs today (01/24) for drop in hgb and low plts. - Continue allopurinol for tumor lysis syndrome - Monitor uric acid, phosphate -> Stable today. - Started fluconazole for fungal ppx per Dr. Nicole. will continue with acyclovir, diflucan and ciprofloxacin allopurinol for prevention of TLS, stay well hydrated Received 2 units of PRBC on 01/27 and 1 Unit on 01/28 Hemoglobin is now stable goal is to keep hemoglobin above or near 9 at discharge. check labs in 48 hours, follow up closely with Dr. Nicole (2) Urinary retention: Symptoms of urinary retention on 01/23 & 01/24, but improve when he stretches out to urinate. - Given low platelets and neutropenia, want to avoid AVOID Fu. - Start tamsulosin HS, continue - Bladder scan PRN (3) MSSA bacteremia: Blood cultures on 01/15 were 1 out of 2 initial sets positive for MSSA and 2 coag(-) spc. - Repeat blood cultures from 01/17 are negative so far. - Ordered ID consult: - Obtained echo on 01/21 -> No vegetations seen. - Completed course of Zosyn, will now use ciprofloxacin as prophylaxis therapy (4) GIB (gastrointestinal bleeding): Several days of dark stools and then had tari bright red blood per rectum on day of admission (01/15). - Acute blood loss anemia now complicated by poor bone marrow response from chemotherapy. - Transfuse for hgb > 8 per oncology recommendation. Discussed with oncology on 01/25. - Seen by GI here; he was offered an EGD here and declined. no active bleeding, Hemoglobin relatively stable after several transfusions, will likely drop again but should be able to manage through cancer center check CBC 48 hours after discharge (5) Edema: Noted on 01/19 with some shortness of breath. Likely iatrogenic from IV fluids. - Hold further IVF. - Given Lasix IV x 1 on 01/19 with good diuresis. - No shortness of breath or edema so far on 01/24 despite blood products. Will monitor. (6) DIC (disseminated intravascular coagulation): Low level DIC from his lymphoma. Initially thought to be ITP. Had been started on steroids by oncology as outpatient prior to presentation - Received 5 units of cryoprecipitate from 01/15 - 01/18. - Will monitor fibrinogen; replete for any <100. On 01/24, up to 294. Will stop checking. (7) Hypertension: Initially needed vasopressors. Today BP is still overall within good limits. - Hold antihypertensives at this time (8) COPD with emphysema: No shortness of breath today. - Continue home BHAVNA, LABA, LAMA (9) AAA (abdominal aortic aneurysm): Done in 2013. Routine CTA screening done at [facility]- 4.0x2.6 with no evidence of endoleak and widely patent repair (). - No inpatient needs Total Time Total Time Spent Total Time Spent (In Minutes): 33 Total Time Includes: Examination of the Patient, Discharge Planning and Medication Reconciliation Discharge Plan Discharge Items Patient Disposition: Home - Home Health Services Reason For Visit: ANEMIA,THROMBOCYTOPENIA Discharge Diagnosis: Pancytopenia, neutropenia MSSA bacteremia, treatment completed Condition on Discharge: Good Goals: follow up closely with hematology continue on Acyclovir, Diflucan, Ciprofloxacin Activity: Resume your previous activity Non-emergency contact: Primary Care Provider Call non-emergency contact if: you have any medication questions, your symptoms worsen and you have a fever Follow-up/Referrals: Froilan Hayes MD [Primary Care Provider] - 02/07/21 2:00 pm () Alfredo Nicole DO [Physician] - 02/09/21 10:10 am () Diet: Regular Addtl Attending Provider Instructions: Medications: please note several new medications for prophylaxis - ACYCLOVIR, DIFLUCAN AND CIPROFLOXACIN: continue to take these as prescribed unless told otherwise by physician plan to follow up with lab work in 48 hours with results to Dr. Corey Nicole's office will contact you about a follow up to discuss next round of chemotherapy Pending Studies at Discharge: No Stand-Alone Forms: My [employer], Smoking Cessation Medications and DC Order Prescriptions: New fluconazole 100 mg Tablet 400 mg PO QAM 30 Days Qty: 120 RF: 0 valacyclovir 500 mg Tablet 500 mg PO BID 30 Days Qty: 60 RF: 0 tamsulosin 0.4 mg Capsule 0.4 mg PO HS 30 Days Qty: 30 RF: 2 gabapentin 300 mg Capsule 300 mg PO BID 30 Days Qty: 60 RF: 2 allopurinol 300 mg Tablet 300 mg PO DAILY 30 Days Qty: 30 RF: 0 ciprofloxacin HCl [Cipro] 500 mg tablet 500 mg PO BID Qty: 60 RF: 0 Continued (DME) Oxygen Home Liters Per Minute See Rx Instructions .ROUTE .MEDSUPPLY Qty: 1 RF: 0 (DME) Flutter Valve Device See Dose Instructions .ROUTE .MEDSUPPLY Qty: 1 RF: 0 magnesium 250 mg tablet 250 mg PO QAM RF: 0 multivitamin [Daily Multi-Vitamin] tablet 1 tab PO QAM RF: 0 omeprazole 20 mg capsule,delayed release(DR/EC) 20 mg PO QAM RF: 0 (DME) Oxygen Home Liters Per Minute See Rx Instructions .ROUTE .MEDSUPPLY Qty: 1 RF: 0 ipratropium-albuterol 0.5 mg-3 mg(2.5 mg base)/3 mL solution for nebulization 3 ml inhalation Q8H PRN (Reason: shortness of breath or wheezing) Qty: 180 RF: 3 albuterol sulfate [ProAir HFA] 90 mcg/actuation HFA aerosol inhaler 2 puff INH Q4H PRN (Reason: shortness of breath or wheezing) Qty: 18 RF: 3 Trelegy Ellipta 100-62.5-25 mcg blister with device 1 inh INH QAM Qty: 60 RF: 3 Discontinued telmisartan-hydrochlorothiazid 40-12.5 mg tablet 1 tab PO QAM Qty: 90 RF: 3 gabapentin 300 mg capsule 300 mg PO TID Qty: 270 RF: 3 atorvastatin 20 mg tablet 20 mg PO DAILY Qty: 90 RF: 3 aspirin 81 mg tablet,delayed release (DR/EC) 81 mg PO QAM RF: 0 omega-3 fatty acids [Fish Oil Concentrate] 1,000 mg capsule 1,000 mg PO QAM RF: 0 oxycodone 5 mg tablet 5 mg PO Q6 PRN (Reason: Pain) RF: 0 dexamethasone 4 mg tablet 40 mg PO DAILY RF: 0 Discharge Orders: Discharge Order (Routine); Ordered 01/30/21 Ordered By: Steve Cabrera/Other Patient Handouts: A1C Admission Data Admit Date/Time: 01/15/21 14:27 Attending Provider: Steve Graves Admit Provider: Olaf Wilkinson Primary Care Provider: Froilan Hayes Other Providers: Lanre Pro ; [facility] ; Olaf Wilkinson ; Stanford Healy ; Oleksandr Carmona ; Melly Lerner ; Maria De Jesus Quesada ; Alfredo Nicole V. ; Irving Price ; Rosmery Bull ; Andres Bennett I. ; Antonio Hirsch II ; Crista Pizano ; Boaz Vail Other Interventions: Discharge Summary Assessment (RN) Last Done: 01/30/21 13:24 Coding Level of Care Code D/C Day Management >30 mins Diagnoses B-cell lymphoma C85.10 Urinary retention R33.9 MSSA bacteremia R78.81; B95.61 GIB (gastrointestinal bleeding) K92.1 GI bleed type/associated pathology: melena Edema R60.9 DIC (disseminated intravascular coagulation) D65 Hypertension I10 Hypertension type: unspecified COPD with emphysema J43.9 Emphysema type: unspecified AAA (abdominal aortic aneurysm) I71.4
== END 2021-01-30 14:35 | disposition home health service (06) | DRG 840 ==
LOC: ED 11:27 → 1E 14:27 → SUATTDRO 14:27 → 1E 16:09 → 2W 01-18 12:07